=== PATIENT | male | born 1950 | race Caucasian/White ===

== ENCOUNTER → 2017-05-21 11:55 | Outpatient (CLI) | payer MEDICARE, OTHER, SELFPAY ==
[2017-05-21 13:21] LABS: Amphetamine Urine VISTA NEGATIVE (<1000 ng/mL); Barbiturate Urine VISTA NEGATIVE (< 200 ng/mL); Benzodiazepine Urine VISTA NEGATIVE (< 200 ng/mL); Cocaine Urine VISTA NEGATIVE (< 300 ng/mL); Ecstacy Urine VISTA NEGATIVE (< 500 ng/mL); Methadone Urine VISTA NEGATIVE (< 300 ng/mL); PCP Urine VISTA NEGATIVE (< 25 ng/mL); THC Urine VISTA NEGATIVE (< 50 ng/mL); Vista UDS pH Range 5
== END ==
PROVIDERS: Family Provider Family Medicine; PCP Family Medicine; Visit Provider Anesthesiology Pain Medicine
DX: F11.20 Opioid dependence, uncomplicated (principal)
CPT/HCPCS: 80307

== ENCOUNTER → 2017-06-13 06:53 | Outpatient (CLI) | payer MEDICARE, OTHER, SELFPAY ==
--- NOTE | 2017-06-13 11:54 | STRESSREP ---
Stress Test Report Pharmacologic myocardial perfusion stress test. 66-year-old man for preop cardiac evaluation. Medications aspirin prednisone rosuvastatin furosemide. Stress protocol: Resting EKG demonstrates normal sinus rhythm with a rate of 66 bpm normal intervals and noted resting blood pressure is 148/98 mmHg. 0.4 mg regadenoson was infused per usual protocol followed Intravenous saline flush injection. Continuous EKG monitoring was performed. The maximum heart rate attained was 90 bpm which was 58% of the maximum predicted heart rate the maximum workload attained was 1 metabolic equivalent. At rest there were no ST or T-wave changes noted suggest abnormal flow reserve at peak infusion no ST or T-wave changes were noted suggest abnormal flow reserve. The resting blood pressure was 148/98 final blood pressure was 142/84. Myocardial perfusion protocol. 14.1 mCi of technetium 99m sestamibi was injected at rest. 0.4 mg of regadenoson was infused per usual protocol. At peak infusion 44.7 mCi of technetium 99m sestamibi was injected. Stress images were obtained. Stress and rest images were reconstructed and compared in the short axis vertical long horizontal long axis. Gated images were also obtained. Perfusion SPECT analysis: Review of the stress images demonstrated normal cardiac silhouette size. The stress images demonstrate normal uptake of tracer noted in all areas of the myocardium the resting images similarly demonstrate normal uptake of tracer noted in all areas of the myocardium. No areas of reversibility are noted suggest ischemia no previous infarct is noted. Gated SPECT analysis: The gated ejection fraction is noted to be 83%. Conclusion: Normal pharmacologic myocardial perfusion stress test. Preserved ejection fraction.
== END ==
PROVIDERS: Family Provider Family Medicine; PCP Family Medicine; Visit Provider Internal Medicine Cardiovascular Disease
DX: Z01.810 Encounter for preprocedural cardiovascular examination (principal); I25.10 Atherosclerotic heart disease of native coronary artery without angina pectoris; I10 Essential (primary) hypertension
CPT/HCPCS: 78452; 93017; A9500; A4216; J2785

== ENCOUNTER → 2017-07-16 11:56 | Outpatient (CLI) | payer MEDICARE, OTHER, SELFPAY ==
[2017-07-16 12:58] LABS: Amphetamine Urine VISTA NEGATIVE (<1000 ng/mL); Barbiturate Urine VISTA NEGATIVE (< 200 ng/mL); Benzodiazepine Urine VISTA NEGATIVE (< 200 ng/mL); Cocaine Urine VISTA NEGATIVE (< 300 ng/mL); Ecstacy Urine VISTA NEGATIVE (< 500 ng/mL); Methadone Urine VISTA NEGATIVE (< 300 ng/mL); PCP Urine VISTA NEGATIVE (< 25 ng/mL); THC Urine VISTA NEGATIVE (< 50 ng/mL); Vista UDS pH Range 5
== END ==
PROVIDERS: Family Provider Family Medicine; PCP Family Medicine; Visit Provider Anesthesiology Pain Medicine
DX: F11.20 Opioid dependence, uncomplicated (principal)
CPT/HCPCS: 80307

== ENCOUNTER 2017-11-01 07:10 | Day surgery (SDC) | payer MEDICARE, OTHER, SELFPAY ==
[2017-11-01 07:24] VITALS: BP 116/67; PULSE 61; RESP 16; TEMP 36.6; O2SAT 95; BMI 32.1
[2017-11-01] MEDS: Oxymetazoline 0.05% 1 SPRAY SPRAY.BTL 15 SPRAY (09:20)
[2017-11-01] MEDS: Lidocaine 4% 50 ML Bottle (09:20)
--- NOTE | 2017-11-01 09:48 | OP.PCM_ITS ---
Problem List (1) Benign neoplasm of larynx Status: Acute (2) Other voice and resonance disorders Status: Chronic Report of Operation Date of Procedure: 11/01/17 Pre-Operative Diagnosis: Suspicious lesion of right vocal fold, hoarseness Post-Operative Diagnosis: Yeast infection of bilateral vocal fold Surgery/Procedure Performed:: Direct microlaryngoscopy, diagnostic (20050) Description of Surgical Findings:: Gasper is a 66-year-old male presents evaluation of 2 months of persistent hoarseness. Examination showed a white fungating mass arising the right true vocal fold and although yeast infection was considered given his use of inhaled steroids malignancy was also possibility and operative evaluation with possible biopsy was offered for definitive evaluation and he is eager to proceed. The risks, alternatives, potential benefits, and complications were discussed at length and any questions answered to the patient and/or caregiver's satisfaction. Witnessed informed consent was obtained in the office, and the patient and/or caregiver was agreeable to proceed. Procedure went as follows: The patient was identified in the preoperative holding and brought to the operating room he was placed under general anesthesia and it dated. When appropriate anesthesia was obtained, the head of bed was rotated and the patient prepped and draped in usual sterile fashion. A moistened gauze was then placed to protect the upper gums and the Dedo laryngoscope then introduced. Direct laryngoscopy was then carried out. The lateral posterior pharyngeal wall mucosa, tonsillar fossa, vallecula, piriforms , and epiglottis were noted to be normal in appearance. The true and false vocal folds were then brought into view where there is noted to be friable exudate along the bilateral vocal cords. The patient was then placed in suspension and the operative microscope brought into the field. Using a pledgets soaked in a 50-50 mixture of oxymetazoline and 4% topical lidocaine the true vocal folds were then topicalized. The friable areas were easily wiped away revealing a dry but otherwise normal-appearing mucosa underlying the area of suspected lesion. This was most consistent with yeast and given the absence of any soft tissue abnormality no biopsy was performed. The pledgets then removed and the patient taken out of suspension and returned to anesthesia where he was revived and extubated without complication having tolerated the procedure well. Type of Anesthesia:: General Anesthesiologist: Jorden Clarke Special Medications: none Specimen's removed: none Estimated Blood Loss (mL): 0 mL Fluids Replaced: 700 mL - Complications none - Admit VTE Documentation VTE Present on Admission: No VTE Mechan Device Prophylaxis: SCD's VTE Pharm Prophylaxis ordered?: No
--- NOTE | 2017-11-01 09:50 | DCINST_ITS ---
- Discharge Diagnoses Current Active Problems: Current Active and Chronic Problems Benign neoplasm of larynx (Acute) Other voice and resonance disorders (Chronic) You will use the following diet at home:: Regular Discharge Activity: Return to Normal Activity Call your doctor if you observe: Shortness of breath, Uncontrolled pain Allergies/Adverse Reactions: Allergies meropenem Allergy (Verified 10/29/17 14:01) Unknown tramadol Allergy (Verified 10/29/17 14:01) Unknown vancomycin Allergy (Verified 10/29/17 14:01) Unknown hydrocodone bitartrate [From Vicodin] Adverse Reaction (Verified 10/29/17 14:01) nightmares nightmares Medications to take at Discharge RX: predniSONE tablet 10 mg PO DAILY 08/10/16 RX: Metoprolol Tartrate [Lopressor (beta miky)] 12.5 mg PO BID 11/09/16 Budesonide/Formoterol Fumarate [Symbicort 160-4.5 Mcg Inhaler] 2 puff IH BID 07/23 Ferrous Sulfate [Iron] 65 mg PO DAILY 02/09/17 Omeprazole [Prilosec] 20 mg PO DAILY 02/09/17 RX: Leflunomide 20 mg PO DAILY 02/09/17 RX: Rosuvastatin Calcium 20 mg PO DAILY 02/09/17 Tiotropium [place] [Spiriva 18 MCG] 1 puff INHALATION DAILY 02/09/17 RX: Oxycodone HCl/Acetaminophen [Percocet 5-325] 1 tablet PO 4X/DAY 10/29/17 Primary Care Physician: Andres Petty MD [Primary Care Provider] - Test Results: Test results from this visit will be discussed in further detail at your follow- up appointment, if applicable. Please Follow Up With: Soy Jade MD When: 2 weeks
[2017-11-01 10:05] VITALS: BP 116/67; BP 139/71; PULSE 74; RESP 18; TEMP 36.6; O2SAT 98
[2017-11-01 10:15] VITALS: BP 116/67; BP 130/68; PULSE 68; RESP 16; O2SAT 97
[2017-11-01 10:30] VITALS: BP 116/67; BP 124/71; PULSE 66; RESP 16; O2SAT 95
[2017-11-01 10:35] VITALS: BP 116/67; BP 128/71; PULSE 62; RESP 16; TEMP 36.6; O2SAT 93
[2017-11-01 11:01] VITALS: BP 116/67
== END 2017-11-01 11:06 | disposition home or self-care (01) ==
LOC: SDC 07:10 → AC 07:11
PROVIDERS: Family Provider Family Medicine; PCP Family Medicine; Visit Provider Otolaryngology
PROC: 0CJS8ZZ Inspection of Larynx, Via Natural or Artificial Opening Endoscopic (ICD-10-PCS; CPT 31575; principal; 2017-11-01 08:45)
DX: B37.89 Other sites of candidiasis (principal); R49.0 Dysphonia; K21.9 Gastro-esophageal reflux disease without esophagitis; D64.9 Anemia, unspecified; E78.00 Pure hypercholesterolemia, unspecified; M06.9 Rheumatoid arthritis, unspecified; I12.9 Hypertensive chronic kidney disease with stage 1 through stage 4 chronic kidney disease, or unspecified chronic kidney disease; N18.3 Chronic kidney disease, stage 3 (moderate); Z95.5 Presence of coronary angioplasty implant and graft; J44.9 Chronic obstructive pulmonary disease, unspecified; J45.909 Unspecified asthma, uncomplicated; G47.30 Sleep apnea, unspecified; Z86.718 Personal history of other venous thrombosis and embolism; Z79.82 Long term (current) use of aspirin; Z79.899 Other long term (current) drug therapy; Z79.891 Long term (current) use of opiate analgesic; Z79.51 Long term (current) use of inhaled steroids; Z87.891 Personal history of nicotine dependence
CPT/HCPCS: 31526; J7120; J2405

== ENCOUNTER → 2018-02-24 08:16 | Outpatient (CLI) | payer MEDICARE, OTHER, SELFPAY ==
[2018-02-24 10:33] LABS: Absolute Lymphocyte Count 0.61 X10^3/ul (0.83-4.51); Absolute Neutrophil Count 4.1 X10^3/uL (2.0-7.7); Basophil# 0.01 X10^3/uL; Basophil% 0.2 % (0-1); Eosinophil# 0.02 X10^3/uL; Eosinophils% 0.3 % (0-5); Hematocrit 40.1 % (40-54); Hemoglobin 12.8 g/dl (13.0-16.5); Lymphocyte # 0.61 X10^3/ul (4.0); Lymphocyte % 10.6 % (19-41); Mean Corp Hgb Conc 31.9 g/gl (32-36); Mean Corpuscular Hgb 27.5 pg (27.0-32.0); Mean Corpuscular Volume 86.1 fL (80-94); Mean Platelet Vol. 9.5 fl (6.2-12.0); Monocyte# 0.97 X10^3/uL; Monocyte% 16.8 % (0-10); Neutrophil # 4.14 X10^3/uL (2.7-7.7); Neutrophil % 71.8 % (47-70); Platelet Count 261 K/mm3 (150-450); RBC Distribution Width CV 15.4 % (11.6-14.6); RBC Distribution Width SD 48.3 fl (35.1-43.9); Red Blood Count 4.66 M/mm3 (4.6-6.2); White Blood Count 5.8 K/mm3 (4.4-11.0)
[2018-02-24 10:34] LABS: POSITIVE COUNT NO; POSITIVE DIFFERENTIAL NO; POSITIVE MORPHOLOGY NO
[2018-02-24 11:09] LABS: ALB/GLOB Ratio 0.8 RATIO (0.9-2.4); AST(SGOT) 17 U/L (15-37); Alanine Aminotransfer ALT/SGPT 23 U/L (16-61); Albumin, Serum 2.9 g/dL (3.2-5.0); Alkaline Phosphatase 75 U/L (45-117); Anion Gap 11 (5-15); BUN 11 mg/dL (7-18); Calcium,Total 8.4 mg/dL (8.5-10.1); Chloride 107 mmol/L (98-107); Creatinine, Serum 1.37 mg/dL (0.70-1.30); EST Glomerular Filtration Rate 55 mL/min (>60); Est Glom Filt Rate - Afr Amer 67 mL/min (>60); Globulin 3.8 g/dL (2.2-4.2); Glucose 111 mg/dL (74-106); Potassium 3.8 mmol/L (3.5-5.1); Protein, Total 6.7 g/dL (6.4-8.2); Sodium Level 141 mmol/L (136-145)
== END ==
PROVIDERS: Family Provider Family Medicine; PCP Family Medicine; Referring Provider Internal Medicine Rheumatology; Visit Provider Internal Medicine Rheumatology
DX: M06.00 Rheumatoid arthritis without rheumatoid factor, unspecified site (principal); M17.0 Bilateral primary osteoarthritis of knee; J44.9 Chronic obstructive pulmonary disease, unspecified; I25.10 Atherosclerotic heart disease of native coronary artery without angina pectoris; I10 Essential (primary) hypertension; N40.0 Benign prostatic hyperplasia without lower urinary tract symptoms; G47.33 Obstructive sleep apnea (adult) (pediatric); G47.37 Central sleep apnea in conditions classified elsewhere; K57.31 Diverticulosis of large intestine without perforation or abscess with bleeding; E78.5 Hyperlipidemia, unspecified; F32.89 Other specified depressive episodes; Z79.899 Other long term (current) drug therapy
CPT/HCPCS: 36415; 80053; 85025

== ENCOUNTER → 2018-03-03 13:30 | Outpatient (CLI) | payer MEDICARE, OTHER, SELFPAY ==
[2018-03-03 17:09] LABS: Amphetamine Urine VISTA NEGATIVE (<1000 ng/mL); Barbiturate Urine VISTA NEGATIVE (< 200 ng/mL); Benzodiazepine Urine VISTA NEGATIVE (< 200 ng/mL); Cocaine Urine VISTA NEGATIVE (< 300 ng/mL); Ecstacy Urine VISTA NEGATIVE (< 500 ng/mL); Methadone Urine VISTA NEGATIVE (< 300 ng/mL); PCP Urine VISTA NEGATIVE (< 25 ng/mL); THC Urine VISTA NEGATIVE (< 50 ng/mL); Vista UDS pH Range 5
== END ==
PROVIDERS: Family Provider Family Medicine; PCP Family Medicine; Referring Provider Anesthesiology Pain Medicine; Visit Provider Anesthesiology Pain Medicine
DX: F11.20 Opioid dependence, uncomplicated (principal)
CPT/HCPCS: 80307

== ENCOUNTER → 2018-05-26 16:10 | Outpatient (CLI) | payer MEDICARE, OTHER, SELFPAY ==
[2018-05-26 17:47] LABS: Absolute Lymphocyte Count 0.59 X10^3/ul (0.83-4.51); Basophil# 0.01 X10^3/uL; Basophil% 0.2 % (0-1); Differential Indicated SCAN CRITERIA MET; Eosinophil# 0.12 X10^3/uL; Hematocrit 37.9 % (40-54); Hemoglobin 12.2 g/dl (13.0-16.5); Lymphocyte # 0.59 X10^3/ul (4.0); Lymphocyte % 9.6 % (19-41); Mean Corp Hgb Conc 32.2 g/gl (32-36); Mean Corpuscular Hgb 28.6 pg (27.0-32.0); Mean Platelet Vol. 9.3 fl (6.2-12.0); Monocyte# 1.42 X10^3/uL; Monocyte% 23.2 % (0-10); Neutrophil # 3.95 X10^3/uL (2.7-7.7); Neutrophil % 64.5 % (47-70); POSITIVE COUNT NO; POSITIVE DIFFERENTIAL YES; POSITIVE MORPHOLOGY NO; Platelet Count 272 K/mm3 (150-450); RBC Distribution Width CV 14.3 % (11.6-14.6); RBC Distribution Width SD 46.3 fl (35.1-43.9); Red Blood Count 4.26 M/mm3 (4.6-6.2); White Blood Count 6.1 K/mm3 (4.4-11.0)
[2018-05-26 17:52] LABS: ALB/GLOB Ratio 0.9 RATIO (0.9-2.4); AST(SGOT) 15 U/L (15-37); Alanine Aminotransfer ALT/SGPT 21 U/L (16-61); Albumin, Serum 3.1 g/dL (3.2-5.0); Alkaline Phosphatase 70 U/L (45-117); Anion Gap 9 (5-15); BUN 19 mg/dL (7-18); BUN/Creat Ratio 13.8 RATIO (10-20); Calcium,Total 8.8 mg/dL (8.5-10.1); Chloride 107 mmol/L (98-107); Creatinine, Serum 1.38 mg/dL (0.70-1.30); EST Glomerular Filtration Rate 55 mL/min (>60); Est Glom Filt Rate - Afr Amer 66 mL/min (>60); Globulin 3.5 g/dL (2.2-4.2); Glucose 96 mg/dL (74-106); Protein, Total 6.6 g/dL (6.4-8.2); Sodium Level 140 mmol/L (136-145)
== END ==
PROVIDERS: Family Provider Family Medicine; PCP Family Medicine; Referring Provider Internal Medicine Rheumatology; Visit Provider Internal Medicine Rheumatology
DX: M06.00 Rheumatoid arthritis without rheumatoid factor, unspecified site (principal); M17.0 Bilateral primary osteoarthritis of knee; J44.9 Chronic obstructive pulmonary disease, unspecified; I25.10 Atherosclerotic heart disease of native coronary artery without angina pectoris; I10 Essential (primary) hypertension; N40.0 Benign prostatic hyperplasia without lower urinary tract symptoms; G47.33 Obstructive sleep apnea (adult) (pediatric); G47.37 Central sleep apnea in conditions classified elsewhere; K57.31 Diverticulosis of large intestine without perforation or abscess with bleeding; E78.5 Hyperlipidemia, unspecified; F32.89 Other specified depressive episodes; Z79.899 Other long term (current) drug therapy
CPT/HCPCS: 36415; 80053; 85025

== ENCOUNTER 2018-06-14 18:01 | Emergency (ER) | payer MEDICARE, OTHER, SELFPAY ==
[2018-06-14 18:02] VITALS: BP 165/75; PULSE 82; RESP 18; TEMP 36.6; O2SAT 93; BMI 31.9
[2018-06-14 18:12] VITALS: O2SAT 97
[2018-06-14 18:32] VITALS: BP 134/77; PULSE 75; RESP 18; TEMP 36.6; O2SAT 97
--- NOTE | 2018-06-14 18:36 | RAD_ITS ---
STUDY: X-RAY CHEST REASON FOR EXAM: Male, 67 years old. Shortness of breath TECHNIQUE: Frontal and lateral views of the chest COMPARISON: 11/10/2016 FINDINGS: The lungs are hyperinflated, but. There are no pleural effusions. There is no pneumothorax. The heart is normal in size. The visualized osseous structures are within normal limits. RAD/Chest PA and Lateral IMPRESSION: No acute thoracic pathology. Electronically Signed: Kirill Pichardo, at 19:23 EST Tel , Service support ,
--- NOTE | 2018-06-14 18:36 | EKG12_ITS ---
Test Reason : SOB Blood Pressure : / mmHG Vent. Rate : 070 BPM Atrial Rate : 070 BPM P-R Int : 138 ms QRS Dur : 074 ms QT Int : 400 ms P-R-T Axes : 013 032 092 degrees QTc Int : 432 ms Normal sinus rhythm Nonspecific ST and T wave abnormality Abnormal ECG Confirmed by RY SMITH, DAMON ([id number]), assistant editor MARCELLA CABEZAS ([id number]) on 06/17/2018 8:36:58 AM Referred By: KAROLYN Confirmed By:DAMON RAZA MD
--- NOTE | 2018-06-14 18:38 | ED.DCSUM_ITS ---
- ER Visit Summary Date of Service: 06/14/18 Chief Complaint: Dyspnea History of Present Illness: The patient is a 67 M gradual dyspnea for 3 weeks, dry cough. No chest pains. Wears oxygen as needed history of COPD has been warrant more for 2 days. Intermittent wheezing. No leg swelling. History coronary disease, denies heart failure history. No nausea or vomiting. No urinary symptoms. DVT in the past with IVC filter. No recent travel or surgeries or immobilization. Remote tobacco. No history of diabetes. Physical Examination: General: Alert and oriented ?3, no acute distress HEENT: Normocephalic, atraumatic. Moist mucosa membranes Neck: supple, nontender. Cardiovascular: Regular rate and rhythm, no murmurs Respiratory: Normal breath sounds, symmetric, no distress Abdomen: Soft, nontender, nondistended Extremities: Nontender, no edema, pulses intact ?4 Neuro: no focal neurological deficits. Test Results: EKG sinus rate of [address] changes. T wave inversion in aVL and V2, old from November 2016. Chest x-ray negative. White count 7.7 hemoglobin 12.2 creatinine 1.37. Troponin negative. Emergency Department Course and Treatment: Patient continued on his oxygen no respiratory distress. DuoNeb treatment Solu-Medrol given workup was negative. Reevaluation had improved symptoms. Discussed with patient continue his oxygen at this time. He will be continued on steroids for 4 more days, has no sputum production, no indications for antibiotics. 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 Signs and symptoms discussed to return to ED. All questions were answered. Treatment Plan: [] Disposition: Discharge Impression: 1. COPD exacerbation 2. Chronic kidney disease This note was generated with [employer] dictation software. It may contain incorrect words, spelling, and punctuation that were not noted in review of the chart prior to signing ED Disposition - Plan for ED Patient: Disposition: Home or Assisted Living Diagnosis: Chronic renal disease, stage 3, moderately decreased glomerular filtration rate (GFR) between 30-59 mL/min/1.73 square meter, COPD exacerbation Instructions: ED COPD Flare Prescriptions: predniSONE tablet 60 mg PO DAILY #12 tablet Referrals: Andres Petty MD [Primary Care Provider] - 3-5 Days if not improving
[2018-06-14 18:49] LABS: Absolute Lymphocyte Count 0.98 X10^3/ul (0.83-4.51); Absolute Neutrophil Count 5.7 X10^3/uL (2.0-7.7); Basophil# 0.02 X10^3/uL; Basophil% 0.3 % (0-1); Eosinophil# 0.29 X10^3/uL; Eosinophils% 3.8 % (0-5); Hematocrit 39.3 % (40-54); Hemoglobin 12.2 g/dl (13.0-16.5); Lymphocyte # 0.98 X10^3/ul (4.0); Lymphocyte % 12.7 % (19-41); Mean Corpuscular Hgb 28.1 pg (27.0-32.0); Mean Corpuscular Volume 90.6 fL (80-94); Mean Platelet Vol. 9.4 fl (6.2-12.0); Monocyte# 0.68 X10^3/uL; Monocyte% 8.8 % (0-10); Platelet Count 249 K/mm3 (150-450); RBC Distribution Width CV 14.3 % (11.6-14.6); RBC Distribution Width SD 47.5 fl (35.1-43.9); Red Blood Count 4.34 M/mm3 (4.6-6.2); White Blood Count 7.7 K/mm3 (4.4-11.0)
[2018-06-14 18:50] LABS: POSITIVE COUNT NO; POSITIVE DIFFERENTIAL NO; POSITIVE MORPHOLOGY NO
[2018-06-14] MEDS: Ipratropium/Albuterol Sulfate 3 ML AMPUL.NEB INHALATION (19:03)
[2018-06-14 19:04] VITALS: BP 132/75; PULSE 72; RESP 13; RESP 18; TEMP 36.4; O2SAT 96
[2018-06-14 19:06] LABS: Anion Gap 9 (5-15); BUN 13 mg/dL (7-18); BUN/Creat Ratio 9.5 RATIO (10-20); Calcium,Total 8.3 mg/dL (8.5-10.1); Chloride 107 mmol/L (98-107); Creatinine, Serum 1.37 mg/dL (0.70-1.30); EST Glomerular Filtration Rate 55 mL/min (>60); Est Glom Filt Rate - Afr Amer 67 mL/min (>60); Estimated Creatinine Clearance 51.31 ml/min; Glucose 108 mg/dL (74-106); Sodium Level 140 mmol/L (136-145)
[2018-06-14] MEDS: MethylPREDNISolone 125 MG/2 ML Vial 60 MG IV (19:33)
[2018-06-14 20:46] VITALS: BP 140/75; PULSE 64; RESP 18; O2SAT 96
[2018-06-14 21:03] VITALS: BP 133/100; PULSE 71; RESP 19; O2SAT 95
== END 2018-06-14 21:07 | disposition home or self-care (01) ==
PROVIDERS: Emergency Provider Emergency Medicine; Family Provider Family Medicine; PCP Family Medicine
DX: J44.1 Chronic obstructive pulmonary disease with (acute) exacerbation (principal); N18.9 Chronic kidney disease, unspecified; I25.10 Atherosclerotic heart disease of native coronary artery without angina pectoris; K21.9 Gastro-esophageal reflux disease without esophagitis; E78.00 Pure hypercholesterolemia, unspecified; Z86.718 Personal history of other venous thrombosis and embolism; Z87.891 Personal history of nicotine dependence; Z79.82 Long term (current) use of aspirin; Z79.51 Long term (current) use of inhaled steroids; Z79.891 Long term (current) use of opiate analgesic; Z79.899 Other long term (current) drug therapy
CPT/HCPCS: 71046; 80048; 84484; 85025; 93005; 94640; 96374; 99284; A4216

== ENCOUNTER → 2018-08-25 | Outpatient (CLI) | payer MEDICARE, OTHER, SELFPAY ==
[2018-08-25 13:18] LABS: ALB/GLOB Ratio 0.8 RATIO (0.9-2.4); AST(SGOT) 13 U/L (15-37); Alanine Aminotransfer ALT/SGPT 21 U/L (16-61); Albumin, Serum 3.1 g/dL (3.2-5.0); Alkaline Phosphatase 66 U/L (45-117); Anion Gap 9 (5-15); BUN 18 mg/dL (7-18); BUN/Creat Ratio 12.3 RATIO (10-20); Calcium,Total 9.3 mg/dL (8.5-10.1); Chloride 104 mmol/L (98-107); Creatinine, Serum 1.46 mg/dL (0.70-1.30); EST Glomerular Filtration Rate 51 mL/min (>60); Est Glom Filt Rate - Afr Amer 62 mL/min (>60); Globulin 3.8 g/dL (2.2-4.2); Glucose 84 mg/dL (74-106); Potassium 4.7 mmol/L (3.5-5.1); Protein, Total 6.9 g/dL (6.4-8.2); Sodium Level 139 mmol/L (136-145)
[2018-08-25 14:23] LABS: Absolute Lymphocyte Count 0.43 X10^3/ul (0.83-4.51); Absolute Neutrophil Count 6.6 X10^3/uL (2.0-7.7); Basophil# 0.01 X10^3/uL; Basophil% 0.1 % (0-1); Eosinophil# 0.08 X10^3/uL; Hematocrit 42.3 % (40-54); Hemoglobin 13.3 g/dl (13.0-16.5); Lymphocyte # 0.43 X10^3/ul (4.0); Lymphocyte % 5.4 % (19-41); Mean Corp Hgb Conc 31.4 g/gl (32-36); Mean Corpuscular Hgb 27.1 pg (27.0-32.0); Mean Corpuscular Volume 86.2 fL (80-94); Mean Platelet Vol. 9.4 fl (6.2-12.0); Monocyte# 0.63 X10^3/uL; Monocyte% 7.9 % (0-10); Neutrophil # 6.58 X10^3/uL (2.7-7.7); Platelet Count 369 K/mm3 (150-450); RBC Distribution Width CV 15.1 % (11.6-14.6); RBC Distribution Width SD 47.5 fl (35.1-43.9); Red Blood Count 4.91 M/mm3 (4.6-6.2); White Blood Count 7.9 K/mm3 (4.4-11.0)
[2018-08-25 14:29] LABS: Differential Indicated SCAN CRITERIA MET; POSITIVE COUNT YES; POSITIVE DIFFERENTIAL YES; POSITIVE MORPHOLOGY YES
[2018-08-27 10:20] LABS: Pathologist Review Reviewed
== END | disposition home or self-care (01) ==
LOC: MTLAB 10:14
PROVIDERS: Family Provider Family Medicine; PCP Family Medicine; Referring Provider Internal Medicine Rheumatology; Visit Provider Internal Medicine Rheumatology
DX: M06.00 Rheumatoid arthritis without rheumatoid factor, unspecified site (principal); M17.0 Bilateral primary osteoarthritis of knee; M25.432 Effusion, left wrist; J44.9 Chronic obstructive pulmonary disease, unspecified; I25.10 Atherosclerotic heart disease of native coronary artery without angina pectoris; Z79.899 Other long term (current) drug therapy
CPT/HCPCS: 36415; 80053; 85025

== ENCOUNTER → 2018-10-15 | Outpatient (CLI) | payer MEDICARE, OTHER, SELFPAY ==
--- NOTE | 2018-10-15 16:06 | RAD_ITS ---
STUDY: X-RAY - PELVIS AND BILATERAL HIPS REASON FOR EXAM: Male, 67 years old. Hip pain TECHNIQUE: AP view of the pelvis.? 2 views of the right hip, and 2 views of the left hip were obtained. COMPARISON: None. FINDINGS: There is a non-specific bowel gas pattern. Normal visualized soft tissue structures. Normal bilateral iliac wings, sacroiliac joints and visualized sacrum. Normal bilateral superior and inferior pubic rami. Normal pubic symphysis. Normal bilateral ischial tuberosities. Normal visualized right femoral head. Mild acetabular spurring.. Normal right hip joint. Normal visualized left femoral head. Mild acetabular spurring. Normal left hip joint. RAD/Hips B/L min 2 views w/ Pelvis IMPRESSION: Minor degenerative changes of the hips. No evidence for acute fracture or other significant bony pathology Electronically Signed: Cain Sosa MD at 16:45 EDT , Service support ,
== END | disposition home or self-care (01) ==
LOC: RAD 16:04
PROVIDERS: Family Provider Family Medicine; PCP Family Medicine; Referring Provider Anesthesiology Pain Medicine; Visit Provider Anesthesiology Pain Medicine
DX: M25.551 Pain in right hip (principal); M25.552 Pain in left hip
CPT/HCPCS: 73521

== ENCOUNTER → 2018-11-26 | Outpatient (CLI) | payer MEDICARE, OTHER, SELFPAY ==
[2018-11-26 12:41] LABS: Absolute Lymphocyte Count 0.43 X10^3/uL (0.83-4.51); Absolute Neutrophil Count 3.9 X10^3/uL (2.0-7.7); Basophil# 0.03 X10^3/uL; Basophil% 0.6 % (0-1); Eosinophil# 0.07 X10^3/uL; Eosinophils% 1.3 % (0-5); Hematocrit 36.3 % (40-54); Hemoglobin 11.5 g/dL (13.0-16.5); Lymphocyte # 0.43 X10^3/ul (4.0); Lymphocyte % 8.3 % (19-41); Mean Corp Hgb Conc 31.7 g/dL (32-36); Mean Corpuscular Hgb 27.4 pg (27.0-32.0); Mean Corpuscular Volume 86.4 fL (80-94); Mean Platelet Vol. 9.4 fl (6.2-12.0); Monocyte# 0.76 X10^3/uL; Monocyte% 14.6 % (0-10); NRBC Flagged by Analyzer 0 % (0-5); Neutrophil # 3.87 X10^3/uL (2.7-7.7); Neutrophil % 74.6 % (47-70); POSITIVE DIFFERENTIAL YES; Platelet Count 290 K/mm3 (150-450); RBC Distribution Width SD 46.8 fl (35.1-43.9); White Blood Count 5.2 K/mm3 (4.4-11.0)
[2018-11-26 13:02] LABS: ALB/GLOB Ratio 0.9 RATIO (0.9-2.4); AST(SGOT) 16 U/L (15-37); Alanine Aminotransfer ALT/SGPT 15 U/L (16-61); Alkaline Phosphatase 61 U/L (45-117); Anion Gap 6 (5-15); BUN 15 mg/dL (7-18); BUN/Creat Ratio 10.4 RATIO (10-20); Chloride 103 mmol/L (98-107); Creatinine, Serum 1.44 mg/dL (0.70-1.30); EST Glomerular Filtration Rate 52 mL/min (>60); Est Glom Filt Rate - Afr Amer 63 mL/min (>60); Globulin 3.2 g/dL (2.2-4.2); Glucose 138 mg/dL (74-106); Potassium 4.1 mmol/L (3.5-5.1); Protein, Total 6.2 g/dL (6.4-8.2); Sodium Level 135 mmol/L (136-145)
[2018-11-26 13:25] LABS: Differential Indicated SCAN CRITERIA MET
[2018-11-26 13:26] LABS: Platelet Estimate ADEQUATE (ADEQ); Red Cell Morphology NORM C+C NORMAL (NORM C&C)
== END | disposition home or self-care (01) ==
PROVIDERS: Family Provider Family Medicine; PCP Family Medicine; Referring Provider Internal Medicine Rheumatology; Visit Provider Internal Medicine Rheumatology
DX: M06.00 Rheumatoid arthritis without rheumatoid factor, unspecified site (principal); M17.0 Bilateral primary osteoarthritis of knee; M25.432 Effusion, left wrist; J44.9 Chronic obstructive pulmonary disease, unspecified; I25.10 Atherosclerotic heart disease of native coronary artery without angina pectoris; I10 Essential (primary) hypertension; N40.0 Benign prostatic hyperplasia without lower urinary tract symptoms; G47.33 Obstructive sleep apnea (adult) (pediatric); G47.37 Central sleep apnea in conditions classified elsewhere; Z79.899 Other long term (current) drug therapy
CPT/HCPCS: 36415; 80053; 85025

== ENCOUNTER → 2018-12-16 | Outpatient (CLI) | payer MEDICARE, OTHER, SELFPAY ==
[2018-12-16 12:50] LABS: Amphetamine Urine VISTA NEGATIVE (<1000 ng/mL); Barbiturate Urine VISTA NEGATIVE (< 200 ng/mL); Benzodiazepine Urine VISTA NEGATIVE (< 200 ng/mL); Cocaine Urine VISTA NEGATIVE (< 300 ng/mL); Ecstacy Urine VISTA NEGATIVE (< 500 ng/mL); Methadone Urine VISTA NEGATIVE (< 300 ng/mL); PCP Urine VISTA NEGATIVE (< 25 ng/mL); THC Urine VISTA NEGATIVE (< 50 ng/mL); Vista UDS pH Range 6
== END | disposition home or self-care (01) ==
LOC: LAB 10:52
PROVIDERS: Family Provider Family Medicine; PCP Family Medicine; Referring Provider Anesthesiology Pain Medicine; Visit Provider Anesthesiology Pain Medicine
DX: F11.20 Opioid dependence, uncomplicated (principal)
CPT/HCPCS: 80307

== ENCOUNTER 2019-01-29 00:52 | Inpatient (IN) | payer MEDICARE, OTHER, SELFPAY ==
[2019-01-29] VITALS (30 sets, daily range): BP systolic 118–185; BP diastolic 63–103; PULSE 66–89; RESP 12–35; TEMP 36.2–36.7; O2SAT 94–99; BMI 33.0; BMI 31.8
--- NOTE | 2019-01-29 01:08 | EKG12_ITS ---
Test Reason : SOB Blood Pressure : / mmHG Vent. Rate : 082 BPM Atrial Rate : 082 BPM P-R Int : 172 ms QRS Dur : 074 ms QT Int : 338 ms P-R-T Axes : 048 041 094 degrees QTc Int : 394 ms Normal sinus rhythm Nonspecific ST and T wave abnormality Abnormal ECG Confirmed by ANANYA SMITH, MARYLOU ([id number]), telegraph editor MARCELLA CABEZAS ([id number]) on 01/30/2019 1:22:33 PM Referred By: CLIVE Confirmed By:NICOLE HARE MD
--- NOTE | 2019-01-29 01:08 | RAD_ITS ---
STUDY: X-RAY CHEST REASON FOR EXAM: Male, 68 years old. Chronic shortness of breath, history of COPD. TECHNIQUE: Single AP portable view of the chest. COMPARISON: 06/14/2018. FINDINGS: The lungs are slightly underexpanded with mild bilateral atelectasis, left more than right. Remainder of the lung angulo are clear. Possible minimal left-sided pleural effusion versus pleural thickening. Hypodensity involving the mid upper lung angulo which may indicate underlying COPD. Normal size heart. Normal mediastinum and jan. Normal visualized pulmonary arteries. There is atherosclerotic calcification of the aortic arch with tortuosity. There are diffuse degenerative changes of the visualized thoracic spine. There is degenerative osteoarthritis of the bilateral shoulders. There is no demonstrated abnormality of the visualized soft tissue structures of the upper abdomen. RAD/Chest 1 View (Portable) IMPRESSION: Bilateral basilar atelectasis, left more than right with possible mild left-sided pleural effusion versus pleural thickening. Underlying COPD. Electronically Signed: Renée Peguero MD at 1:31 EDT , Service support ,
[2019-01-29] MEDS: Albuterol 2.5 MG/3 ML VIAL.NEB. INHALATION (01:36)
[2019-01-29 01:37] LABS: Absolute Lymphocyte Count 0.23 X10^3/uL (0.83-4.51); Absolute Neutrophil Count 7.8 X10^3/uL (2.0-7.7); Basophil# 0.01 X10^3/uL; Basophil% 0.1 % (0-1); Hematocrit 37.8 % (40-54); Hemoglobin 12.2 g/dL (13.0-16.5); Lymphocyte # 0.23 X10^3/ul (4.0); Lymphocyte % 2.6 % (19-41); Mean Corp Hgb Conc 32.3 g/dL (32-36); Mean Corpuscular Hgb 27.9 pg (27.0-32.0); Mean Corpuscular Volume 86.3 fL (80-94); Mean Platelet Vol. 9.3 fl (6.2-12.0); Monocyte# 0.64 X10^3/uL; Monocyte% 7.3 % (0-10); NRBC Flagged by Analyzer 0 % (0-5); Neutrophil # 7.78 X10^3/uL (2.7-7.7); Neutrophil % 88.9 % (47-70); POSITIVE DIFFERENTIAL YES; Platelet Count 232 K/mm3 (150-450); RBC Distribution Width CV 14.2 % (11.6-14.6); RBC Distribution Width SD 44.9 fl (35.1-43.9); Red Blood Count 4.38 M/mm3 (4.6-6.2); White Blood Count 8.8 K/mm3 (4.4-11.0)
[2019-01-29 01:41] LABS: Prothrombin Time (Protime)PT. 12.8 SECONDS (11.7-14.9)
[2019-01-29 01:42] LABS: Partial Thromboplast Time 27.8 Seconds (24.1-36.2)
[2019-01-29] MEDS: MethylPREDNISolone 125 MG/2 ML Vial IV (01:44)
[2019-01-29 01:49] LABS: D-Dimer Quantitative (DVT/PE) 0.53 FEU/ug/m (0.27-0.49); Differential Indicated SCAN CRITERIA MET
[2019-01-29 01:50] LABS: Anion Gap 11 (5-15); BUN 14 mg/dL (7-18); BUN/Creat Ratio 12.3 RATIO (10-20); Calcium,Total 8.4 mg/dL (8.5-10.1); Chloride 94 mmol/L (98-107); Creatinine, Serum 1.14 mg/dL (0.70-1.30); EST Glomerular Filtration Rate 68 mL/min (>60); Est Glom Filt Rate - Afr Amer 82 mL/min (>60); Estimated Creatinine Clearance 64.92 ml/min; Glucose 113 mg/dL (74-106); Potassium 4.7 mmol/L (3.5-5.1); Sodium Level 124 mmol/L (136-145)
[2019-01-29] MEDS: fentaNYL 100 MCG/2 ML Ampul 50 MCG IV ×2 (01:55→03:25)
--- NOTE | 2019-01-29 01:59 | CT_ITS ---
STUDY: CTA CHEST REASON FOR EXAM: Male, 68 years old. Shortness of breath, elevated d-dimer. RADIATION DOSAGE (If Supplied By Facility): CTDIvol = ( 12.66 ) mGy, DLP = ( 581.01 ) mGycm TECHNIQUE: The examination was performed with the intravenous administration of IV Isovue 370 100ML. Post-processing of the angiographic images was performed, with multiplanar reformation and 3D reconstruction. Individualized dose optimization techniques were used for this CT. COMPARISON: 09/21/2015. FINDINGS: Normal enhancement of the main pulmonary artery and right and left pulmonary arteries. Normal enhancement of the bilateral peripheral pulmonary arteries. There is no demonstrated pulmonary embolism. There is atherosclerotic calcification of the aortic arch with tortuosity. There is no demonstrated aortic dissection. Normal heart and pericardium. Possible coronary artery calcifications seen. Small lymph nodes along the mediastinum, largest in the subcarinal region measuring 1.9 x 0.75 cm. Otherwise unremarkable mediastinum. Normal hilar regions. Normal visualized trachea and bronchi. The lungs are well expanded. There are multiple subtle ground groundglass opacities versus small nodules identified within the bilateral upper lung angulo, specifically axial image 173 and 196 as well as through the mid lower lung angulo, images 108 through 92. Subtle interstitial prominence with reticulonodular pattern seen suggestive of a nonspecific inflammatory process, metastatic nodules not excluded. Normal pleura. Normal chest wall structures. There are degenerative changes of thoracic spine. Upper abdomen reveals postoperative changes with clips and beam hardening artifact near pancreatic head. There is nonspecific bilateral perinephric stranding with only minimal portion of the bilateral upper kidneys in the [id number]. There is a minimal hiatal hernia. CT/CTA Chest W/WO Contrast IMPRESSION: Negative CTA chest examination, without a demonstrated pulmonary embolism or arterial dissection. Multilevel bilateral interstitial pneumonitis with him multilevel metastatic nodules not entirely excluded. Clinical correlation recommended with follow-up CT chest in 3 months documented to evaluate resolution. Electronically Signed: Renée Peguero MD at 3:14 EDT , Service support ,
--- NOTE | 2019-01-29 02:01 | ED.RN ---
Lab called with critical d-dimer of 0.53. Dr. Healy made aware.
--- NOTE | 2019-01-29 03:20 | ED.DCSUM_ITS ---
- ER Visit Summary Date of Service: 01/29/19 Chief Complaint: Shortness of breath History of Present Illness: The patient is a 68 M with shortness of breath since yesterday. It came on gradually. Symptoms were severe. Associated with wheezing. He has a history of COPD, obstructive sleep apnea, DVT, atrial fibrillation, anemia, GI bleed, chronic kidney disease, hypertension, hyperlipidemia, coronary disease. Patient denies fever, cough, sputum. Denies chest pain. Denies unilateral leg swelling. Denies any change in his leg swelling. Denies calf pain. Denies blood thinner use. He does drink regularly. Physical Examination: Blood pressure 185/103. Respiratory rate 35. Otherwise vitals unremarkable. Patient wearing BiPAP. Lungs are diminished in all angulo. Heart regular. Abdomen soft. Extremities show trace symmetric edema, nontender. Skin unremarkable. Test Results: EKG showed sinus rhythm at a rate of [address] and T wave changes. Heme globin 12.2. Sodium 124, chloride 94, CO2 19, glucose 113, coags normal, troponin normal, BNP 181, d-dimer 0.53. CTA showed no evidence of PE or dissection. He has findings consistent with pneumonitis but cannot exclude metastatic disease. Emergency Department Course and Treatment: Patient was continued on BiPAP. Treated with Solu-Medrol and albuterol. He was also treated with fentanyl for his chronic back pain. I suspect that this was a COPD exacerbation, but the patient has a prior history of DVT and also lower extremity edema. I checked the d-dimer and it was slightly elevated. Subsequent CTA showed no evidence of PE or dissection. He has some findings concerning for pneumonitis or metastatic disease. Patient informed me that he had a recent PET scan to evaluate his lungs. He has a family history of lung cancer. He does not have the results yet. Patient has a history of anemia, hemoglobin 12.2. Sodium is 124. He is a regular drinker. BNP was 181. I do not believe this is congestive heart failure. We attempted to take the patient off BiPAP, but he became tachypneic and short of breath. His BiPAP was replaced, and he is currently stable. He will need inpatient care. I contacted the hospitalist. Treatment Plan: As above Disposition: Admission Impression: 1. COPD 2. Acute respiratory failure This note was generated with [employer] software. It may contain incorrect words, spelling, and punctuation that were not noted in review of the chart prior to signing ED Disposition - Plan for ED Patient: Referrals: Andres Petty MD [Primary Care Provider] -
--- NOTE | 2019-01-29 03:31 | PCM.HP.STD ---
Problem List (1) COPD with acute exacerbation Status: Chronic (2) Benign neoplasm of larynx Status: Inactive (3) DVT (deep venous thrombosis) Status: Inactive Qualifiers: DVT location: lower extremity Affected thrombotic vein of extremity: femoral History of Present Illness Date of Admission: 01/29/19 Chief Complaint: shortness of breath The patient is a 68 year old M with a significant history of Obesity; COPD on home oxygen; CAD status post stent; hypertension; obstructive sleep apnea with CPAP and oxygen bleeding; and alcoholism who presented to emergency department with shortness of breath that started gradually on the day of presentation. Associated with his symptoms is wheezing. Patient was placed on CPAP by the paramedics. At the emergency department patient was placed on BiPAP. At the emergency department an attempt was made to take patient off BiPAP but patient became severely short of breath for which reason he was placed back on BiPAP. While at home, reportedly patient was so short of breath that he could not even walk to the bathroom. 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 Prado in the past....he is on inhalers CAD (coronary artery disease) (Chronic) Familial combined hyperlipidemia (Chronic) GERD (gastroesophageal reflux disease) (Chronic) HTN (hypertension) (Chronic) H/O immunosuppressive therapy (Chronic) Arava and prednisone which he states that he takes as needed Obesity (Chronic) Rheumatoid arthritis (Chronic) Sleep apnea (Chronic) does not wear the CPAP....says he does not need it Chronic respiratory failure (Chronic) he has oxygen but he doesn't always use it......says he doen't need it Non-compliance (Chronic) Chronic renal disease, stage 3, moderately decreased glomerular filtration rate (GFR) between 30-59 mL/min/1.73 square meter (Chronic) Peripheral neuropathy (Chronic) Chronic back pain (Chronic) Alcohol abuse (Chronic) 4-6 beers daily Allergies meropenem Allergy (Verified 06/14/18 18:02) Unknown tramadol Allergy (Verified 06/14/18 18:02) Unknown vancomycin Allergy (Verified 06/14/18 18:02) Unknown hydrocodone bitartrate [From Vicodin] Adverse Reaction (Verified 06/14/18 18:02) nightmares nightmares Home Medications: Ambulatory Orders Medication Instructions Recorded predniSONE tablet 5 mg PO DAILY 08/10/16 Metoprolol Tartrate [Lopressor 25 mg PO BID 11/09/16 (beta miky)] Budesonide/Formoterol Fumarate 2 puff IH BID 02/09/17 [Symbicort 160-4.5 Mcg Inhaler] Leflunomide 20 mg PO DAILY 02/09/17 Omeprazole [Prilosec] 20 mg PO DAILY 02/09/17 Rosuvastatin Calcium 20 mg PO DAILY 02/09/17 Tiotropium [place] [Spiriva 18 MCG] 1 puff INHALATION DAILY 02/09/17 Oxycodone HCl/Acetaminophen 1 tablet PO 4X/DAY 10/29/17 [Percocet 5-325] Ipratropium/Albuterol Sulfate 3 ml INHALATION Q4H PRN PRN #60 06/14/18 [Duoneb] ampul.neb Albuterol Sulfate [Albuterol 2 puff PO Q4H PRN PRN 01/29/19 Sulfate Hfa] Aspir 81 81 mg PO DAILY 01/29/19 Cholecalciferol (Vitamin D3) 50,000 units PO QWEEK 01/29/19 [Dialyvite Vitamin D3 Max] Ferrous Sulfate [Iron] 325 mg PO DAILY 01/29/19 Metformin HCl 500 mg PO BID 01/29/19 Nitroglycerin 0.4 mg SL PRN PRN 01/29/19 Surgical History: - - He has had 2 coronary stents in the past. Abdominal surgery for peptic ulcer disease. Psychiatric History: No pertinent psych hx Lives: Spouse/ Significant Other Smoking Status: Former smoker Alcohol: Heavy - *Family History Paternal History Items: Cancer - His brother had prostate cancer that went to his lungs. Also 3 of his auntS had cancer., - - The patient's father at the age of 82 with a history of myocardial infarction. Maternal History Items: - - Patient's mother is living, aged 86, and healthy. Review of Systems Constitutional: Denies: Chills, Fever, Weight Change HEENT: Denies: Head Aches, Sinus Congestion, Sinus Drainage Cardiovascular: Denies: Chest Pain, Palpitations Respiratory: Reports: Shortness of Breath, Wheezing. Denies: Cough, Sputum production Gastrointestinal: Denies: Abdominal Pain, Nausea, Vomiting Genitourinary: Denies: Dysuria Musculoskeletal: Denies: Joint Pain, Joint Tenderness Skin: Denies: Rash, Wounds Neurological: Denies: Numbness, Tingling, Focal weakness Psychiatric: Denies: Anxiety, Depression, Homicidal Ideations, Suicidal Ideations Hematologic/ Lymphatic: Denies: Easy Bruising, Easy Bleeding VTE Information - Inpt Only VTE Present on Admission: No VTE Mechan Device Prophylaxis: None VTE Pharm Prophylaxis ordered?: Yes - Physical Exam Vitals/I&O's: Vital Signs Temp Pulse Resp BP Pulse Ox 98.0 F 32 L 16 153/101 H 99 01/29/19 00:53 01/29/19 02:30 01/29/19 03:02 01/29/19 02:01 01/29/19 02:30 Oxygen Delivery Method Bi-pap Weight: 104.5 kg Body Mass Index (BMI) 33.0 General: Alert, Oriented x3, Cooperative HEENT: Atraumatic, PERRLA, EOMI, Normocephalic Neck: Supple, No JVD, Negative Carotid Bruits Lungs: Rhonchi - Right base, Short of Breath, Tachypneic, Using Accessory Muscles, Wheezes - Right base, - - Patient on BiPAP at the time of examination. Cardiovascular: Regular rate, No murmurs Abdomen: Bowel Sounds Present, Soft, Non Tender Extremities: No edema, Capillary Refill Less than 3 Seconds Skin: No rashes, No breakdown Musculoskeletal: No Tenderness to Palpation of Joints or Extremities Neurological: Cranial nerves II-XII grossly intact Psych/Mental Status: Normal Affect, Appropriate Laboratory Results 01/29/19 01:02: WBC 8.8, RBC 4.38 L, Hgb 12.2 L, Hct 37.8 L, MCV 86.3, MCH 27.9, MCHC 32.3, RDW Std Deviation 44.9 H, RDW Coeff of Nina 14.2, Plt Count 232, MPV 9.3, Immature Gran % (Auto) 1.100 H, Neut % (Auto) 88.9 H, Lymph % (Auto) 2.6 L, [place] % (Auto) 7.3, Eos % (Auto) 0.0, Baso % (Auto) 0.1, Absolute Neuts (auto) 7.8 H, Absolute Lymphs (auto) 0.23 L, Nucleated RBC % 0 01/29/19 01:02: PT 12.8, INR 1.0, APTT 27.8, D-Dimer Quant (PE/DVT) 0.53 H* 01/29/19 01:02: Sodium 124 L, Potassium 4.7, Chloride 94 L, Carbon Dioxide 19.0 L, Anion Gap 11, BUN 14, Creatinine 1.14, Estim Creat Clear Calc 64.92, Est GFR (MDRD) Af Amer 82, Est GFR (MDRD) Non-Af 68, BUN/Creatinine Ratio 12.3, Glucose 113 H, Calcium 8.4 L, Troponin I < 0.015 01/29/19 01:02: B-Natriuretic Peptide 181.0 H Assessment/Plan The patient is a 68 year old M with a significant history of COPD on home oxygen ; CAD status post stent; hypertension; obstructive sleep apnea with CPAP and oxygen bleeding; and alcoholism who presented to emergency department with shortness of breath and wheezing requiring CPAP and later BiPAP consistent with acute exacerbation of COPD. Acute exacerbation of COPD Impression of chest x-ray: Bilateral basilar atelectasis, left more than right with possible mild left-sided pleural effusion versus pleural thickening. Underlying COPD. Chest x-ray was independently reviewed. I agree with radiologist interpretation. D-dimer was elevated; but age-appropriate. CTPA showed multilevel bilateral interstitial pneumonitis. Multilevel metastatic nodules not entirely excluded. Follow-up CT was recommended in 3 months. Patient had an outpatient PET CT outpatient and is waiting for the results. Patient can follow-up outpatient. Scheduled DuoNeb Albuterol as needed Solu-Medrol was given at the Emergency department; continued. Of note patient takes home prednisone PRN for rheumatoid arthritis. He reports that it has been a long time since he took steroids. Patient with bandemia. Azithromycin ordered. Continue patient on BiPAP. Keep n.p.o. except meds. Monitor BMP and CBC Diabetes mellitus On presentation his blood glucose was within goal. Metformin held. Accu-Chek every 6 hours while n.p.o. Correction scale insulin ordered CAD status post stent Metoprolol continued. Of note patient has had extensive surgery following peptic ulcer disease with bleeding. Patient is not on aspirin. Alcoholism Patient drinks 6 packs of beer every other day. Will put on CIWA protocol with thiamine folic acid and PRN Ativan. Patient is adamant that he would not withdrawal. Hyponatremia Left secondary to beer potomania. Counselled Gentle normal saline hydration. Rheumatoid arthritis Leflunomide continued. DVT Prophylaxis Subcutaneous Lovenox. Code Visit Inpatient E&M: 68618 Init Hosp L3
--- NOTE | 2019-01-29 04:25 | CPS ---
Pt transported to [facility] from ER 2 on Bipap / 25%. Pt tolerated well.
[2019-01-29] MEDS: 0.9% Normal Saline 1,000 ML 50 ML IV (05:19)
[2019-01-29] MEDS: 0.9% Saline Lock 10 ML Syringe IV ×3 (05:19→14:29)
[2019-01-29] MEDS: oxyCODONE 5 MG Tablet PO ×5 (05:34→23:14)
[2019-01-29] MEDS: Acetaminophen 325 MG Tablet 650 MG PO ×4 (05:34→23:14)
[2019-01-29 06:56] LABS: Bedside Glucose 99 mg/dL (70-110)
[2019-01-29] MEDS: Ipratropium/Albuterol Sulfate 3 ML AMPUL.NEB INHALATION ×5 (06:58→22:51)
[2019-01-29] MEDS: Folic Acid 1 MG Tablet PO (08:52)
[2019-01-29] MEDS: Multivitamins,Ther W-Minerals Tablet 1 TABLET PO (08:52)
[2019-01-29] MEDS: Thiamine Hydrochloride 100 MG Tablet PO ×2 (08:52→17:06)
[2019-01-29] MEDS: Aspirin 81 MG TAB.CHEW PO (08:53)
[2019-01-29] MEDS: Ferrous Sulfate 325 MG Tablet PO (08:53)
[2019-01-29] MEDS: Enoxaparin 40 MG/0.4 ML Syringe SC (09:11)
[2019-01-29] MEDS: Metoprolol Tartrate 25 MG Tablet PO ×2 (09:11→21:47)
[2019-01-29] MEDS: Pantoprazole Sodium 20 MG Tablet PO (09:12)
--- NOTE | 2019-01-29 11:14 | CASEMGMT ---
RN CM Assessment Presentation: COPD exacerbation; ETOH abuse Intro role of CM and purpose of RN CM assessment to patient and his . Pt is awake, alert and able to participate in assessment. Demographics, PCP and Pharmacy verified. Pt voiced being very concerned re: recent CT scan and possible malignancy. states they did not have results yet but were hoping physicians here could get results for pt. Pt became tearful, states his brother just finished cancer treatment but is doing ok. Pt voiced he has had many health issues over past years and it is has been difficult as he cannot engage in activities he would like. is supportive in conversation and states she tries to help pt as much as possible. RN CM spent time allowing pt and to talk about above. Emotional support given and RN CM encouraged pt/ to discuss medical plans with physician when test results are completed. - Pt states oxygen qualification 3 min walking test performed a few months ago, but pt did not qualify for continuous home O2. Wears 2.5 bleed in to Cpap @ night. -Message left with social science analyst that pt may benefit from visit PCP: Dr. Petty Specialists: Imani Vallejo, pulmonology; Dr. Stanford Preferred Pharmacy: [facility] Insurance: [facility] Prescription Benefit: yes LNOK: Maria Elena Torres Living Arrangements: Lives independently in mobile home, 5 steps into home with hand rails. Pt independent in ADL, however does state he has considerable shortness of breath. Transportation: drives or can drive DME: no ambulatory DME use. Pt has walker, wheelchair if needed. Oxygen: pt has older concentrator which he owns. Cpap was through [place]. No portability and pt is not active with DME company. List of DME discussed and /pt prefer [facility] if home oxygen is needed. Discussed Home oxygen testing prior to dc and qualifications. Social Work: evaluate for Palliative Referral, ETOH use HHC: none Patient DC goals: home on discharge. DC PLAN: Anticipate Home on dc. Pt may need Home oxygen testing prior to dc. Sommer VELASQUEZN RN ACM
[2019-01-29 11:51] LABS: Bedside Glucose 148 mg/dL (70-110)
[2019-01-29] MEDS: Leflunomide 10 MG TABLET 20 MG PO (11:59)
--- NOTE | 2019-01-29 13:35 | PCM.PN.HOSP ---
Subjective: Seen and examined. Patient is short of breath, on BiPAP. Air entry is diminished. Wheezing present. As per the patient and she really got short of breath the day before admission although he has dyspnea on exertion for few days prior to that. Vitals/I&O's: Vital Signs Temp Pulse Resp BP Pulse Ox 97.6 F L 69 20 H 172/89 H 98 01/29/19 09:04 01/29/19 10:47 01/29/19 10:47 01/29/19 09:11 01/29/19 09:04 Oxygen Flow Rate (L/min) 3 Oxygen Delivery Method Nasal Cannula Weight: 243 lb 9.773 oz Body Mass Index (BMI) 31.8 Intake and Output for Last 24 Hours 01/27/19 01/28/19 01/29/19 23:59 23:59 23:59 Intake Total 367.25 / 367.25 Output Total 1800 / 1800 Balance -1432.75 / -1432.75 General: Alert, Oriented x3, Cooperative HEENT: Atraumatic, PERRLA, EOMI, Normocephalic Neck: Supple, No JVD, Negative Carotid Bruits Lungs: Diminished - Air entry severely diminished., Rhonchi, Short of Breath, Tachypneic, Wheezes Cardiovascular: Regular rate, Regular Rhythm, Normal S1, No murmurs Abdomen: Bowel Sounds Present, Soft, Non Tender, Non-Distended Extremities: No edema, Capillary Refill Less than 3 Seconds Skin: No rashes, No breakdown Musculoskeletal: No Tenderness to Palpation of Joints or Extremities, Arthritic Changes Neurological: Cranial nerves II-XII grossly intact Psych/Mental Status: Normal Affect, Appropriate Laboratory Results 01/29/19 01:02: WBC 8.8, RBC 4.38 L, Hgb 12.2 L, Hct 37.8 L, MCV 86.3, MCH 27.9, MCHC 32.3, RDW Std Deviation 44.9 H, RDW Coeff of Nina 14.2, Plt Count 232, MPV 9.3, Immature Gran % (Auto) 1.100 H, Neut % (Auto) 88.9 H, Lymph % (Auto) 2.6 L, [place] % (Auto) 7.3, Eos % (Auto) 0.0, Baso % (Auto) 0.1, Absolute Neuts (auto) 7.8 H, Absolute Lymphs (auto) 0.23 L, Nucleated RBC % 0 01/29/19 01:02: PT 12.8, INR 1.0, APTT 27.8, D-Dimer Quant (PE/DVT) 0.53 H* 01/29/19 01:02: Sodium 124 L, Potassium 4.7, Chloride 94 L, Carbon Dioxide 19.0 L, Anion Gap 11, BUN 14, Creatinine 1.14, Estim Creat Clear Calc 64.92, Est GFR (MDRD) Af Amer 82, Est GFR (MDRD) Non-Af 68, BUN/Creatinine Ratio 12.3, Glucose 113 H, Calcium 8.4 L, Troponin I < 0.015 01/29/19 01:02: B-Natriuretic Peptide 181.0 H 01/29/19 05:26: POC Glucose 99 01/29/19 11:42: POC Glucose 148 H Current Medications Acetaminophen (Tylenol) 650 mg PO Q4H PRN PRN PRN Reason: Pain Score 1-3/Temp > 100.7 F Last Admin: 01/29/19 09:40 Dose: 650 mg Documented by: Albuterol Sulfate (Ventolin Aerosols) 2.5 mg INHALATION Q2H PRN PRN PRN Reason: SOB/Wheezing Albuterol/Ipratropium (Duoneb) 3 ml INHALATION Q4H.RT [facility] Last Admin: 01/29/19 10:47 Dose: 3 ml Documented by: Aspirin (Aspirin, Baby) 81 mg PO DAILY@0800 [facility] Last Admin: 01/29/19 08:53 Dose: 81 mg Documented by: Atorvastatin Calcium (Lipitor) 40 mg PO QHS [facility] Dextrose (D50w Syringe) 0 gm IV X1 PRN; Protocol PRN Reason: Hypoglycemia Enoxaparin Sodium (Lovenox) 40 mg SC DAILY@1000 [facility] Last Admin: 01/29/19 09:11 Dose: 40 mg Documented by: Ferrous Sulfate (Ferrous Sulfate) 325 mg PO DAILYCM [facility] Last Admin: 01/29/19 08:53 Dose: 325 mg Documented by: Folic Acid (Folic Acid) 1 mg PO DAILY@0800 [facility] Stop: 01/31/19 08:01 Last Admin: 01/29/19 08:52 Dose: 1 mg Documented by: Glucagon () 1 mg IM .X1 PRN PRN Reason: Hypoglycemia Sodium Chloride () 1,000 mls @ 50 mls/hr IV .Q20H [facility] Stop: 01/30/19 00:09 Last Admin: 01/29/19 05:19 Dose: 50 mls/hr Documented by: Azithromycin 500 mg/ Dextrose 255 mls @ 250 mls/hr IV Q24 [facility] Stop: 01/31/19 11:02 Last Infusion: 01/29/19 06:21 Dose: Infused Documented by: Sodium Chloride () 250 mls @ 15 mls/hr IV .[id number] PRN PRN Reason: Saline Flush Last Infusion: 01/29/19 07:10 Dose: 0 mls/hr Documented by: Insulin Human Lispro (Humalog Kwikpen (Bkc)) 0 unit SC Q6 [facility]; Protocol Last Admin: 01/29/19 11:43 Dose: Not Given Documented by: Leflunomide (Leflunomide) 20 mg PO DAILY [facility] Last Admin: 01/29/19 11:59 Dose: 20 mg Documented by: Lorazepam (Ativan) 2 mg PO Q2H PRN PRN; Protocol PRN Reason: CIWA score > 8 but <15 Lorazepam (Ativan) 2 mg PO UD PRN; Protocol PRN Reason: CIWA score >/=15. Lorazepam (Ativan) 2 mg IV Q2H PRN PRN; Protocol PRN Reason: CIWA score > 8 but <15 Lorazepam (Ativan) 2 mg IV UD PRN; Protocol PRN Reason: CIWA score >/=15. Methylprednisolone (Solu-Medrol) 40 mg IV Q8 [facility] Last Admin: 01/29/19 09:12 Dose: 40 mg Documented by: Metoprolol Tartrate (Lopressor (Beta Whitney)) 25 mg PO BID [facility] Last Admin: 01/29/19 09:11 Dose: 25 mg Documented by: Multivitamins/Minerals (Multivitamin With Minerals) [facility] Last Admin: 01/29/19 08:52 Dose: 1 tablet Documented by: Ondansetron HCl (Zofran) 4 mg IV Q8H PRN PRN PRN Reason: NAUSEA/VOMITING Oxycodone HCl (Oxyir) 5 mg PO Q4H PRN PRN PRN Reason: moderate to severe pain Last Admin: 01/29/19 09:40 Dose: 5 mg Documented by: Pantoprazole Sodium (Protonix) 20 mg PO DAILY [facility] Last Admin: 01/29/19 09:12 Dose: 20 mg Documented by: Sodium Chloride () 10 - 40 ml IV UD PRN PRN Reason: SALINE FLUSH Last Admin: 01/29/19 09:12 Dose: 10 ml Documented by: Thiamine HCl (Vitamin B1) 100 mg PO BIDCM [facility] Stop: 01/31/19 17:01 Last Admin: 01/29/19 08:52 Dose: 100 mg Documented by: STROKE Vital Signs/Narrative: Vital Signs Pulse Resp 01/29/19 10:47 69 20 H Medical Necessity - Tobacco Use Smoking Status: Former smoker Assessment/Plan The patient is a 68 year old M with a significant history of COPD on home oxygen ; CAD status post stent; hypertension; obstructive sleep apnea with CPAP and oxygen bleeding; and alcoholism who presented to emergency department with shortness of breath and wheezing requiring CPAP and later BiPAP consistent with acute exacerbation of COPD. Acute exacerbation of COPD: Chest x-ray shows bilateral bibasilar atelectasis, left more than right with possible mid left-sided pleural effusion versus pleural thickening. CTPA showed multilevel bilateral interstitial pneumonitis. Multilevel metastatic nodules not entirely excluded. Follow-up CT was recommended in 3 months. Patient had an outpatient PET CT outpatient and is waiting for the results. Hypertension: Blood pressure is elevated 172/89. May be elevated from chronic alcohol use. Patient is just on metoprolol. Started on clonidine 0.2 mg twice daily. Diabetes mellitus On presentation his blood glucose was within goal. Metformin held. Accu-Chek essences and cover with Humalog sliding scale. CAD status post stent Metoprolol continued. Of note patient has had extensive surgery following peptic ulcer disease with bleeding. Patient is not on aspirin. Alcoholism Patient drinks 6 packs of beer every other day. on CIWA protocol with thiamine folic acid and PRN Ativan. Denies any previous history of alcohol withdrawal. Hyponatremia Left secondary to beer potomania. Counselled Gentle normal saline hydration. Rheumatoid arthritis Leflunomide continued. DVT Prophylaxis Subcutaneous Lovenox. Laboratory Results 01/29/19 01:02: WBC 8.8, RBC 4.38 L, Hgb 12.2 L, Hct 37.8 L, MCV 86.3, MCH 27.9, MCHC 32.3, RDW Std Deviation 44.9 H, RDW Coeff of Nina 14.2, Plt Count 232, MPV 9.3, Immature Gran % (Auto) 1.100 H, Neut % (Auto) 88.9 H, Lymph % (Auto) 2.6 L, [place] % (Auto) 7.3, Eos % (Auto) 0.0, Baso % (Auto) 0.1, Absolute Neuts (auto) 7.8 H, Absolute Lymphs (auto) 0.23 L, Nucleated RBC % 0 01/29/19 01:02: PT 12.8, INR 1.0, APTT 27.8, D-Dimer Quant (PE/DVT) 0.53 H* 1 01:02: Sodium 124 L, Potassium 4.7, Chloride 94 L, Carbon Dioxide 19.0 L, Anion Gap 11, BUN 14, Creatinine 1.14, Estim Creat Clear Calc 64.92, Est GFR (MDRD) Af Amer 82, Est GFR (MDRD) Non-Af 68, BUN/Creatinine Ratio 12.3, Glucose 113 H, Calcium 8.4 L, Troponin I < 0.015 01/29/19 01:02: B-Natriuretic Peptide 181.0 H 01/29/19 05:26: POC Glucose 99 01/29/19 11:42: POC Glucose 148 H Active Medications Acetaminophen (Tylenol) 650 mg PO Q4H PRN PRN PRN Reason: Pain Score 1-3/Temp > 100.7 F Last Admin: 01/29/19 09:40 Dose: 650 mg Documented by: Albuterol Sulfate (Ventolin Aerosols) 2.5 mg INHALATION Q2H PRN PRN PRN Reason: SOB/Wheezing Albuterol/Ipratropium (Duoneb) 3 ml INHALATION Q4H.RT [facility] Last Admin: 01/29/19 10:47 Dose: 3 ml Documented by: Aspirin (Aspirin, Baby) 81 mg PO DAILY@0800 [facility] Last Admin: 01/29/19 08:53 Dose: 81 mg Documented by: Atorvastatin Calcium (Lipitor) 40 mg PO QHS [facility] Dextrose (D50w Syringe) 0 gm IV X1 PRN; Protocol PRN Reason: Hypoglycemia Enoxaparin Sodium (Lovenox) 40 mg SC DAILY@1000 [facility] Last Admin: 01/29/19 09:11 Dose: 40 mg Documented by: Ferrous Sulfate (Ferrous Sulfate) 325 mg PO DAILYCM [facility] Last Admin: 01/29/19 08:53 Dose: 325 mg Documented by: Folic Acid (Folic Acid) 1 mg PO DAILY@0800 [facility] Stop: 01/31/19 08:01 Last Admin: 01/29/19 08:52 Dose: 1 mg Documented by: Glucagon () 1 mg IM .X1 PRN PRN Reason: Hypoglycemia Sodium Chloride () 1,000 mls @ 50 mls/hr IV .Q20H [facility] Stop: 01/30/19 00:09 Last Admin: 01/29/19 05:19 Dose: 50 mls/hr Documented by: Azithromycin 500 mg/ Dextrose 255 mls @ 250 mls/hr IV Q24 [facility] Stop: 01/31/19 11:02 Last Infusion: 01/29/19 06:21 Dose: Infused Documented by: Sodium Chloride () 250 mls @ 15 mls/hr IV .[id number] PRN PRN Reason: Saline Flush Last Infusion: 01/29/19 07:10 Dose: 0 mls/hr Documented by: Insulin Human Lispro (Humalog Kwikpen (Bkc)) 0 unit SC Q6 [facility]; Protocol Last Admin: 01/29/19 11:43 Dose: Not Given Documented by: Leflunomide (Leflunomide) 20 mg PO DAILY [facility] Last Admin: 01/29/19 11:59 Dose: 20 mg Documented by: Lorazepam (Ativan) 2 mg PO Q2H PRN PRN; Protocol PRN Reason: CIWA score > 8 but <15 Lorazepam (Ativan) 2 mg PO UD PRN; Protocol PRN Reason: CIWA score >/=15. Lorazepam (Ativan) 2 mg IV Q2H PRN PRN; Protocol PRN Reason: CIWA score > 8 but <15 Lorazepam (Ativan) 2 mg IV UD PRN; Protocol PRN Reason: CIWA score >/=15. Methylprednisolone (Solu-Medrol) 40 mg IV Q8 [facility] Last Admin: 01/29/19 09:12 Dose: 40 mg Documented by: Metoprolol Tartrate (Lopressor (Beta [place])) 25 mg PO BID [facility] Last Admin: 01/29/19 09:11 Dose: 25 mg Documented by: Multivitamins/Minerals (Multivitamin With Minerals) [facility] Last Admin: 01/29/19 08:52 Dose: 1 tablet Documented by: Ondansetron HCl (Zofran) 4 mg IV Q8H PRN PRN PRN Reason: NAUSEA/VOMITING Oxycodone HCl (Oxyir) 5 mg PO Q4H PRN PRN PRN Reason: moderate to severe pain Last Admin: 01/29/19 09:40 Dose: 5 mg Documented by: Pantoprazole Sodium (Protonix) 20 mg PO DAILY [facility] Last Admin: 01/29/19 09:12 Dose: 20 mg Documented by: Sodium Chloride () 10 - 40 ml IV UD PRN PRN Reason: SALINE FLUSH Last Admin: 01/29/19 09:12 Dose: 10 ml Documented by: Thiamine HCl (Vitamin B1) [facility] Stop: 01/31/19 17:01 Last Admin: 01/29/19 08:52 Dose: 100 mg Documented by:
[2019-01-29] MEDS: cloNIDine HCl 0.1 MG Tablet 0.2 MG PO (14:28)
[2019-01-29] MEDS: Losartan Potassium 50 MG Tablet PO (14:29)
[2019-01-29 17:50] LABS: Bedside Glucose 176 mg/dL (70-110)
[2019-01-29] MEDS: Atorvastatin Calcium 40 MG Tablet PO (21:46)
[2019-01-29 23:26] LABS: Bedside Glucose 138 mg/dL (70-110)
[2019-01-30] VITALS (19 sets, daily range): BP systolic 133–179; BP diastolic 83–97; PULSE 66–95; RESP 16–28; TEMP 36.3–36.7; O2SAT 94–97
[2019-01-30] MEDS: oxyCODONE 5 MG Tablet PO ×5 (03:52→21:33)
[2019-01-30] MEDS: Acetaminophen 325 MG Tablet 650 MG PO ×2 (03:53→12:52)
[2019-01-30] MEDS: Ipratropium/Albuterol Sulfate 3 ML AMPUL.NEB INHALATION ×5 (05:22→22:55)
[2019-01-30] MEDS: 0.9% Saline Lock 10 ML Syringe IV ×4 (05:49→21:33)
[2019-01-30] MEDS: LORazepam 1 MG Tablet 2 MG PO (06:08)
[2019-01-30 06:16] LABS: Bedside Glucose 161 mg/dL (70-110)
[2019-01-30 06:31] LABS: Absolute Lymphocyte Count 0.16 X10^3/uL (0.83-4.51); Absolute Neutrophil Count 9.5 X10^3/uL (2.0-7.7); Basophil# 0.01 X10^3/uL; Basophil% 0.1 % (0-1); Hemoglobin 11.7 g/dL (13.0-16.5); Lymphocyte # 0.16 X10^3/ul (4.0); Lymphocyte % 1.5 % (19-41); Mean Corp Hgb Conc 32.5 g/dL (32-36); Mean Corpuscular Hgb 28.3 pg (27.0-32.0); Mean Platelet Vol. 9.7 fl (6.2-12.0); Monocyte# 0.76 X10^3/uL; Monocyte% 7.3 % (0-10); NRBC Flagged by Analyzer 0 % (0-5); Neutrophil # 9.46 X10^3/uL (2.7-7.7); Neutrophil % 90.2 % (47-70); POSITIVE DIFFERENTIAL YES; POSITIVE MORPHOLOGY YES; Platelet Count 216 K/mm3 (150-450); RBC Distribution Width CV 14.9 % (11.6-14.6); RBC Distribution Width SD 47.5 fl (35.1-43.9); Red Blood Count 4.14 M/mm3 (4.6-6.2); White Blood Count 10.5 K/mm3 (4.4-11.0)
[2019-01-30 06:38] LABS: Differential Indicated SCAN CRITERIA MET
[2019-01-30 06:40] LABS: Anion Gap 7 (5-15); BUN 19 mg/dL (7-18); BUN/Creat Ratio 15.7 RATIO (10-20); Calcium,Total 8.4 mg/dL (8.5-10.1); Chloride 103 mmol/L (98-107); Creatinine, Serum 1.21 mg/dL (0.70-1.30); EST Glomerular Filtration Rate 64 mL/min (>60); Est Glom Filt Rate - Afr Amer 77 mL/min (>60); Estimated Creatinine Clearance 61.17 ml/min; Glucose 156 mg/dL (74-106); Potassium 4.4 mmol/L (3.5-5.1); Sodium Level 134 mmol/L (136-145)
[2019-01-30] MEDS: Multivitamins,Ther W-Minerals Tablet 1 TABLET PO (08:45)
[2019-01-30] MEDS: Folic Acid 1 MG Tablet PO (08:45)
[2019-01-30] MEDS: Ferrous Sulfate 325 MG Tablet PO (08:45)
[2019-01-30] MEDS: Thiamine Hydrochloride 100 MG Tablet PO ×2 (08:46→16:18)
[2019-01-30] MEDS: Pantoprazole Sodium 20 MG Tablet PO (08:46)
[2019-01-30] MEDS: Aspirin 81 MG TAB.CHEW PO (08:50)
[2019-01-30] MEDS: Losartan Potassium 50 MG Tablet PO ×2 (10:19→12:47)
[2019-01-30] MEDS: Metoprolol Tartrate 25 MG Tablet PO ×2 (10:20→21:33)
[2019-01-30] MEDS: Leflunomide 10 MG TABLET 20 MG PO (10:20)
[2019-01-30] MEDS: cloNIDine HCl 0.1 MG Tablet 0.2 MG PO ×2 (10:20→21:33)
[2019-01-30] MEDS: Enoxaparin 40 MG/0.4 ML Syringe SC (10:21)
--- NOTE | 2019-01-30 11:38 | CASEMGMT ---
SW met w/pt in room in regard to potential cancer diagnosis, alcohol use, and palliative care. present as well. SW spoke w/pt initially about what is going on medically. Pt and express that they are just waiting for answers. They explain it's difficult to wait, states they are getting used to this however. Support offered. SW spoke w/pt about palliative care. SW explained the program to pt and , gave brochure. Pt feels like he has too much going on right now to take this on, but took the information and will call if he would like additional information. SW also asked pt about alcohol use. Pt does not identify his alcohol consumption as an issue, nor does his . states that he has in the past and can stop drinking for weeks at a time. She states he has been drinking more due to the stress. SW asked about counseling, pt is not interested in any referrals at this time, for counseling or alcohol use. No further needs at this time. SW available should any further needs arise. LISETTE Cerrato
[2019-01-30 11:45] LABS: Bedside Glucose 206 mg/dL (70-110)
[2019-01-30] MEDS: Insulin Lispro 100 UNIT/ML INSULN.PEN SC ×2 (11:47→17:05)
--- NOTE | 2019-01-30 12:02 | PN_ITS ---
Subjective: Patient is off BiPAP. Still short of breath. Sitting on the chair. Blood pressure is elevated, systolic in 170s Vitals/I&O's: Vital Signs Temp Pulse Resp BP Pulse Ox 97.3 F L 84 18 174/97 H 97 01/30/19 10:17 01/30/19 10:40 01/30/19 10:40 01/30/19 10:20 01/30/19 10:17 Oxygen Flow Rate (L/min) 2.5 Oxygen Delivery Method Room Air Weight: 243 lb 9.773 oz Body Mass Index (BMI) 31.8 Intake and Output for Last 24 Hours 01/28/19 01/29/19 01/30/19 23:59 23:59 23:59 Intake Total 867.25 / 867.25 1050 / 1050 Output Total 2675 / 2675 500 / 500 Balance -1807.75 / -1807.75 550 / 550 General: Alert, Oriented x3, Cooperative HEENT: Atraumatic, PERRLA, EOMI, Normocephalic Neck: Supple, No JVD, Negative Carotid Bruits Lungs: Diminished - Air entry is diminished in all lung angulo but has improved, Rhonchi - Expiratory rhonchi present, Short of Breath Cardiovascular: Regular rate, Regular Rhythm, Normal S1, Normal S2, No murmurs Abdomen: Bowel Sounds Present, Soft, Non Tender, Non-Distended Extremities: No edema, Capillary Refill Less than 3 Seconds Skin: No rashes, No breakdown Musculoskeletal: No Tenderness to Palpation of Joints or Extremities, Arthritic Changes Neurological: Cranial nerves II-XII grossly intact, Deep Tendon Reflexes 2+/4 and Symmetrical, Neuro grossly intact, Motor Exam 5/5 strength throughout Psych/Mental Status: Normal Affect, Appropriate Laboratory Results 01/29/19 17:04: POC Glucose 176 H 01/29/19 23:18: POC Glucose 138 H 01/30/19 05:46: POC Glucose 161 H 01/30/19 05:55: WBC 10.5, RBC 4.14 L, Hgb 11.7 L, Hct 36.0 L, MCV 87.0, MCH 28.3, MCHC 32.5, RDW Std Deviation 47.5 H, RDW Coeff of Nina 14.9 H, Plt Count 216, MPV 9.7, Immature Gran % (Auto) 0.900, Neut % (Auto) 90.2 H, Lymph % (Auto) 1.5 L, [place] % (Auto) 7.3, Eos % (Auto) 0.0, Baso % (Auto) 0.1, Absolute Neuts (auto) 9.5 H, Absolute Lymphs (auto) 0.16 L, Nucleated RBC % 0 01/30/19 05:55: Sodium 134 L, Potassium 4.4, Chloride 103, Carbon Dioxide 24.0, Anion Gap 7, BUN 19 H, Creatinine 1.21, Estim Creat Clear Calc 61.17, Est GFR (MDRD) Af Amer 77, Est GFR (MDRD) Non-Af 64, BUN/Creatinine Ratio 15.7, Glucose 156 H, Calcium 8.4 L 01/30/19 11:40: POC Glucose 206 H Current Medications Acetaminophen (Tylenol) 650 mg PO Q4H PRN PRN PRN Reason: Pain Score 1-3/Temp > 100.7 F Last Admin: 01/30/19 03:53 Dose: 650 mg Documented by: Albuterol Sulfate (Ventolin Aerosols) 2.5 mg INHALATION Q2H PRN PRN PRN Reason: SOB/Wheezing Albuterol/Ipratropium (Duoneb) 3 ml INHALATION Q4H.RT [facility] Last Admin: 01/30/19 10:40 Dose: 3 ml Documented by: Aspirin (Aspirin, Baby) 81 mg PO DAILY@0800 [facility] Last Admin: 01/30/19 08:50 Dose: 81 mg Documented by: Atorvastatin Calcium (Lipitor) 40 mg PO QHS [facility] Last Admin: 01/29/19 21:46 Dose: 40 mg Documented by: Clonidine (Catapres) 0.2 mg PO BID [facility] Last Admin: 01/30/19 10:20 Dose: 0.2 mg Documented by: Dextrose (D50w Syringe) 0 gm IV X1 PRN; Protocol PRN Reason: Hypoglycemia Enoxaparin Sodium (Lovenox) 40 mg SC DAILY@1000 [facility] Last Admin: 01/30/19 10:21 Dose: 40 mg Documented by: Ferrous Sulfate (Ferrous Sulfate) 325 mg PO DAILYCM [facility] Last Admin: 01/30/19 08:45 Dose: 325 mg Documented by: Folic Acid (Folic Acid) 1 mg PO DAILY@0800 [facility] Stop: 01/31/19 08:01 Last Admin: 01/30/19 08:45 Dose: 1 mg Documented by: Glucagon () 1 mg IM .X1 PRN PRN Reason: Hypoglycemia Azithromycin 500 mg/ Dextrose 255 mls @ 250 mls/hr IV Q24 [facility] Stop: 01/31/19 11:02 Last Admin: 01/30/19 10:20 Dose: 250 mls/hr Documented by: Sodium Chloride () 250 mls @ 15 mls/hr IV .[id number] PRN PRN Reason: Saline Flush Last Infusion: 01/29/19 07:10 Dose: 0 mls/hr Documented by: Insulin Human Lispro (Humalog Kwikpen (Bkc)) 0 unit SC Q6 [facility]; Protocol Last Admin: 01/30/19 11:47 Dose: 1 u Documented by: Leflunomide (Leflunomide) 20 mg PO DAILY [facility] Last Admin: 01/30/19 10:20 Dose: 20 mg Documented by: Lorazepam (Ativan) 2 mg PO Q2H PRN PRN; Protocol PRN Reason: CIWA score > 8 but <15 Last Admin: 01/30/19 06:08 Dose: 2 mg Documented by: Lorazepam (Ativan) 2 mg PO UD PRN; Protocol PRN Reason: CIWA score >/=15. Lorazepam (Ativan) 2 mg IV Q2H PRN PRN; Protocol PRN Reason: CIWA score > 8 but <15 Lorazepam (Ativan) 2 mg IV UD PRN; Protocol PRN Reason: CIWA score >/=15. Losartan Potassium (Cozaar) 50 mg PO DAILY [facility] Last Admin: 01/30/19 10:19 Dose: 50 mg Documented by: Methylprednisolone (Solu-Medrol) 40 mg IV Q8 [facility] Last Admin: 01/30/19 05:48 Dose: 40 mg Documented by: Metoprolol Tartrate (Lopressor (Beta Whitney)) 25 mg PO BID [facility] Last Admin: 01/30/19 10:20 Dose: 25 mg Documented by: Multivitamins/Minerals (Multivitamin With Minerals) 1 tablet PO DAILYCM [facility] Last Admin: 01/30/19 08:45 Dose: 1 tablet Documented by: Ondansetron HCl (Zofran) 4 mg IV Q8H PRN PRN PRN Reason: NAUSEA/VOMITING Oxycodone HCl (Oxyir) 5 mg PO Q4H PRN PRN PRN Reason: moderate to severe pain Last Admin: 01/30/19 08:49 Dose: 5 mg Documented by: Pantoprazole Sodium (Protonix) 20 mg PO DAILY [facility] Last Admin: 01/30/19 08:46 Dose: 20 mg Documented by: Sodium Chloride () 10 - 40 ml IV UD PRN PRN Reason: SALINE FLUSH Last Admin: 01/30/19 05:49 Dose: 10 ml Documented by: Thiamine [facility] ([facility]itamin B[facility]) [facility] Stop: 01/31/19 17:01 Last Admin: 01/30/19 08:46 Dose: 100 mg Documented by: STROKE Vital Signs/Narrative: Vital Signs Temp Pulse Resp BP Pulse Ox 01/30/19 10:40 84 18 01/30/19 10:20 95 174/97 H 01/30/19 10:17 97.3 F L 95 20 H 174/97 H 97 01/30/19 09:30 20 H 97 Medical Necessity - Tobacco Use Smoking Status: Former smoker Assessment/Plan The patient is a 68 year old M with a significant history of COPD on home oxygen ; CAD status post stent; hypertension; obstructive sleep apnea with CPAP and oxygen bleeding; and alcoholism who presented to emergency department with shortness of breath and wheezing requiring CPAP and later BiPAP consistent with acute exacerbation of COPD. Acute exacerbation of COPD: Chest x-ray shows bilateral bibasilar atelectasis, left more than right with possible mid left-sided pleural effusion versus pleural thickening. Continue bronchodilator, IV Solu-Medrol, incentive spirometry and chest physiotherapy. On Zithromax. Lung nodules: CTPA showed multilevel bilateral interstitial pneumonitis. Multilevel metastatic nodules not entirely excluded. Follow-up CT was recommended in 3 months. Patient had an outpatient PET CT outpatient and is waiting for the results. Discussed with CHERRIE Diallo of Dr Moreno, [facility] product management manager. Patient had CT chest on 01/26/2019 as positive of right lower lobe nodule 13 mm nodule. He had CTPA chest was done to rule out PE therefore not optimal technique for lung nodule. Patient is scheduled for PET scan in [facility] and follow-up with product management manager. Hypertension: Blood pressure is elevated 172/89. Patient was started on losartan 50 mg daily yesterday which is increased 200 mg daily today. Hydralazine 10 mg IV every 6 hourly as needed for systolic blood pressure more than 180. May be elevated from chronic alcohol use. Patient is just on metoprolol. Started on clonidine 0.2 mg twice daily. Diabetes mellitus On presentation his blood glucose was within goal. Metformin held. Accu-Chek essences and cover with Humalog sliding scale. CAD status post stent Metoprolol continued. Of note patient has had extensive surgery following peptic ulcer disease with bleeding. Patient is not on aspirin. Alcoholism Patient drinks 6 packs of beer every other day. on CIWA protocol with thiamine folic acid and PRN Ativan. Denies any previous history of alcohol withdrawal. Hyponatremia Left secondary to beer potomania. Counselled Gentle normal saline hydration. Rheumatoid arthritis Leflunomide continued. DVT Prophylaxis Subcutaneous Lovenox. Overall patient respiratory status is improved. Patient can be discharged on tapering dose of prednisone and inhaler tomorrow Laboratory Results 01/29/19 17:04: POC Glucose 176 H 01/29/19 23:18: POC Glucose 138 H 01/30/19 05:46: POC Glucose 161 H 01/30/19 05:55: WBC 10.5, RBC 4.14 L, Hgb 11.7 L, Hct 36.0 L, MCV 87.0, MCH 28.3, MCHC 32.5, RDW Std Deviation 47.5 H, RDW Coeff of Nina 14.9 H, Plt Count 216, MPV 9.7, Immature Gran % (Auto) 0.900, Neut % (Auto) 90.2 H, Lymph % (Auto) 1.5 L, [place] % (Auto) 7.3, Eos % (Auto) 0.0, Baso % (Auto) 0.1, Absolute Neuts (auto) 9.5 H, Absolute Lymphs (auto) 0.16 L, Nucleated RBC % 0 01/30/19 05:55: Sodium 134 L, Potassium 4.4, Chloride 103, Carbon Dioxide 24.0, Anion Gap 7, BUN 19 H, Creatinine 1.21, Estim Creat Clear Calc 61.17, Est GFR (MDRD) Af Amer 77, Est GFR (MDRD) Non-Af 64, BUN/Creatinine Ratio 15.7, Glucose 156 H, Calcium 8.4 L 01/30/19 11:40: POC Glucose 206 H Code Visit Inpatient E&M: 35432 Subs Hosp L2
[2019-01-30 18:11] LABS: Bedside Glucose 164 mg/dL (70-110)
[2019-01-30] MEDS: Atorvastatin Calcium 40 MG Tablet PO (21:33)
[2019-01-30 21:50] LABS: Bedside Glucose 142 mg/dL (70-110)
[2019-01-31] VITALS (10 sets, daily range): BP systolic 146–177; BP diastolic 85–92; PULSE 66–94; RESP 14–18; TEMP 36.4–37.4; O2SAT 93–96
[2019-01-31] MEDS: oxyCODONE 5 MG Tablet PO ×3 (01:38→10:40)
[2019-01-31] MEDS: Acetaminophen 325 MG Tablet 650 MG PO ×3 (01:38→10:40)
[2019-01-31] MEDS: Ipratropium/Albuterol Sulfate 3 ML AMPUL.NEB INHALATION ×2 (05:39→10:48)
--- NOTE | 2019-01-31 05:41 | CPS ---
pt declined use of bipap/cpap last night.
[2019-01-31] MEDS: 0.9% Saline Lock 10 ML Syringe IV ×2 (06:40→09:43)
[2019-01-31 06:51] LABS: Bedside Glucose 145 mg/dL (70-110)
[2019-01-31] MEDS: Aspirin 81 MG TAB.CHEW PO (08:13)
[2019-01-31] MEDS: Ferrous Sulfate 325 MG Tablet PO (08:13)
[2019-01-31] MEDS: Multivitamins,Ther W-Minerals Tablet 1 TABLET PO (08:14)
[2019-01-31] MEDS: Thiamine Hydrochloride 100 MG Tablet PO (08:14)
[2019-01-31] MEDS: Folic Acid 1 MG Tablet PO (08:14)
[2019-01-31] MEDS: cloNIDine HCl 0.1 MG Tablet 0.2 MG PO (08:14)
[2019-01-31] MEDS: Losartan Potassium 100 MG Tablet PO (08:15)
[2019-01-31] MEDS: Pantoprazole Sodium 20 MG Tablet PO (08:16)
[2019-01-31] MEDS: Metoprolol Tartrate 25 MG Tablet PO (08:16)
[2019-01-31] MEDS: Leflunomide 10 MG TABLET 20 MG PO (08:17)
[2019-01-31] MEDS: Enoxaparin 40 MG/0.4 ML Syringe SC (08:17)
[2019-01-31] MEDS: Fluticasone 0.05% 1 SPRAY NASAL.SRY 2 SPRAY NASAL (09:43)
[2019-01-31] MEDS: Insulin Lispro 100 UNIT/ML INSULN.PEN SC (10:39)
[2019-01-31 10:46] LABS: Bedside Glucose 241 mg/dL (70-110)
--- NOTE | 2019-01-31 12:15 | PCM.DC ---
- Discharge Diagnoses Current Active Problems: Current Active and Chronic Problems COPD with acute exacerbation (Chronic) You will use the following diet at home:: Calorie/Carbohydrate Controlled (specify 1200, 1400, etc) - no added sugar Your food should be the consistency of: Regular Your liquids should be the consistency of: Regular/Thin Discharge Activity: Return to Normal Activity Allergies/Adverse Reactions: Allergies meropenem Allergy (Verified 06/14/18 18:02) Unknown tramadol Allergy (Verified 06/14/18 18:02) Unknown vancomycin Allergy (Verified 06/14/18 18:02) Unknown hydrocodone bitartrate [From Vicodin] Adverse Reaction (Verified 06/14/18 18:02) nightmares nightmares Medications to take at Discharge predniSONE tablet 7.5 mg PO BID 08/10/16 Metoprolol Tartrate [Lopressor (beta miky)] 12.5 mg PO BID 11/09/16 Leflunomide 20 mg PO DAILY 02/09/17 Omeprazole [Prilosec] 20 mg PO DAILY 02/09/17 Rosuvastatin Calcium 20 mg PO QHS 02/09/17 Oxycodone HCl/Acetaminophen [Percocet 5-325] 1 tablet PO 4X/DAY 10/29/17 Ipratropium/Albuterol Sulfate [Duoneb] 3 ml INHALATION Q4H PRN PRN #60 ampul.neb 06/14/18 Albuterol Sulfate [Albuterol Sulfate Hfa] 2 puff PO Q4H PRN PRN 01/29/19 Aspir 81 81 mg PO DAILY 01/29/19 Ferrous Sulfate [Iron] 325 mg PO DAILY 01/29/19 Metformin HCl 500 mg PO BID 01/29/19 Nitroglycerin 0.4 mg SL PRN PRN 01/29/19 Clonidine HCl [Catapres] 0.1 mg PO BID #60 tab 01/31/19 Fluticasone 0.05% [Flonase Nasal [place]] 2 spray NASAL DAILY nasal.sry 01/31/19 Hydrochlorothiazide 12.5 mg PO DAILY #30 tab 01/31/19 Losartan Potassium [Cozaar] 100 mg PO DAILY #30 tab 01/31/19 Prednisone 10 mg PO UD #30 tab 01/31/19 The following prescriptions were given: Clonidine HCl [Catapres] 0.1 mg PO BID #60 tab Transmission Status: Pending to [facility] Losartan Potassium [Cozaar] 100 mg PO DAILY #30 tab Transmission Status: Pending to [facility] Hydrochlorothiazide 12.5 mg PO DAILY #30 tab Transmission Status: Pending to [facility] Prednisone 10 mg PO UD #30 tab Prescription Printed Primary Care Physician: Andres Petty MD [Primary Care Provider] - Please follow up with your Primary Care Physician in: within two weeks Test Results: Test results from this visit will be discussed in further detail at your follow-up appointment, if applicable.
--- NOTE | 2019-01-31 16:01 | DS.PCM_ITS ---
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 Prado in the past....he is on inhalers CAD (coronary artery disease) (Chronic) Familial combined hyperlipidemia (Chronic) GERD (gastroesophageal reflux disease) (Chronic) HTN (hypertension) (Chronic) H/O immunosuppressive therapy (Chronic) Arava and prednisone which he states that he takes as needed Obesity (Chronic) Rheumatoid arthritis (Chronic) Sleep apnea (Chronic) does not wear the CPAP....says he does not need it Chronic respiratory failure (Chronic) he has oxygen but he doesn't always use it......says he doen't need it Non-compliance (Chronic) Chronic renal disease, stage 3, moderately decreased glomerular filtration rate (GFR) between 30-59 mL/min/1.73 square meter (Chronic) Peripheral neuropathy (Chronic) Chronic back pain (Chronic) Alcohol abuse (Chronic) 4-6 beers daily Hospital Course and Treatment Operations: None Procedures: None Summary of Care Provided: The patient is a 68 year old M was seen in the emergency room at [facility] with chief complaint of shortness of breath. Work-up in the emergency room revealed the patient to have elevated blood pressure, labs obtained showed a sodium of 124, beta natruretic peptide was 181, white blood cell count was unremarkable and hemoglobin was 12.2. CTA of the chest showed no evidence of PE or dissection. Multiple groundglass opacities versus small nodules were noted within the bilateral upper lung angulo. Patient was given IV Solu-Medrol and aerosol treatments, patient initially was on BiPAP in the emergency room but this was weaned off and it was felt the patient would benefit from inpatient care for exacerbation of COPD. Patient was admitted to PCU, IV Solu-Medrol was continued, blood pressure medication was adjusted due to his hypertension. Patient was weaned off oxygen. On 01/31/2019, patient was seen and examined: On examination he appeared in good health and spirits. Vital signs as documented. Skin warm and dry and without overt rashes. Neck without JVD. Lungs breath sounds were distant bilaterally, scattered expiratory wheezes were noted bilaterally.. Heart exam notable for regular rhythm, normal sounds and absence of murmurs, rubs or gallops. Abdomen unremarkable and without evidence of organomegaly, masses, or abdominal aortic enlargement. Extremities nonedematous. Neuro: Cranial nerves II through XII are grossly intact, no focal motor deficits were noted, sensation to light touch and pinprick intact. Psych: Patient is alert and oriented x3, he does not appear anxious or depressed On 01/31/2019, patient was seen and examined felt to be in stable condition for discharge home. - Physical Exam Vitals/I&O's: Vital Signs Temp Pulse Resp BP Pulse Ox 97.5 F L 66 16 146/87 H 94 01/31/19 11:18 01/31/19 11:18 01/31/19 11:18 01/31/19 11:18 01/31/19 11:18 Oxygen Flow Rate (L/min) 3 Oxygen Delivery Method Room Air Weight: 110.5 kg Body Mass Index (BMI) 31.8 Intake and Output for Last 24 Hours 01/29/19 01/30/19 01/31/19 23:59 23:59 23:59 Intake Total 867.25 / 867.25 2145 / 2145 1299.17 / 1299.17 Output Total 2675 / 2675 700 / 700 400 / 400 Balance -1807.75 / -1807.75 1445 / 1445 899.17 / 899.17 Microbiology Past 72 Hours 01/30/19 13:24 Mucosa - Nasopharyngeal Respiratory Panel (PCR) - Final Laboratory Results 01/30/19 17:03: POC Glucose 164 H 01/30/19 21:42: POC Glucose 142 H 01/31/19 06:37: POC Glucose 145 H 01/31/19 10:38: POC Glucose 241 H Discharge Activity: Return to Normal Activity Home Medications: Medications to take at Discharge predniSONE tablet 7.5 mg PO BID 08/10/16 Metoprolol Tartrate [Lopressor (beta miky)] 12.5 mg PO BID 11/09/16 Leflunomide 20 mg PO DAILY 02/09/17 Omeprazole [Prilosec] 20 mg PO DAILY 02/09/17 Rosuvastatin Calcium 20 mg PO QHS 02/09/17 Oxycodone HCl/Acetaminophen [Percocet 5-325] 1 tablet PO 4X/DAY 10/29/17 Ipratropium/Albuterol Sulfate [Duoneb] 3 ml INHALATION Q4H PRN PRN #60 ampul.neb 06/14/18 Albuterol Sulfate [Albuterol Sulfate Hfa] 2 puff PO Q4H PRN PRN 01/29/19 Aspir 81 81 mg PO DAILY 01/29/19 Ferrous Sulfate [Iron] 325 mg PO DAILY 01/29/19 Metformin HCl 500 mg PO BID 01/29/19 Nitroglycerin 0.4 mg SL PRN PRN 01/29/19 Clonidine HCl [Catapres] 0.1 mg PO BID #60 tab 01/31/19 Fluticasone 0.05% [Flonase Nasal [place]] 2 spray NASAL DAILY nasal.sry 01/31/19 Hydrochlorothiazide 12.5 mg PO DAILY #30 tab 01/31/19 Losartan Potassium [Cozaar] 100 mg PO DAILY #30 tab 01/31/19 Prednisone 10 mg PO UD #30 tab 01/31/19 Following Prescrptions Were Given to Patient: Clonidine HCl [Catapres] 0.1 mg PO BID #60 tab Transmission Status: Received by [facility] Losartan Potassium [Cozaar] 100 mg PO DAILY #30 tab Transmission Status: Received by [facility] Hydrochlorothiazide 12.5 mg PO DAILY #30 tab Transmission Status: Received by [facility] Prednisone 10 mg PO UD #30 tab Prescription Printed Primary Care Physician: Andres Petty MD [Primary Care Provider] - Please follow up with your Primary Care Physician in: within two weeks Please Follow Up With: Andres Petty MD Disposition: Home Minutes spent on discharge:: 32 Patient Condition:: Stable Medical Necessity - Tobacco Use Smoking Status: Former smoker Meaningful Use Info Meaningful Use Diagnoses (Choose all that apply): None applicable Code Visit Inpatient E&M: 18457 Disch Hosp
--- NOTE | 2019-02-02 14:21 | CASEMGMT ---
Case Management DC F/u Call: DC Date: 01/31/19 DC Diagnosis: DC Disposition: Lace/Strata: 01/08 Called patient cell phone listed on demographics, answered, introduced self and role. Patient states that he is doing better. Confirmed picked up his medication and states that one of his medications was increased and will give him the shakes and states that he feels like he is taking too many medications and does not want to take this many medications- this telegraphic typewriter operator inquired about f/u with his PCP and patient states that his PCP does walk in and he plans to go within a week. CM encouraged patient to f/u as soon as possible to discuss his medications and a plan. Denies any issues/concerns or questions with [facility], f/u or any further regarding medications. Does not have any suggestions for improving care at [facility] and states that care at [facility] was good. This telegraphic typewriter operator thanked patient for choosing his care here at [facility] and ended phone conversation. James Workman RNCM
== END 2019-01-31 12:46 | disposition home or self-care (01) | DRG 190 ==
LOC: ED 02:27 → PCU 03:51
PROVIDERS: Internal Medicine; Admitting Provider Hospitalist; Emergency Provider Emergency Medicine; Family Provider Family Medicine; PCP Family Medicine; Visit Provider Internal Medicine
DX: J44.1 Chronic obstructive pulmonary disease with (acute) exacerbation (principal); J96.01 Acute respiratory failure with hypoxia; J96.21 Acute and chronic respiratory failure with hypoxia; E87.1 Hypo-osmolality and hyponatremia; I25.10 Atherosclerotic heart disease of native coronary artery without angina pectoris; Z99.81 Dependence on supplemental oxygen; M06.9 Rheumatoid arthritis, unspecified; G89.29 Other chronic pain; M54.5 Low back pain; K21.9 Gastro-esophageal reflux disease without esophagitis; E66.9 Obesity, unspecified; I10 Essential (primary) hypertension; E11.9 Type 2 diabetes mellitus without complications; F10.10 Alcohol abuse, uncomplicated; G62.9 Polyneuropathy, unspecified; E78.49 Other hyperlipidemia; Z68.31 Body mass index [BMI] 31.0-31.9, adult; Z87.891 Personal history of nicotine dependence; Z79.899 Other long term (current) drug therapy; Z95.5 Presence of coronary angioplasty implant and graft; Z79.84 Long term (current) use of oral hypoglycemic drugs
CPT/HCPCS: 36415; 71045; 71275; 80048; 82962; 83880; 84484; 85025; 85379; 85610; 85730; 87633; 93005; 94002; 94640; 94660; 97162; 99285; J7030; J7050; Q9967; A4216

== ENCOUNTER → 2019-02-13 | Outpatient (CLI) | payer MEDICARE, OTHER, SELFPAY ==
[2019-01-29 04:30] VITALS: BMI 31.8
--- NOTE | 2019-02-13 15:11 | VDLE_ITS ---
Reason For Study: Edema RIGHT LEFT GSV is normal. GSV is normal. CFV is compressible, spontaneous, phasic, CFV is compressible, spontaneous, phasic, competent and demonstrates normal competent, and demonstrates normal augmentation. augmentation. Rt SFJ is partially compressible with bright FV is compressible, spontaneous, phasic, hyperechoic echoes consistemnt with chronic competent and demonstrates normal DVT. augmentation. FV is compressible, spontaneous, phasic, POP V is compressible, spontaneous, phasic, competent and demonstrates normal competent and demonstrates normal augmentation. augmentation. POP V is compressible, spontaneous, phasic, T/P Trunk is compressible. competent and demonstrates normal PTV is compressible. augmentation. LT PerV is compressible. T/P Trunk is compressible. PTV is compressible. RT PerV is compressible. Procedure Exam performed in department. A preliminary report was called and/or faxed to [facility]. Interpretation Summary There is no evidence of left lower extremity deep vein thrombosis. Chronic deep venous thrombosis right saphenofemoral junction Bilateral great saphenous veins are patent and compressible Findings are generally improved from a remote examination of November 09, 2016 Ordering Physician: Andres Petty Referring Physician: Andres Petty Performed By: Lacey Rodriges RVT
== END | disposition home or self-care (01) ==
PROVIDERS: Family Provider Family Medicine; PCP Family Medicine; Referring Provider Family Medicine; Visit Provider Family Medicine
DX: R60.0 Localized edema (principal)
CPT/HCPCS: 93970

== ENCOUNTER → 2019-02-18 | Outpatient (CLI) | payer MEDICARE, OTHER, SELFPAY ==
[2019-01-29 04:30] VITALS: BMI 31.8
[2019-02-18 10:32] LABS: Amphetamine Urine VISTA NEGATIVE (<1000 ng/mL); Barbiturate Urine VISTA NEGATIVE (< 200 ng/mL); Benzodiazepine Urine VISTA NEGATIVE (< 200 ng/mL); Cocaine Urine VISTA NEGATIVE (< 300 ng/mL); Ecstacy Urine VISTA NEGATIVE (< 500 ng/mL); Methadone Urine VISTA NEGATIVE (< 300 ng/mL); PCP Urine VISTA NEGATIVE (< 25 ng/mL); THC Urine VISTA NEGATIVE (< 50 ng/mL); Vista UDS pH Range 5
== END | disposition home or self-care (01) ==
LOC: LAB 10:06
PROVIDERS: Family Provider Family Medicine; PCP Family Medicine; Referring Provider Anesthesiology Pain Medicine; Visit Provider Anesthesiology Pain Medicine
DX: F11.20 Opioid dependence, uncomplicated (principal)
CPT/HCPCS: 80307

== ENCOUNTER 2019-03-11 06:48 | Day surgery (SDC) | payer MEDICARE, OTHER, SELFPAY ==
[2019-02-19 14:39] VITALS: BMI 31.8
--- NOTE | 2019-02-21 11:14 | HP_ITS ---
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: No Allergies meropenem Allergy (Verified 02/19/19 14:29) Unknown tramadol Allergy (Verified 02/19/19 14:29) Unknown vancomycin Allergy (Verified 02/19/19 14:29) Unknown hydrocodone bitartrate [From Vicodin] Adverse Reaction (Verified 02/19/19 14:29) nightmares Medications Omeprazole [Prilosec] 20 mg PO DAILY 02/09/17 [History Confirmed 02/19/19] Rosuvastatin Calcium 20 mg PO QHS 02/09/17 [History Confirmed 02/19/19] Oxycodone HCl/Acetaminophen [Percocet 5-325] 1 tab PO 4X/DAY 10/29/17 [History Confirmed 02/19/19] Albuterol Sulfate [Albuterol Sulfate Hfa] 2 puff PO Q4H PRN PRN 01/29/19 [History Confirmed 02/19/19] Aspir 81 81 mg PO DAILY 01/29/19 [History Confirmed 02/19/19] Ferrous Sulfate [Iron] 325 mg PO DAILY 01/29/19 [History Confirmed 02/19/19] Metformin HCl 500 mg PO BID 01/29/19 [History Confirmed 02/19/19] Nitroglycerin 0.4 mg SL PRN PRN 01/29/19 [History Confirmed 02/19/19] Fluticasone 0.05% [Flonase Nasal [place]] 2 spray NASAL DAILY nasal.sry 01/31/19 [Rx Confirmed 02/19/19] budesonide 0.5 mg/2 mL suspension for nebulization 2 ml INHALATION Q12H 02/19/19 [History Confirmed 02/19/19] cholecalciferol (vitamin D3) 50,000 unit capsule 50,000 unit PO QWEEK 02/19/19 [History Confirmed 02/19/19] ipratropium-albuterol 0.5 mg-3 mg(2.5 mg base)/3 mL nebulization soln 3 ml INHALATION Q8H 02/19/19 [History Confirmed 02/19/19] leflunomide 20 mg tablet 20 mg PO DAILY 02/19/19 [History Confirmed 02/19/19] metoprolol tartrate 50 mg tablet 25 mg PO DAILY tab 02/19/19 [History Confirmed 02/19/19] potassium chloride ER 10 mEq tablet,extended release 10 meq PO DAILY 02/19/19 [History Confirmed 02/19/19] prednisone 10 mg tablet 7.5 mg PO BID PRN 02/19/19 [History Confirmed 02/19/19] PFS Medical History 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) COPD with acute exacerbation (Chronic) GI bleed (Chronic) DVT (deep venous thrombosis) (Inactive) 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) Atrial fibrillation (Chronic) Blood loss anemia (Chronic) Physical deconditioning (Chronic) Low back pain (Chronic) Hyperlipidemia (Chronic) COLD (chronic obstructive lung disease) (Chronic) CAD (coronary artery disease) (Chronic) Familial combined hyperlipidemia (Chronic) GERD (gastroesophageal reflux disease) (Chronic) HTN (hypertension) (Chronic) H/O immunosuppressive therapy (Chronic) Obesity (Chronic) Rheumatoid arthritis (Chronic) Sleep apnea (Chronic) Chronic respiratory failure (Chronic) Non-compliance (Chronic) Chronic renal disease, stage 3, moderately decreased glomerular filtration rate (GFR) between 30-59 mL/min/1.73 square meter (Chronic) Peripheral neuropathy (Chronic) Chronic back pain (Chronic) Alcohol abuse (Chronic) Abnormal positron emission tomography (PET) scan (Acute) Surgical History History of colonoscopy (Acute ~08/08/16) History of coronary artery stent placement (Acute) History of esophagogastroduodenoscopy (EGD) (Acute ~08/08/16) History of heart surgery (Acute) History of incisional hernia repair (Acute) History of left heart catheterization (Acute) history IVC filter insertion (Acute) Family History Father Heart disease Brother Heart disease Cancer prostate Social History (Updated 02/21/19 @ 11:14 by Manjit Caro MD) Smoking Status: Former smoker HPI HPI HPI: JB MCPHERSON, is a 68 M who presents to the office today for HPI HPI Surgical H&P: Yes HPI: JB MCPHERSON, is a 68 M who presents to the office today for Upper endoscopy. Patient has a rather long and complicated past medical history most rate less than only he has had a positive PET scan and is in need for a EGD to make sure that his esophagus does not show any signs of malignancy. The CAT scan lit up in his chest. He has a history of COPD hypoxia with respiratory failure uncontrolled hypertension diabetes He has had an EGD in the past which showed a history of ulcers. ROS General General: No weight change, appetite, fatigue, colon cancer, breast cancer or weakness HEENT HEENT: Yes eye surgery; no difficulty swallowing, eye injury, swollen glands or hoarseness Endo Endocrine: Yes diabetes mellitus; no thyroid disease, thyroid cancer, Hair loss, heat intolerance or cold intolerance Skin Skin: No rash or changing moles Breast Breast: No left breast lump, right breast lump, nipple discharge, breast pain, abnormal mammogram, abnormal US or breast enlargement Musc Musculoskeletal: Yes back problems, arthritis and rheumatoid arthritis; no gout or joint pain Cardio Cardiovascular: Yes high blood pressure and heart stent; no murmur, pacemaker, heart disease, atrial fibrillation, heart attack, palpitations, shortness of breat with exertion or chest pain Psych Psychiatric: No depression, anxiety or hearing voices Resp Respiratory: Yes shortness of breath, Yes sleep apnea, No cough, Yes COPD, No asthma, No emphysema, No wheezing Gastro Gastrointestinal: No abdominal pain, No nausea or vomiting, No diarrhea, No constipation, No blood in stool, Yes acid reflux, No hemorrhoids, No ulcers, No gallbladder problem, No black,tarry stools Tejinder Hematologic: No blood thinners, No blood disorders, No bleeding, Yes anemia, No blood clots Neuro Neurologic: No system reviewed and no additional complaints, except as docu, No as per HPI, No abnormal walking, No abnormal hearing, No abnormal movements, No abnormal speech, No behavioral changes, No burning sensations, No confusion, No seizure-like activity, No unsteadiness, No dizziness, No localized weakness, No frequent falls, No headache(s), No lack of coordination, No loss of vision, No memory loss, Yes numbness, No other visual disturbances, No radiating pain, No restless legs, No sensory deficit, No fainting, Yes tingling, No tremor(s), No weakness, No other Exam Const General: no acute distress, well developed, well hydrated Orientation: oriented to person, oriented to place, oriented to time [facility] Head: normocephalic, atraumatic Ears: external ears normal Mouth: moist mucous membranes Eyes Sclera: sclerae normal Pupils: normal by confrontation Neck Neck: no lymphadenopathy noted Neck mass: No Thyroid: thyroid normal, symmetrical Chest Chest palpation & inspection: normal inspection of the chest Breast Palpation: No nipple discharge Resp Effort & Inspection: normal respiratory effort Auscultation: clear to auscultation bilaterally Percussion: percussion normal Cardio Rate: regular rate Rhythm: regular rhythm Heart Sounds: no murmurs GI Inspection: obesity Palpation: soft, no hepatosplenomegaly, no masses, nontender Rectal Exam: other Other: Rectal exam deferred. Extrem General: normal to inspection, no clubbing, cyanosis or edema Assessment & Plan Problems 1. Abnormal PET scan, mediastinum R94.8 Plan I have discussed the above with the patient. I have offered the patient esophagogastroduodenoscopy for evaluation. I have explained the risks/benefits of the procedure and described the procedure. I have discussed the risks with the patient, including but not limited to: infection, bleeding, perforation of the GI tract requiring emergency surgery, inability to complete the procedure, injury to any internal organs, complications of anesthesia, etc. - the patient understands and agrees to proceed. I have answered all the patient's questions to the patient's satisfaction and the patient has no further questions. The patient has been given instructions for the colon cleansing preparation. Orders Orders: EGD 02/19/19 R93.5 Coding Level of Care Code Off vis,new,level 3 Diagnoses Abnormal PET scan, mediastinum R94.8 02/21/19 1114 <Electronically signed by Manjit Peabod y MD> Date _ Manjit Caro MD I have re-examined the patient. There are no clinical changes since date of exam.
[2019-03-11] VITALS (7 sets, daily range): BP systolic 118–150; BP diastolic 72–109; PULSE 68–78; RESP 16–18; TEMP 36.6–36.8; O2SAT 92–99; BMI 32.5
[2019-03-11] MEDS: Lactated Ringers 1,000 ML 100 ML IV (07:34)
[2019-03-11 07:41] LABS: Bedside Glucose 79 mg/dL (70-110)
--- NOTE | 2019-03-11 08:00 | EGD_PTH ---
PATIENT: JB MCPHERSON LOC: EN U#:[id number] AGE/SX: 68/M ROOM: RE03/11/[address]: Dr. Manjit Caro MD : 1950 BED: DIS: 03/11/2019 SPEC #: [id number] RECD: 03/11/19 11:37 STATUS: JUAN MIGUEL GERTRUDIS #: [id number] JUANY: 03/11/19 08:[address]: Manjit Caro DEPT: SURGICAL PATHOLOGY RECD BY: Hasmukh Zaidi ENTERED: 03/11/19 13:36 SP TYPE: EGD BIOPSY OTHR DR: Dr. Andres Petty MD Tissues: A - Duodenum, NOS B - Gastric mucous membrane C - Esophageal mucous membrane Procedures: Special Stain Group II Surgery Specimen Level IV Alcian Blue/PAS (control) HEADER OPERATION: EGD ([facility] [place]) PRE-OP DIAGNOSIS: Abnormal PET scan mediastinum TISSUE SUBMITTED: A - Duodenum biopsy, B - Antral biopsy for histo and H. pylori, C - Esophageal biopsy MICROSCOPIC DIAGNOSIS A. Duodenum, biopsy: Fragments of gastric mucosa with mild chronic inflammation. 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 See comment. B. Gastric antrum, biopsy: Minimal chronic inflammation. See comment. C. Esophagus, biopsy: Fragments of benign squamous mucosa. Detached fragments of superficial gastric epithelium with intestinal metaplasia and associated mild cytologic atypia. See comment. AM:isabella 03/12/19 COMMENT A. Gastric metaplasia cannot be excluded. Clinical correlation is suggested. B. The results of immunohistochemistry for Helicobacter pylori will be reported separately ([id number]). C. Alcian blue/PAS stain with matched control supports the above diagnosis and confirms Golden's mucosa with mild cytologic atypia in the detached mucosal fragments. Immunohistochemistry ([id number]) supports the above diagnosis. Clinical correlation is suggested. Case has been reviewed in consultation with Dr. Agarwal who concurs with the above diagnosis. IDC:FRANCINE MICROSCOPIC DESCRIPTION Slides are reviewed. GROSS DESCRIPTION A - Received in fixative is one container labeled with the patient's name and designated duodenum biopsy. The specimen consists of two irregular fragments of light rizzo soft tissue that in aggregate measure 1 x 0.3 x 0.1 cm. The specimen is totally submitted in one cassette. B - Received in fixative is one container labeled with the patient's name and designated antrum biopsy. The specimen consists of one irregular fragment of light rizzo soft tissue that measures 0.7 x 0.3 x 0.1 cm. The specimen is totally submitted in one cassette. C - Received in fixative is one container labeled with the patient's name and designated esophageal biopsy. The specimen consists of multiple irregular fragments of light rizzo soft tissue that in aggregate measure 1 x 0.3 x 0.1 cm. The specimen is totally submitted in one cassette. / SJ:isabella 03/11/19 TC:? CPT: 80625 x3, 40569
--- NOTE | 2019-03-11 08:00 | IMM_PTH ---
PATIENT: JB MCPHERSON LOC: EN U#:[id number] AGE/SX: 68/M ROOM: RE03/11/[address]: Dr. Manjit Caro MD : 1950 BED: DIS: 03/11/2019 SPEC #: [id number] RECD: 03/11/19 15:27 STATUS: JUAN MIGUEL REBob #: [id number] JUANY: 03/11/19 08:[address]: Manjit Caro DEPT: IMMUNOHISTOCHEMISTRY RECD BY: Porsha Mireles ENTERED: 03/11/19 15:27 SP TYPE: IMMUNO OTHR DR: Dr. Andres Petty MD Tissues: B - Stomach, NOS Procedures: H Pylori (initial) P53 (add) KI-67 (initial) PHYSICIAN & INSTITUTION [place] [address] SPECIMEN INFORMATION: Tissue Source: B - Antral biopsy, C - Esophageal biopsy Clinical Info: Abnormal PET scan mediastinum Specimen Number: [id number] B & C CPT code: 90954 x2, 92554 METHODOLOGY: Deparaffinized sections of prefer/formalin-fixed tissue or PAP/DQ stained slides are incubated with monoclonal/polyclonal antibodies/oligonucleotide probes. Localization is made via biotin free immunoperoxidase method. Appropriate controls are performed and reacted as expected. Results on target cell population are indicated in the following table: RESULTS: ANTIBODY / CLONE RESULT Block B H Pylori (polyclonal) negative Block C P53 (DO-7) positive, focal Ki-67 (30-9) positive, 80% These tests were developed and their performance characteristics determined by [facility]. They may not have been cleared or approved by the U.S. Food and Drug Administration. The FDA has determined that such clearance or approval is not necessary. INTERPRETATION: B. Antral biopsy: Negative for Helicobacter pylori organisms. C. Esophageal biopsy: Focal atypical glandular epithelium. AM:isabella 03/12/19 Case has been reviewed in consultation with Dr. Agarwal who concurs with the above diagnosis. IDC:FRANCINE
--- NOTE | 2019-03-11 09:03 | OP.EGD_ITS ---
Patient Name: Kirill Torres Procedure Date: 03/11/2019 7:55 AM Date of : 1950 Age: 68 Procedure: Upper GI endoscopy Indications: Abnormal PET scan of the GI tract Providers: Manjit Caro MD Referring MD: Andres Petty Medicines: See the Anesthesia note for documentation of the administered medications Patient Profile: This is a 68 year old male. Refer to note in patient chart for documentation of history and physical. Complications: No immediate complications. Procedure: Pre-Anesthesia Assessment: - Prior to the procedure, a History and Physical was performed, and patient medications and allergies were reviewed. The patient's tolerance of previous anesthesia was also reviewed. The risks and benefits of the procedure and the sedation options and risks were discussed with the patient. All questions were answered, and informed consent was obtained. Prior Anticoagulants: The patient has taken aspirin, last dose was 7 days prior to procedure. ASA Grade Assessment: III - A patient with severe systemic disease. After reviewing the risks and benefits, the patient was deemed in satisfactory condition to undergo the procedure. After obtaining informed consent, the endoscope was passed under direct vision. Throughout the procedure, the patient's blood pressure, pulse, and oxygen saturations were monitored continuously. The gastroscope was introduced through the mouth, and advanced to the second part of duodenum. The upper GI endoscopy was accomplished without difficulty. The patient tolerated the procedure well. Scope In: 8:08:57 AM Scope Out: 8:16:55 AM Total Procedure Duration Time 0 hours 7 minutes 58 seconds Findings: Mildly severe esophagitis with no bleeding was found 28 cm from the incisors. Biopsies were taken with a cold forceps for histology. This area of esophagitis goes all the way from about 28 cm down to 40 cm at the GE junction. The mucosa significantly absent with erythema throughout. There are no ulcerations there is no narrowing of the esophagus but it is pretty clear it looks abnormal. This was similar to what was seen in August 2016. He had biopsies taken at that time as well. The entire examined stomach was normal. Biopsies were taken with a cold forceps for Helicobacter pylori testing. A mild extrinsic deformity was found in the duodenal bulb. Biopsies were taken with a cold forceps for histology. There appeared to be what looked like a stitch inside the lumen of the duodenal bulb. This mass is difficult to ascertain whether it is extrinsic pushing in or if this is something originating from the duodenal bulb. The scope easily traverses around it. In August 2016 he had multiple duodenal ulcers and prepyloric ulcers. Given the history of a previous perforated duodenal ulcer all of these findings are probably within normal limits. Impression: - Mildly severe chronic esophagitis. Rule out Golden's esophagus. Biopsied. - Normal stomach. Biopsied. - Duodenal deformity. Biopsied. Recommendation: - Await pathology results. - Repeat upper endoscopy at appointment to be scheduled for surveillance. - Return to my office in 1 week. - Continue present medications. Procedure Code(s): --- Professional --- 45524, Esophagogastroduodenoscopy, flexible, transoral; with biopsy, single or multiple Diagnosis Code(s): --- Professional --- K20.9, Esophagitis, unspecified K31.89, Other diseases of stomach and duodenum R93.3, Abnormal findings on diagnostic imaging of other parts of digestive tract CPT copyright 2017 [employer]. All rights reserved. The codes documented in this report are preliminary and upon turf keeper review may be revised to meet current compliance requirements. MD Manjit Franco MD 03/11/2019 9:02:16 AM This report has been signed electronically. Number of Addenda: 0 Note Initiated On: 03/11/2019 7:55 AM
== END 2019-03-11 09:10 | disposition home or self-care (01) ==
LOC: EN 06:48 → AC 06:49
PROVIDERS: Family Provider Family Medicine; PCP Family Medicine; Referring Provider Family Medicine; Visit Provider Surgery
PROC: 0DJ08ZZ Inspection of Upper Intestinal Tract, Via Natural or Artificial Opening Endoscopic (ICD-10-PCS; CPT 43235; principal; 2019-03-11 07:55)
DX: K22.70 Barrett's esophagus without dysplasia (principal); K29.50 Unspecified chronic gastritis without bleeding; K29.80 Duodenitis without bleeding; K21.0 Gastro-esophageal reflux disease with esophagitis; J44.9 Chronic obstructive pulmonary disease, unspecified; I48.91 Unspecified atrial fibrillation; D50.0 Iron deficiency anemia secondary to blood loss (chronic); E78.5 Hyperlipidemia, unspecified; I25.10 Atherosclerotic heart disease of native coronary artery without angina pectoris; E66.9 Obesity, unspecified; M06.9 Rheumatoid arthritis, unspecified; G47.30 Sleep apnea, unspecified; I12.9 Hypertensive chronic kidney disease with stage 1 through stage 4 chronic kidney disease, or unspecified chronic kidney disease; N18.3 Chronic kidney disease, stage 3 (moderate); Z86.718 Personal history of other venous thrombosis and embolism; J96.11 Chronic respiratory failure with hypoxia; E11.42 Type 2 diabetes mellitus with diabetic polyneuropathy; Z87.891 Personal history of nicotine dependence; Z95.5 Presence of coronary angioplasty implant and graft; Z79.82 Long term (current) use of aspirin; Z79.51 Long term (current) use of inhaled steroids; Z79.4 Long term (current) use of insulin; Z79.899 Other long term (current) drug therapy
CPT/HCPCS: 43239; 82962; 88305; 88313; 88341; 88342; J7120; J2405

== ENCOUNTER → 2019-03-16 13:11 | Outpatient (CLI) | payer MEDICARE, OTHER, SELFPAY ==
[2019-03-16 08:46] VITALS: BMI 32.5
--- NOTE | 2019-03-16 13:12 | RAD_ITS ---
STUDY: X-RAY - LEFT KNEE REASON FOR EXAM: Male, 68 years old. Chronic pain. TECHNIQUE: view(s) of the knee. COMPARISON: None. FINDINGS: Normal visualized distal femur. Normal visualized proximal tibia and fibula. Normal proximal tibiofibular articulation. There is no acute fracture, dislocation or destructive osseous pathology. There is very mild degenerative arthrosis of the medial femorotibial compartment. Normal lateral femorotibial compartment. There is mild degenerative arthrosis of the patellofemoral articulation. There is no demonstrated joint effusion. The soft tissue structures are unremarkable. RAD/Knee 4 or More Views IMPRESSION: Degenerative arthrosis. Electronically Signed: Harpal Vega DO at 19:16 EST Tel [phone], Service support ,
--- NOTE | 2019-03-16 13:12 | RAD_ITS ---
STUDY: X-RAY - PELVIS AND LEFT HIP REASON FOR EXAM: Male, 68 years old. Chronic pain. TECHNIQUE: 3 views of the pelvis and hip. COMPARISON: None. FINDINGS: There is a non-specific bowel gas pattern. Normal visualized soft tissue structures. There is evidence of previous anterior abdominal hernia repair. There is narrowing with cortical sclerosis and osteophyte formation of the sacroiliac joint consistent with degenerative osteoarthritic changes. Normal bilateral superior and inferior pubic rami. There are degenerative changes of the pubic symphysis with articular narrowing and sclerosis. Normal bilateral ischial tuberosities. Normal visualized femoral head. Normal acetabulum. There is mild articular joint space narrowing of the hip. Vascular calcifications consistent with peripheral arterial disease. RAD/HIP, UNI W/ Pelvis 2-3 Views IMPRESSION: Mild degenerative disease as described above. No acute fracture or subluxation seen. Electronically Signed: Renée Peguero MD at 21:10 EST , Service support ,
== END ==
PROVIDERS: Family Provider Family Medicine; PCP Family Medicine; Referring Provider Orthopaedic Surgery; Visit Provider Orthopaedic Surgery
DX: M25.552 Pain in left hip (principal); M25.562 Pain in left knee
CPT/HCPCS: 73502; 73564

== ENCOUNTER 2019-03-20 10:50 | Outpatient (RCR) | payer MEDICARE, OTHER, SELFPAY ==
[2019-03-16 08:46] VITALS: BMI 32.5
--- NOTE | 2019-03-20 11:43 | HP.PTEVAL_ITS ---
Patient's Visit Information JB MCPHERSON is a 68 year old M referred to Physical Therapy by Gilles Ward DO with a diagnosis of Lumbar DDD and L greater troch bursitis. Date of Evaluation: 03/20/19 Physical Therapist: NANCY Augustine - Visit Plan Frequency: 2x /Week Duration: 4-6 Weeks Plan: 2X/ week for 4-6 weeks for L hip strengthening, core stability, PIRIFORMIS streches and US to the same to decrease pain and inflammation with HEP - Subjective Findings: Pain management sent him to Dr Kumar. He said that his L knee and hip hurt really bad for the last 3 months and have not slept. said that he has bursitis and wants him to do PT and then go see a branch operations specialist because his back is really bad. He has had 4 shots in his hip and the more that he works. First shot in his hip helped for about a month and the last 3 shots have not helped. If he walks on his hip it gets a lot worse. He has done pool therapy in the past and really does not want to do that again and he has some scars that he does not want to do. When he walks or lays down his hip really bothers him. He could not sleep last night at all. He has N&T to the bottom of his knee. - Pain L hip pain Pain Intensity (Out of 10): 5 - Objective Gait: walks with a straight cane or walker most of the time. When he walked to day without an AD he walked with decrease stance time on the L LE with ER of the R LE and increased wobble gait with decrease step length. LE MMT: R hip flex 4/5 and L hip flex 4-/5, B knee ext 4/5, B knee flex 4-/5, L hip abd 3+/5 and R hip abd 4-/5. Pt is able to do 1/2 normal ROM bridge. He is not able to completely heel and toe raise. Tender along the L piriformis muscle belly and along the IT BAND and lateral knee. Tight L piriformis at extreme end range, tight HS - Goals Goal 1:: I HEP Goal Time Frame: 4-6 Weeks Goal 2:: Increase L hip strength by 1/2 muscle grade ( at time of eval: LE MMT: R hip flex 4/5 and L hip flex 4-/5, B knee ext 4/5, B knee flex 4-/5, L hip abd 3+/5 and R hip abd 4-/5. Pt is able to do 1/2 normal ROM bridge. He is not able to completely heel and toe raise). Goal Time Frame: 4-6 Weeks Goal 3:: Decrease L hip pain by 50% ( at time of eval L hip pain was 5/10) Goal Time Frame: 4-6 Weeks Goal 4:: Be able to sleep through the night and not wake up with hip pain and be able to lay on the L side Goal Time Frame: 4-6 Weeks - Rehabilitation Potential Rehabilitation Potential: Good - Anticipated Interventions Patient/Client Instruction: Educate patient on: Condition, Plan of Care For the Purpose of:: To decrease pain, To decrease swelling/inflammation, To in crease ROM, To improve nutrient delivery to tissue, To improve muscle performance and motor function, To improve ability to perform ADL's, To increase tolerance to activity/condition/position, To improve performance and independence with ADL's, To decrease level of supervision to perform tasks, To improve ability of physical actions for home/community/work/leisure, To improve gait and locomotor functions, To improve health of tissue, To decrease soft tissue restriction, To increase flexibility/ROM Therapeutic Exercise to Include: Strength training, Postural training, F lexibilty training, Gait and locomotor training, Passive ROM, Active ROM For the Purpose of:: To decrease pain, To decrease swelling/inflammation, To increase ROM, To improve nutrient delivery to tissue, To improve muscle performance and motor function, To improve ability to perform ADL's, To increase tolerance to activity/condition/position, To improve performance and ind ependence with ADL's, To decrease level of supervision to perform tasks, To improve ability of physical actions for home/community/work/leisure, To improve health of tissue, To decrease soft tissue restriction, To increase flexibility/ROM Ultrasound (thermal/non thermal): Yes For the Purpose of:: To decrease pain, To decrease swelling/inflammation, To increase ROM, To improve nutrient delivery to tissue Thank you for the opportunity to evaluate your patient. For Medicare and Medicare HMO plans, please review the plan of care and approve it. It will need to be FAXED BACK to us at [phone] for Medicare purposes. For Medicare only, by signing this I certify the plan of care. Please let me know if there are questions or concerns regarding this plan of care. Physician Signature: Date:
--- NOTE | 2019-06-29 15:51 | HP.PTDCNRP_ITS ---
JB MCPHERSON was seen in my office for initial evaluation on 03/20/19. The following Plan of Care was established for this patient: Initial Frequency: 2x /Week Initial Duration: 4-6 Weeks Patient/Client Instruction: Educate patient on: Condition, Plan of Care For the Purpose of:: To decrease pain, To decrease swelling/inflammation, To increase ROM, To improve nutrient delivery to tissue, To improve muscle performance and motor function, To improve ability to perform ADL's, To increase tolerance to activity/condition/position, To improve performance and independence with ADL's, To decrease level of supervision to perform tasks, To improve ability of physical actions for home/community/work/leisure, To improve gait and locomotor functions, To improve health of tissue, To decrease soft tissue restriction, To increase flexibility/ROM Therapeutic Exercise to Include: Strength training, Postural training, Flexibilty training, Gait and locomotor training, Passive ROM, Active ROM For the Purpose of:: To decrease pain, To decrease swelling/inflammation, To increase ROM, To improve nutrient delivery to tissue, To improve muscle performance and motor function, To improve ability to perform ADL's, To increase tolerance to activity/condition/position, To improve performance and independence with ADL's, To decrease level of supervision to perform tasks, To improve ability of physical actions for home/community/work/leisure, To improve health of tissue, To decrease soft tissue restriction, To increase flexibility/ROM Ultrasound (thermal/non thermal): Yes For the Purpose of:: To decrease pain, To decrease swelling/inflammation, To increase ROM, To improve nutrient delivery to tissue This patient was last seen in our office 03/20/19. Pertinent comments regarding their Physical therapy will appear below: Pt did not come to PT after his initial eval. DC PT At this point I will be discontinuing this patient from physical therapy. I wo uld be happy to see this patient again in the future if found appropriate by the physician. Thank you! Chetna Lane, MPT
== END 2019-03-20 19:00 | disposition home or self-care (01) ==
LOC: PT 10:50
PROVIDERS: Family Provider Family Medicine; PCP Family Medicine; Referring Provider Orthopaedic Surgery; Visit Provider Orthopaedic Surgery
DX: M51.36 Other intervertebral disc degeneration, lumbar region (principal); M70.62 Trochanteric bursitis, left hip
CPT/HCPCS: 97162

== ENCOUNTER 2019-04-02 10:55 | Emergency (ER) | payer MEDICARE, OTHER, SELFPAY ==
[2019-03-16 08:46] VITALS: BMI 32.5
[2019-04-02 10:58] VITALS: BP 161/94; PULSE 73; RESP 20; TEMP 36.7; O2SAT 96; BMI 30.4
--- NOTE | 2019-04-02 11:16 | CT_ITS ---
STUDY: CT BRAIN WITHOUT CONTRAST REASON FOR EXAM: Male, 68 years old. ACUTE HEADACHE, PARESTHESIA, DIZZINESS. Hx of COPD, COLD, CAD, HTN and RA RADIATION DOSAGE (If Supplied By Facility): CTDIvol = ( 44.99 ) mGy, DLP = ( 796.11 ) mGycm TECHNIQUE: Transaxial CT imaging of the brain was performed without administration of intravenous contrast material. Individualized dose optimization techniques were used for this CT. COMPARISON: No relevant priors. FINDINGS: Normal soft tissue structures. Normal calvarium. Normal size ventricles and extra-axial spaces for the patient''s age. There are areas of decreased attenuation within the white matter tracts of the supratentorial brain, consistent with microvascular disease changes. Normal basal ganglia and thalami. Normal brainstem. Normal cerebellum. There is no intracranial hemorrhage. There are no findings of an acute ischemic infarction. Normal visualized paranasal sinuses. CT/Brain/Head without Contrast IMPRESSION: Chronic involutional changes of the brain. Electronically Signed: Rosalva Larose, at 12:20 EST Tel , Service support ,
--- NOTE | 2019-04-02 11:17 | EKG12_ITS ---
Test Reason : HEADACHE Blood Pressure : / mmHG Vent. Rate : 075 BPM Atrial Rate : 075 BPM P-R Int : 136 ms QRS Dur : 076 ms QT Int : 392 ms P-R-T Axes : -27 021 107 degrees QTc Int : 437 ms Sinus rhythm with Premature atrial complexes ST & T wave abnormality, consider lateral ischemia Abnormal ECG Confirmed by ANANYA SMITH, MARYLOU ([id number]), food expeditor MARCELLA CABEZAS ([id number]) on 04/03/2019 10:17:08 AM Referred By: SHELBY Confirmed By:NICOLE HARE MD
[2019-04-02 11:20] VITALS: BP 161/94; PULSE 73; RESP 20; TEMP 36.7; O2SAT 96
--- NOTE | 2019-04-02 11:33 | ED.VIS.GEN ---
History of Present Illness Chief Complaint: Headache Detail of Chief Complaint: Bilateral headache, dizziness, tingling lower lip Onset: Days Context: Sudden Onset Timing: Intermittent Quality: Headache started 1 to 2 hours prior to arrival. Please read HPI Location: Bilateral Current Severity: Severe Maximum Severity: Severe Worsened by: Light sensitivity Relieved by: Nothing Associated Symptoms: No fever or chills. No neck pain or neck stiffness. Narrative: Patient is an elderly male with history of diabetes, hypertension and neuropathy who presents with several symptoms. He states his blood pressure was 175 systolic and diastolic was 108. He complains of acute by lateral headache. He did report some change in vision but no double vision or loss of vision. He denies ringing in his ears or decreased hearing. He denies trouble with speech or swallowing. He states his lip was numb. He pointed to his lower lip. He is uncertain whether the numbness was bilateral or unilateral. Triage nurse documents tingling/numbness in his fingers. He states this is a chronic issue and is actually spasms . He denies difficulty using his arms or legs. He did report problems with balance. He denies history of prior stroke. He denies vomiting or diarrhea. He denies black or maroon stool. He denies urologic symptoms. Prior similar symptoms: No Recent Illness/Hospitalization: No - Past Medical History (1) Alcohol abuse Status: Chronic Comment: 4-6 beers daily (2) Atrial fibrillation Status: Chronic (3) Golden's esophagus Status: Chronic (4) COLD (chronic obstructive lung disease) Status: Chronic Comment: he denies this and does not remember seeing Dr. Prado in the past....he is on inhalers (5) Chronic back pain Status: Chronic (6) GERD (gastroesophageal reflux disease) Status: Chronic (7) Hyperlipidemia Status: Chronic (8) Rheumatoid arthritis Status: Chronic (9) Sleep apnea Status: Chronic Comment: does not wear the CPAP....says he does not need it (10) DVT (deep venous thrombosis) Status: Inactive Past Medical History - Allergies and Home Meds Allergies/Adverse Reactions: Allergies meropenem Allergy (Verified 04/02/19 11:00) Unknown tramadol Allergy (Verified 04/02/19 11:00) Unknown vancomycin Allergy (Verified 04/02/19 11:00) Unknown hydrocodone bitartrate [From Vicodin] Adverse Reaction (Verified 04/02/19 11:00) nightmares nightmares Primary Care Physician: Andres Petty MD [Primary Care Provider] - Prior records reviewed: Yes Surgical History: - - He has had 2 coronary stents in the past. Abdominal surgery for peptic ulcer disease. Lives: Spouse/ Significant Other Smoking Status: Former smoker Drugs: None - Family History Paternal Family History: Family History (Last Reviewed 02/21/19 @ 11:13 by Manjit Caro MD) Father Heart disease Brother Heart disease Cancer Family History: Reports: Cancer - His brother had prostate cancer that went to his lungs. Also 3 of his auntS had cancer., - - The patient's father at the age of 82 with a history of myocardial infarction. Maternal Family History: Family History (Last Reviewed 02/21/19 @ 11:13 by Manjit Caro MD) Father Heart disease Brother Heart disease Cancer Family History: Reports: - - Patient's mother is living, aged 86, and healthy. Review of Systems General: Denies: Chills, Fever, Malaise, Subjective Eyes: Denies: Blurred Vision - bilaterally, Diplopia ENT: Denies: Bilateral ear pain, Rhinorrhea, Sore throat Cardiovascular: Denies: Chest pain, Palpitations Respiratory: Denies: Dyspnea, Cough, Dyspnea on exertion Gastrointestinal: Denies: Abdominal pain, Nausea, Vomiting, Diarrhea, Melena, Hematochezia Genitourinary: Denies: Dysuria, Hematuria, Frequency Musculoskeletal: Denies: Myalgias, Arthralgias, Neck pain, Back pain, Swelling, Extremity Pain, -, - Skin: Denies: Rash, Wounds Neurological: Reports: Headache, Parasthesia. Denies: Weakness, Numbness Endocrine: Denies: Polyuria, Polydipsia Hematologic: Denies: Easy bruising, Easy bleeding Allergy: Denies: Uticaria, Swelling of the mouth, Swelling of the tongue Physical Exam Vital Signs/Narrative: Vital Signs Temp Pulse Resp BP Pulse Ox 04/02/19 11:20 98.0 F 73 20 H 161/94 H 96 04/02/19 10:58 98.0 F 73 20 H 161/94 H 96 Inital Vital Signs reviewed: Yes General: Well nourished, Well developed, No Acute Distress Head: Normocephalic, Atraumatic, - - Reports tenderness over the right and left nondenominational region. Eyes: Perrl, EOMI. Negative for: Pale conjunctiva, Scleral icterus ENT: Moist mucous membranes, No rhinorrhea, TM's clear Neck: Supple, Nontender, No lymphadenopathy, No JVD, - - Negative for carotid bruits Cardiovascular: Regular rate, Regular rhythm, No murmurs, Normal S1, Normal S2 Respiratory: No distress, CTA bilaterally, Chest nontender Abdomen: Soft, Nontender, Nondistended, Normal bowel sounds Back: Nontender, Normal Inspection Extremities: Nontender, No edema Skin: Normal color, No rash. Negative for: Cyanosis, Diaphoresis, Jaundice Neurological: Alert, Oriented x3, Cranial nerves II-XII grossly intact, Normal Strength, Normal Sensation, Normal DTR - There is no clonus or Babinski sign noted., Normal Gait, - - There is no nystagmus change in position. The eye askew test and the hint test were both negative. Cerebellar testing with finger-nose to finger was normal. Gait was not ataxic. Psychological: Normal affect, Normal Mood Diagnostic/Tx/Re-eval Impressions Brain CT 04/02/19 11:16 IMPRESSION: Chronic involutional changes of the brain. Electronically Signed: Rosalva Larose, at 12:20 EST Tel , Service support , 04/02/19 11:16 Brain/Head without Contrast [CT] Stat Laboratory Results 04/02/19 04/02/19 04/02/19 11:32 11:32 11:32 WBC 9.8 RBC 4.32 L Hgb 12.4 L Hct 38.7 L MCV 89.6 MCH 28.7 MCHC 32.0 RDW Std Deviation 48.0 H RDW Coeff of Nina 15.0 H Plt Count 295 MPV 9.6 Immature Gran % (Auto) 1.900 H Neut % (Auto) 74.9 H Lymph % (Auto) 7.0 L Mcmullen % (Auto) 14.0 H Eos % (Auto) 1.8 Baso % (Auto) 0.4 Absolute Neuts (auto) 7.3 Absolute Lymphs (auto) 0.69 L Nucleated RBC % 0 ESR 45 H PT 12.8 INR 1.0 APTT 29.8 Sodium 136 Potassium 4.6 Chloride 107 Carbon Dioxide 22.0 Anion Gap 7 BUN 21 H Creatinine 1.51 H Estim Creat Clear Calc 45.93 Est GFR (MDRD) Af Amer 60 Est GFR (MDRD) Non-Af 49 L BUN/Creatinine Ratio 13.9 Glucose [address] of the head was obtained within 6 hours onset of pain. There is no evidence of subarachnoid hemorrhage. ESR is elevated 45. When corrected for age it is not elevated. CBC and differential normal. Creatinine is elevated 1.51. Coags are normal. I was informed that 1340 patient still complaining of headache and would like good stuff . - Medical Decision Making With abrupt onset of headache need to rule out subarachnoid hemorrhage. Because he reports pain right and left nondenominational area ESR was obtained. CBC was obtained to assess for white count. Basic metabolic panel was obtained to assess renal function. CT was negative. ESR was unremarkable once corrected for age. Patient was treated with IV metoprolol for his elevated blood pressure. Most recent blood pressure is 145/95. Patient states he feels better. Plan is to discharge to home and follow-up with his primary care physician. ED Disposition - Plan for ED Patient: Disposition: Home or Assisted Living Diagnosis: Accelerated hypertension, Cephalgia, Dizziness, Paresthesia of lower lip Instructions: HEADACHE, Unspecified, DIZZINESS, Unk Cause, HYPERTENSION, Established, Out of Control Referrals: Andres Petty MD [Primary Care Provider] - 3-5 Days
[2019-04-02 11:52] LABS: Erythrocyte Sedimentation Rate 45 mm/hr (0-20)
[2019-04-02 11:53] LABS: Absolute Lymphocyte Count 0.69 X10^3/uL (0.83-4.51); Absolute Neutrophil Count 7.3 X10^3/uL (2.0-7.7); Basophil# 0.04 X10^3/uL; Basophil% 0.4 % (0-1); Eosinophil# 0.18 X10^3/uL; Eosinophils% 1.8 % (0-5); Hematocrit 38.7 % (40-54); Hemoglobin 12.4 g/dL (13.0-16.5); Lymphocyte # 0.69 X10^3/ul (4.0); Mean Corpuscular Hgb 28.7 pg (27.0-32.0); Mean Corpuscular Volume 89.6 fL (80-94); Mean Platelet Vol. 9.6 fl (6.2-12.0); Monocyte# 1.37 X10^3/uL; NRBC Flagged by Analyzer 0 % (0-5); Neutrophil # 7.33 X10^3/uL (2.7-7.7); Neutrophil % 74.9 % (47-70); Platelet Count 295 K/mm3 (150-450); Red Blood Count 4.32 M/mm3 (4.6-6.2); White Blood Count 9.8 K/mm3 (4.4-11.0)
[2019-04-02 12:11] LABS: Prothrombin Time (Protime)PT. 12.8 SECONDS (11.7-14.9)
[2019-04-02 12:12] LABS: Partial Thromboplast Time 29.8 Seconds (24.1-36.2)
[2019-04-02 12:36] LABS: Anion Gap 7 (5-15); BUN 21 mg/dL (7-18); BUN/Creat Ratio 13.9 RATIO (10-20); Chloride 107 mmol/L (98-107); Creatinine, Serum 1.51 mg/dL (0.70-1.30); EST Glomerular Filtration Rate 49 mL/min (>60); Est Glom Filt Rate - Afr Amer 60 mL/min (>60); Estimated Creatinine Clearance 45.93 ml/min; Glucose 90 mg/dL (74-106); Potassium 4.6 mmol/L (3.5-5.1); Sodium Level 136 mmol/L (136-145)
[2019-04-02 12:43] VITALS: BP 175/108; PULSE 81; RESP 14; TEMP 36.6; O2SAT 94
[2019-04-02] MEDS: Morphine 4 MG/ML Syringe IV ×2 (12:46→14:35)
[2019-04-02 13:35] VITALS: BP 169/95; PULSE 80; RESP 20; TEMP 36.7; O2SAT 95
[2019-04-02] MEDS: Metoprolol Tartrate 5 MG/5 ML Vial IV (15:47)
[2019-04-02 15:52] VITALS: BP 145/95; PULSE 77; RESP 14; O2SAT 96
[2019-04-02 16:07] VITALS: BP 157/99; PULSE 76; RESP 22; O2SAT 95
== END 2019-04-02 16:07 | disposition home or self-care (01) ==
PROVIDERS: Emergency Provider Emergency Medicine; Family Provider Family Medicine; PCP Family Medicine
DX: I10 Essential (primary) hypertension (principal); R51 Headache; R42 Dizziness and giddiness; R20.2 Paresthesia of skin; I48.91 Unspecified atrial fibrillation; K21.9 Gastro-esophageal reflux disease without esophagitis; E78.5 Hyperlipidemia, unspecified; M06.9 Rheumatoid arthritis, unspecified; G47.30 Sleep apnea, unspecified; E11.40 Type 2 diabetes mellitus with diabetic neuropathy, unspecified; J44.9 Chronic obstructive pulmonary disease, unspecified; Z86.718 Personal history of other venous thrombosis and embolism; Z87.19 Personal history of other diseases of the digestive system; Z95.5 Presence of coronary angioplasty implant and graft; Z79.82 Long term (current) use of aspirin; Z79.84 Long term (current) use of oral hypoglycemic drugs; Z79.899 Other long term (current) drug therapy; F10.99 Alcohol use, unspecified with unspecified alcohol-induced disorder; Z87.891 Personal history of nicotine dependence
CPT/HCPCS: 70450; 80048; 85025; 85610; 85652; 85730; 93005; 96374; 96375; 96376; 99284

== ENCOUNTER 2019-04-19 19:45 | Emergency (ER) | payer MEDICARE, OTHER, SELFPAY ==
[2019-04-19 19:47] VITALS: BP 192/102; PULSE 85; RESP 19; TEMP 36.8; O2SAT 97; BMI 29.8
--- NOTE | 2019-04-19 20:04 | ED.VIS.GEN ---
History of Present Illness Chief Complaint: Lower Extremity Injury Informant: Patient Onset: Month(s) - 6 Narrative: Presents for evaluation continued left hip pain. States that symptoms for 6 months. He is followed by orthopedics Dr. Quintanilla, reports was told he had bursitis, he is given bursa injections the last time was last month. Also followed by pain management Dr. Hancock for chronic back pain. He is given prescription of Percocet monthly. He states he stopped taking it 2 days ago due to it not helping his pain. He ambulates with a cane, he drove himself here. He states he gets back injections which do help his back but not his hip. He states initial bursa injections did help. He has had x-rays of the hip and knee recently by orthopedics last month. There is been no injuries. No falls. States he wants something so that he can sleep tonight. Prior similar symptoms: Yes Past Medical History - Allergies and Home Meds Allergies/Adverse Reactions: Allergies meropenem Allergy (Verified 04/19/19 19:51) Unknown tramadol Allergy (Verified 04/19/19 19:51) Unknown vancomycin Allergy (Verified 04/19/19 19:51) Unknown hydrocodone bitartrate [From Vicodin] Adverse Reaction (Verified 04/19/19 19:51) nightmares nightmares Primary Care Physician: Andres Petty MD [Primary Care Provider] - Surgical History: - - He has had 2 coronary stents in the past. Abdominal surgery for peptic ulcer disease. Smoking Status: Current every day smoker - Family History Paternal Family History: Family History (Last Reviewed 02/21/19 @ 11:13 by Manjit Caro MD) Father Heart disease Brother Heart disease Cancer Family History: Reports: Cancer - His brother had prostate cancer that went to his lungs. Also 3 of his auntS had cancer., - - The patient's father at the age of 82 with a history of myocardial infarction. Maternal Family History: Family History (Last Reviewed 02/21/19 @ 11:13 by Manjit Caro MD) Father Heart disease Brother Heart disease Cancer Family History: Reports: - - Patient's mother is living, aged 86, and healthy. Review of Systems General: Denies: Chills, Fever, Sweats Eyes: Denies: Visual changes - bilaterally, Diplopia ENT: Denies: Rhinorrhea, Sore throat Cardiovascular: Denies: Chest pain, Palpitations Respiratory: Denies: Dyspnea, Cough, Dyspnea on exertion Gastrointestinal: Denies: Abdominal pain, Nausea, Vomiting, Diarrhea, Melena, Hematochezia Genitourinary: Denies: Dysuria, Hematuria, Frequency Musculoskeletal: Reports: Arthralgias. Denies: Back pain, Extremity Pain Skin: Denies: Rash, Wounds Neurological: Denies: Headache, Weakness, Numbness Physical Exam Vital Signs/Narrative: Vital Signs Temp Pulse Resp BP Pulse Ox 04/19/19 19:47 98.3 F 85 19 H 192/102 H 97 Inital Vital Signs reviewed: Yes General: Well nourished, Well developed, No Acute Distress Head: Normocephalic, Atraumatic Eyes: Perrl, EOMI ENT: Moist mucous membranes, No rhinorrhea Neck: Supple, Nontender Cardiovascular: Regular rate, Regular rhythm, No murmurs Respiratory: No distress, CTA bilaterally, Chest nontender Abdomen: Soft, Nontender, Nondistended, Normal bowel sounds Back: Nontender, Normal Inspection Extremities: No edema, - - Tender palpation left greater trochanteric region. Negative logroll. Patient able stand and bear weight. Neurovascular intact distally. Skin: Normal color, No rash Neurological: Alert, Oriented x3, Cranial nerves II-XII grossly intact, Normal Strength, Normal Sensation Psychological: Normal affect, Normal Mood Diagnostic/Tx/Re-eval - Medical Decision Making Patient nontoxic, is able to bear weight. Patient understands he sees pain management. From discussion he reports he was restarted on meloxicam last month, discussed with patient evaluation of his history of Golden's esophagus and GI bleeds, he needs to discussed with the specialists as this is the best option for him. He states he is looking possibly to have another bursa injection for which she has had 5 of him, discussed talking to his orthopedist. Reports if he needs additional pain control or adjustments need to call his pain management physician. Patient ordered for 1 dose morphine subcu of 8 mg and he will call for a ride home. All questions were answered. ED Disposition - Plan for ED Patient: Disposition: Home or Assisted Living Diagnosis: Chronic left hip pain Referrals: Enrique Hancock MD [STAFF PHYSICIAN] - 3-5 Days Gilles Ward DO [STAFF PHYSICIAN] - 1 Day Additional Instructions: Adjustments in pain medications needs to be discussed with your pain management physician. Discussed with your orthopedist if you are due for your next injection.
[2019-04-19] MEDS: morphine 8 MG/ML Syringe SC (20:28)
== END 2019-04-19 20:50 | disposition home or self-care (01) ==
LOC: ED 20:15
PROVIDERS: Emergency Provider Emergency Medicine; Family Provider Family Medicine; PCP Family Medicine
DX: M25.552 Pain in left hip (principal); G89.29 Other chronic pain; M54.9 Dorsalgia, unspecified; F17.200 Nicotine dependence, unspecified, uncomplicated; Z79.891 Long term (current) use of opiate analgesic
CPT/HCPCS: 96372; 99282

== ENCOUNTER → 2019-04-28 09:31 | Outpatient (CLI) | payer MEDICARE, OTHER, SELFPAY ==
[2019-04-19 19:47] VITALS: BMI 29.8
[2019-04-28 12:38] LABS: Absolute Lymphocyte Count 0.68 X10^3/uL (0.83-4.51); Absolute Neutrophil Count 15.2 X10^3/uL (2.0-7.7); Basophil# 0.04 X10^3/uL; Basophil% 0.2 % (0-1); Eosinophil# 0.08 X10^3/uL; Eosinophils% 0.4 % (0-5); Hematocrit 40.6 % (40-54); Hemoglobin 13.1 g/dL (13.0-16.5); Lymphocyte # 0.68 X10^3/ul (4.0); Lymphocyte % 3.7 % (19-41); Mean Corp Hgb Conc 32.3 g/dL (32-36); Mean Corpuscular Hgb 27.3 pg (27.0-32.0); Mean Corpuscular Volume 84.8 fL (80-94); Mean Platelet Vol. 10.6 fl (6.2-12.0); Monocyte# 1.91 X10^3/uL; Monocyte% 10.4 % (0-10); NRBC Flagged by Analyzer 0 % (0-5); Neutrophil # 15.16 X10^3/uL (2.7-7.7); Neutrophil % 82.9 % (47-70); POSITIVE DIFFERENTIAL YES; Platelet Count 381 K/mm3 (150-450); RBC Distribution Width CV 14.3 % (11.6-14.6); RBC Distribution Width SD 43.8 fl (35.1-43.9); Red Blood Count 4.79 M/mm3 (4.6-6.2); White Blood Count 18.3 K/mm3 (4.4-11.0)
[2019-04-28 12:39] LABS: Differential Indicated SCAN CRITERIA MET
[2019-04-28 12:47] LABS: ALB/GLOB Ratio 0.7 RATIO (0.9-2.4); AST(SGOT) 24 U/L (15-37); Alanine Aminotransfer ALT/SGPT 29 U/L (16-61); Albumin, Serum 2.9 g/dL (3.2-5.0); Alkaline Phosphatase 62 U/L (45-117); Anion Gap 10 (5-15); BUN 23 mg/dL (7-18); BUN/Creat Ratio 15.1 RATIO (10-20); Calcium,Total 9.2 mg/dL (8.5-10.1); Chloride 100 mmol/L (98-107); Creatinine, Serum 1.52 mg/dL (0.70-1.30); EST Glomerular Filtration Rate 49 mL/min (>60); Est Glom Filt Rate - Afr Amer 59 mL/min (>60); Globulin 4.1 g/dL (2.2-4.2); Glucose 70 mg/dL (74-106); Potassium 4.9 mmol/L (3.5-5.1); Sodium Level 131 mmol/L (136-145)
[2019-04-28 12:54] LABS: Anisocytosis RARE; Platelet Estimate ADEQUATE (ADEQ)
[2019-04-30 09:00] LABS: Pathologist Review Reviewed
== END ==
PROVIDERS: PCP Family Medicine; Referring Provider Internal Medicine Rheumatology; Visit Provider Internal Medicine Rheumatology
DX: M06.00 Rheumatoid arthritis without rheumatoid factor, unspecified site (principal); M17.0 Bilateral primary osteoarthritis of knee; M25.432 Effusion, left wrist; J44.9 Chronic obstructive pulmonary disease, unspecified; I25.10 Atherosclerotic heart disease of native coronary artery without angina pectoris; Z79.899 Other long term (current) drug therapy
CPT/HCPCS: 36415; 80053; 85025

== ENCOUNTER → 2019-06-17 | Outpatient (CLI) | payer MEDICARE, OTHER, SELFPAY ==
[2019-05-20 10:12] VITALS: BMI 30.5
--- NOTE | 2019-06-17 06:31 | ECHOCS_ITS ---
Reason For Study: CAD/ASHD Procedure This was a 2D Doppler, Color Flow transthoracic echocardiogram. Contrast injection was performed. Exam performed in department. Left Ventricle Normal LV size. Left ventricular systolic function is normal. The estimated ejection fraction is 65 %. Stage 1 diastolic dysfunction. No regional wall motion abnormalities noted. Right Ventricle Normal RV size. Normal systolic function. Atria Normal left atrium. Mitral Valve Normal mitral valve. Tricuspid Valve The tricuspid valve is not well visualized. Aortic Valve Normal aortic valve. Trisinus/trileaflet aortic valve. Pulmonic Valve Normal pulmonic valve. Great Vessels Normal aortic root. The pulmonary artery is normal size. Normal inferior vena cava. Pericardium/Pleural No pericardial effusion. Medication Diluted definity 2ml given slow IV push to enhance endocardial definition. MMode/2D Measurements & Calculations LVIDd: 5.2 cm IVSd: 1.1 cm Ao root diam: 3.1 cm LVIDs: 2.4 cm LVPWd: 1.2 cm RVDd: 3.0 cm FS: 53.6 % LAV(MOD-bp): 46.7 ml LA A4 area: 18.3 cm2 LA dimension(2D): 4.2 cm LAV(MOD-bp) Indexed: 22.8 ml/m2 LAV(MOD-sp2): 39.8 ml LAV(MOD-sp4): 44.1 ml RA A4 area: 12.7 cm2 Doppler Measurements & Calculations MV E max harry: 57.4 cm/sec Lat Peak E' Harry: 6.5 cm/sec Med Peak E' Harry: 4.3 cm/sec MV A max harry: 81.5 cm/sec E/E' lat: 8.8 E/E' med: 13.3 MV E/A: 0.70 Ao V2 max: 131.4 cm/sec LV V1 max: 119.3 cm/sec PA V2 max: 97.4 cm/sec Ao max P.9 mmHg LV V1 max P.7 mmHg Ao V2 mean: 89.7 cm/sec Ao mean P.5 mmHg Ao V2 VTI: 23.0 cm Interpretation Summary Normal LV size. Left ventricular systolic function is normal. The estimated ejection fraction is 65 %. Stage 1 diastolic dysfunction. Contrast injection was performed. Ordering Physician: Simon Yeung Referring Physician: Andres Petty Performed By: Kendy Loja, JESSA, RVT
--- NOTE | 2019-06-17 16:54 | STRESSREP_ITS ---
Stress Test Report Pharmacologic myocardial perfusion stress test. 68-year-old man with a history of hypertension, hyperlipidemia, paroxysmal atrial fibrillation. Stress protocol: Resting EKG demonstrates normal sinus rhythm with a rate of 71 bpm normal intervals are noted resting blood pressures 140/88 mmHg. 0.4 mg of regadenoson was infused per usual protocol followed by rapid venous saline flush injection continuous EKG monitoring was performed. The maximum heart rate attained was 96 bpm which was 62% of maximum predicted heart rate the maximum workload was 1 metabolic equivalent. At rest there were no ST or T wave changes noted suggest abnormal flow reserve at peak infusion nonspecific ST-T wave changes were noted with no meet the criteria for ischemia. The resting blood pressure was 140/88 with a final blood pressure 140/80 mmHg. Myocardial perfusion protocol. 11.0 mCi of technetium 99m sestamibi was injected at rest. 0.4 mg of rega denoson was infused per usual protocol. At peak infusion 33.0 mCi of technetium 99m sestamibi was injected stress images were obtained stress and rest images were reconstructed and compared in the short axis vertical long horizontal long axis. Gated images were also obtained per Perfusion SPECT analysis: Review of the stress images demonstrate normal uptake of tracer noted in all areas of the myocardium the resting images similar demonstrate normal uptake of tracer noted in all areas of the myocardium. No areas of reversibility are noted suggest ischemia no previous infarct is noted. Gated SPECT analysis: The gated ejection fraction is noted to be 84%. Conclusion: Normal pharmacologic myocardial perfusion stress test. Preserved ejection fraction.
== END | disposition home or self-care (01) ==
LOC: CVS 06:31
PROVIDERS: PCP Family Medicine; Referring Provider Internal Medicine Cardiovascular Disease; Visit Provider Internal Medicine Cardiovascular Disease
DX: I25.10 Atherosclerotic heart disease of native coronary artery without angina pectoris (principal); R06.00 Dyspnea, unspecified; Z95.5 Presence of coronary angioplasty implant and graft
CPT/HCPCS: 78452; 93017; 93306; A9500; Q9957; A4216; C8929; J2785

== ENCOUNTER → 2019-11-12 11:32 | Outpatient (CLI) | payer MEDICARE, OTHER, SELFPAY ==
[2019-05-20 10:12] VITALS: BMI 30.5
[2019-11-12 12:26] LABS: Amphetamine Urine VISTA NEGATIVE (<1000 ng/mL); Barbiturate Urine VISTA NEGATIVE (< 200 ng/mL); Benzodiazepine Urine VISTA NEGATIVE (< 200 ng/mL); Cocaine Urine VISTA NEGATIVE (< 300 ng/mL); Ecstacy Urine VISTA NEGATIVE (< 500 ng/mL); Methadone Urine VISTA NEGATIVE (< 300 ng/mL); PCP Urine VISTA NEGATIVE (< 25 ng/mL); THC Urine VISTA NEGATIVE (< 50 ng/mL); Vista UDS pH Range 6
== END ==
PROVIDERS: PCP Family Medicine; Referring Provider Anesthesiology Pain Medicine; Visit Provider Anesthesiology Pain Medicine
DX: F11.20 Opioid dependence, uncomplicated (principal)
CPT/HCPCS: 80307

== ENCOUNTER 2019-12-30 10:22 | Emergency (ER) | payer MEDICARE, OTHER, SELFPAY ==
[2019-11-16 10:15] VITALS: BMI 32.3
[2019-12-30 10:23] VITALS: BP 169/96; PULSE 69; RESP 18; TEMP 36.4; O2SAT 98; BMI 31.9
[2019-12-30] MEDS: morphine 8 MG/ML Syringe 10 MG IM (11:16)
[2019-12-30] MEDS: Ondansetron 4 MG/2 ML Vial IM (11:16)
--- NOTE | 2019-12-30 11:24 | ED.DCSUM_ITS ---
- ER Visit Summary Date of Service: 12/30/19 Chief Complaint: Back pain History of Present Illness: The patient is a 69 M presenting with back pain. Patient states this started a few weeks ago. He has a history of chronic back pain and is in pain management. He states he fell 2 weeks ago and believes this flared up his chronic back pain. He did not hit his head or lose consciousness. He is not on anticoagulants. He has an appointment upcoming with his pain management physician next week. He takes Percocet daily at home. Denies bowel or bladder incontinence. Denies numbness or weakness. Denies fever. Physical Examination: Vitals are stable. Patient is afebrile. Alert no acute distress. HEENT exam is unremarkable. Neck is supple. Lungs are clear and equal bilaterally. Heart is regular rate and rhythm. Abdomen is soft nontender nondistended. Back: Mild diffuse lumbar tenderness with no step-off Extremities are unremarkable. Skin is warm and dry. No focal neurologic deficit. Normal strength and sensation Remainder of exam is unremarkable. Emergency Department Course and Treatment: Patient was given morphine, Zofran IM. Due to the recent fall, lumbar x-ray was obtained and shows degenerative changes of the spine, patient is advised to follow-up with his pain management physician and orthopedics as needed. Advised to return to the ED for worsening complaints. Disposition: Discharge home Impression: Acute on chronic back pain This note was generated with [employer] dictation software. It may contain incorrect words, spelling, and punctuation that were not noted in review of the chart prior to signing ED Disposition - Plan for ED Patient: Instructions: ED Back Pain Acute or Chronic Referrals: Enrique Hancock MD [STAFF PHYSICIAN] - Edmundo Duff DO [STAFF PHYSICIAN] -
--- NOTE | 2019-12-30 11:30 | RAD_ITS ---
STUDY: X-RAY - LUMBAR SPINE REASON FOR EXAM: Male, 69 years old. Fall 2 weeks ago, low back pain that runs down both legs TECHNIQUE: 3 view(s) of the lumbar spine were obtained. COMPARISON: Comparison is made with prior study dated 11/20/2012. FINDINGS: There is straightening of the normal lumbar lordosis. There is a dextroscoliosis of the lumbar spine. There is a normal alignment of the vertebrae. There is multilevel endplate spondylosis of the lumbar vertebrae. There is multi-level degenerative disc disease with multi-level disc space narrowing. There is atherosclerotic calcification of the abdominal aorta without a demonstrated aneurysm. There is evidence of a ventral hernia repair. RAD/Lumbar Spine 2 or 3 Views IMPRESSION: Degenerative changes of the spine, as detailed above. Electronically Signed: Rashid Jeffers, at 11:55 EDT , Service support ,
--- NOTE | 2019-12-30 12:18 | ED.DEP ---
ED Disposition - Plan for ED Patient: Instructions: ED Back Pain Acute or Chronic Referrals: Edmundo Duff DO [STAFF PHYSICIAN] - Enrique Hancock MD [STAFF PHYSICIAN] -
[2019-12-30 12:41] VITALS: BP 160/72; PULSE 80; RESP 18; O2SAT 97
== END 2019-12-30 12:42 | disposition home or self-care (01) ==
LOC: ED 10:49
PROVIDERS: Emergency Provider Emergency Medicine; PCP Family Medicine
DX: M54.5 Low back pain (principal); G89.29 Other chronic pain
CPT/HCPCS: 72100; 96372; 99282; J2405

== ENCOUNTER → 2020-01-11 | Outpatient (CLI) | payer MEDICARE, OTHER, SELFPAY ==
[2020-01-04 10:20] VITALS: BMI 31.9
--- NOTE | 2020-01-11 11:16 | MRI_ITS ---
STUDY: MRI LUMBAR SPINE WITHOUT CONTRAST REASON FOR EXAM: Male, 69 years old. low back pain, s/p fall 5 wks ago, bilat leg pain TECHNIQUE: Standardized fat and water weighted pulse sequences were obtained in the sagittal and axial planes. COMPARISON: MRI from 03/19/2013 and x-ray from 12/30/2019 FINDINGS: T12-L1: Normal endplates. Normal disc height, hydration and morphology. Normal bilateral facet joints. Normal central canal and bilateral lateral recesses. Normal bilateral intervertebral neural foramina. Normal lumbar lordosis. There is no substantial scoliosis. Normal conus medullaris that terminates at the L1-2: Normal endplates. Normal disc height, hydration and morphology. Normal bilateral facet joints. Normal central canal and bilateral lateral recesses. Normal bilateral intervertebral neural foramina. L2-3: Normal endplates. Normal disc height, hydration and morphology. Normal bilateral facet joints. Normal central canal and bilateral lateral recesses. Normal bilateral intervertebral neural foramina. L3-4: Endplate spondylosis. There is a large probably extruded left para midline disc herniation migrating upward 17 mm impinging on the left L3 and L4 nerve roots. Degenerative changes of the bilateral facet joints. Severe narrowing of the central canal and left neural foramen. L4-5: Endplate spondylosis. There is a large probably extruded right para midline disc herniation migrating downward 25 mm impinging on the right L5 nerve root . Degenerative changes of the bilateral facet joints. Severe narrowing of the central canal. Moderate narrowing of bilateral intervertebral neural foramina. L5-S1: Endplate spondylosis. 7 mm spondylolisthesis due to degenerative changes of the facet joints. Decreased disc height and moderate circumferential disc bulge. Mild narrowing of the central canal and moderate to severe narrowing of the bilateral intervertebral neural foramina. Normal visualized sacral ala. Normal visualized paraspinous soft tissue structures. MRI/Spine Lumbar (Routine) IMPRESSION: Multilevel degenerative changes with large disc herniations at L3-4 and L4-5 as described above. Electronically Signed: Rosalva Larose, at 12:30 EDT Tel , Service support ,
== END | disposition home or self-care (01) ==
LOC: MRI 11:16
PROVIDERS: PCP Family Medicine; Referring Provider Orthopaedic Surgery; Visit Provider Orthopaedic Surgery
DX: M54.5 Low back pain (principal)
CPT/HCPCS: 72148

== ENCOUNTER 2020-02-04 12:19 | Inpatient (IN) | payer MEDICARE, OTHER, SELFPAY ==
[2020-01-13 11:23] VITALS: BMI 31.9
--- NOTE | 2020-01-28 09:28 | EKG12_ITS ---
Test Reason : PRE OP Blood Pressure : / mmHG Vent. Rate : 069 BPM Atrial Rate : 069 BPM P-R Int : 144 ms QRS Dur : 082 ms QT Int : 374 ms P-R-T Axes : 043 017 081 degrees QTc Int : 400 ms Normal sinus rhythm Normal ECG Confirmed by BELKIS SMITH, PATRICA ([id number]), film editor SERGEI RAYGOZA ([id number]) on 02/01/2020 1:01:59 PM Referred By: Edmundo Duff Confirmed By:PATRICA TAMAYO MD
--- NOTE | 2020-01-28 10:15 | RAD_ITS ---
HISTORY: Hx of COPD, no current chest complaints, pre op for laminectomy next week ADDITIONAL HISTORY: None provided. COMPARISON: 01/29/2019 EXAMINATION/TECHNIQUE: XR Chest 2 Views Number of images including paperwork: 2 FINDINGS: LUNGS AND PLEURA: No consolidation, mass or pleural effusion. Hyperinflation. Mild fibrotic changes at the bases. CARDIAC SILHOUETTE: Unremarkable. MEDIASTINUM AND KATHRIN: Unremarkable. UPPER ABDOMEN: Unremarkable. SKELETON AND SOFT TISSUES: No acute findings. OTHER DEVICES AND HARDWARE: None. RAD/Chest PA and Lateral IMPRESSION: No acute cardiopulmonary abnormality. Hyperinflation suggesting COPD. at 0802 Reported and signed by: Jenifer Johnson MD Electronically Signed: Jenifer Johnson MD at 8:02 EDT Tel , Service support ,
[2020-01-28 10:25] LABS: Absolute Lymphocyte Count 0.99 X10^3/uL (0.83-4.51); Absolute Neutrophil Count 7.9 X10^3/uL (2.0-7.7); Basophil# 0.03 X10^3/uL; Basophil% 0.3 % (0-1); Eosinophil# 0.11 X10^3/uL; Eosinophils% 1.1 % (0-5); Hematocrit 39.4 % (40-54); Hemoglobin 12.2 g/dL (13.0-16.5); Lymphocyte # 0.99 X10^3/ul (4.0); Lymphocyte % 9.6 % (19-41); Mean Corpuscular Hgb 28.2 pg (27.0-32.0); Mean Corpuscular Volume 91.2 fL (80-94); Mean Platelet Vol. 9.5 fl (6.2-12.0); Monocyte% 11.6 % (0-10); NRBC Flagged by Analyzer 0 % (0-5); Neutrophil # 7.91 X10^3/uL (2.7-7.7); Neutrophil % 76.6 % (47-70); Platelet Count 342 K/mm3 (150-450); RBC Distribution Width CV 14.2 % (11.6-14.6); Red Blood Count 4.32 M/mm3 (4.6-6.2); White Blood Count 10.3 K/mm3 (4.4-11.0)
[2020-01-28 10:46] LABS: Magnesium 1.6 mg/dL (1.6-2.6)
[2020-01-28 10:48] LABS: Anion Gap 5 (5-15); BUN 20 mg/dL (7-18); BUN/Creat Ratio 14.2 RATIO (10-20); Chloride 106 mmol/L (98-107); Creatinine, Serum 1.41 mg/dL (0.70-1.30); EST Glomerular Filtration Rate 53 mL/min (>60); Est Glom Filt Rate - Afr Amer 64 mL/min (>60); Glucose 76 mg/dL (74-106); Potassium 3.9 mmol/L (3.5-5.1); Sodium Level 140 mmol/L (136-145)
[2020-01-28 10:50] LABS: Hemoglobin A1c 5.6 % (3.8-5.6)
[2020-01-28 11:11] LABS: HIV - WCH Non-Reactive (Nonreactive)
[2020-01-29 04:07] LABS: HEPATITIS B SURFACE AG Negative (Negative); Hepatitis A AB, Total Negative (Negative); Hepatitis A IgM Antibody Negative (Negative); Hepatitis B Core AB IgM Negative (Negative); Hepatitis B Core Ab Total Negative (Negative); Hepatitis C Ab <0.1 s/co ratio (0.0-0.9)
[2020-01-29 09:50] LABS: Hep B Surface Antibodies Non Reactive (.)
[2020-02-04] VITALS (20 sets, daily range): BP systolic 126–152; BP diastolic 54–96; PULSE 58–80; RESP 16–18; TEMP 35.8–37.5; O2SAT 94–100; BMI 32.8; BMI 34.8; BMI 34.7
--- NOTE | 2020-02-04 06:00 | HP_ITS ---
Intake Intake Visit Reasons: back pain Accompanied by: Spouse Is patient in pain?: Yes Pain scale (1-10): 9 Allergies meropenem Allergy (Verified 01/27/20 10:08) Unknown tramadol Allergy (Verified 01/27/20 10:08) Unknown vancomycin Allergy (Verified 01/27/20 10:08) Unknown hydrocodone bitartrate [From Vicodin] Adverse Reaction (Verified 01/27/20 10:08) nightmares Medications Omeprazole [Prilosec] 20 mg PO BID 02/09/17 [History Confirmed 01/27/20] Oxycodone HCl/Acetaminophen [Percocet 5-325] 1 tab PO 4X/DAY 10/29/17 [History Confirmed 01/27/20] Albuterol Sulfate [Albuterol Sulfate Hfa] 2 puff PO Q4H PRN PRN 01/29/19 [History Confirmed 01/27/20] Metformin HCl 500 mg PO BID 01/29/19 [History Confirmed 01/27/20] Nitroglycerin 0.4 mg SL PRN PRN 01/29/19 [History Confirmed 01/27/20] budesonide 0.5 mg/2 mL suspension for nebulization 2 ml INHALATION Q12H PRN 02/19/19 [History Confirmed 01/27/20] prednisone 10 mg tablet 10 mg PO BID PRN 02/19/19 [History Confirmed 01/27/20] aspirin 81 mg tablet,delayed release 81 mg PO DAILY 05/18/19 [History Confirmed 01/27/20] budesonide-formoterol HFA 160 mcg-4.5 mcg/actuation aerosol inhaler 2 puff INHALATION BID g 05/18/19 [History Confirmed 01/27/20] metoprolol tartrate 50 mg tablet 25 mg PO BID tab 05/18/19 [History Confirmed 01/27/20] rosuvastatin 20 mg tablet 20 mg PO QHS #90 tab 05/20/19 [Rx Confirmed 01/27/20] Cyanocobalamin [Vitamin B12] 1,000 mcg PO DAILY@0800 01/20/20 [History Confirmed 01/27/20] Ipratropium/Albuterol Respimat [Combivent Respimat Inhal [place]] 1 puff INHALATION 4X/DAY 01/20/20 [History Confirmed 01/27/20] Pregabalin [Lyrica] 25 mg PO DAILY 01/20/20 [History Confirmed 01/27/20] hydrocodone 10 mg-acetaminophen 325 mg tablet 1 tab PO Q6H PRN #40 tab 01/27/20 [Rx Confirmed 01/27/20] PFSH Medical History (Reviewed 11/16/19 @ 11:23 by Carloz Loja VENEER [employer] JOINTER FEEDBACK, VENEER [employer] JOINTER FEEDBACK-C) Atherosclerosis of coronary artery of [place] heart without angina pectoris (Chronic) Chronic diastolic (congestive) heart failure (Chronic) Paroxysmal atrial fibrillation (Chronic) Essential (primary) hypertension (Chronic) Hyperlipidemia (Chronic) Lung nodules (Chronic) Alcohol abuse (Chronic) Golden's esophagus (Chronic) COLD (chronic obstructive lung disease) (Chronic) COPD with acute exacerbation (Chronic) Chronic back pain (Chronic) Chronic renal disease, stage 3, moderately decreased glomerular filtration rate (GFR) between 30-59 mL/min/1.73 square meter (Chronic) Chronic respiratory failure (Chronic) Familial combined hyperlipidemia (Chronic) GERD (gastroesophageal reflux disease) (Chronic) GI bleed (Chronic) H/O immunosuppressive therapy (Chronic) Low back pain (Chronic) Non-compliance (Chronic) Obesity (Chronic) Other voice and resonance disorders (Chronic) Peripheral neuropathy (Chronic) Physical deconditioning (Chronic) Rheumatoid arthritis (Chronic) Sleep apnea (Chronic) Steroid long-term use (Chronic) 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) VIET (acute kidney injury) (Resolved) Anemia (Resolved) B12 deficiency (Resolved) Benign neoplasm of colon (Resolved) Blood loss anemia (Resolved) Diverticulosis of colon (without mention of hemorrhage) (Resolved) Internal hemorrhoids without mention of complication (Resolved) Abnormal EKG (Inactive) Abnormal positron emission tomography (PET) scan (Inactive) Benign neoplasm of larynx (Inactive) DVT (deep venous thrombosis) (Inactive) Surgical History (Reviewed 11/16/19 @ 11:23 by Carloz Loja [employer]INTER FEEDBACK, VENE[employer]INTER FEEDBACK-C) History of coronary artery stent placement (Resolved 08/29/10) History of colonoscopy (Acute 08/08/16) history IVC filter insertion (Chronic) History of esophagogastroduodenoscopy (EGD) (Resolved 08/08/16) History of esophagogastroduodenoscopy (EGD) (Resolved 03/2019) History of incisional hernia repair (Resolved) History of left heart catheterization (Resolved) Family History (Reviewed 11/16/19 @ 11:23 by Carloz Loja [employer] JOINTER FEEDBACK, VENEER [employer] JOINTER FEEDBACK-C) Father Heart disease Brother Heart disease Cancer prostate Social History (Updated 01/27/20 @ 11:[address] Edmundo Duff DO) Smoking Status: Former smoker Tobacco: How many years used: 40 substance use type: does not use HPI back pain: Details: Parts of this documentation were recorded by a scribe, this documentation accurately reflects the service provided and the decisions made by me, Dr. Edmundo Duff DO 01/27/20 1008. JB MCPHERSON is a 69 year old M here today for his pre-op appointment. Surgery is scheduled for 02/04/2020. Patient will be getting his COVID test and EKG done tomorrow at [facility]. Gasper is here for his preop evaluation. He comes in in the company of his . I discussed the surgery how it would be done what to expect how long to stay in the hospital etc. I explained that the surgery would take about 3 hours. He would probably go home the Saturday after the of the surgery. We spoke of possible risks and complications associated with surgery including possibility of , paralysis infection meningitis failed to relieve his symptoms dural leak blood clot in the legs blood clot in the lungs myocardial infarction stroke recurrent disc herniation among others. He understood the possible risks and complications I answered all his questions. He signed all the necessary paperwork permits etc. ROS [facility] [place] reviewed and no additional complaints, except as docu, Reports abnormal walking, Reports joint pain, Reports joint swelling, Denies numbness, Denies stiffness, Reports tingling Skin/Breast Reports system reviewed and no additional complaints, except as docu, Denies dry skin, Denies redness, Denies lesions, Denies new lesions, Denies non-healing lesions, Denies itching, Denies rash, Denies skin ulcer, Denies sores, Denies unusual bruising, Denies wounds Neuro Yes system reviewed and no additional complaints, except as docu, Yes abnormal walking, No numbness, Yes tingling Assessment & Plan Medications New: hydrocodone-acetaminophen 10-325 mg ([place]) 1 tab PO Q6H PRN 40 tabs 0RF pain Coding Level of Care Code Off vis,new,level 2 Time Spent (min) 20
[2020-02-04] MEDS: Acetaminophen 500 MG Tablet 1000 MG PO (06:01)
[2020-02-04] MEDS: Lactated Ringers 1,000 ML 100 ML IV ×3 (06:15→15:46)
[2020-02-04 07:15] LABS: Bedside Glucose 96 mg/dL (70-110)
--- NOTE | 2020-02-04 09:02 | RAD_ITS ---
HISTORY: Laminectomy L3-L4 on the left L4-L5 right in the OR. Exam is a single crosstable lateral x-ray of the lumbar spine. In addition to the MRI of the lumbar spine from January 11, 2020, a CT scan of the abdomen and pelvis is available from February 09, 2017. That study confirms 5 non-rib bearing lumbar vertebral body. Findings: A metallic marker is present at the level of the posterior elements between the L4-L5 level. Some wire is present. Some vacuum disc phenomenon is present at the L3-L4, L4-L5, and L5-S1 levels. Although vertebral body height is fairly well-preserved there is loss of disc height with endplate sclerosis especially at the L3-L4, and L5-S1 levels. Facet arthropathy is present. Atherosclerosis within the abdominal aorta persists. RAD/Spine 1 View Any Level IMPRESSION: Localization of the L4-L5 interspace. at 0529 Reported and signed by: Bereket Zhao MD Electronically Signed: Bereket Zhao MD at 5:28 EDT Tel , Service support ,
[2020-02-04] MEDS: THROMBIN (RECOMBINANT) 20,000 UNIT VIAL 20000 UNIT TOPICAL (09:40)
[2020-02-04] MEDS: Thrombin 5,000 IU Kit (PSA) 5,000 IU Vial 5000 IU (11:03)
--- NOTE | 2020-02-04 12:02 | PCM.OPRPT ---
Report of Operation Date of Procedure: 02/04/20 Description of Surgical Findings:: Preop diagnosis is herniated disc L4-5 on the right and L3-4 on the left The operative diagnosis is the same Procedure: Lumbar laminectomy L4-5 on the right and lumbar laminectomy discectomy L 3 4 on the left Surgeon: Dr. Duff urgent care physician assistant Uday QUEVEDO Anesthesia was in the form of general endotracheal anesthesia administered by [facility] EBL: 100 cc Drains: Medium Hemovac Complications: None The patient was taken to the OR where he was placed under general endotracheal anesthesia he was then placed in the prone position on the Ken frame after appropriate positioning with care to protect the bony prominences, his ulnar nerves, his genitalia, his facial features. The back was then prepped and draped in standard fashion. A longitudinal incision centered over L4 5 subcutaneous tissues were incised the length of the skin incision I open the lumbar fascia to the right of the spinous processes elevated the paravertebral muscles off the lamina of L4 and the lamina of L5. The operative x-ray was taken with a marker in place to ensure that we were indeed at the L4-5 level. Then put a Madeline retractor in place lateral to the facet joint at L4-5 on the right. I then removed the remaining soft tissues off of the ligamentum flavum in between the lamina with [place] rongeurs. I then released the ligamentum flavum off the underside of the lamina of L4 with sharp small curettes. The laminectomy was then carried out with 45 degree [place] rongeurs both 3 mm and 4 mm. It at times had to thin down the lamina with double-action rongeurs. Then remove the ligamentum flavum in retrograde fashion with the 45 degree Kerr[place] rongeurs all the way up to the lateral gutters. I identified the L5 nerve root on the right side and moved moved it and its dura medialward exposing the herniated disc. Noted bleeders were controlled with bipolar cautery and thrombin-soaked Gelfoam throughout the case. In addition we thoroughly irrigated every 10 to 15 minutes in the course of the case with copious amounts of sterile saline to prevent infection. The nerve and dura were retracted I then cut a hole in the bulging annulus with a 15 blade I then removed this and removed more disc from then the disc space. We used both up-biting and straight pituitary rongeurs for that purpose. Along with the opening of the lateral recess and removal of all the ligamentum flavum L5 nerve was completely decompressed we checked it in the foramina also with hockey-stick it was loose throughout with no more pressure on this nerve. Thoroughly irrigated yet again and impacted with thrombin soaked Gelfoam and cottonoids to control any further bleeding. I then moved to the left side of the patient extended the incision northward and split the skin and subcutaneous tissues down to the lumbar fascia of an open the lumbar fascia this time to the left of the spinous processes over the L3-4 level. Then elevated the paravertebral muscles off the lamina of both L3 and the lamina of L4 and put a Madeline retractor in place thorough irrigation was carried out repeatedly. Then thinned down the thick L3 lamina on the left with double-action rongeurs I then released the ligamentum flavum off the underside of the lamina of L3 with sharp curettes the laminectomy was then carried out with 45 degree [place] rongeurs. Then I used a both of 3 mm and 4 mm rongeurs. The laminectomy was completed I remove the ligamentum flavum with a 45 degree [place] rongeurs. The patient had a very large herniation that went into the L3 vertebral body on this left side. Acquired complete completing the laminectomy completely on this left side all the way to the ligamentum flavum above and I in fact had to remove some of the ligamentum flavum between L2 and L3. Fashion I was able to retract the dura medialward and finally expose the large extruded fragment. Once exposed I was able to release it from the surrounding tissues note that it was quite adhered and had obviously been there for a very long time. I was finally able to get it out mostly one large piece. In addition I did move down a little to cut a hole and the protruded disc below where the piece came out removed more disc from within the disc space. Completely decompressed the L3 nerve and the L4 nerve on the left side. Thorough irrigation was carried out. Note that we had some fairly brisk epidural bleeding we simply packed it repeatedly with thrombin-soaked Gelfoam and gel and cottonoids until it was under very good control. We then also irrigated the opposite side where we had done the first laminectomy. Then put our amnionic graft at both laminectomy sites but directly over the dura and nerve root to prevent adhesions to the structures we then placed Gelfoam over both laminectomy sites. BDM Hemovac drain was inserted and closure was begun. Closed the lumbar fascia using [id number] suture with #1 Vicryl. This was followed by the subcutaneous tissues closed in an interrupted fashion with 3-0 and 2-0 Vicryl. Skin clips were then applied to the skin and sterile dressings on top of that. The patient was then recovered in the OR and taken to recovery in satisfactory condition.
[2020-02-04] MEDS: Morphine 2 MG/ML Syringe IV ×2 (15:26→19:38)
[2020-02-04 16:06] LABS: Bedside Glucose 108 mg/dL (70-110)
[2020-02-04] MEDS: oxyCODONE 5 MG Tablet 10 MG PO (17:24)
--- NOTE | 2020-02-04 17:30 | CON.PCM_ITS ---
Problem List (1) Obstructive sleep apnea Status: Chronic (2) COPD (chronic obstructive pulmonary disease) Status: Chronic (3) Atherosclerosis of coronary artery of [place] heart without angina pectoris Status: Chronic Qualifiers: Coronary Disease-Associated Artery/Lesion type: [place] artery Qualified Code(s): I25.10 - Atherosclerotic heart disease of [place] coronary artery without angina pectoris (4) History of coronary artery stent placement Status: Chronic Comment: [id number]-UIR-VPC-Distal Lad w/ 3.0 x 28 mm and 2.5 x 16 mm ION Stent 08/29/2010 (5) Paroxysmal atrial fibrillation Status: Chronic (6) Essential (primary) hypertension Status: Chronic (7) Hyperlipidemia Status: Chronic Qualifiers: Hyperlipidemia type: unspecified Qualified Code(s): E78.5 - Hyperlipidemia, unspecified Reason for Consult Date of Consultation: 02/04/20 Reason for Consultation: Postoperative medical management. History of Present Illness: The patient is a 69 year old M with multiple medical comorbidities as mentioned above underwent elective lumbar laminectomy L4-L5 on the right side and lumbar laminectomy/discectomy on L3-L4 on the left side for herniated L4-L5 and L3-L4 discs and I am seeing this patient in consultation for postoperative medical management. At this time, patient complained of back pain, constant pain at the site of the surgery, 10 out of 10 in severity, not relieved with IV morphine, aggravated by activity. He had a history of CAD status post stents and he has been on aspirin, metoprolol and statins. He has history of COPD and he has been on bronchodilators as well as oxygen mainly at night. He has history of obst ructive sleep apnea and he has been on CPAP at night with supplemental oxygen. He has history of type 2 diabetes mellitus, has been on Metformin and his hemoglobin A1c was 5.6% on January,. At this time, his vital signs are stable, afebrile, on room air. His preoperative routine blood work that was done on January 28, 2020 was remarkable for hemoglobin of 12.2, BUN of 20 and creatinine of 1.41. Preoperative chest x-ray showed no acute findings, showed hyperinflation consistent with COPD. He is on IV clindamycin, IV morphine as needed as well as IV fluids. Past Medical History Past Medical History (Chronic Problems): Chronic Problems (Last Updated 02/04/20 @ 16:[address] Warren López MD) Obstructive sleep apnea (Chronic) COPD (chronic obstructive pulmonary disease) (Chronic) Atherosclerosis of coronary artery of [place] heart without angina pectoris (Chronic) History of coronary artery stent placement (Chronic 08/29/10) [id number]-Distal Lad w/ 3.0 x 28 mm and 2.5 x 16 mm ION Stent 08/29/2010 Chronic diastolic (congestive) heart failure (Chronic) Paroxysmal atrial fibrillation (Chronic) Essential (primary) hypertension (Chronic) Hyperlipidemia (Chronic) Lung nodules (Chronic) Medical History: Medical History (Last Updated 02/04/20 @ 16:[address] Warren López MD) Atherosclerosis of coronary artery of [place] heart without angina pectoris (Chronic) I25.10 Chronic diastolic (congestive) heart failure (Chronic) I50.32 Paroxysmal atrial fibrillation (Chronic) I48.0 Essential (primary) hypertension (Chronic) I10 Hyperlipidemia (Chronic) E78.5 Lung nodules (Chronic) R91.8 Alcohol abuse F10.10 4-6 beers daily Golden's esophagus K22.70 COLD (chronic obstructive lung disease) J44.9 he denies this and does not remember seeing Dr. 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 GERD (gastroesophageal reflux disease) K21.9 GI bleed K92.2 H/O immunosuppressive therapy Z92.25 Arava and prednisone which he states that he takes as needed Non-compliance Z91.19 Obesity E66.9 Other voice and resonance disorders R49.8 Peripheral neuropathy G62.9 Rheumatoid arthritis M06.9 Sleep apnea G47.30 does not wear the CPAP....says he does not need it Steroid long-term use Tracheostomy in place Z93.0 VIET (acute kidney injury) N17.9 Anemia D64.9 B12 deficiency E53.8 Benign neoplasm of colon D12.6 Blood loss anemia D50.0 Diverticulosis of colon (without mention of hemorrhage) K57.30 Internal hemorrhoids without mention of complication K64.8 Abnormal EKG (Inactive) R94.31 04/02/19 Abnormal positron emission tomography (PET) scan R94.8 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 DVT (deep venous thrombosis) I82.409 Allergies meropenem Allergy (Verified 02/04/20 05:36) Unknown tramadol Allergy (Verified 02/04/20 05:36) Unknown vancomycin Allergy (Verified 02/04/20 05:36) Unknown hydrocodone bitartrate [From Vicodin] Adverse Reaction (Verified 02/04/20 05:36) nightmares nightmares Home Medications: Ambulatory Orders Medication Instructions Recorded Omeprazole [Prilosec] 20 mg PO BID 02/09/17 Oxycodone HCl/Acetaminophen 1 tab PO 4X/DAY 10/29/17 [Percocet 5-325] Albuterol Sulfate [Albuterol 2 puff PO Q4H PRN PRN 01/29/19 Sulfate Hfa] Metformin HCl 500 mg PO BID 01/29/19 Nitroglycerin 0.4 mg SL PRN PRN 01/29/19 budesonide 0.5 mg/2 mL suspension 2 ml INHALATION Q12H PRN 02/19/19 for nebulization prednisone 10 mg tablet 10 mg PO BID PRN 02/19/19 aspirin 81 mg tablet,delayed 81 mg PO DAILY 05/18/19 release budesonide-formoterol HFA 160 2 puff INHALATION BID g 05/18/19 mcg-4.5 mcg/actuation aerosol inhaler metoprolol tartrate 50 mg tablet 25 mg PO BID tab 05/18/19 rosuvastatin 20 mg tablet 20 mg PO QHS #90 tab 05/20/19 Cyanocobalamin [Vitamin B12] 1,000 mcg PO DAILY@0800 01/20/20 Ipratropium/Albuterol Respimat 1 puff INHALATION 4X/DAY 01/20/20 [Combivent Respimat Inhal [place]] Pregabalin [Lyrica] 25 mg PO DAILY 01/20/20 hydrocodone 10 mg-acetaminophen 1 tab PO Q6H PRN #40 tab 01/27/20 325 mg tablet Surgical History: Surgical History (Last Updated 02/04/20 @ 16:[address] Warren López MD) History of coronary artery stent placement (Chronic) Onset Date: 08/29/10 Z95.5 [id number]-LHZ-Distal Lad w/ 3.0 x 28 mm and 2.5 x 16 mm ION Stent 08/29/2010 History of colonoscopy Onset Date: 08/08/16 Z98.890 history IVC filter insertion History of esophagogastroduodenoscopy (EGD) Onset Date: 08/08/16 Z98.890 History of esophagogastroduodenoscopy (EGD) Onset Date: 03/2019 Z98.890 History of incisional hernia repair Z98.890, Z87.19 History of left heart catheterization Z98.890 Surgical History: - - He has had 2 coronary stents in the past. Abdominal surgery for peptic ulcer disease. Psychiatric History: No pertinent psych hx Lives: Spouse/ Significant Other Smoking Status: Former smoker Tobacco Use: Non-smoker Alcohol: None Drugs: None - *Family History Paternal Family History: Family History (Last Reviewed 11/16/19 @ 11:23 by Carloz Loja NP, [employer]) Father Heart disease Brother Heart disease Cancer History Items: Cancer - His brother had prostate cancer that went to his lungs. Also 3 of his auntS had cancer. Maternal Family History: Family History (Last Reviewed 11/16/19 @ 11:23 by Carloz Loja NP, [employer]) Father Heart disease Brother Heart disease Cancer History Items: - Review of Systems Constitutional: Denies: Anorexia, Chills, Fever, Weakness Eyes: Denies: Blurred vision, Double vision, Drainage, Redness HEENT: Denies: Difficulty Hearing, Ear Pain, Eye Pain, Nasal Congestion, Sore Th roat Cardiovascular: Denies: Chest Pain, Chest Pressure, Edema, Heaviness, Palpitations, Syncope Respiratory: Denies: Cough, Pleuritic Pain, Shortness of Breath, Sputum production, Wheezing Gastrointestinal: Denies: Abdominal Pain, Constipation, Diarrhea, Nausea, Vomiting Genitourinary: Denies: Dysuria, Frequency, Hematuria Musculoskeletal: Reports: Back Pain. Denies: Arm Pain, Foot Pain Skin: Denies: Dryness, Rash Neurological: Denies: Balance problems, Blurred vision, Double vision, Change in Speech, Slurred speech, Confusion, Headaches, Incoordination Psychiatric: Denies: Anxiety, Depression Endocrine: Denies: Change in Body Habitus, Polydipsia, Polyuria - Physical Exam Vitals/I&O's: Vital Signs Temp Pulse Resp BP Pulse Ox 97.9 F 67 18 149/86 H 95 02/04/20 17:00 02/04/20 17:00 02/04/20 17:00 02/04/20 17:00 02/04/20 17:00 Oxygen Flow Rate (L/min) 6 Oxygen Delivery Method Room Air Weight: 228 lb 9.91 oz Body Mass Index (BMI) 34.7 Finger Stick Blood Glucose 108 Intake and Output for Last 24 Hours 02/02/20 02/03/20 02/04/20 23:59 23:59 23:59 Intake Total 1967 / 1967 Output Total 435 / 435 Balance 1533 / 1533 General: Alert, Oriented x3, Cooperative, - - He is in moderate pain. HEENT: Atraumatic, PERRLA, EOMI, Normocephalic Oral: Moist Mucosa, No Gingival or Mucosal Lesions/ Ulcerations Neck: Supple, No JVD, Negative Carotid Bruits, Trachea Midline, Thyroid Normal Size and Texture Lungs: Clear to auscultation, Normal air movement, No wheeze, No rales, Diminished, Rhonchi Cardiovascular: Regular rate, Regular Rhythm, Normal S1, Normal S2, PMI Normal Abdomen: Bowel Sounds Present, Soft, Non Tender, Non-Distended, No Hepato-splenomegaly, Obese Extremities: No clubbing, No cyanosis, Edema Skin: No rashes, No breakdown Lymphatic: No Cervical, Supraclavicular, or Inguinal Adenopathy Neurological: Cranial nerves II-XII grossly intact, Motor Exam 5/5 strength throughout Psych/Mental Status: Normal Affect, Appropriate, Alert and oriented to time, place, person, mood and affect Laboratory Results 02/04/20 05:51: POC Glucose 96 02/04/20 12:50: POC Glucose 108 Clinical Impression(s) from Imaging Studies Chest X-Ray 01/28/20 10:15 IMPRESSION: No acute cardiopulmonary abnormality. Hyperinflation suggesting COPD. at 0802 Reported and signed by: Jenifer Johnson MD Electronically Signed: Jenifer Johnson MD at 8:02 EDT Tel , Service support , Current Medications Acetaminophen (Acetaminophen 500 Mg Tablet) 500 mg PO Q4H PRN PRN PRN Reason: Pain Score 1-10 Diazepam (Diazepam 5 Mg Tablet) 5 mg PO Q6H PRN PRN PRN Reason: Muscle Spasms Enteral Nutritional Formula (Ensure Surgery 237 Ml Liquid) 237 ml PO TIDCM [facility] Last Admin: 02/04/20 15:39 Dose: Not Given Documented by: Famotidine (Famotidine 20 Mg Tablet) 20 mg PO BID [facility] Lactated Ringer's () 1,000 mls @ 100 mls/hr IV .Q10H [facility] Last Admin: 02/04/20 15:46 Dose: 100 mls/hr Documented by: Clindamycin Phosphate 900 mg/ (Dextrose) 106 mls @ 150 mls/hr IV Q8H [facility] Stop: 02/05/20 00:43 Last Infusion: 02/04/20 16:29 Dose: Infused Documented by: Insulin Human Lispro (Insulin Lispro 100 Unit/Ml Insuln.Pen) 1 - 6 unit SC Q4H PRN PRN; Protocol PRN Reason: BG>/= 180, SEE PROTOCOL Stop: 02/04/20 18:00 Morphine Sulfate (Morphine 4 Mg/Ml Syringe) 2 - 4 mg IV Q2H PRN PRN PRN Reason: Pain Score 6-10 Morphine Sulfate (Morphine 2 Mg/Ml Syringe) 2 - 4 mg IV Q2H PRN PRN PRN Reason: Pain Score 6-10 Last Admin: 02/04/20 15:26 Dose: 2 mg Documented by: Ondansetron HCl (Ondansetron 4 Mg/2 Ml Vial) 4 mg IV Q8H PRN PRN PRN Reason: NAUSEA Oxycodone HCl (Oxycodone 5 Mg Tablet) 10 mg PO Q4H PRN PRN PRN Reason: Pain Score 6-10 Senna/Docusate Sodium (Senna/Docusate Sodium 1 Tablet) 2 tablet PO BID [facility] Sodium Chloride (0.9% Nacl Peripheral Flush Adult/Peds) 5 - 15 ml IV UD PRN PRN Reason: SALINE FLUSH Sodium Chloride (0.9% Saline Lock 10 Ml Syringe) 10 - 40 ml IV UD PRN PRN Reason: SALINE FLUSH Assessment/Plan This is a 69 years old male patient underwent elective L4-L5 right laminectomy and L3-L4 left laminectomy and I was asked to see this patient in consultation for postoperative medical management. #1 status post lumbar right L4-L5/lumbar left L3-4 laminectomy: Postoperative day 0, this was done for herniated disc of right L4-L5 and left L3-L4. Currently, patient is having back pain, received IV morphine but not effective. Vital signs are stable. Preoperative routine blood work reviewed as above. He is on IV clindamycin for perioperative prophylaxis. He is on IV morphine and OxyIR as needed for pain. Neurosurgery on the case. Plan: Limit IV fluids to 75 cc/h for 1 L, CBC and BMP tomorrow morning. #2 CAD status post stents: No complaints, no chest pain. Continue aspirin, statins and metoprolol. #3 COPD: Currently, patient is on room air. Chest is clear to auscultation. Plan for albuterol inhaler as needed, Combivent 4 times a day, Symbicort twice daily, oxygen by nasal cannula if needed. #4 paroxysmal atrial fibrillation: Rate is controlled, continue metoprolol for rate control, patient is not on anticoagulation. #5 stage III chronic kidney disease: Baseline creatinine has been around 1.2 to 1.5 mg/dL. Preoperative creatinine was 1.41, stable at baseline, plan to repeat BMP tomorrow morning. #6 type 2 diabetes mellitus: Blood sugar has been stable, hemoglobin A1c was 5.6% 3 days ago. Plan to continue metformin, Accu-Cheks, insulin sliding scale. #7 obstructive sleep apnea: Continue CPAP with same home settings. #8 chronic pain syndrome: Continue Percocet as needed which is a home medicine. #9 hyperlipidemia: Continue statins. #10 alcohol abuse: Thiamine, folic acid, CIWA. #11 DVT prophylaxis: SCDs. This note was generated with [employer] software. It may contain incorrect words, spelling, and punctuation that were not noted in checking the note before signing. Inpatient E&M: 40018 Init Hosp L2
--- NOTE | 2020-02-04 20:47 | CPS ---
Patient did not want to start treatment until am. Patient was informed if he needed a treatment to contact LEVELING MACHINE OPERATOR. Patient agreed with assessment.
[2020-02-04] MEDS: Acetaminophen 500 MG Tablet PO (21:02)
[2020-02-04] MEDS: Famotidine 20 MG Tablet PO (21:02)
[2020-02-04] MEDS: Senna/Docusate Sodium 1 Tablet 2 TABLET PO (21:02)
[2020-02-04] MEDS: oxyCODONE 5 MG Tablet PO (21:02)
[2020-02-04] MEDS: Pantoprazole Sodium 20 MG Tablet PO (21:09)
[2020-02-04] MEDS: Metoprolol Tartrate 25 MG Tablet PO (21:09)
[2020-02-04] MEDS: Atorvastatin Calcium 40 MG Tablet PO (21:09)
[2020-02-04 21:10] LABS: Bedside Glucose 133 mg/dL (70-110)
[2020-02-04] MEDS: Morphine 4 MG/ML Syringe IV (23:34)
[2020-02-05] VITALS (17 sets, daily range): BP systolic 130–161; BP diastolic 79–94; PULSE 73–90; RESP 18; TEMP 36.2–37.5; O2SAT 93–100; BMI 34.8
[2020-02-05] MEDS: Morphine 4 MG/ML Syringe IV (03:30)
[2020-02-05] MEDS: 0.9% NaCl Peripheral Flush Adult/Peds IV (03:33)
[2020-02-05 06:25] LABS: Absolute Lymphocyte Count 0.29 X10^3/uL (0.83-4.51); Absolute Neutrophil Count 9.2 X10^3/uL (2.0-7.7); Basophil# 0.02 X10^3/uL; Basophil% 0.2 % (0-1); Eosinophil# 0.15 X10^3/uL; Eosinophils% 1.3 % (0-5); Hematocrit 34.8 % (40-54); Hemoglobin 10.8 g/dL (13.0-16.5); Lymphocyte # 0.29 X10^3/ul (4.0); Lymphocyte % 2.6 % (19-41); Mean Corpuscular Hgb 27.9 pg (27.0-32.0); Mean Corpuscular Volume 89.9 fL (80-94); Mean Platelet Vol. 9.5 fl (6.2-12.0); Monocyte% 12.6 % (0-10); NRBC Flagged by Analyzer 0 % (0-5); Neutrophil % 82.7 % (47-70); POSITIVE DIFFERENTIAL YES; Platelet Count 272 K/mm3 (150-450); RBC Distribution Width CV 14.5 % (11.6-14.6); RBC Distribution Width SD 47.3 fl (35.1-43.9); Red Blood Count 3.87 M/mm3 (4.6-6.2); White Blood Count 11.1 K/mm3 (4.4-11.0)
[2020-02-05 06:40] LABS: Bedside Glucose 98 mg/dL (70-110)
[2020-02-05 06:54] LABS: Anion Gap 7 (5-15); BUN 10 mg/dL (7-18); BUN/Creat Ratio 8.6 RATIO (10-20); Calcium,Total 8.4 mg/dL (8.5-10.1); Chloride 100 mmol/L (98-107); Creatinine, Serum 1.16 mg/dL (0.70-1.30); EST Glomerular Filtration Rate 67 mL/min (>60); Est Glom Filt Rate - Afr Amer 81 mL/min (>60); Estimated Creatinine Clearance 58.97 ml/min; Glucose 98 mg/dL (74-106); Potassium 4.5 mmol/L (3.5-5.1); Sodium Level 132 mmol/L (136-145)
[2020-02-05 06:56] LABS: Differential Indicated SCAN CRITERIA MET
[2020-02-05] MEDS: Ipratropium/Albuterol Sulfate 3 ML AMPUL.NEB INHALATION ×2 (06:56→20:35)
[2020-02-05 06:58] LABS: Differential Comment SCANNED
--- NOTE | 2020-02-05 07:38 | PCM.PN.HOSP ---
Reason for Visit: Follow-up on postop medical management Subjective: Patient was seen and examined. He complains of severe pain. Generally feels weak. Denies any fever or chills. Objective: Physical exam: General: Alert, Oriented x3, Cooperative, - - He is in moderate pain. HEENT: Atraumatic, PERRLA, EOMI, Normocephalic Oral: Moist Mucosa, No Gingival or Mucosal Lesions/ Ulcerations Neck: Supple, No JVD, Negative Carotid Bruits, Trachea Midline, Thyroid Normal Size and Texture Lungs: Clear to auscultation, Normal air movement, No wheeze, No rales, Diminished, Rhonchi Cardiovascular: Regular rate, Regular Rhythm, Normal S1, Normal S2, PMI Normal Abdomen: Bowel Sounds Present, Soft, Non Tender, Non-Distended, No Hepato-splenomegaly, Obese Extremities: No clubbing, No cyanosis, Edema Skin: No rashes, No breakdown Lymphatic: No Cervical, Supraclavicular, or Inguinal Adenopathy Neurological: Cranial nerves II-XII grossly intact, Motor Exam 5/5 strength throughout Psych/Mental Status: Normal Affect, Appropriate, Alert and oriented to time, place, person, mood and affect Vitals/I&O's: Vital Signs Temp Pulse Resp BP Pulse Ox 99.5 F H 83 18 130/79 H 93 02/05/20 03:38 02/05/20 06:57 02/05/20 06:57 02/05/20 03:38 02/05/20 06:57 Oxygen Flow Rate (L/min) 2.5 Oxygen Delivery Method Room Air Weight: 103.7 kg Body Mass Index (BMI) 34.7 Finger Stick Blood Glucose 108 Intake and Output for Last 24 Hours 02/03/20 02/04/20 02/05/20 23:59 23:59 23:59 Intake Total 2846.33 / 2846.33 327.67 / 327.67 Output Total 1315 / 1315 310 / 310 Balance 1531.33 / 1531.33 17.67 / 17.67 Laboratory Results 02/04/20 12:50: POC Glucose 108 02/04/20 21:04: POC Glucose 133 H 02/05/20 06:05: WBC 11.1 H, RBC 3.87 L, Hgb 10.8 L, Hct 34.8 L, MCV 89.9, MCH 27.9, MCHC 31.0 L, RDW Std Deviation 47.3 H, RDW Coeff of Nina 14.5, Plt Count 272, MPV 9.5, Immature Gran % (Auto) 0.600, Neut % (Auto) 82.7 H, Lymph % (Auto) 2.6 L, Mcclain % (Auto) 12.6 H, Eos % (Auto) 1.3, Baso % (Auto) 0.2, Absolute Neuts (auto) 9.2 H, Absolute Lymphs (auto) 0.29 L, Nucleated RBC % 0, Differential Comment SCANNED 02/05/20 06:05: Sodium 132 L, Potassium 4.5, Chloride 100, Carbon Dioxide 25.0, Anion Gap 7, BUN 10, Creatinine 1.16, Estim Creat Clear Calc 58.97, Est GFR (MDRD) Af Amer 81, Est GFR (MDRD) Non-Af 67, BUN/Creatinine Ratio 8.6 L, Glucose 98, Calcium 8.4 L 02/05/20 06:32: POC Glucose 98 Current Medications Acetaminophen (Acetaminophen 500 Mg Tablet) 500 mg PO Q4H PRN PRN PRN Reason: Pain Score 1-10 Last Admin: 02/04/20 21:02 Dose: 500 mg Documented by: Albuterol/Ipratropium (Ipratropium/Albuterol Sulfate 3 Ml Ampul.Neb) 3 ml INHALATION Q6HWA.RT [facility] Last Admin: 02/05/20 06:56 Dose: 3 ml Documented by: Aspirin (Aspirin E.C. 81 Mg Tablet) [facility] Atorvastatin Calcium (Atorvastatin Calcium 40 Mg Tablet) 40 mg PO QHS [facility] Last Admin: 02/04/20 21:09 Dose: 40 mg Documented by: Budesonide (Budesonide Respules 0.5 Mg/2 Ml Ampul.Neb.) 0.5 mg INHALATION Q12H.RT [facility] Diazepam (Diazepam 5 Mg Tablet) 5 mg PO Q6H PRN PRN PRN Reason: Muscle Spasms Enteral Nutritional Formula (Ensure Surgery 237 Ml Liquid) 237 ml PO TIDCM [facility] Last Admin: 02/04/20 15:39 Dose: Not Given Documented by: Famotidine (Famotidine 20 Mg Tablet) 20 mg PO BID [facility] Last Admin: 02/04/20 21:02 Dose: 20 mg Documented by: Folic Acid (Folic Acid 1 Mg Tablet) 1 mg PO DAILY@0800 [facility] Insulin Human Lispro (Insulin Lispro 100 Unit/Ml Insuln.Pen) 0 unit SC [facility]; Protocol Last Admin: 02/05/20 06:37 Dose: Not Given Documented by: Metformin HCl (Metformin Hcl 500 Mg Tablet) [facility] Metoprolol Tartrate (Metoprolol Tartrate 25 Mg Tablet) 25 mg PO BID [facility] Last Admin: 02/04/20 21:09 Dose: 25 mg Documented by: Morphine Sulfate (Morphine 4 Mg/Ml Syringe) 2 - 4 mg IV Q2H PRN PRN PRN Reason: Pain Score 6-10 Last Admin: 02/05/20 03:30 Dose: 4 mg Documented by: Morphine Sulfate (Morphine 2 Mg/Ml Syringe) 2 - 4 mg IV Q2H PRN PRN PRN Reason: Pain Score 6-10 Last Admin: 02/04/20 19:38 Dose: 2 mg Documented by: Ondansetron HCl (Ondansetron 4 Mg/2 Ml Vial) 4 mg IV Q8H PRN PRN PRN Reason: NAUSEA Oxycodone HCl (Oxycodone 5 Mg Tablet) 10 mg PO Q4H PRN PRN PRN Reason: Pain Score 6-10 Oxycodone HCl (Oxycodone 5 Mg Tablet) 5 mg PO 4X/DAY [facility] Last Admin: 02/04/20 21:02 Dose: 5 mg Documented by: Pantoprazole Sodium (Pantoprazole Sodium 20 Mg Tablet) 20 mg PO BID [facility] Last Admin: 02/04/20 21:09 Dose: 20 mg Documented by: Pregabalin (Pregabalin 25 Mg Capsule) 25 mg PO DAILY [facility] Senna/Docusate Sodium (Senna/Docusate Sodium 1 Tablet) 2 tablet PO BID [facility] Last Admin: 02/04/20 21:02 Dose: 2 tablet Documented by: Sodium Chloride (0.9% Nacl Peripheral Flush Adult/Peds) 5 - 15 ml IV UD PRN PRN Reason: SALINE FLUSH Last Admin: 02/05/20 03:33 Dose: 10 ml Documented by: Sodium Chloride (0.9% Saline Lock 10 Ml Syringe) 10 - 40 ml IV UD PRN PRN Reason: SALINE FLUSH Thiamine HCl (Thiamine Hydrochloride 100 Mg Tablet) 100 mg PO DAILY [facility] STROKE Vital Signs/Narrative: Vital Signs Pulse Resp Pulse Ox 02/05/20 06:57 83 18 93 02/05/20 04:00 88 Medical Necessity - Tobacco Use Smoking Status: Former smoker Tobacco Use: Non-smoker Assessment/Plan 1. POD #1 status post right lumbar L4-L5/left L3-L4 laminectomy Pain is fairly controlled, continue scheduled Tylenol, oxycodone, morphine as needed PT/OT consulted 2. CAD status post stent, stable, continue on aspirin, statin, metoprolol 3. COPD, currently not in acute fibrillation, continue on home regimen 4. Paroxysmal atrial fibrillation, rate controlled, continue on metoprolol 5. CKD stage III, 18 appears improved today, at baseline Cr today is 1.16 down from 1.41 Repeat BMP in a.m. 6. Type II DM, sugars are controlled Will continue with blood glucose checkswith insulin sliding scale 7. NICKOLAS on CPAP 8. Hyperlipidemia, continue home statin regimen 9. Alcohol use disorder, continue on folic acid, thiamine 10. DVT prophylaxis with SCDs Inpatient E&M: 32927 Subs Hosp L2
[2020-02-05] MEDS: Metoprolol Tartrate 25 MG Tablet PO ×2 (08:13→23:27)
[2020-02-05] MEDS: oxyCODONE 5 MG Tablet PO ×2 (08:13→11:20)
[2020-02-05] MEDS: Famotidine 20 MG Tablet PO ×2 (08:13→23:27)
[2020-02-05] MEDS: Thiamine Hydrochloride 100 MG Tablet PO (08:14)
[2020-02-05] MEDS: Senna/Docusate Sodium 1 Tablet 2 TABLET PO ×2 (08:14→23:27)
[2020-02-05] MEDS: Aspirin E.C. 81 MG Tablet PO (08:14)
[2020-02-05] MEDS: Pantoprazole Sodium 20 MG Tablet PO ×2 (08:14→23:27)
[2020-02-05] MEDS: Folic Acid 1 MG Tablet PO (08:14)
[2020-02-05] MEDS: metFORMIN HCl 500 MG Tablet PO ×2 (08:15→17:02)
--- NOTE | 2020-02-05 08:51 | PCM.PN.BLA ---
Progress Note Postop day #1: Patient states that the leg pain particularly on the left is just about gone now compared to how he was prior to surgery. Back is sore as expected but the dressing is clean and dry. Neurologically he is intact. He will start ambulation with physical therapy today. I anticipate that he will be here 2 more days. STROKE Vital Signs/Narrative: Vital Signs Temp Pulse Resp BP Pulse Ox 02/05/20 08:13 80 02/05/20 07:40 98.1 F 87 18 136/82 H 96 02/05/20 06:57 83 18 93
[2020-02-05] MEDS: Budesonide Respules 0.5 MG/2 ML AMPUL.NEB. INHALATION (09:31)
[2020-02-05] MEDS: Pregabalin 25 MG Capsule PO (09:58)
--- NOTE | 2020-02-05 10:00 | CASEMGMT ---
RN KENNY Face to Face with patient for initial transition planning/care coordination assessment. RN CM introduced self and role at [facility]. Patient lying in bed, alert and oriented. Patient willing to participate in assessment and is able to answer all questions appropriately. Care providers, pharmacy, and demographics verified. Patient wishes to discharge home, denies need for home health at this time. Patient states he has no further needs or concerns at this time. CM to follow for discharge planning needs that may arise. PCP: Jovanny Specialists: Omega, spine surgeon, Santi, pain; Cj, rheumatology; Josh pulmonology Preferred Pharmacy: [facility] [employer] Prescription Benefit: yes Living Will/HPOA: none LNOK: Living Arrangements: Patient lives with in a mobile home with 3 steps and railing to enter. Patient states he is independent at home for care. Transportation: self/ DME/HHC: Patient states he has shower chair, cane, rollator, wheelchair, grab bars, and cpap at home. Patient denies previous HHC and states he does not want HHC at discharge. Disposition Plan: Patient to discharge home with family support and follow-up plans in place. Lacey EPPERSON, RN, CM
[2020-02-05 11:26] LABS: Bedside Glucose 96 mg/dL (70-110)
[2020-02-05] MEDS: Acetaminophen 500 MG Tablet 1000 MG PO ×2 (11:31→23:28)
--- NOTE | 2020-02-05 14:38 | CASEMGMT ---
Addendum entered by Lacey Funez 02/05/20 14:42: Pt denied any Mental Health HX or Substance abuse HX. Original Note: Social Work Note SW updated by RN that pt would benefit from TCU at discharge. SW placed a call to [facility] in TCU, TCU will have a bed available for pt on Saturday. Pt will need new COVID test as pt went home from pt's last COVID test. SW updated charge nurse. SW in to speak with pt. SW introduced self and role at [facility]. Pt is alert and orientated. SW informed pt that it took 2-3 people to get pt up with PT/OT, pt agreeable to placement at [facility]. SW provided pt with list of SNF that accept pt's insurances. Pt agreeable to [facility]. KATHYA explained that plan is for pt to admit to [facility] Saturday. Pt states understanding, agreeable to plan. Green sheet on chart. Plan: TCU Saturday Lacey Funez SERGEANT OF OFFICERS, STORAGE SPECIALIST
[2020-02-05 16:20] LABS: Bedside Glucose 94 mg/dL (70-110)
[2020-02-05] MEDS: oxyCODONE 5 MG Tablet 10 MG PO ×2 (17:03→23:35)
[2020-02-05] MEDS: diazePAM 5 MG Tablet PO (20:04)
[2020-02-05] MEDS: Morphine 2 MG/ML Syringe IV (20:07)
[2020-02-05] MEDS: Atorvastatin Calcium 40 MG Tablet PO (23:27)
[2020-02-06] VITALS (10 sets, daily range): BP systolic 150–165; BP diastolic 61–96; PULSE 71–90; RESP 18–24; TEMP 36.9–37.6; O2SAT 93–98
[2020-02-06 03:21] LABS: Bedside Glucose 87 mg/dL (70-110)
[2020-02-06] MEDS: oxyCODONE 5 MG Tablet PO ×4 (05:37→23:40)
[2020-02-06] MEDS: Acetaminophen 500 MG Tablet 1000 MG PO ×3 (05:37→21:43)
[2020-02-06 07:01] LABS: Bedside Glucose 87 mg/dL (70-110)
[2020-02-06] MEDS: Budesonide Respules 0.5 MG/2 ML AMPUL.NEB. INHALATION (07:03)
[2020-02-06] MEDS: Ipratropium/Albuterol Sulfate 3 ML AMPUL.NEB INHALATION (07:03)
[2020-02-06] MEDS: metFORMIN HCl 500 MG Tablet PO ×2 (07:50→17:19)
[2020-02-06] MEDS: Folic Acid 1 MG Tablet PO (07:50)
[2020-02-06] MEDS: Aspirin E.C. 81 MG Tablet PO (07:51)
[2020-02-06] MEDS: Thiamine Hydrochloride 100 MG Tablet PO (07:51)
[2020-02-06] MEDS: Famotidine 20 MG Tablet PO ×2 (09:59→21:42)
[2020-02-06] MEDS: Metoprolol Tartrate 25 MG Tablet PO ×2 (09:59→21:42)
[2020-02-06] MEDS: Pantoprazole Sodium 20 MG Tablet PO ×2 (09:59→21:42)
[2020-02-06] MEDS: Senna/Docusate Sodium 1 Tablet 2 TABLET PO ×2 (10:00→21:43)
[2020-02-06] MEDS: diazePAM 5 MG Tablet PO (10:04)
[2020-02-06] MEDS: Pregabalin 25 MG Capsule PO (12:16)
[2020-02-06 12:25] LABS: Bedside Glucose 99 mg/dL (70-110)
--- NOTE | 2020-02-06 14:48 | PCM.PN.HOSP ---
Reason for Visit: Follow-up on postop medical management Subjective: Patient was seen and examined. His pain is fairly controlled. Complains of severe weakness and inability to walk far. Awaiting discharge to assisted facility. Objective: Physical exam: General: Alert, Oriented x3, Cooperative, appears comfortable today HEENT: Atraumatic, PERRLA, EOMI, Normocephalic Oral: Moist Mucosa, No Gingival or Mucosal Lesions/ Ulcerations Neck: Supple, No JVD, Negative Carotid Bruits, Trachea Midline, Thyroid Normal Size and Texture Lungs: Clear to auscultation, Normal air movement, No wheeze, No rales, Diminished, Rhonchi Cardiovascular: Regular rate, Regular Rhythm, Normal S1, Normal S2, PMI Normal Abdomen: Bowel Sounds Present, Soft, Non Tender, Non-Distended, No Hepato-splenomegaly, Obese Extremities: No clubbing, No cyanosis, Edema Skin: No rashes, No breakdown Lymphatic: No Cervical, Supraclavicular, or Inguinal Adenopathy Neurological: Cranial nerves II-XII grossly intact, Motor Exam 5/5 strength throughout Psych/Mental Status: Normal Affect, Appropriate, Alert and oriented to time, place, person, mood and affect Vitals/I&O's: Vital Signs Temp Pulse Resp BP Pulse Ox 98.4 F 84 18 151/96 H 95 02/06/20 08:45 02/06/20 09:59 02/06/20 08:45 02/06/20 08:45 02/06/20 08:45 Oxygen Flow Rate (L/min) 2 Oxygen Delivery Method Room Air Weight: 103.7 kg Body Mass Index (BMI) 34.7 Finger Stick Blood Glucose 108 Intake and Output for Last 24 Hours 02/04/20 02/05/20 02/06/20 23:59 23:59 23:59 Intake Total 2846.33 / 2846.33 1727.67 / 1727.67 950 / 950 Output Total 1315 / 1315 2060 / 2060 760 / 760 Balance 1531.33 / 1531.33 -332.33 / -332.33 190 / 190 Laboratory Results 02/05/20 14:50: COVID-19 (JAIDEN) Not Detected 02/05/20 16:04: POC Glucose 94 02/05/20 23:17: POC Glucose 87 02/06/20 06:52: POC Glucose 87 02/06/20 12:22: POC Glucose 99 Current Medications Acetaminophen (Acetaminophen 500 Mg Tablet) 1,000 mg PO Q8 [facility] Last Admin: 02/06/20 05:37 Dose: 1,000 mg Documented by: Albuterol/Ipratropium (Ipratropium/Albuterol Sulfate 3 Ml Ampul.Neb) 3 ml INHALATION Q6HWA.RT [facility] Last Admin: 02/06/20 07:03 Dose: 3 ml Documented by: Aspirin (Aspirin E.C. 81 Mg Tablet) 81 mg PO DAILYCM [facility] Last Admin: 02/06/20 07:51 Dose: 81 mg Documented by: Atorvastatin Calcium (Atorvastatin Calcium 40 Mg Tablet) 40 mg PO QHS [facility] Last Admin: 02/05/20 23:27 Dose: 40 mg Documented by: Budesonide (Budesonide Respules 0.5 Mg/2 Ml Ampul.Neb.) 0.5 mg INHALATION Q12H.RT [facility] Last Admin: 02/06/20 07:03 Dose: 0.5 mg Documented by: Diazepam (Diazepam 5 Mg Tablet) 5 mg PO Q6H PRN PRN PRN Reason: Muscle Spasms Last Admin: 02/06/20 10:04 Dose: 5 mg Documented by: Enteral Nutritional Formula (Ensure Surgery 237 Ml Liquid) 237 ml PO TIDCM [facility] Last Admin: 02/06/20 12:16 Dose: Not Given Documented by: Famotidine (Famotidine 20 Mg Tablet) 20 mg PO BID [facility] Last Admin: 02/06/20 09:59 Dose: 20 mg Documented by: Folic Acid (Folic Acid 1 Mg Tablet) 1 mg PO DAILY@0800 [facility] Last Admin: 02/06/20 07:50 Dose: 1 mg Documented by: Insulin Human Lispro (Insulin Lispro 100 Unit/Ml Insuln.Pen) 0 unit SC [facility]; Protocol Last Admin: 02/06/20 13:01 Dose: Not Given Documented by: Metformin [facility] ([facility] Mg [facility]) [facility] Admin: 02/06/20 07:50 Dose: 500 mg Documented by: Metoprolol Tartrate (Metoprolol Tartrate 25 Mg Tablet) 25 mg PO BID [facility] Last Admin: 02/06/20 09:59 Dose: 25 mg Documented by: Morphine Sulfate (Morphine 4 Mg/Ml Syringe) 2 - 4 mg IV Q2H PRN PRN PRN Reason: Pain Score 6-10 Last Admin: 02/05/20 03:30 Dose: 4 mg Documented by: Morphine Sulfate (Morphine 2 Mg/Ml Syringe) 2 - 4 mg IV Q2H PRN PRN PRN Reason: Pain Score 6-10 Last Admin: 02/05/20 20:07 Dose: 2 mg Documented by: Ondansetron HCl (Ondansetron 4 Mg/2 Ml Vial) 4 mg IV Q8H PRN PRN PRN Reason: NAUSEA Oxycodone HCl (Oxycodone 5 Mg Tablet) 10 mg PO Q4H PRN PRN PRN Reason: Pain Score 6-10 Last Admin: 02/05/20 23:35 Dose: 10 mg Documented by: Oxycodone HCl (Oxycodone 5 Mg Tablet) 5 mg PO Q6 [facility] Last Admin: 02/06/20 12:15 Dose: 5 mg Documented by: Pantoprazole Sodium (Pantoprazole Sodium 20 Mg Tablet) 20 mg PO BID [facility] Last Admin: 02/06/20 09:59 Dose: 20 mg Documented by: Pregabalin (Pregabalin 25 Mg Capsule) 25 mg PO DAILY [facility] Last Admin: 02/06/20 12:16 Dose: 25 mg Documented by: Senna/Docusate Sodium (Senna/Docusate Sodium 1 Tablet) 2 tablet PO BID [facility] Last Admin: 02/06/20 10:00 Dose: 2 tablet Documented by: Sodium Chloride (0.9% Nacl Peripheral Flush Adult/Peds) 5 - 15 ml IV UD PRN PRN Reason: SALINE FLUSH Last Admin: 02/05/20 03:33 Dose: 10 ml Documented by: Sodium Chloride (0.9% Saline Lock 10 Ml Syringe) 10 - 40 ml IV UD PRN PRN Reason: SALINE FLUSH Thiamine HCl (Thiamine Hydrochloride 100 Mg Tablet) [facility] Last Admin: 02/06/20 07:51 Dose: 100 mg Documented by: Medical Necessity - Tobacco Use Smoking Status: Former smoker Tobacco Use: Non-smoker Assessment/Plan 1. POD #2, status post right lumbar L4-L5/left L3-L4 laminectomy Pain is fairly controlled, continue scheduled Tylenol, oxycodone, morphine as needed PT/OT consulted 2. CAD status post stent, stable, continue on aspirin, statin, metoprolol 3. COPD, currently not in acute fibrillation, continue on home regimen 4. Paroxysmal atrial fibrillation, rate controlled, continue on metoprolol 5. CKD stage III, 18 appears improved today, at baseline Cr today is 1.16 down from 1.41 Repeat BMP in a.m. 6. Type II DM, sugars are controlled Will continue with blood glucose checks with insulin sliding scale 7. NICKOLAS on CPAP 8. Hyperlipidemia, continue home statin regimen 9. Alcohol use disorder, continue on folic acid, thiamine 10. DVT prophylaxis with SCDs Inpatient E&M: 48681 Subs Hosp L2
--- NOTE | 2020-02-06 15:32 | PCM.PN.BLA ---
Progress Note Mr. Torres is seen on rounds. He states that his leg pain is much better than it was prior to surgery. Neurologically he is intact. His dressing and dry and healing well. (Nurse change the dressing and removed his drain per my order ) we discussed transfer to the transitional care unit possibly as early as tomorrow. He is in such a deconditioned shape from his months of dealing with pain but he will need rehab undoubtedly. STROKE Vital Signs/Narrative: Vital Signs Temp Pulse Resp BP Pulse Ox 02/06/20 15:08 98.9 F 84 18 150/86 H 98
[2020-02-06 16:35] LABS: Bedside Glucose 114 mg/dL (70-110)
[2020-02-06] MEDS: Atorvastatin Calcium 40 MG Tablet PO (21:41)
[2020-02-06 21:55] LABS: Bedside Glucose 105 mg/dL (70-110)
[2020-02-07 02:22] VITALS: BP 167/84; PULSE 74; RESP 16; TEMP 37.1; O2SAT 96
[2020-02-07] MEDS: diazePAM 5 MG Tablet PO (02:32)
[2020-02-07] MEDS: Morphine 4 MG/ML Syringe IV (04:11)
[2020-02-07] MEDS: 0.9% NaCl Peripheral Flush Adult/Peds IV (04:11)
[2020-02-07 06:07] LABS: Absolute Lymphocyte Count 0.47 X10^3/uL (0.83-4.51); Absolute Neutrophil Count 8.5 X10^3/uL (2.0-7.7); Basophil# 0.02 X10^3/uL; Basophil% 0.2 % (0-1); Eosinophil# 0.26 X10^3/uL; Eosinophils% 2.4 % (0-5); Hematocrit 32.2 % (40-54); Lymphocyte # 0.47 X10^3/ul (4.0); Lymphocyte % 4.3 % (19-41); Mean Corp Hgb Conc 31.1 g/dL (32-36); Mean Corpuscular Hgb 27.6 pg (27.0-32.0); Mean Platelet Vol. 9.5 fl (6.2-12.0); Monocyte# 1.48 X10^3/uL; Monocyte% 13.7 % (0-10); NRBC Flagged by Analyzer 0 % (0-5); Neutrophil % 78.6 % (47-70); POSITIVE DIFFERENTIAL YES; Platelet Count 266 K/mm3 (150-450); RBC Distribution Width CV 14.2 % (11.6-14.6); RBC Distribution Width SD 46.2 fl (35.1-43.9); Red Blood Count 3.62 M/mm3 (4.6-6.2); White Blood Count 10.8 K/mm3 (4.4-11.0)
[2020-02-07] MEDS: Acetaminophen 500 MG Tablet 1000 MG PO ×2 (06:11→14:22)
[2020-02-07] MEDS: oxyCODONE 5 MG Tablet PO ×2 (06:11→11:43)
[2020-02-07 06:13] LABS: Differential Indicated SCAN CRITERIA MET
[2020-02-07 06:31] LABS: ALB/GLOB Ratio 0.7 RATIO (0.9-2.4); AST(SGOT) 16 U/L (15-37); Alanine Aminotransfer ALT/SGPT 14 U/L (16-61); Albumin, Serum 2.3 g/dL (3.2-5.0); Alkaline Phosphatase 63 U/L (45-117); Anion Gap 8 (5-15); BUN 11 mg/dL (7-18); BUN/Creat Ratio 9.6 RATIO (10-20); Calcium,Total 8.9 mg/dL (8.5-10.1); Chloride 101 mmol/L (98-107); Creatinine, Serum 1.15 mg/dL (0.70-1.30); EST Glomerular Filtration Rate 67 mL/min (>60); Est Glom Filt Rate - Afr Amer 81 mL/min (>60); Estimated Creatinine Clearance 59.48 ml/min; Globulin 3.5 g/dL (2.2-4.2); Glucose 86 mg/dL (74-106); Protein, Total 5.8 g/dL (6.4-8.2); Sodium Level 135 mmol/L (136-145)
[2020-02-07 06:49] VITALS: PULSE 80; RESP 20; O2SAT 95
[2020-02-07] MEDS: Ipratropium/Albuterol Sulfate 3 ML AMPUL.NEB INHALATION ×2 (06:49→13:11)
[2020-02-07] MEDS: Budesonide Respules 0.5 MG/2 ML AMPUL.NEB. INHALATION (06:49)
[2020-02-07 07:51] LABS: Bedside Glucose 90 mg/dL (70-110)
--- NOTE | 2020-02-07 07:56 | PCM.PN.HOSP ---
Reason for Visit: Follow-up on postop medical management Subjective: Patient was seen and examined. No acute events overnight. Pain is fairly controlled. Objective: Physical exam: General: Alert, Oriented x3, Cooperative, appears comfortable today HEENT: Atraumatic, PERRLA, EOMI, Normocephalic Oral: Moist Mucosa, No Gingival or Mucosal Lesions/ Ulcerations Neck: Supple, No JVD, Negative Carotid Bruits, Trachea Midline, Thyroid Normal Size and Texture Lungs: Clear to auscultation, Normal air movement, No wheeze, No rales, Diminished, Rhonchi Cardiovascular: Regular rate, Regular Rhythm, Normal S1, Normal S2, PMI Normal Abdomen: Bowel Sounds Present, Soft, Non Tender, Non-Distended, No Hepato-splenomegaly, Obese Extremities: No clubbing, No cyanosis, Edema Skin: No rashes, No breakdown Lymphatic: No Cervical, Supraclavicular, or Inguinal Adenopathy Neurological: Cranial nerves II-XII grossly intact, Motor Exam 5/5 strength throughout Psych/Mental Status: Normal Affect, Appropriate, Alert and oriented to time, place, person, mood and affect Vitals/I&O's: Vital Signs Temp Pulse Resp BP Pulse Ox 98.8 F 80 20 H 167/84 H 95 02/07/20 02:22 02/07/20 06:49 02/07/20 06:49 02/07/20 02:22 02/07/20 06:49 Oxygen Flow Rate (L/min) 2.5 Oxygen Delivery Method Nasal Cannula Weight: 103.7 kg Body Mass Index (BMI) 34.7 Finger Stick Blood Glucose 108 Intake and Output for Last 24 Hours 02/05/20 02/06/20 02/07/20 23:59 23:59 22:59 Intake Total 1727.67 / 1727.67 1900 / 1900 Output Total 2059 / 2059 1435 / 1435 400 / 400 Balance -332.33 / -332.33 465 / 465 -400 / -400 Laboratory Results 02/06/20 12:22: POC Glucose 99 02/06/20 16:27: POC Glucose 114 H 02/06/20 21:48: POC Glucose 105 02/07/20 05:10: WBC 10.8, RBC 3.62 L, Hgb 10.0 L, Hct 32.2 L, MCV 89.0, MCH 27.6, MCHC 31.1 L, RDW Std Deviation 46.2 H, RDW Coeff of Nina 14.2, Plt Count 266, MPV 9.5, Immature Gran % (Auto) 0.800, Neut % (Auto) 78.6 H, Lymph % (Auto) 4.3 L, [place] % (Auto) 13.7 H, Eos % (Auto) 2.4, Baso % (Auto) 0.2, Absolute Neuts (auto) 8.5 H, Absolute Lymphs (auto) 0.47 L, Nucleated RBC % 0, Differential Comment COMMENT 02/07/20 05:10: Sodium 135 L, Potassium 4.0, Chloride 101, Carbon Dioxide 26.0, Anion Gap 8, BUN 11, Creatinine 1.15, Estim Creat Clear Calc 59.48, Est GFR (MDRD) Af Amer 81, Est GFR (MDRD) Non-Af 67, BUN/Creatinine Ratio 9.6 L, Glucose 86, Calcium 8.9, Total Bilirubin 1.10 H, AST 16, ALT 14 L, Alkaline Phosphatase 63, Total Protein 5.8 L, Albumin 2.3 L, Globulin 3.5, Albumin/Globulin Ratio 0.7 L 02/07/20 07:26: POC Glucose 90 Current Medications Acetaminophen (Acetaminophen 500 Mg Tablet) 1,000 mg PO Q8 [facility] Last Admin: 02/07/20 06:11 Dose: 1,000 mg Documented by: Albuterol/Ipratropium (Ipratropium/Albuterol Sulfate 3 Ml Ampul.Neb) 3 ml INHALATION Q6HWA.RT [facility] Last Admin: 02/07/20 06:49 Dose: 3 ml Documented by: Aspirin (Aspirin E.C. 81 Mg Tablet) 81 mg PO DAILYCM [facility] Last Admin: 02/06/20 07:51 Dose: 81 mg Documented by: Atorvastatin Calcium (Atorvastatin Calcium 40 Mg Tablet) 40 mg PO QHS [facility] Last Admin: 02/06/20 21:41 Dose: 40 mg Documented by: Budesonide (Budesonide Respules 0.5 Mg/2 Ml Ampul.Neb.) 0.5 mg INHALATION Q12H.RT [facility] Last Admin: 02/07/20 06:49 Dose: 0.5 mg Documented by: Diazepam (Diazepam 5 Mg Tablet) 5 mg PO Q6H PRN PRN PRN Reason: Muscle Spasms Last Admin: 02/07/20 02:32 Dose: 5 mg Documented by: Enteral Nutritional Formula (Ensure Surgery 237 Ml Liquid) 237 ml PO TIDCM [facility] Last Admin: 02/06/20 17:08 Dose: Not Given Documented by: Famotidine (Famotidine 20 Mg Tablet) 20 mg PO BID [facility] Last Admin: 02/06/20 21:42 Dose: 20 mg Documented by: Folic Acid (Folic Acid 1 Mg Tablet) 1 mg PO DAILY@0800 [facility] Last Admin: 02/06/20 07:50 Dose: 1 mg Documented by: Insulin Human Lispro (Insulin Lispro 100 Unit/Ml Insuln.Pen) 0 unit SC [facility]; Protocol Last Admin: 02/06/20 21:49 Dose: Not Given Documented by: Metformin HCl (Metformin Hcl 500 Mg Tablet) [facility] Last Admin: 02/06/20 17:19 Dose: 500 mg Documented by: Metoprolol Tartrate (Metoprolol Tartrate 25 Mg Tablet) 25 mg PO BID [facility] Last Admin: 02/06/20 21:42 Dose: 25 mg Documented by: Morphine Sulfate (Morphine 4 Mg/Ml Syringe) 2 - 4 mg IV Q2H PRN PRN PRN Reason: Pain Score 6-10 Last Admin: 02/07/20 04:11 Dose: 4 mg Documented by: Morphine Sulfate (Morphine 2 Mg/Ml Syringe) 2 - 4 mg IV Q2H PRN PRN PRN Reason: Pain Score 6-10 Last Admin: 02/05/20 20:07 Dose: 2 mg Documented by: Ondansetron HCl (Ondansetron 4 Mg/2 Ml Vial) 4 mg IV Q8H PRN PRN PRN Reason: NAUSEA Oxycodone HCl (Oxycodone 5 Mg Tablet) 10 mg PO Q4H PRN PRN PRN Reason: Pain Score 6-10 Last Admin: 02/05/20 23:35 Dose: 10 mg Documented by: Oxycodone HCl (Oxycodone 5 Mg Tablet) 5 mg PO Q6 [facility] Last Admin: 02/07/20 06:11 Dose: 5 mg Documented by: Pantoprazole Sodium (Pantoprazole Sodium 20 Mg Tablet) 20 mg PO BID [facility] Last Admin: 02/06/20 21:42 Dose: 20 mg Documented by: Pregabalin (Pregabalin 25 Mg Capsule) 25 mg PO DAILY [facility] Last Admin: 02/06/20 12:16 Dose: 25 mg Documented by: Senna/Docusate Sodium (Senna/Docusate Sodium 1 Tablet) 2 tablet PO BID [facility] Last Admin: 02/06/20 21:43 Dose: 2 tablet Documented by: Sodium Chloride (0.9% Nacl Peripheral Flush Adult/Peds) 5 - 15 ml IV UD PRN PRN Reason: SALINE FLUSH Last Admin: 02/07/20 04:11 Dose: 10 ml Documented by: Sodium Chloride (0.9% Saline Lock 10 Ml Syringe) 10 - 40 ml IV UD PRN PRN Reason: SALINE FLUSH Thiamine HCl (Thiamine Hydrochloride 100 Mg Tablet) 100 mg PO DAILYCM [facility] Last Admin: 02/06/20 07:51 Dose: 100 mg Documented by: STROKE Vital Signs/Narrative: Vital Signs Pulse Resp Pulse Ox 02/07/20 06:49 80 20 H 95 Medical Necessity - Tobacco Use Smoking Status: Former smoker Tobacco Use: Non-smoker Assessment/Plan 1. POD #3, status post right lumbar L4-L5/left L3-L4 laminectomy Pain is fairly controlled, continue scheduled Tylenol, oxycodone, morphine as needed PT/OT consulted 2. CAD status post stent, stable, continue on aspirin, statin, metoprolol 3. COPD, currently not in acute fibrillation, continue on home regimen 4. Paroxysmal atrial fibrillation, rate controlled, continue on metoprolol 5. CKD stage III, 18 appears improved today, at baseline Cr today is 1.15 down from 1.41 6. Type II DM, sugars are controlled Will continue with blood glucose checks with insulin sliding scale 7. NICKOLAS on CPAP 8. Hyperlipidemia, continue home statin regimen 9. Alcohol use disorder, continue on folic acid, thiamine 10. DVT prophylaxis with SCDs Inpatient E&M: 99721 Subs Hosp L2
[2020-02-07 08:25] VITALS: BP 137/79; PULSE 86; RESP 18; TEMP 36.9; O2SAT 98
[2020-02-07] MEDS: metFORMIN HCl 500 MG Tablet PO (08:58)
[2020-02-07] MEDS: Folic Acid 1 MG Tablet PO (08:58)
[2020-02-07] MEDS: Senna/Docusate Sodium 1 Tablet 2 TABLET PO (08:58)
[2020-02-07] MEDS: Aspirin E.C. 81 MG Tablet PO (08:59)
[2020-02-07] MEDS: Thiamine Hydrochloride 100 MG Tablet PO (08:59)
[2020-02-07 09:00] VITALS: PULSE 80
[2020-02-07] MEDS: Famotidine 20 MG Tablet PO (09:00)
[2020-02-07] MEDS: Pantoprazole Sodium 20 MG Tablet PO (09:00)
[2020-02-07] MEDS: Pregabalin 25 MG Capsule PO (09:00)
[2020-02-07] MEDS: Metoprolol Tartrate 25 MG Tablet PO (09:00)
--- NOTE | 2020-02-07 11:19 | PCM.TXEXTCAR ---
- Diet 02/04/20 17:26 Diet: Regular - General - Wound(s) BACK Wound Type: Surgical Incision Dressing Change: leave in place for 5 dasys then remove - Therapies Weight Bearing: Full weight bearing Physical Therapy: Eval and Treat Occupational Therapy: Eval and Treat - Allergies/Procedures Done in Hospital Allergies/Adverse Reactions: Allergies meropenem Allergy (Verified 02/04/20 05:36) Unknown tramadol Allergy (Verified 02/04/20 05:36) Unknown vancomycin Allergy (Verified 02/04/20 05:36) Unknown hydrocodone bitartrate [From Vicodin] Adverse Reaction (Verified 02/04/20 05:36) nightmares nightmares - Type of Care/Length of Stay Estimated LOS: Convalescent Care Less Than 30 days Type of Care Needed: Skilled Rehab Potential: Fair Prognosis: Fair - Additional Orders/Day of Discharge Day of Discharge: 02/07/20 - Follow Up Care Primary Care Physician: Andres Petty MD [Primary Care Provider] -
[2020-02-07 11:55] LABS: Bedside Glucose 107 mg/dL (70-110)
[2020-02-07 14:03] VITALS: PULSE 82; RESP 18
[2020-02-07 14:20] VITALS: BP 141/77; PULSE 74; RESP 16; TEMP 37.2; O2SAT 97
== END 2020-02-07 14:47 | disposition skilled nursing facility (03) | DRG 519 ==
LOC: SDC 13:22 → MS3 13:22
PROVIDERS: Anesthesiology; Hospitalist; Admitting Provider Orthopaedic Surgery; PCP Family Medicine; Referring Provider Orthopaedic Surgery; Visit Provider Internal Medicine
PROC: 0SB20ZZ Excision of Lumbar Vertebral Disc, Open Approach (ICD-10-PCS; CPT 63030; principal; 2020-02-04 07:00)
DX: M51.26 Other intervertebral disc displacement, lumbar region (principal); I13.0 Hypertensive heart and chronic kidney disease with heart failure and stage 1 through stage 4 chronic kidney disease, or unspecified chronic kidney disease; I50.32 Chronic diastolic (congestive) heart failure; I25.10 Atherosclerotic heart disease of native coronary artery without angina pectoris; I48.0 Paroxysmal atrial fibrillation; E78.5 Hyperlipidemia, unspecified; J44.9 Chronic obstructive pulmonary disease, unspecified; K21.9 Gastro-esophageal reflux disease without esophagitis; E66.9 Obesity, unspecified; M06.9 Rheumatoid arthritis, unspecified; N18.30 Chronic kidney disease, stage 3 unspecified; Z87.891 Personal history of nicotine dependence; Z86.718 Personal history of other venous thrombosis and embolism; E11.22 Type 2 diabetes mellitus with diabetic chronic kidney disease; E11.42 Type 2 diabetes mellitus with diabetic polyneuropathy; G47.33 Obstructive sleep apnea (adult) (pediatric); Z79.51 Long term (current) use of inhaled steroids; Z79.84 Long term (current) use of oral hypoglycemic drugs; Z79.899 Other long term (current) drug therapy; Z95.5 Presence of coronary angioplasty implant and graft; Z68.34 Body mass index [BMI] 34.0-34.9, adult; G89.4 Chronic pain syndrome; F10.10 Alcohol abuse, uncomplicated
CPT/HCPCS: 36415; 71046; 72020; 80048; 80053; 82962; 83036; 83735; 85025; 86703; 86704; 86705; 86706; 86708; 86709; 86803; 87081; 87340; 87635; 93005; 94640; 94762; 97110; 97162; 97530; 99251; C9803; J7120; A4216; G0463; U0002; U0003

== ENCOUNTER 2020-02-07 14:55 | Inpatient (IN) | payer MEDICARE, OTHER, SELFPAY ==
[2020-02-04 15:06] VITALS: BMI 34.7
[2020-02-07 15:02] VITALS: BP 159/86; PULSE 72; RESP 18; TEMP 36.9; O2SAT 93; BMI 32.3
[2020-02-07 16:34] VITALS: BP 159/86; PULSE 72
[2020-02-07] MEDS: Metoprolol Tartrate 25 MG Tablet PO (16:34)
[2020-02-07] MEDS: oxyCODONE 5 MG Tablet PO ×2 (16:35→20:27)
[2020-02-07] MEDS: Pantoprazole Sodium 20 MG Tablet PO (16:35)
[2020-02-07] MEDS: metFORMIN HCl 500 MG Tablet PO (16:55)
--- NOTE | 2020-02-07 17:15 | HP.PCM_ITS ---
Problem List (1) Debility Status: Acute (2) Lumbar spinal stenosis Status: Acute (3) Atrial fibrillation Status: Chronic (4) GERD (gastroesophageal reflux disease) Status: Chronic (5) Diabetes mellitus Status: Chronic (6) Coronary artery disease Status: Chronic (7) Neuropathic pain Status: Chronic (8) COPD (chronic obstructive pulmonary disease) Status: Chronic History of Present Illness Date of Admission: 02/07/20 Chief Complaint: Here for rehabilitation, strengthening, prior to discharge home with . The patient is a 69 year old Male with below past medical history with followin01/28/20 EKG normal sinus rhythm, normal EKG. 01/28/20 Chest X-ray negative, but hyperinflation suggesting COPD. 02/04/20 Ortho spine performed lumbar laminectomy L4-5 on right, lumbar laminectomy discectomy L3, 4 on left. 02/04/20 Clindamycin IV perioperative prophylaxis. Morphine IV, Oxycodone for pain control. 02/05/20 Left leg pain resolved. Ambulated with PT. 02/06/20 Acute Kidney Injury improved. Recommend TCU for short term rehabilitation, 02/07/20 Admit to TCU with debility, here for rehabilitation,strengthening, prior to discharge home with . Past Medical History Past Medical History (Chronic Problems): Chronic Problems (Last Updated 02/04/20 @ 16:[address] Warren López MD) Atrial fibrillation (Chronic) GERD (gastroesophageal reflux disease) (Chronic) Diabetes mellitus (Chronic) Coronary artery disease (Chronic) Neuropathic pain (Chronic) Obstructive sleep apnea (Chronic) COPD (chronic obstructive pulmonary disease) (Chronic) Atherosclerosis of coronary artery of [place] heart without angina pectoris (Chronic) History of coronary artery stent placement (Chronic 08/29/10) DAT-CMR-QBP-Distal Lad w/ 3.0 x 28 mm and 2.5 x 16 mm ION Stent 08/29/2010 Chronic diastolic (congestive) heart failure (Chronic) Paroxysmal atrial fibrillation (Chronic) Essential (primary) hypertension (Chronic) Hyperlipidemia (Chronic) Lung nodules (Chronic) Medical History: Medical History (Last Updated 02/04/20 @ 16:[address] Warren López MD) Atherosclerosis of coronary artery of [place] heart without angina pectoris (Chronic) I25.10 Chronic diastolic (congestive) heart failure (Chronic) I50.32 Paroxysmal atrial fibrillation (Chronic) I48.0 Essential (primary) hypertension (Chronic) I10 Hyperlipidemia (Chronic) E78.5 Lung nodules (Chronic) R91.8 Alcohol abuse F10.10 4-6 beers daily Golden's esophagus K22.70 COLD (chronic obstructive lung disease) J44.9 he denies this and does not remember seeing Dr. 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 GERD (gastroesophageal reflux disease) K21.9 GI bleed K92.2 H/O immunosuppressive therapy Z92.25 Arava and prednisone which he states that he takes as needed Non-compliance Z91.19 Obesity E66.9 Other voice and resonance disorders R49.8 Peripheral neuropathy G62.9 Rheumatoid arthritis M06.9 Sleep apnea G47.30 does not wear the CPAP....says he does not need it Steroid long-term use Tracheostomy in place Z93.0 VIET (acute kidney injury) N17.9 Anemia D64.9 B12 deficiency E53.8 Benign neoplasm of colon D12.6 Blood loss anemia D50.0 Diverticulosis of colon (without mention of hemorrhage) K57.30 Internal hemorrhoids without mention of complication K64.8 Abnormal EKG (Inactive) R94.31 04/02/19 Abnormal positron emission tomography (PET) scan R94.8 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 DVT (deep venous thrombosis) I82.409 Allergies meropenem Allergy (Verified 02/04/20 05:36) Unknown tramadol Allergy (Verified 02/04/20 05:36) Unknown vancomycin Allergy (Verified 02/04/20 05:36) Unknown hydrocodone bitartrate [From Vicodin] Adverse Reaction (Verified 02/04/20 05:36) nightmares nightmares Home Medications: Ambulatory Orders Medication Instructions Recorded Omeprazole [Prilosec] 20 mg PO BID 02/09/17 Oxycodone HCl/Acetaminophen 1 tab PO 4X/DAY 10/29/17 [Percocet 5-325] Albuterol Sulfate [Albuterol 2 puff PO Q4H PRN PRN 01/29/19 Sulfate Hfa] Metformin HCl 500 mg PO BID 01/29/19 Nitroglycerin 0.4 mg SL PRN PRN 01/29/19 budesonide 0.5 mg/2 mL suspension 2 ml INHALATION Q12H PRN 02/19/19 for nebulization prednisone 10 mg tablet 10 mg PO BID PRN 02/19/19 aspirin 81 mg tablet,delayed 81 mg PO DAILY 05/18/19 release budesonide-formoterol HFA 160 2 puff INHALATION BID g 05/18/19 mcg-4.5 mcg/actuation aerosol inhaler metoprolol tartrate 50 mg tablet 25 mg PO BID tab 05/18/19 rosuvastatin 20 mg tablet 20 mg PO QHS #90 tab 05/20/19 Cyanocobalamin [Vitamin B12] 1,000 mcg PO DAILY@0800 01/20/20 Ipratropium/Albuterol Respimat 1 puff INHALATION 4X/DAY 01/20/20 [Combivent Respimat Inhal Blossom] Pregabalin [Lyrica] 25 mg PO DAILY 01/20/20 hydrocodone 10 mg-acetaminophen 1 tab PO Q6H PRN #40 tab 01/27/20 325 mg tablet Oxycodone [Oxyir] 10 mg PO Q4H PRN PRN 7 Days #14 tab 02/07/20 Surgical History: Surgical History (Last Updated 02/04/20 @ 16:[address] Warren López MD) History of coronary artery stent placement (Chronic) Onset Date: 08/29/10 Z95.5 REE-FLY-MOD-Distal Lad w/ 3.0 x 28 mm and 2.5 x 16 mm ION Stent 08/29/2010 History of colonoscopy Onset Date: 08/08/16 Z98.890 history IVC filter insertion History of esophagogastroduodenoscopy (EGD) Onset Date: 08/08/16 Z98.890 History of esophagogastroduodenoscopy (EGD) Onset Date: 03/2019 Z98.890 History of incisional hernia repair Z98.890, Z87.19 History of left heart catheterization Z98.890 Surgical History: angioplasty - Cardiac stent x 2., herniorrhaphy - Incisional., - - IVC filter, Abdominal surgery for peptic ulcer disease, Lumbar spine surgery. Psychiatric History: No pertinent psych hx Lives: Spouse/ Significant Other Smoking Status: Former smoker Tobacco Use: Non-smoker Alcohol: None Drugs: None - *Family History Paternal Family History: Family History (Last Reviewed 11/16/19 @ 11:23 by Carloz Loja DIRECTOR TRANSPORTATION, DIRECTOR TRANSPORTATION-C) Father Heart disease Brother Heart disease Cancer History Items: Cancer - His brother had prostate cancer that went to his lungs. Also 3 of his auntS had cancer. Maternal Family History: Family History (Last Reviewed 11/16/19 @ 11:23 by Carloz Loja NP, DIRECTOR TRANSPORTATION-C) Father Heart disease Brother Heart disease Cancer History Items: - Review of Systems Constitutional: Denies: Chills, Fever, Weight Change HEENT: Denies: Head Aches, Sinus Congestion, Sinus Drainage Cardiovascular: Denies: Chest Pain, Palpitations Respiratory: Denies: Cough, Shortness of breath at rest, Sputum production Gastrointestinal: Denies: Abdominal Pain, Nausea, Vomiting Genitourinary: Denies: Dysuria Musculoskeletal: Denies: Joint Pain, Joint Tenderness Skin: Denies: Rash, Wounds Neurological: Denies: Numbness, Tingling, Focal weakness Psychiatric: Denies: Anxiety, Depression, Homicidal Ideations, Suicidal Ideations Hematologic/ Lymphatic: Denies: Easy Bruising, Easy Bleeding VTE Information - Inpt Only VTE Present on Admission: No VTE Mechan Device Prophylaxis: Knee High RON Hose VTE Pharm Prophylaxis ordered?: Yes Patient Problems: Active and Suspected Problems (Last Updated 02/04/20 @ 16:[address] Warren López MD) Debility (Acute) Lumbar spinal stenosis (Acute) - Physical Exam Vitals/I&O's: Vital Signs Temp Pulse Resp BP Pulse Ox 98.4 F 72 18 159/86 H 93 02/07/20 15:02 02/07/20 16:34 02/07/20 15:02 02/07/20 16:34 02/07/20 15:02 Oxygen Delivery Method Room Air Weight: 96.672 kg Body Mass Index (BMI) 32.3 Finger Stick Blood Glucose 108 General: Alert, Oriented x3, Cooperative HEENT: Atraumatic, PERRLA, EOMI, Normocephalic Neck: Supple, No JVD, Negative Carotid Bruits Lungs: Clear to auscultation, Normal air movement Cardiovascular: Regular rate, No murmurs Abdomen: Bowel Sounds Present, Soft, Non Tender Extremities: No edema, Capillary Refill Less than 3 Seconds Skin: No rashes, No breakdown Musculoskeletal: No Tenderness to Palpation of Joints or Extremities Neurological: Cranial nerves II-XII grossly intact Psych/Mental Status: Normal Affect, Appropriate Laboratory Results 02/07/20 16:00: COVID-19 (JAIDEN) Pending Current Medications Hydrocodone Bitart/Acetaminophen (Hydrocodone Bitartrate/Apap 5/325 Tablet) 1 tablet PO Q6H PRN PRN Reason: Pain Score 1-10 Albuterol Sulfate (Albuterol Sulfate Hfa 6.7 Gm Inhaler (200 Puffs)) 2 puff IH Q4H PRN PRN PRN Reason: wheezing/sob Albuterol/Ipratropium (Ipratropium/Albuterol Sulfate 3 Ml Ampul.Neb) 2.5 ml INHALATION Q6HWA.RT ABEBA Aspirin (Aspirin E.C. 81 Mg Tablet) 81 mg PO DAILY ABEBA Atorvastatin Calcium (Atorvastatin Calcium 40 Mg Tablet) 40 mg PO QHS ABEBA Budesonide (Budesonide Respules 0.5 Mg/2 Ml Ampul.Neb.) 0.5 mg INHALATION Q12H PRN PRN Reason: SOB &/OR WHEEZING Cyanocobalamin (Cyanocobalamin 500 Mcg Tablet) 1,000 mcg PO DAILY@0800 [facility] Metformin [facility] ([facility] Hcl 500 Mg Tablet) [facility] Last Admin: 02/07/20 16:55 Dose: 500 mg Documented by: Metoprolol Tartrate (Metoprolol Tartrate 25 Mg Tablet) 25 mg PO BID [facility] Last Admin: 02/07/20 16:34 Dose: 25 mg Documented by: Nitroglycerin (Nitroglycerin Sl (Ed/Img/Cath) 0.4 Mg Tablet) 0.4 mg SUBLINGUAL PRN PRN PRN Reason: chest pain Oxycodone HCl (Oxycodone 5 Mg Tablet) 10 mg PO Q4H PRN PRN PRN Reason: Pain Score 6-10 Oxycodone HCl (Oxycodone 5 Mg Tablet) 5 mg PO 4X/DAY [facility] Last Admin: 02/07/20 16:35 Dose: 5 mg Documented by: Pantoprazole Sodium (Pantoprazole Sodium 20 Mg Tablet) 20 mg PO BID [facility] Last Admin: 02/07/20 16:35 Dose: 20 mg Documented by: Prednisone (Prednisone 10 Mg Tablet) 10 mg PO BID PRN PRN PRN Reason: RA flare Pregabalin (Pregabalin 25 Mg Capsule) 25 mg PO DAILY [facility] Tuberculin PPD (Tuberculin,Purif.Prot.Deriv. 50 Tu/Ml Vial) 5 tu ID [id number] ONE Stop: 02/08/20 10:01 Tuberculin PPD (Tuberculin,Purif.Prot.Deriv. 50 Tu/Ml Vial) 5 tu ID X1 ONE Stop: 02/15/20 10:01 Assessment/Plan All Active Problems (Last Updated 02/04/20 @ 16:[address] Warren López MD) Debility (Acute) Lumbar spinal stenosis (Acute) 69 year old male with below past medical history hospitalized for lumbar spine surgery 02/04/20, complicated by acute kidney injury, resolved, admitted to TCU with debility, here for rehabilitation, strengthening, prior to discharge home with . * Debility - PT/OT. * Pain - Oxycodone 5MG 4x/day, Oxycodone 10MG Q4H PRN pain (6-10), [place] 5/325MG Q6H PRN pain (1-5). * Bowel - Miralax 17GM daily, Senna/colace 2 tablets BID, MOM 30ML daily PRN, Dulcolax 10MG OK daily PRN. * Adult immunization - Administer Prevnar 13, Pneumovax 23, Fluzone as appropriate. * DVT prophylaxis - Lovenox 40MG SC daily. * COPD - Duoneb 2.5MG [id number], Pulmicort 0.5MG Q12H PRN, Albuterol 2 puffs Q4H PRN. * Coronary Artery disease - Metoprolol 25MG BID, Aspirin 81MG daily, NTG 0.4MG SL PRN. * Hyperlipidemia - Atorvastatin 40MG QHS. * Vitamin B12 deficiency - B12 1000MCG daily. * Diabetes Mellitus II - Metformin 500MG BID. * GERD - Pantoprazole 20MG BID. * Rheumatoid Arthritis - Prednisone 10MG BID PRN. * Neuropathic pain - Lyrica 25MG daily. * Rhinitis - Afrin at bedtime.
[2020-02-07] MEDS: Senna/Docusate Sodium 1 Tablet 2 TABLET PO (17:52)
[2020-02-07 19:15] VITALS: PULSE 72; RESP 18; O2SAT 91
[2020-02-07] MEDS: Ipratropium/Albuterol Sulfate 3 ML AMPUL.NEB 2.5 ML INHALATION (19:15)
[2020-02-07] MEDS: Atorvastatin Calcium 40 MG Tablet PO (20:27)
[2020-02-07] MEDS: oxyCODONE 5 MG Tablet 10 MG PO (23:41)
--- NOTE | 2020-02-07 23:41 | CPS ---
pt has own bipap/cpap with 1.5L o2 bled in. It is set up and ready to use with distilled water as well.
[2020-02-08] VITALS (7 sets, daily range): BP systolic 125–133; BP diastolic 66–70; PULSE 70–87; RESP 16–20; TEMP 36.9–37; O2SAT 90–98
[2020-02-08] MEDS: Pregabalin 25 MG Capsule PO (05:23)
[2020-02-08] MEDS: oxyCODONE 5 MG Tablet PO ×4 (05:23→20:07)
[2020-02-08] MEDS: Senna/Docusate Sodium 1 Tablet 2 TABLET PO ×2 (05:24→05:26)
[2020-02-08] MEDS: Pantoprazole Sodium 20 MG Tablet PO ×2 (05:26→17:39)
[2020-02-08] MEDS: Polyethylene Glycol 3350 17 GM PACKET PO (05:26)
[2020-02-08] MEDS: Enoxaparin 40 MG/0.4 ML Syringe SC (05:26)
[2020-02-08] MEDS: HYDROcodone Bitartrate/Apap 5/325 Tablet PO (05:29)
[2020-02-08] MEDS: Metoprolol Tartrate 25 MG Tablet PO ×2 (05:30→17:40)
[2020-02-08] MEDS: Aspirin E.C. 81 MG Tablet PO (05:32)
[2020-02-08 06:35] LABS: Bedside Glucose 97 mg/dL (70-110)
[2020-02-08] MEDS: oxyCODONE 5 MG Tablet 10 MG PO ×2 (06:45→13:59)
[2020-02-08] MEDS: Ipratropium/Albuterol Sulfate 3 ML AMPUL.NEB 2.5 ML INHALATION ×2 (07:08→19:35)
--- NOTE | 2020-02-08 07:10 | CPS ---
O2 used in CPAP ayt night
[2020-02-08] MEDS: metFORMIN HCl 500 MG Tablet PO ×2 (08:03→17:38)
[2020-02-08] MEDS: Cyanocobalamin 500 MCG Tablet 1000 MCG PO (08:03)
[2020-02-08] MEDS: Tuberculin,Purif.prot.deriv. 50 TU/ML Vial 5 ML ID (09:45)
--- NOTE | 2020-02-08 13:10 | CASEMGMT ---
Social Work Discussed code status with pt. Pt confirmed full code. MOLST form reviewed with pt and communication to Dr. Peck in chart. Sarah Adame, GARMENT INSPECTOR DRUM OPERATOR
[2020-02-08] MEDS: Atorvastatin Calcium 40 MG Tablet PO (20:08)
[2020-02-09] VITALS (7 sets, daily range): BP systolic 131–166; BP diastolic 73–82; PULSE 84–93; RESP 16–20; TEMP 37.1; O2SAT 92–94
[2020-02-09] MEDS: oxyCODONE 5 MG Tablet 10 MG PO ×3 (00:43→15:37)
[2020-02-09] MEDS: Pantoprazole Sodium 20 MG Tablet PO ×2 (05:37→17:39)
[2020-02-09] MEDS: Enoxaparin 40 MG/0.4 ML Syringe SC (05:37)
[2020-02-09] MEDS: oxyCODONE 5 MG Tablet PO ×4 (05:37→21:23)
[2020-02-09] MEDS: Senna/Docusate Sodium 1 Tablet 2 TABLET PO ×2 (05:37→17:42)
[2020-02-09] MEDS: Oxymetazoline 0.05% 1 SPRAY SPRAY.BTL 2 SPRAY NASAL (05:38)
[2020-02-09] MEDS: Polyethylene Glycol 3350 17 GM PACKET PO (05:38)
[2020-02-09] MEDS: Pregabalin 25 MG Capsule PO (05:38)
[2020-02-09] MEDS: Aspirin E.C. 81 MG Tablet PO (05:38)
[2020-02-09] MEDS: Metoprolol Tartrate 25 MG Tablet PO ×2 (05:41→17:39)
[2020-02-09 05:47] LABS: Absolute Lymphocyte Count 0.51 X10^3/uL (0.83-4.51); Absolute Neutrophil Count 4.6 X10^3/uL (2.0-7.7); Basophil# 0.03 X10^3/uL; Basophil% 0.4 % (0-1); Eosinophils% 4.3 % (0-5); Hematocrit 30.9 % (40-54); Hemoglobin 9.8 g/dL (13.0-16.5); Lymphocyte # 0.51 X10^3/ul (4.0); Lymphocyte % 7.3 % (19-41); Mean Corp Hgb Conc 31.7 g/dL (32-36); Mean Corpuscular Hgb 27.8 pg (27.0-32.0); Mean Corpuscular Volume 87.8 fL (80-94); Mean Platelet Vol. 9.2 fl (6.2-12.0); Monocyte# 1.39 X10^3/uL; Monocyte% 19.9 % (0-10); NRBC Flagged by Analyzer 0 % (0-5); Neutrophil # 4.63 X10^3/uL (2.7-7.7); Neutrophil % 66.2 % (47-70); POSITIVE DIFFERENTIAL YES; Platelet Count 303 K/mm3 (150-450); RBC Distribution Width CV 14.4 % (11.6-14.6); Red Blood Count 3.52 M/mm3 (4.6-6.2)
[2020-02-09 05:56] LABS: Differential Indicated SCAN CRITERIA MET
[2020-02-09 06:08] LABS: Anion Gap 9 (5-15); BUN 14 mg/dL (7-18); BUN/Creat Ratio 10.5 RATIO (10-20); Calcium,Total 8.2 mg/dL (8.5-10.1); Chloride 100 mmol/L (98-107); Creatinine, Serum 1.33 mg/dL (0.70-1.30); EST Glomerular Filtration Rate 57 mL/min (>60); Est Glom Filt Rate - Afr Amer 69 mL/min (>60); Estimated Creatinine Clearance 51.43 ml/min; Glucose 85 mg/dL (74-106); Potassium 3.8 mmol/L (3.5-5.1); Sodium Level 133 mmol/L (136-145)
[2020-02-09 06:10] LABS: Differential Comment SCANNED
[2020-02-09] MEDS: Ipratropium/Albuterol Sulfate 3 ML AMPUL.NEB 2.5 ML INHALATION ×3 (06:39→18:25)
--- NOTE | 2020-02-09 06:42 | CPS ---
O2 at night with CPAP
[2020-02-09 06:46] LABS: Bedside Glucose 100 mg/dL (70-110)
[2020-02-09] MEDS: metFORMIN HCl 500 MG Tablet PO ×2 (08:38→17:39)
[2020-02-09] MEDS: Cyanocobalamin 500 MCG Tablet 1000 MCG PO (08:38)
[2020-02-09] MEDS: Atorvastatin Calcium 40 MG Tablet PO (21:23)
[2020-02-09] MEDS: Magnesium Hydroxide 30 ML UDC PO (21:23)
[2020-02-10] VITALS (8 sets, daily range): BP systolic 144–146; BP diastolic 76–79; PULSE 74–94; RESP 16–20; TEMP 37; O2SAT 90–94
[2020-02-10] MEDS: oxyCODONE 5 MG Tablet 10 MG PO ×3 (00:25→09:27)
[2020-02-10] MEDS: Pregabalin 25 MG Capsule PO (04:40)
[2020-02-10] MEDS: Pantoprazole Sodium 20 MG Tablet PO ×2 (04:40→17:25)
[2020-02-10] MEDS: Metoprolol Tartrate 25 MG Tablet PO ×2 (04:40→17:27)
[2020-02-10] MEDS: Enoxaparin 40 MG/0.4 ML Syringe SC (04:40)
[2020-02-10] MEDS: Aspirin E.C. 81 MG Tablet PO (04:40)
[2020-02-10] MEDS: oxyCODONE 5 MG Tablet PO ×4 (05:58→21:00)
[2020-02-10 06:41] LABS: Bedside Glucose 106 mg/dL (70-110)
[2020-02-10] MEDS: Ipratropium/Albuterol Sulfate 3 ML AMPUL.NEB 2.5 ML INHALATION ×3 (06:50→18:34)
[2020-02-10] MEDS: Cyanocobalamin 500 MCG Tablet 1000 MCG PO (08:17)
[2020-02-10] MEDS: metFORMIN HCl 500 MG Tablet PO ×2 (08:17→17:25)
[2020-02-10] MEDS: Oxymetazoline 0.05% 1 SPRAY SPRAY.BTL 2 SPRAY NASAL (08:18)
--- NOTE | 2020-02-10 10:25 | CASEMGMT ---
Social Work IDT met with patient and via conference call for care plan meeting. Discussed patient's progress in therapy. Pt is modA for bed mobility, tx and CGA for ambulating 20ft with FWW. Left leg gives out when walking at times. Pt is supervised for grooming and UE dressing, max for bathing, LE dressing, toileting and tasks. Pt is on a regular diet, intake variable. Pt is out of isolation 02/19, remains in bipap and O2 at night per home regimen. Explained Medicare benefit. The goal is for pt to get stronger and to be able to complete the 4 steps to get into home. Pt lives at home with and used no device prior. Will continue to follow. PERLA CollinsW
--- NOTE | 2020-02-10 13:46 | NURSING ---
Pt notified of 2 COVID-19 positive staff members. Explained to Pt that all staff will be retested tomorrow 02/11/20. Pt to be tested 02/15/20.
--- NOTE | 2020-02-10 15:06 | PCM.PN.RX ---
<SoteloAlena - Last Filed: 02/10/20 15:06> Progress Note - Pharmacy Subjective: TCU Admission Objective: Allergies meropenem Allergy (Verified 02/04/20 05:36) Unknown tramadol Allergy (Verified 02/04/20 05:36) Unknown vancomycin Allergy (Verified 02/04/20 05:36) Unknown hydrocodone bitartrate [From Vicodin] Adverse Reaction (Verified 02/04/20 05:36) nightmares nightmares Current Medications Generic Name Dose Route Start Last Admin Trade Name Freq PRN Reason Stop Dose Admin Hydrocodone Bitart/Acetaminophen 1 tablet 02/07/20 17:35 02/08/20 05:29 Hydrocodone Bitartrate/Apap 5/325 Tablet PO 1 tablet Q6H PRN PRN Administration Pain Score 1-5 Albuterol Sulfate 2 puff 02/07/20 15:14 Albuterol Sulfate Hfa 6.7 Gm Inhaler (200 Puffs) IH Q4H PRN PRN wheezing/sob Albuterol/Ipratropium 2.5 ml 02/07/20 18:00 02/10/20 06:50 Ipratropium/Albuterol Sulfate 3 Ml Ampul.Neb INHALATION 2.5 ml Q6HWA.RT ABEBA Administration Aspirin 81 mg 02/08/20 06:00 02/10/20 04:40 Aspirin E.C. 81 Mg Tablet PO 81 mg DAILY ABEBA Administration Atorvastatin Calcium 40 mg 02/07/20 22:00 02/09/20 21:23 Atorvastatin Calcium 40 Mg Tablet PO 40 mg QHS ABEBA Administration Bisacodyl 10 mg 02/07/20 17:30 Bisacodyl 10 Mg Suppository RECTAL DAILY PRN PRN Constipation Budesonide 0.5 mg 02/07/20 18:00 Budesonide Respules 0.5 Mg/2 Ml Ampul.Neb. INHALATION Q12H PRN SOB &/OR WHEEZING Cyanocobalamin 1,000 mcg 02/08/20 08:00 02/10/20 08:17 Cyanocobalamin 500 Mcg Tablet PO 1,000 mcg DAILY@0800 ABEBA Administration Enoxaparin Sodium 40 mg 02/08/20 06:00 02/10/20 04:40 Enoxaparin 40 Mg/0.4 Ml Syringe SC 40 mg DAILY@0600 ABEBA Administration Magnesium Hydroxide 30 ml 02/07/20 17:30 02/09/20 21:23 Magnesium Hydroxide 30 Ml Udc PO 30 ml DAILY PRN PRN Administration Constipation Metformin HCl 500 mg 02/07/20 17:00 02/10/20 08:17 Metformin Hcl 500 Mg Tablet PO 500 mg BIDCM ABEBA Administration Metoprolol Tartrate 25 mg 02/07/20 18:00 02/10/20 04:40 Metoprolol Tartrate 25 Mg Tablet PO 25 mg BID ABEBA Administration Nitroglycerin 0.4 mg 02/07/20 15:14 Nitroglycerin Sl (Ed/Img/Cath) 0.4 Mg Tablet SUBLINGUAL PRN PRN chest pain Oxycodone HCl 10 mg 02/07/20 15:14 02/10/20 09:27 Oxycodone 5 Mg Tablet PO 10 mg Q4H PRN PRN Administration Pain Score 6-10 Oxycodone HCl 5 mg 02/07/20 17:00 02/10/20 11:53 Oxycodone 5 Mg Tablet PO 5 mg 4X/DAY [facility] Administration Oxymetazoline HCl 2 spray 02/08/20 08:07 02/10/20 08:18 Oxymetazoline 0.05% 1 [place].Btl NASAL 2 spray QHS PRN Administration CONGESTION Pantoprazole Sodium 20 mg 02/07/20 18:00 02/10/20 04:40 Pantoprazole Sodium 20 Mg Tablet PO 20 mg BID ABEBA Administration Polyethylene Glycol 17 gm 02/08/20 06:00 02/10/20 04:39 Polyethylene Glycol 3350 17 Gm Packet PO Not Given DAILY ABEBA Prednisone 10 mg 02/07/20 15:14 Prednisone 10 Mg Tablet PO BID PRN PRN RA flare Pregabalin 25 mg 02/08/20 06:00 02/10/20 04:40 Pregabalin 25 Mg Capsule PO 25 mg DAILY ABEBA Administration Senna/Docusate Sodium 2 tablet 02/07/20 18:00 02/10/20 04:40 Senna/Docusate Sodium 1 Tablet PO Not Given BID ABEBA Sodium Chloride 2 spray 02/08/20 17:30 Sodium Chloride 0.65% 1 [place].Btl NASAL TID PRN PRN NASAL DRYNESS Tuberculin PPD 5 tu 02/15/20 10:00 Tuberculin,Purif.Prot.Deriv. 50 Tu/Ml Vial ID 02/15/20 10:01 X1 ONE Problem List (Last Updated 02/04/20 @ 16:[address] Warren López MD) Debility (Acute) Lumbar spinal stenosis (Acute) Atrial fibrillation (Chronic) GERD (gastroesophageal reflux disease) (Chronic) Diabetes mellitus (Chronic) Coronary artery disease (Chronic) Neuropathic pain (Chronic) COPD (chronic obstructive pulmonary disease) (Chronic) Vital Signs Temp Pulse Resp BP Pulse Ox 98.6 F 88 17 146/76 H 90 02/10/20 14:09 02/10/20 14:09 02/10/20 14:09 02/10/20 14:09 02/10/20 14:09 Oxygen Flow Rate (L/min) 2 Oxygen Delivery Method Room Air Weight: 96.706 kg Body Mass Index (BMI) 32.3 Finger Stick Blood Glucose 108 Sodium 133 mmol/L (136-145) L 02/09/20 05:10 Potassium 3.8 mmol/L (3.5-5.1) 02/09/20 05:10 Chloride 100 mmol/L (98-107) 02/09/20 05:10 Carbon Dioxide 24.0 mmol/L (21.0-32.0) 02/09/20 05:10 Anion Gap 9 (5-15) 02/09/20 05:10 BUN 14 mg/dL (7-18) 02/09/20 05:10 Creatinine 1.33 mg/dL (0.70-1.30) H 02/09/20 05:10 Est GFR (MDRD) Af Amer 69 mL/min (>60) 02/09/20 05:10 Est GFR (MDRD) Non-Af 57 mL/min (>60) L 02/09/20 05:10 BUN/Creatinine Ratio 10.5 RATIO (10-20) 02/09/20 05:10 Glucose 85 mg/dL (74-106) 02/09/20 05:10 Assessment/Plan: 1. Pain: oxycodone 5MG 4x/day, Oxycodone 10MG Q4H PO PRN pain (6-10) and [place] 5/325MG Q6H PO PRN pain (1-5). Please continue to monitor for increased pain, PRN usage, constipation, and respiratory depressions. 2. DVT prophylaxis: enoxaparin 40mg SC daily. Please continue to monitor for S/S of bleeding/DVT, platelets (last 303,000) and hemoglobin (last 9.8g/dL). *3. COPD: Duoneb 2.5MG Q6HWA.RT, budesonide 0.5MG Q12H PRN SOB/wheezing, albuterol 2 puffs Q4H PRN SOB/wheezing. Please clarify which agent (albuterol vs budesonide) should be given 1st line for SOB/wheezing. Thanks. Please continue to monitor for SOB, wheezing, and increased HR. 4. Coronary Artery disease: metoprolol tartrate 25mg PO BID, aspirin 81mg PO daily, and NTG 0.4mg SL PRN chest pain. Please continue to monitor for S/S of bleeding, HR (last 88) and BP (last 147/76). *5. Hyperlipidemia: atorvastatin 40mg PO QHS. Please consider ordering a lipid panel now and then annually as clinically appropriate. Last panel from 2014. Thanks. Please continue to monitor fo r muscle pain. 6. Diabetes Mellitus II: metformin 500mg PO BIDCM. Please continue to monitor renal function, for S/S of hypoglycemia, POC glucose (last 106) and hemoglobin A1c (last 5.6%). 7. GERD: pantoprazole 20mg PO BID. Please continue to monitor for S/S of GERD. 8. Rheumatoid Arthritis: prednisone 10mg PO BID PRN RA flares. Please continue to monitor for S/S of RA flares and PRN usage. 9. Neuropathic pain: pregabalin 25mg PO daily. Please continue to monitor renal function and for increased pain. *10. Vitamin B12 deficiency: cyanocobalamin 1000mcg PO daily. Please consider ordering a Vitamin B12 level now and then annually as clinically appropriate. Thanks. 11. Rhinitis: Oxymetazoline nasal spray 2 sprays nasally QHS PRN congestion. Please continue to monitor for congestion. 12. Nasal dryness: [place] nasal spray 2 sprays nasally TID PRN nasal dryness. Please continue to monitor for nasal dryness. Psychotropic Medications: None Unnecessary Medications: None Bowel Regimen: Miralax 17gm PO daily, senna/docusate 2T PO BID, MOM 30ML daily PRN constipation and bisacodyl 10MG [place] daily PRN constipation. Please continue to monitor for constipation and PRN usage. Date of Note:: 02/10/20 - Provider Comments Provider responsibility: Provider responsible to enter orders to implement recommendations <Sathish [facility] - Last Filed: 02/10/20 17:20> Progress Note - Pharmacy Subjective: [] Objective: Allergies meropenem Allergy (Verified 02/04/20 05:36) Unknown tramadol Allergy (Verified 02/04/20 05:36) Unknown vancomycin Allergy (Verified 02/04/20 05:36) Unknown hydrocodone bitartrate [From Vicodin] Adverse Reaction (Verified 02/04/20 05:36) nightmares nightmares Current Medications Generic Name Dose Route Start Last Admin Trade Name Freq PRN Reason Stop Dose Admin Hydrocodone Bitart/Acetaminophen 1 tablet 02/07/20 17:35 02/08/20 05:29 Hydrocodone Bitartrate/Apap 5/325 Tablet PO 1 tablet Q6H PRN PRN Administration Pain Score 1-5 Albuterol Sulfate 2 puff 02/07/20 15:14 Albuterol Sulfate Hfa 6.7 Gm Inhaler (200 Puffs) IH Q4H PRN PRN wheezing/sob Albuterol/Ipratropium 2.5 ml 02/07/20 18:00 02/10/20 13:02 Ipratropium/Albuterol Sulfate 3 Ml Ampul.Neb INHALATION 2.5 ml Q6HWA.RT ABEBA Administration Aspirin 81 mg 02/08/20 06:00 02/10/20 04:40 Aspirin E.C. 81 Mg Tablet PO 81 mg DAILY ABEBA Administration Atorvastatin Calcium 40 mg 02/07/20 22:00 02/09/20 21:23 Atorvastatin Calcium 40 Mg Tablet PO 40 mg QHS ABEBA Administration Bisacodyl 10 mg 02/07/20 17:30 Bisacodyl 10 Mg Suppository RECTAL DAILY PRN PRN Constipation Budesonide 0.5 mg 02/07/20 18:00 Budesonide Respules 0.5 Mg/2 Ml Ampul.Neb. INHALATION Q12H PRN SOB &/OR WHEEZING Cyanocobalamin 1,000 mcg 02/08/20 08:00 02/10/20 08:17 Cyanocobalamin 500 Mcg Tablet PO 1,000 mcg DAILY@0800 ABEBA Administration Enoxaparin Sodium 40 mg 02/08/20 06:00 02/10/20 04:40 Enoxaparin 40 Mg/0.4 Ml Syringe SC 40 mg DAILY@0600 ABEBA Administration Magnesium Hydroxide 30 ml 02/07/20 17:30 02/09/20 21:23 Magnesium Hydroxide 30 Ml Udc PO 30 ml DAILY PRN PRN Administration Constipation Metformin HCl 500 mg 02/07/20 17:00 02/10/20 08:17 Metformin Hcl 500 Mg Tablet PO 500 mg BIDCM ABEBA Administration Metoprolol Tartrate 25 mg 02/07/20 18:00 02/10/20 04:40 Metoprolol Tartrate 25 Mg Tablet PO 25 mg BID [facility] Administration Nitroglycerin 0.4 mg 02/07/20 15:14 Nitroglycerin Sl (Ed/Img/Cath) 0.4 Mg Tablet SUBLINGUAL PRN PRN chest pain Oxycodone HCl 10 mg 02/07/20 15:14 02/10/20 09:27 Oxycodone 5 Mg Tablet PO 10 mg Q4H PRN PRN Administration Pain Score 6-10 Oxycodone HCl 5 mg 02/07/20 17:00 02/10/20 11:53 Oxycodone 5 Mg Tablet PO 5 mg 4X/DAY [facility] Administration Oxymetazoline HCl 2 spray 02/08/20 08:07 02/10/20 08:18 Oxymetazoline 0.05% 1 [place].Btl NASAL 2 spray QHS PRN Administration CONGESTION Pantoprazole Sodium 20 mg 02/07/20 18:00 02/10/20 04:40 Pantoprazole Sodium 20 Mg Tablet PO 20 mg BID [facility] Administration Polyethylene Glycol 17 gm 02/08/20 06:00 02/10/20 04:39 Polyethylene Glycol 3350 17 Gm Packet PO Not Given DAILY [facility] Prednisone 10 mg 02/07/20 15:14 Prednisone 10 Mg Tablet PO BID PRN PRN RA flare Pregabalin 25 mg 02/08/20 06:00 02/10/20 04:40 Pregabalin 25 Mg Capsule PO 25 mg DAILY [facility] Administration Senna/Docusate Sodium 2 tablet 02/07/20 18:00 02/10/20 04:40 Senna/Docusate Sodium 1 Tablet PO Not Given BID [facility] Sodium Chloride 2 spray 02/08/20 17:30 Sodium Chloride 0.65% 1 [place].Btl NASAL TID PRN PRN NASAL DRYNESS Tuberculin PPD 5 tu 02/15/20 10:00 Tuberculin,Purif.Prot.Deriv. 50 Tu/Ml Vial ID 02/15/20 10:01 X1 ONE Problem List (Last Updated 02/04/20 @ 16:[address] Warren López MD) Debility (Acute) Lumbar spinal stenosis (Acute) Atrial fibrillation (Chronic) GERD (gastroesophageal reflux disease) (Chronic) Diabetes mellitus (Chronic) Coronary artery disease (Chronic) Neuropathic pain (Chronic) COPD (chronic obstructive pulmonary disease) (Chronic) Vital Signs Temp Pulse Resp BP Pulse Ox 98.6 F 88 17 146/76 H 90 02/10/20 14:09 02/10/20 14:09 02/10/20 14:09 02/10/20 14:09 02/10/20 14:09 Oxygen Flow Rate (L/min) 2 Oxygen Delivery Method Room Air Weight: 96.706 kg Body Mass Index (BMI) 32.3 Finger Stick Blood Glucose 108 Sodium 133 mmol/L (136-145) L 02/09/20 05:10 Potassium 3.8 mmol/L (3.5-5.1) 02/09/20 05:10 Chloride 100 mmol/L (98-107) 02/09/20 05:10 Carbon Dioxide 24.0 mmol/L (21.0-32.0) 02/09/20 05:10 Anion Gap 9 (5-15) 02/09/20 05:10 BUN 14 mg/dL (7-18) 02/09/20 05:10 Creatinine 1.33 mg/dL (0.70-1.30) H 02/09/20 05:10 Est GFR (MDRD) Af Amer 69 mL/min (>60) 02/09/20 05:10 Est GFR (MDRD) Non-Af 57 mL/min (>60) L 02/09/20 05:10 BUN/Creatinine Ratio 10.5 RATIO (10-20) 02/09/20 05:10 Glucose 85 mg/dL (74-106) 02/09/20 05:10 Assessment/Plan: Psychotropic Medications: Unnecessary Medications: Bowel Regimen: - Provider Comments Provider responsibility: Provider responsible to enter orders to implement recommendations Provider Comments to Recommendations by Pharmacy: Agree
--- NOTE | 2020-02-10 16:14 | NURSING ---
Resident and spouse, Francia, notified of staff member testing positive for COVID 19.
[2020-02-10] MEDS: Senna/Docusate Sodium 1 Tablet 2 TABLET PO (17:26)
--- NOTE | 2020-02-10 17:56 | NURSING ---
Pt sleeping when this nurse entered his room. Upon pt waking up, he thought it was the next morning. When correcting him to the right time, he stated You better start behaving or I will have to bend you over my knee and spank you. Oh, wait you would probably like that. This nurse informed him that was inappropriate and he needed to stop making those comments.
[2020-02-10] MEDS: Atorvastatin Calcium 40 MG Tablet PO (21:00)
[2020-02-11] VITALS (7 sets, daily range): BP systolic 117–153; BP diastolic 64–80; PULSE 69–90; RESP 16–20; TEMP 36.8–37.1; O2SAT 91–96
[2020-02-11] MEDS: oxyCODONE 5 MG Tablet 10 MG PO ×2 (02:57→19:46)
[2020-02-11] MEDS: Sodium Chloride 0.65% 1 SPRAY SPRAY.BTL 2 SPRAY NASAL (04:27)
[2020-02-11] MEDS: Senna/Docusate Sodium 1 Tablet 2 TABLET PO ×2 (04:28→17:06)
[2020-02-11] MEDS: Pregabalin 25 MG Capsule PO (04:28)
[2020-02-11] MEDS: Aspirin E.C. 81 MG Tablet PO (04:29)
[2020-02-11] MEDS: Enoxaparin 40 MG/0.4 ML Syringe SC (04:29)
[2020-02-11] MEDS: Pantoprazole Sodium 20 MG Tablet PO ×2 (04:29→17:07)
[2020-02-11] MEDS: Metoprolol Tartrate 25 MG Tablet PO ×2 (04:29→17:07)
[2020-02-11] MEDS: oxyCODONE 5 MG Tablet PO ×4 (06:12→21:33)
--- NOTE | 2020-02-11 06:15 | NURSING ---
Pt c/o hands being swollen and hurting d/t his rheumatoid arthritis, states he was taken off his RA med because of covid. States that he had been taking prednisone 10mg x3 days when he had flare ups at home. Note left for Dr. Mcleod to address.
[2020-02-11 06:26] LABS: Bedside Glucose 110 mg/dL (70-110)
[2020-02-11] MEDS: Ipratropium/Albuterol Sulfate 3 ML AMPUL.NEB 2.5 ML INHALATION ×2 (06:50→18:35)
[2020-02-11] MEDS: metFORMIN HCl 500 MG Tablet PO ×2 (08:50→17:07)
[2020-02-11] MEDS: Cyanocobalamin 500 MCG Tablet 1000 MCG PO (08:50)
[2020-02-11] MEDS: predniSONE 10 MG Tablet PO (09:11)
--- NOTE | 2020-02-11 18:43 | NURSING ---
TANYA anna reported that pt emotional, tearful. states he let family down, feels bad about self. dr herrera spoke with pt and new order for celexa.
[2020-02-11] MEDS: Citalopram 10 MG Tablet PO (19:36)
[2020-02-11] MEDS: Atorvastatin Calcium 40 MG Tablet PO (21:33)
[2020-02-12 05:00] VITALS: BP 156/80; PULSE 78; RESP 18; TEMP 36.5; O2SAT 95
[2020-02-12] MEDS: oxyCODONE 5 MG Tablet PO ×4 (05:39→21:17)
[2020-02-12] MEDS: Pantoprazole Sodium 20 MG Tablet PO ×2 (05:39→17:30)
[2020-02-12] MEDS: Citalopram 10 MG Tablet PO (05:40)
[2020-02-12] MEDS: Senna/Docusate Sodium 1 Tablet 2 TABLET PO ×2 (05:40→17:31)
[2020-02-12] MEDS: Aspirin E.C. 81 MG Tablet PO (05:40)
[2020-02-12] MEDS: Enoxaparin 40 MG/0.4 ML Syringe SC (05:41)
[2020-02-12] MEDS: Pregabalin 25 MG Capsule PO (05:45)
[2020-02-12 06:26] LABS: Bedside Glucose 107 mg/dL (70-110)
[2020-02-12 07:18] VITALS: BP 156/60; PULSE 78
[2020-02-12] MEDS: Metoprolol Tartrate 25 MG Tablet PO ×2 (07:18→17:29)
--- NOTE | 2020-02-12 08:47 | CASEMGMT ---
Social Work BIMS and PHQ-9 were completed for MDS assessment. Sarah Adame, EXTERMINATION SUPERVISOR MUTUAL FUND ACCOUNTANT
[2020-02-12] MEDS: oxyCODONE 5 MG Tablet 10 MG PO (08:54)
[2020-02-12] MEDS: Cyanocobalamin 500 MCG Tablet 1000 MCG PO (08:55)
[2020-02-12] MEDS: predniSONE 10 MG Tablet PO (08:56)
[2020-02-12] MEDS: metFORMIN HCl 500 MG Tablet PO ×2 (08:56→17:30)
[2020-02-12] MEDS: Oxymetazoline 0.05% 1 SPRAY SPRAY.BTL 2 SPRAY NASAL (09:50)
[2020-02-12 10:00] VITALS: PULSE 74; RESP 18; O2SAT 92
[2020-02-12] MEDS: Ipratropium/Albuterol Sulfate 3 ML AMPUL.NEB 2.5 ML INHALATION (10:57)
[2020-02-12 10:58] VITALS: PULSE 71; RESP 12; O2SAT 95
--- NOTE | 2020-02-12 13:16 | NURSING ---
pt stated he up dates every day.
[2020-02-12 15:31] VITALS: BP 152/84; PULSE 69; RESP 16; TEMP 36.4; O2SAT 95
[2020-02-12 17:29] VITALS: BP 152/84; PULSE 69
[2020-02-12] MEDS: Atorvastatin Calcium 40 MG Tablet PO (21:17)
[2020-02-13] MEDS: HYDROcodone Bitartrate/Apap 5/325 Tablet PO (00:04)
[2020-02-13 04:15] VITALS: PULSE 71; RESP 20; O2SAT 96
[2020-02-13] MEDS: Ipratropium/Albuterol Sulfate 3 ML AMPUL.NEB 2.5 ML INHALATION ×3 (04:15→19:30)
[2020-02-13] MEDS: Enoxaparin 40 MG/0.4 ML Syringe SC (04:47)
[2020-02-13] MEDS: oxyCODONE 5 MG Tablet PO ×4 (04:48→21:04)
[2020-02-13] MEDS: Senna/Docusate Sodium 1 Tablet 2 TABLET PO (04:48)
[2020-02-13] MEDS: Pantoprazole Sodium 20 MG Tablet PO ×2 (04:48→17:19)
[2020-02-13] MEDS: Citalopram 10 MG Tablet PO (04:49)
[2020-02-13] MEDS: Pregabalin 25 MG Capsule PO (04:57)
[2020-02-13] MEDS: Aspirin E.C. 81 MG Tablet PO (04:57)
[2020-02-13 05:00] VITALS: BP 158/89; PULSE 74; RESP 16; TEMP 36.6; O2SAT 93
[2020-02-13] MEDS: Metoprolol Tartrate 25 MG Tablet PO ×2 (05:00→17:19)
[2020-02-13 06:36] LABS: Bedside Glucose 92 mg/dL (70-110)
[2020-02-13] MEDS: oxyCODONE 5 MG Tablet 10 MG PO ×4 (08:25→23:55)
[2020-02-13] MEDS: predniSONE 10 MG Tablet PO (08:27)
[2020-02-13] MEDS: metFORMIN HCl 500 MG Tablet PO ×2 (08:27→17:19)
[2020-02-13] MEDS: Cyanocobalamin 500 MCG Tablet 1000 MCG PO (08:27)
[2020-02-13] MEDS: Oxymetazoline 0.05% 1 SPRAY SPRAY.BTL 2 SPRAY NASAL (11:05)
[2020-02-13 12:45] VITALS: PULSE 78; RESP 16
[2020-02-13 14:04] VITALS: BP 148/80; PULSE 77; RESP 14; TEMP 37; O2SAT 92
[2020-02-13 17:19] VITALS: PULSE 77
[2020-02-13 19:30] VITALS: PULSE 75; RESP 16
[2020-02-13] MEDS: Atorvastatin Calcium 40 MG Tablet PO (21:04)
[2020-02-14] VITALS (8 sets, daily range): BP systolic 105–148; BP diastolic 46–82; PULSE 67–76; RESP 14–19; TEMP 36.7–36.8; O2SAT 92–95
[2020-02-14] MEDS: Pantoprazole Sodium 20 MG Tablet PO ×2 (04:30→17:20)
[2020-02-14] MEDS: oxyCODONE 5 MG Tablet PO ×4 (04:30→21:00)
[2020-02-14] MEDS: Aspirin E.C. 81 MG Tablet PO (04:31)
[2020-02-14] MEDS: Enoxaparin 40 MG/0.4 ML Syringe SC (04:31)
[2020-02-14] MEDS: Citalopram 10 MG Tablet PO (04:31)
[2020-02-14] MEDS: Metoprolol Tartrate 25 MG Tablet PO ×2 (04:32→17:20)
[2020-02-14] MEDS: Pregabalin 25 MG Capsule PO (04:49)
[2020-02-14 06:16] LABS: Bedside Glucose 92 mg/dL (70-110)
[2020-02-14] MEDS: Ipratropium/Albuterol Sulfate 3 ML AMPUL.NEB 2.5 ML INHALATION ×2 (07:18→19:05)
[2020-02-14] MEDS: oxyCODONE 5 MG Tablet 10 MG PO ×3 (07:51→18:58)
[2020-02-14] MEDS: metFORMIN HCl 500 MG Tablet PO ×2 (07:52→16:08)
[2020-02-14] MEDS: Cyanocobalamin 500 MCG Tablet 1000 MCG PO (07:52)
[2020-02-14] MEDS: Oxymetazoline 0.05% 1 SPRAY SPRAY.BTL 2 SPRAY NASAL (10:56)
[2020-02-14] MEDS: Atorvastatin Calcium 40 MG Tablet PO (21:01)
[2020-02-14] MEDS: HYDROcodone Bitartrate/Apap 5/325 Tablet PO (23:21)
[2020-02-15] VITALS (8 sets, daily range): BP systolic 148–165; BP diastolic 67–90; PULSE 64–81; RESP 12–18; TEMP 36.4–36.8; O2SAT 93–94
[2020-02-15] MEDS: oxyCODONE 5 MG Tablet 10 MG PO ×3 (02:02→20:35)
[2020-02-15] MEDS: Enoxaparin 40 MG/0.4 ML Syringe SC (05:38)
[2020-02-15] MEDS: Pantoprazole Sodium 20 MG Tablet PO ×2 (05:39→17:12)
[2020-02-15] MEDS: oxyCODONE 5 MG Tablet PO ×4 (05:39→22:06)
[2020-02-15] MEDS: Metoprolol Tartrate 25 MG Tablet PO ×2 (05:40→17:12)
[2020-02-15] MEDS: Citalopram 10 MG Tablet PO (05:40)
[2020-02-15] MEDS: Aspirin E.C. 81 MG Tablet PO (05:40)
[2020-02-15] MEDS: Ipratropium/Albuterol Sulfate 3 ML AMPUL.NEB 2.5 ML INHALATION ×3 (05:46→20:50)
[2020-02-15] MEDS: Pregabalin 25 MG Capsule PO (05:47)
[2020-02-15 06:21] LABS: Bedside Glucose 104 mg/dL (70-110)
[2020-02-15] MEDS: Cyanocobalamin 500 MCG Tablet 1000 MCG PO (08:02)
[2020-02-15] MEDS: metFORMIN HCl 500 MG Tablet PO ×2 (09:27→17:12)
[2020-02-15] MEDS: Oxymetazoline 0.05% 1 SPRAY SPRAY.BTL 2 SPRAY NASAL (09:28)
[2020-02-15] MEDS: Tuberculin,Purif.prot.deriv. 50 TU/ML Vial 5 ML ID (10:20)
--- NOTE | 2020-02-15 12:46 | NURSING ---
Addendum entered by Jared Cerrato 02/16/20 06:32: pt stated he updates at this time. last note wrong pt. Original Note: pt does not want anyone but him to call
[2020-02-15] MEDS: Atorvastatin Calcium 40 MG Tablet PO (20:36)
[2020-02-16] VITALS (7 sets, daily range): BP systolic 104–141; BP diastolic 55–74; PULSE 71–82; RESP 16–18; TEMP 37.1; O2SAT 93–94
[2020-02-16] MEDS: oxyCODONE 5 MG Tablet 10 MG PO ×3 (00:57→13:31)
[2020-02-16] MEDS: Senna/Docusate Sodium 1 Tablet 2 TABLET PO (05:25)
[2020-02-16] MEDS: Aspirin E.C. 81 MG Tablet PO (05:25)
[2020-02-16] MEDS: Pantoprazole Sodium 20 MG Tablet PO ×2 (05:25→17:33)
[2020-02-16] MEDS: Pregabalin 25 MG Capsule PO (05:25)
[2020-02-16] MEDS: Metoprolol Tartrate 25 MG Tablet PO ×2 (05:25→17:33)
[2020-02-16] MEDS: Ipratropium/Albuterol Sulfate 3 ML AMPUL.NEB 2.5 ML INHALATION ×2 (05:25→18:25)
[2020-02-16] MEDS: oxyCODONE 5 MG Tablet PO ×4 (05:25→20:59)
[2020-02-16] MEDS: Citalopram 10 MG Tablet PO (05:25)
[2020-02-16] MEDS: Enoxaparin 40 MG/0.4 ML Syringe SC (05:27)
[2020-02-16 06:05] LABS: Absolute Lymphocyte Count 0.64 X10^3/uL (0.83-4.51); Basophil# 0.03 X10^3/uL; Basophil% 0.3 % (0-1); Eosinophil# 0.37 X10^3/uL; Eosinophils% 3.3 % (0-5); Hematocrit 31.2 % (40-54); Hemoglobin 9.7 g/dL (13.0-16.5); Lymphocyte # 0.64 X10^3/ul (4.0); Lymphocyte % 5.7 % (19-41); Mean Corp Hgb Conc 31.1 g/dL (32-36); Mean Corpuscular Hgb 27.7 pg (27.0-32.0); Mean Corpuscular Volume 89.1 fL (80-94); Mean Platelet Vol. 9.1 fl (6.2-12.0); Monocyte# 1.05 X10^3/uL; Monocyte% 9.4 % (0-10); NRBC Flagged by Analyzer 0 % (0-5); Neutrophil # 8.98 X10^3/uL (2.7-7.7); Neutrophil % 80.5 % (47-70); Platelet Count 561 K/mm3 (150-450); RBC Distribution Width CV 14.5 % (11.6-14.6); RBC Distribution Width SD 47.2 fl (35.1-43.9); White Blood Count 11.2 K/mm3 (4.4-11.0)
[2020-02-16 06:10] LABS: Bedside Glucose 105 mg/dL (70-110)
[2020-02-16 06:33] LABS: Anion Gap 6 (5-15); BUN 13 mg/dL (7-18); BUN/Creat Ratio 10.2 RATIO (10-20); Calcium,Total 8.4 mg/dL (8.5-10.1); Chloride 104 mmol/L (98-107); Creatinine, Serum 1.27 mg/dL (0.70-1.30); EST Glomerular Filtration Rate 60 mL/min (>60); Est Glom Filt Rate - Afr Amer 73 mL/min (>60); Estimated Creatinine Clearance 53.86 ml/min; Glucose 98 mg/dL (74-106); Potassium 3.5 mmol/L (3.5-5.1); Sodium Level 138 mmol/L (136-145)
[2020-02-16] MEDS: metFORMIN HCl 500 MG Tablet PO ×2 (08:00→17:33)
[2020-02-16] MEDS: Cyanocobalamin 500 MCG Tablet 1000 MCG PO (08:01)
[2020-02-16] MEDS: Oxymetazoline 0.05% 1 SPRAY SPRAY.BTL 2 SPRAY NASAL (10:20)
--- NOTE | 2020-02-16 13:19 | MDS.RN ---
Information for the mds was obtained from review of the clinical record, interview of resident, interview of resident, staff, and direct observation of resident's care.
--- NOTE | 2020-02-16 13:38 | NURSING ---
PT STATED HE TALKED TO TODAY,NO NEED TO CALL HER FOR UPDATES.
[2020-02-16] MEDS: Atorvastatin Calcium 40 MG Tablet PO (21:00)
[2020-02-17] MEDS: oxyCODONE 5 MG Tablet 10 MG PO ×2 (00:27→08:09)
[2020-02-17 04:18] VITALS: BP 126/79; PULSE 75; RESP 18; TEMP 36.6; O2SAT 91
[2020-02-17] MEDS: Pregabalin 25 MG Capsule PO (04:20)
[2020-02-17] MEDS: oxyCODONE 5 MG Tablet PO ×4 (04:20→20:42)
[2020-02-17] MEDS: Citalopram 10 MG Tablet PO (04:20)
[2020-02-17] MEDS: Aspirin E.C. 81 MG Tablet PO (04:21)
[2020-02-17] MEDS: Pantoprazole Sodium 20 MG Tablet PO ×2 (04:21→17:21)
[2020-02-17] MEDS: Enoxaparin 40 MG/0.4 ML Syringe SC (04:21)
[2020-02-17 04:22] VITALS: BP 125/79; PULSE 75
[2020-02-17] MEDS: Metoprolol Tartrate 25 MG Tablet PO ×2 (04:22→17:20)
[2020-02-17 06:36] LABS: Bedside Glucose 94 mg/dL (70-110)
[2020-02-17] MEDS: predniSONE 10 MG Tablet PO (07:08)
[2020-02-17] MEDS: metFORMIN HCl 500 MG Tablet PO ×2 (08:07→16:17)
[2020-02-17] MEDS: Cyanocobalamin 500 MCG Tablet 1000 MCG PO (08:07)
--- NOTE | 2020-02-17 08:54 | PCA ---
Addendum entered by Leeanna Ferrer 02/17/20 09:07: ENERGY CONSERVATION SPECIALIST called this nurse to pt's room stating pt had a skin tear. This nurse immediately assessed pt and noted a skin tear to right anterior forearm approx 2.5-3cm long. Pt stated he went to sit down on the toilet and his left knee felt like it was going to buckle and he caught his arm on the side of the toilet. This nurse cleansed skin tear with NSS and applied adaptic, 4x4 and kerlix and secured with paper tape, pt denies pain at this time, tolerated dressing application well. Néstor wrap applied to left knee to help stabilize. RN updated. Original Note: Walking pt to the restroom as we entered the restroom an he was in the process of turning to the toilet pt's left knee gave out pt was able to sit himself quickly down on the toilet, pt discovered he had a skin tear to his right forearm Nurse Leeanna notified.
[2020-02-17] MEDS: Oxymetazoline 0.05% 1 SPRAY SPRAY.BTL 2 SPRAY NASAL (09:37)
--- NOTE | 2020-02-17 09:37 | NURSING ---
Addendum entered by Leeanna Ferrer 02/17/20 14:58: Pt returned from appointment at approx 11:30. Pt did not have any paperwork stating they did not give him any, they just removed his judy and wants to see him back in a few weeks. Dr. Duff's office was called and f/u scheduled in four weeks. No other new orders. Original Note: pt left with family for appointment with Dr. Duff
--- NOTE | 2020-02-17 11:46 | NURSING ---
System alerted this nurse stated pt has allergy to hydrocodone bitartrate when oxycodone was scanned to be administered. Pt stated he has no idea why that is a listed allergy that he has no reaction to these medications and have been on them for years. Pt has taken these medications previously. RN updated and this nurse was directed to administered scheduled oxycodone
[2020-02-17 12:01] VITALS: BP 131/68; PULSE 91; RESP 17; TEMP 36.7; O2SAT 94
[2020-02-17 13:40] VITALS: PULSE 85; RESP 16
[2020-02-17] MEDS: Ipratropium/Albuterol Sulfate 3 ML AMPUL.NEB 2.5 ML INHALATION ×2 (13:40→19:25)
[2020-02-17 17:20] VITALS: PULSE 85
[2020-02-17 19:25] VITALS: PULSE 72; RESP 16; O2SAT 91
[2020-02-17] MEDS: Atorvastatin Calcium 40 MG Tablet PO (20:43)
[2020-02-18] VITALS (7 sets, daily range): BP systolic 128–163; BP diastolic 75–89; PULSE 65–77; RESP 16–18; TEMP 36.5–36.8; O2SAT 93–95
[2020-02-18] MEDS: oxyCODONE 5 MG Tablet 10 MG PO ×3 (00:41→19:30)
[2020-02-18] MEDS: Citalopram 10 MG Tablet PO (04:42)
[2020-02-18] MEDS: oxyCODONE 5 MG Tablet PO ×4 (04:42→21:58)
[2020-02-18] MEDS: Enoxaparin 40 MG/0.4 ML Syringe SC (04:42)
[2020-02-18] MEDS: Pantoprazole Sodium 20 MG Tablet PO ×2 (04:43→17:04)
[2020-02-18] MEDS: Metoprolol Tartrate 25 MG Tablet PO ×2 (04:43→17:03)
[2020-02-18] MEDS: Aspirin E.C. 81 MG Tablet PO (04:43)
[2020-02-18] MEDS: Pregabalin 25 MG Capsule PO (05:06)
[2020-02-18 06:50] LABS: Bedside Glucose 93 mg/dL (70-110)
[2020-02-18] MEDS: Ipratropium/Albuterol Sulfate 3 ML AMPUL.NEB 2.5 ML INHALATION ×3 (06:50→18:54)
[2020-02-18] MEDS: Budesonide Respules 0.5 MG/2 ML AMPUL.NEB. INHALATION (06:50)
[2020-02-18] MEDS: Cyanocobalamin 500 MCG Tablet 1000 MCG PO (07:53)
[2020-02-18] MEDS: metFORMIN HCl 500 MG Tablet PO ×2 (07:53→16:33)
[2020-02-18] MEDS: Oxymetazoline 0.05% 1 SPRAY SPRAY.BTL 2 SPRAY NASAL (09:31)
[2020-02-18] MEDS: Senna/Docusate Sodium 1 Tablet 2 TABLET PO (17:03)
--- NOTE | 2020-02-18 19:22 | PCA ---
Patient would rather get washed up in the morning. stating they are in too much pain to do anything right now.
[2020-02-18] MEDS: Atorvastatin Calcium 40 MG Tablet PO (21:58)
[2020-02-19] MEDS: oxyCODONE 5 MG Tablet 10 MG PO ×3 (02:34→15:18)
[2020-02-19 02:37] VITALS: BP 149/75; PULSE 59; RESP 16; TEMP 36.8; O2SAT 97
[2020-02-19] MEDS: Pregabalin 25 MG Capsule PO (04:50)
[2020-02-19] MEDS: Senna/Docusate Sodium 1 Tablet 2 TABLET PO ×2 (04:50→17:26)
[2020-02-19] MEDS: oxyCODONE 5 MG Tablet PO ×4 (04:50→21:25)
[2020-02-19 04:51] VITALS: BP 149/75; PULSE 59
[2020-02-19] MEDS: Citalopram 10 MG Tablet PO (04:51)
[2020-02-19] MEDS: Metoprolol Tartrate 25 MG Tablet PO ×2 (04:51→17:26)
[2020-02-19] MEDS: Aspirin E.C. 81 MG Tablet PO (04:51)
[2020-02-19] MEDS: Enoxaparin 40 MG/0.4 ML Syringe SC (04:51)
[2020-02-19] MEDS: Pantoprazole Sodium 20 MG Tablet PO ×2 (04:51→17:26)
[2020-02-19 06:26] LABS: Bedside Glucose 92 mg/dL (70-110)
[2020-02-19] MEDS: Cyanocobalamin 500 MCG Tablet 1000 MCG PO (07:59)
[2020-02-19] MEDS: metFORMIN HCl 500 MG Tablet PO ×2 (07:59→17:26)
[2020-02-19] MEDS: Oxymetazoline 0.05% 1 SPRAY SPRAY.BTL 2 SPRAY NASAL (09:37)
[2020-02-19 13:04] VITALS: PULSE 65; RESP 18
[2020-02-19] MEDS: Ipratropium/Albuterol Sulfate 3 ML AMPUL.NEB 2.5 ML INHALATION (13:04)
[2020-02-19 13:48] VITALS: BP 124/65; PULSE 67; RESP 18; TEMP 36.4; O2SAT 92
--- NOTE | 2020-02-19 15:38 | NURSING ---
Resident and spouse, Francia, notified of staff testing positive for COVID.
[2020-02-19] MEDS: HYDROcodone Bitartrate/Apap 5/325 Tablet PO ×2 (17:22→22:58)
[2020-02-19 17:26] VITALS: PULSE 67
[2020-02-19] MEDS: Atorvastatin Calcium 40 MG Tablet PO (21:26)
[2020-02-20] VITALS (8 sets, daily range): BP systolic 117–135; BP diastolic 72–76; PULSE 58–77; RESP 16–18; TEMP 36.5–36.6; O2SAT 94–98
[2020-02-20] MEDS: oxyCODONE 5 MG Tablet 10 MG PO ×3 (01:11→16:13)
[2020-02-20] MEDS: Enoxaparin 40 MG/0.4 ML Syringe SC (05:19)
[2020-02-20] MEDS: Senna/Docusate Sodium 1 Tablet 2 TABLET PO ×2 (05:19→17:51)
[2020-02-20] MEDS: Citalopram 10 MG Tablet PO (05:20)
[2020-02-20] MEDS: Pantoprazole Sodium 20 MG Tablet PO ×2 (05:20→17:50)
[2020-02-20] MEDS: Aspirin E.C. 81 MG Tablet PO (05:20)
[2020-02-20] MEDS: Pregabalin 25 MG Capsule PO (05:20)
[2020-02-20] MEDS: Metoprolol Tartrate 25 MG Tablet PO ×2 (05:20→17:51)
[2020-02-20] MEDS: oxyCODONE 5 MG Tablet PO ×4 (05:20→21:31)
[2020-02-20 06:46] LABS: Bedside Glucose 99 mg/dL (70-110)
[2020-02-20] MEDS: Ipratropium/Albuterol Sulfate 3 ML AMPUL.NEB 2.5 ML INHALATION ×3 (07:05→19:00)
[2020-02-20] MEDS: Oxymetazoline 0.05% 1 SPRAY SPRAY.BTL 2 SPRAY NASAL (08:32)
[2020-02-20] MEDS: Cyanocobalamin 500 MCG Tablet 1000 MCG PO (08:35)
[2020-02-20] MEDS: metFORMIN HCl 500 MG Tablet PO ×2 (08:36→17:50)
[2020-02-20] MEDS: Atorvastatin Calcium 40 MG Tablet PO (21:31)
[2020-02-21] VITALS (8 sets, daily range): BP systolic 110–140; BP diastolic 63–75; PULSE 67–77; RESP 14–18; TEMP 36.3–36.6; O2SAT 92–95
[2020-02-21] MEDS: oxyCODONE 5 MG Tablet 10 MG PO ×4 (00:19→16:02)
[2020-02-21] MEDS: Enoxaparin 40 MG/0.4 ML Syringe SC (04:27)
[2020-02-21] MEDS: Aspirin E.C. 81 MG Tablet PO (04:28)
[2020-02-21] MEDS: Pantoprazole Sodium 20 MG Tablet PO ×2 (04:28→16:04)
[2020-02-21] MEDS: Citalopram 10 MG Tablet PO (04:28)
[2020-02-21] MEDS: Senna/Docusate Sodium 1 Tablet 2 TABLET PO ×2 (04:28→16:04)
[2020-02-21] MEDS: Metoprolol Tartrate 25 MG Tablet PO ×2 (04:29→16:04)
[2020-02-21 06:26] LABS: Bedside Glucose 96 mg/dL (70-110)
[2020-02-21] MEDS: Ipratropium/Albuterol Sulfate 3 ML AMPUL.NEB 2.5 ML INHALATION ×3 (06:45→19:10)
[2020-02-21] MEDS: Pregabalin 25 MG Capsule PO (06:49)
[2020-02-21] MEDS: oxyCODONE 5 MG Tablet PO ×4 (06:51→21:39)
[2020-02-21] MEDS: Oxymetazoline 0.05% 1 SPRAY SPRAY.BTL 2 SPRAY NASAL (08:26)
[2020-02-21] MEDS: metFORMIN HCl 500 MG Tablet PO ×2 (08:27→16:02)
[2020-02-21] MEDS: Cyanocobalamin 500 MCG Tablet 1000 MCG PO (08:27)
[2020-02-21] MEDS: Atorvastatin Calcium 40 MG Tablet PO (21:39)
[2020-02-22] VITALS (7 sets, daily range): BP systolic 104; BP diastolic 62; PULSE 70–80; RESP 16–18; TEMP 36.6–36.9; O2SAT 92–96
[2020-02-22] MEDS: oxyCODONE 5 MG Tablet 10 MG PO ×3 (02:34→14:14)
[2020-02-22] MEDS: Metoprolol Tartrate 25 MG Tablet PO ×2 (05:36→17:04)
[2020-02-22] MEDS: Pantoprazole Sodium 20 MG Tablet PO ×2 (05:36→17:04)
[2020-02-22] MEDS: Citalopram 10 MG Tablet PO (05:36)
[2020-02-22] MEDS: Aspirin E.C. 81 MG Tablet PO (05:36)
[2020-02-22] MEDS: Senna/Docusate Sodium 1 Tablet 2 TABLET PO (05:36)
[2020-02-22] MEDS: Enoxaparin 40 MG/0.4 ML Syringe SC (05:37)
[2020-02-22] MEDS: oxyCODONE 5 MG Tablet PO ×4 (05:40→21:52)
[2020-02-22 06:16] LABS: Bedside Glucose 86 mg/dL (70-110)
[2020-02-22] MEDS: Ipratropium/Albuterol Sulfate 3 ML AMPUL.NEB 2.5 ML INHALATION ×2 (06:36→13:05)
[2020-02-22] MEDS: Cyanocobalamin 500 MCG Tablet 1000 MCG PO (07:59)
[2020-02-22] MEDS: metFORMIN HCl 500 MG Tablet PO ×2 (08:33→16:23)
[2020-02-22] MEDS: Oxymetazoline 0.05% 1 SPRAY SPRAY.BTL 2 SPRAY NASAL (10:55)
--- NOTE | 2020-02-22 14:39 | CASEMGMT ---
Social Work Spoke with pt and about request to DC home. IDT agreeable to DC 02/24. Pt and agreeable. can assist pt at home. Pt agreed to [facility] PT/OT. No DME needs. to transport. Plan: DC home with 02/24 with [facility] PT/[facility]. Sarah Adame, SPANISH LANGUAGE LECTURER FOUNDATION DIGGER
--- NOTE | 2020-02-22 19:43 | DCINST_ITS ---
- Discharge Diagnoses Current Active Problems: Current Active and Chronic Problems (Last Updated 02/04/20 @ 16:[address] Warren López MD) Debility (Acute) Lumbar spinal stenosis (Acute) Atrial fibrillation (Chronic) GERD (gastroesophageal reflux disease) (Chronic) Diabetes mellitus (Chronic) Coronary artery disease (Chronic) Neuropathic pain (Chronic) COPD (chronic obstructive pulmonary disease) (Chronic) You will use the following diet at home:: No restrictions, Regular Your food should be the consistency of: Regular Your liquids should be the consistency of: Regular/Thin Discharge Activity: Return to Normal Activity, May Shower, Use Walker Weight Bearing Status: Weight bearing as tolerated Call your doctor if you observe: Fever of 101 or Higher, Inability to urinate, Inability to have a bowel movement, Shortness of breath, Chest pain, Uncontrolled pain Allergies/Adverse Reactions: Allergies meropenem Allergy (Verified 02/17/20 10:11) Unknown tramadol Allergy (Verified 02/17/20 10:11) Unknown vancomycin Allergy (Verified 02/17/20 10:11) Unknown hydrocodone bitartrate [From Vicodin] Adverse Reaction (Verified 02/17/20 10:11) nightmares nightmares Medications to take at Discharge Omeprazole [Prilosec] 20 mg PO BID 02/09/17 Albuterol Sulfate [Albuterol Sulfate Hfa] 2 puff PO Q4H PRN PRN 01/29/19 Metformin HCl 500 mg PO BID 01/29/19 Nitroglycerin 0.4 mg SL PRN PRN 01/29/19 budesonide 0.5 mg/2 mL suspension for nebulization 2 ml INHALATION Q12H PRN 02/19/19 prednisone 10 mg tablet 10 mg PO BID PRN 02/19/19 aspirin 81 mg tablet,delayed release 81 mg PO DAILY 05/18/19 budesonide-formoterol HFA 160 mcg-4.5 mcg/actuation aerosol inhaler 2 puff INHALATION BID g 05/18/19 metoprolol tartrate 50 mg tablet 25 mg PO BID tab 05/18/19 rosuvastatin 20 mg tablet 20 mg PO QHS #90 tab 05/20/19 Cyanocobalamin [Vitamin B12] 1,000 mcg PO DAILY@0800 01/20/20 Ipratropium/Albuterol Respimat [Combivent Respimat Inhal [place]] 1 puff INHALATION 4X/DAY 01/20/20 Pregabalin [Lyrica] 25 mg PO DAILY 01/20/20 Oxycodone [Oxyir] 10 mg PO Q4H PRN PRN 7 Days #14 tab 02/07/20 Citalopram [Celexa] 10 mg PO DAILY #30 tab 02/22/20 Oxycodone [Oxyir] 5 mg PO 4X/DAY 7 Days #28 tab 02/22/20 Polyethylene Glycol 3350 [Miralax] 17 gm PO DAILY #30 packet 02/22/20 The following prescriptions were given: Citalopram [Celexa] 10 mg PO DAILY #30 tab Transmission Status: Received by [id number] Polyethylene Glycol 3350 [Miralax] 17 gm PO DAILY #30 packet Transmission Status: Received by [id number] Oxycodone [Oxyir] 5 mg PO 4X/DAY 7 Days #28 tab Transmission Status: Pending to [id number] Primary Care Physician: Andres Petty MD [Primary Care Provider] - Please follow up with your Primary Care Physician in: 1 week. Test Results: Test results from this visit will be discussed in further detail at your follow- up appointment, if applicable. Please Follow Up With: Andres Petty MD When: when d/c from TCU Please Follow Up With: Edmundo Duff DO When: [phone] Proposed Discharge Date: 02/25/20
--- NOTE | 2020-02-22 19:44 | DS.PCM_ITS ---
Discharge Date and Diagnosis - Problem List Patient Problems: Active and Suspected Problems (Last Updated 02/04/20 @ 16:[address] Warren López MD) Debility (Acute) Lumbar spinal stenosis (Acute) Date of Admission: 02/07/20 Date of Discharge: 02/25/20 - Primary Discharge Diagnosis Acute Problems: Active Problems (Last Updated 02/04/20 @ 16:[address] Warren López MD) Debility (Acute) Lumbar spinal stenosis (Acute) - Secondary Discharge Diagnosis Chronic Problems: Chronic Problems (Last Updated 02/04/20 @ 16:[address] Warren López MD) Atrial fibrillation (Chronic) GERD (gastroesophageal reflux disease) (Chronic) Diabetes mellitus (Chronic) Coronary artery disease (Chronic) Neuropathic pain (Chronic) Obstructive sleep apnea (Chronic) COPD (chronic obstructive pulmonary disease) (Chronic) Atherosclerosis of coronary artery of [place] heart without angina pectoris (Chronic) History of coronary artery stent placement (Chronic 08/29/10) [id number]-Distal Lad w/ 3.0 x 28 mm and 2.5 x 16 mm ION Stent 08/29/2010 Chronic diastolic (congestive) heart failure (Chronic) Paroxysmal atrial fibrillation (Chronic) Essential (primary) hypertension (Chronic) Hyperlipidemia (Chronic) Lung nodules (Chronic) Hospital Course and Treatment Imaging Results: 02/07/20 15:21 Diet: Regular - General Food consistency:: Regular Liquid Consistency:: Regular/Thin Is pt able to select menu?: Yes Labs (Last 48 Hours) 02/21/20 02/22/20 06:21 05:48 POC Glucose 96 86 Operations: None Procedures: None Summary of Care Provided: The patient is a 69 year old Male with below past medical history hospitalized for lumbar spine surgery 02/04/20, complicated by acute kidney injury, resolved, admitted to TCU with debility, here for rehabilitation, strengthening, prior to discharge home with . Citalopram 10MG daily added for depression per resident request. Discharge home with , [facility] PT/OT. Patient Problems: Active and Suspected Problems (Last Updated 02/04/20 @ 16:[address] Warren López MD) Debility (Acute) Lumbar spinal stenosis (Acute) - Physical Exam Vitals/I&O's: Vital Signs Temp Pulse Resp BP Pulse Ox 97.9 F 70 16 104/62 96 02/22/20 12:58 02/22/20 17:04 02/22/20 13:05 02/22/20 12:58 02/22/20 12:58 Oxygen Flow Rate (L/min) 2 Oxygen Delivery Method Room Air Weight: 91.682 kg Body Mass Index (BMI) 32.3 Finger Stick Blood Glucose 108 Intake and Output for Last 24 Hours 02/20/20 02/21/20 02/22/20 23:59 23:59 23:59 Intake Total 920 / 920 790 / 790 720 / 720 Balance 920 / 920 790 / 790 720 / 720 Laboratory Results 02/22/20 05:48: POC Glucose 86 Current Medications Hydrocodone Bitart/Acetaminophen (Hydrocodone Bitartrate/Apap 5/325 Tablet) 1 tablet PO Q6H PRN PRN PRN Reason: Pain Score 1-5 Last Admin: 02/19/20 22:58 Dose: 1 tablet Documented by: Albuterol Sulfate (Albuterol Sulfate Hfa 6.7 Gm Inhaler (200 Puffs)) 2 puff IH Q4H PRN PRN PRN Reason: wheezing/sob Albuterol/Ipratropium (Ipratropium/Albuterol Sulfate 3 Ml Ampul.Neb) 2.5 ml INHALATION Q6HWA.[facility] Last Admin: 02/22/20 13:05 Dose: 2.5 ml Documented by: Aspirin (Aspirin E.C. 81 Mg Tablet) 81 mg PO DAILY [facility] Last Admin: 02/22/20 05:36 Dose: 81 mg Documented by: Atorvastatin Calcium (Atorvastatin Calcium 40 Mg Tablet) 40 mg PO QHS [facility] Last Admin: 02/21/20 21:39 Dose: 40 mg Documented by: Bisacodyl (Bisacodyl 10 Mg Suppository) 10 mg RECTAL DAILY PRN PRN PRN Reason: Constipation Budesonide (Budesonide Respules 0.5 Mg/2 Ml Ampul.Neb.) 0.5 mg INHALATION Q12H PRN PRN Reason: SOB &/OR WHEEZING Last Admin: 02/18/20 06:50 Dose: 0.5 mg Documented by: Citalopram Hydrobromide (Citalopram 10 Mg Tablet) 10 mg PO DAILY [facility] Last Admin: 02/22/20 05:36 Dose: 10 mg Documented by: Cyanocobalamin (Cyanocobalamin 500 Mcg Tablet) 1,000 mcg PO DAILY@0800 [facility] Last Admin: 02/22/20 07:59 Dose: 1,000 mcg Documented by: Enoxaparin Sodium (Enoxaparin 40 Mg/0.4 Ml Syringe) 40 mg SC DAILY@0600 [facility] Last Admin: 02/22/20 05:37 Dose: 40 mg Documented by: Magnesium Hydroxide (Magnesium Hydroxide 30 Ml Udc) 30 ml PO DAILY PRN PRN PRN Reason: Constipation Last Admin: 02/09/20 21:23 Dose: 30 ml Documented by: Metformin HCl (Met[facility] Hcl 500 Mg Tablet) [facility] Admin: 02/22/20 16:23 Dose: 500 mg Documented by: Metoprolol Tartrate (Metoprolol Tartrate 25 Mg Tablet) 25 mg PO BID [facility] Last Admin: 02/22/20 17:04 Dose: 25 mg Documented by: Nitroglycerin (Nitroglycerin Sl (Ed/Img/Cath) 0.4 Mg Tablet) 0.4 mg SUBLINGUAL PRN PRN PRN Reason: chest pain Oxycodone HCl (Oxycodone 5 Mg Tablet) 10 mg PO Q4H PRN PRN PRN Reason: Pain Score 6-10 Last Admin: 02/22/20 14:14 Dose: 10 mg Documented by: Oxycodone HCl (Oxycodone 5 Mg Tablet) 5 mg PO 4X/DAY [facility] Last Admin: 02/22/20 16:23 Dose: 5 mg Documented by: Oxymetazoline HCl (Oxymetazoline 0.05% 1 [place] Britton.Btl) 2 spray NASAL QAM [facility] Last Admin: 02/22/20 10:55 Dose: 2 sprays Documented by: Pantoprazole Sodium (Pantoprazole Sodium 20 Mg Tablet) 20 mg PO BID [facility] Last Admin: 02/22/20 17:04 Dose: 20 mg Documented by: Polyethylene Glycol (Polyethylene Glycol 3350 17 Gm Packet) 17 gm PO DAILY [facility] Last Admin: 02/22/20 05:37 Dose: Not Given Documented by: Prednisone (Prednisone 10 Mg Tablet) 10 mg PO BID PRN PRN PRN Reason: RA flare Last Admin: 02/17/20 07:08 Dose: 10 mg Documented by: Pregabalin (Pregabalin 25 Mg Capsule) 25 mg PO DAILY [facility] Last Admin: 02/22/20 05:40 Dose: Not Given Documented by: Senna/Docusate Sodium (Senna/Docusate Sodium 1 Tablet) 2 tablet PO BID [facility] Last Admin: 02/22/20 17:04 Dose: Not Given Documented by: Sodium Chloride (Sodium Chloride 0.65% 1 Britt[place] Britton.Btl) 2 spray NASAL TID PRN PRN PRN Reason: NASAL DRYNESS Last Admin: 02/11/20 04:27 Dose: 2 spray Documented by: Discharge Diet: No Restrictions Discharge Activity: Return to Normal Activity, May Shower, Use Walker Weight Bearing Status: Weight bearing as tolerated Call your doctor if you observe: Fever of 101 or Higher, Inability to urinate, Inability to have a bowel movement, Shortness of breath, Chest pain, Uncontrolled pain Home Medications: Medications to take at Discharge Omeprazole [Prilosec] 20 mg PO BID 02/09/17 Albuterol Sulfate [Albuterol Sulfate Hfa] 2 puff PO Q4H PRN PRN 01/29/19 Metformin HCl 500 mg PO BID 01/29/19 Nitroglycerin 0.4 mg SL PRN PRN 01/29/19 budesonide 0.5 mg/2 mL suspension for nebulization 2 ml INHALATION Q12H PRN 02/19/19 prednisone 10 mg tablet 10 mg PO BID PRN 02/19/19 aspirin 81 mg tablet,delayed release 81 mg PO DAILY 05/18/19 budesonide-formoterol HFA 160 mcg-4.5 mcg/actuation aerosol inhaler 2 puff INHALATION BID g 05/18/19 metoprolol tartrate 50 mg tablet 25 mg PO BID tab 05/18/19 rosuvastatin 20 mg tablet 20 mg PO QHS #90 tab 05/20/19 Cyanocobalamin [Vitamin B12] 1,000 mcg PO DAILY@0800 01/20/20 Ipratropium/Albuterol Respimat [Combivent Respimat Inhal [place]] 1 puff INHALATION 4X/DAY 01/20/20 Pregabalin [Lyrica] 25 mg PO DAILY 01/20/20 Oxycodone [Oxyir] 10 mg PO Q4H PRN PRN 7 Days #14 tab 02/07/20 Citalopram [Celexa] 10 mg PO DAILY #30 tab 02/22/20 Oxycodone [Oxyir] 5 mg PO 4X/DAY 7 Days #28 tab 02/22/20 Polyethylene Glycol 3350 [Miralax] 17 gm PO DAILY #30 packet 02/22/20 Following Prescriptions Were Given to Patient: Citalopram [Celexa] 10 mg PO DAILY #30 tab Transmission Status: Received by [id number] Polyethylene Glycol 3350 [Miralax] 17 gm PO DAILY #30 packet Transmission Status: Received by [id number] Oxycodone [Oxyir] 5 mg PO 4X/DAY 7 Days #28 tab Transmission Status: Pending to [id number] Primary Care Physician: Andres Petty MD [Primary Care Provider] - Please follow up with your Primary Care Physician in: 1 week. Please Follow Up With: Andres Petty MD When: when d/c from TCU Please Follow Up With: Edmundo Duff DO When: [phone] Disposition: Home with Home Health Minutes spent on discharge:: 35 Patient Condition:: Stable Medical Necessity - Tobacco Use Smoking Status: Former smoker Tobacco Use: Non-smoker Meaningful Use Info Meaningful Use Diagnoses (Choose all that apply): None applicable
[2020-02-22] MEDS: Atorvastatin Calcium 40 MG Tablet PO (21:52)
[2020-02-23] VITALS (7 sets, daily range): BP systolic 131–143; BP diastolic 74–77; PULSE 69–76; RESP 16–20; TEMP 36.4–36.8; O2SAT 92–93
[2020-02-23] MEDS: oxyCODONE 5 MG Tablet 10 MG PO ×4 (00:13→23:20)
[2020-02-23] MEDS: Enoxaparin 40 MG/0.4 ML Syringe SC (04:18)
[2020-02-23] MEDS: Senna/Docusate Sodium 1 Tablet 2 TABLET PO ×2 (04:19→17:06)
[2020-02-23] MEDS: Aspirin E.C. 81 MG Tablet PO (04:20)
[2020-02-23] MEDS: Citalopram 10 MG Tablet PO (04:20)
[2020-02-23] MEDS: Pantoprazole Sodium 20 MG Tablet PO ×2 (04:20→17:06)
[2020-02-23] MEDS: Pregabalin 25 MG Capsule PO (04:21)
[2020-02-23] MEDS: Metoprolol Tartrate 25 MG Tablet PO ×2 (04:21→17:05)
[2020-02-23 05:45] LABS: Absolute Neutrophil Count 3.1 X10^3/uL (2.0-7.7); Basophil# 0.04 X10^3/uL; Basophil% 0.8 % (0-1); Eosinophil# 0.22 X10^3/uL; Eosinophils% 4.2 % (0-5); Hematocrit 32.1 % (40-54); Hemoglobin 9.8 g/dL (13.0-16.5); Lymphocyte % 13.3 % (19-41); Mean Corp Hgb Conc 30.5 g/dL (32-36); Mean Corpuscular Hgb 27.3 pg (27.0-32.0); Mean Corpuscular Volume 89.4 fL (80-94); Mean Platelet Vol. 9.4 fl (6.2-12.0); Monocyte# 1.12 X10^3/uL; Monocyte% 21.3 % (0-10); NRBC Flagged by Analyzer 0 % (0-5); Neutrophil # 3.13 X10^3/uL (2.7-7.7); Neutrophil % 59.3 % (47-70); Platelet Count 542 K/mm3 (150-450); RBC Distribution Width CV 14.4 % (11.6-14.6); RBC Distribution Width SD 46.4 fl (35.1-43.9); Red Blood Count 3.59 M/mm3 (4.6-6.2); White Blood Count 5.3 K/mm3 (4.4-11.0)
[2020-02-23] MEDS: Ipratropium/Albuterol Sulfate 3 ML AMPUL.NEB 2.5 ML INHALATION ×3 (06:20→18:54)
[2020-02-23 06:33] LABS: Anion Gap 6 (5-15); BUN 16 mg/dL (7-18); BUN/Creat Ratio 11.9 RATIO (10-20); Calcium,Total 8.1 mg/dL (8.5-10.1); Chloride 103 mmol/L (98-107); Creatinine, Serum 1.35 mg/dL (0.70-1.30); EST Glomerular Filtration Rate 56 mL/min (>60); Est Glom Filt Rate - Afr Amer 68 mL/min (>60); Estimated Creatinine Clearance 50.67 ml/min; Glucose 86 mg/dL (74-106); Potassium 3.9 mmol/L (3.5-5.1); Sodium Level 134 mmol/L (136-145)
[2020-02-23] MEDS: oxyCODONE 5 MG Tablet PO ×4 (06:33→19:21)
[2020-02-23 06:36] LABS: Bedside Glucose 90 mg/dL (70-110)
[2020-02-23] MEDS: metFORMIN HCl 500 MG Tablet PO ×2 (08:01→17:05)
[2020-02-23] MEDS: Cyanocobalamin 500 MCG Tablet 1000 MCG PO (08:01)
[2020-02-23] MEDS: Oxymetazoline 0.05% 1 SPRAY SPRAY.BTL 2 SPRAY NASAL (09:51)
[2020-02-23] MEDS: Atorvastatin Calcium 40 MG Tablet PO (19:25)
[2020-02-24 04:51] VITALS: BP 118/71; PULSE 72; RESP 18; TEMP 36.6; O2SAT 94
[2020-02-24 04:53] VITALS: BP 118/71; PULSE 72
[2020-02-24] MEDS: Metoprolol Tartrate 25 MG Tablet PO ×2 (04:53→18:11)
[2020-02-24] MEDS: Enoxaparin 40 MG/0.4 ML Syringe SC (04:53)
[2020-02-24] MEDS: oxyCODONE 5 MG Tablet PO ×4 (04:53→22:11)
[2020-02-24] MEDS: Pregabalin 25 MG Capsule PO (04:53)
[2020-02-24] MEDS: Citalopram 10 MG Tablet PO (04:54)
[2020-02-24] MEDS: Pantoprazole Sodium 20 MG Tablet PO ×2 (04:54→18:11)
[2020-02-24] MEDS: Senna/Docusate Sodium 1 Tablet 2 TABLET PO (04:54)
[2020-02-24] MEDS: Aspirin E.C. 81 MG Tablet PO (04:55)
[2020-02-24 06:40] LABS: Bedside Glucose 82 mg/dL (70-110)
[2020-02-24 07:25] VITALS: PULSE 76; RESP 18; O2SAT 94
[2020-02-24] MEDS: Ipratropium/Albuterol Sulfate 3 ML AMPUL.NEB 2.5 ML INHALATION (07:25)
[2020-02-24] MEDS: Cyanocobalamin 500 MCG Tablet 1000 MCG PO (07:50)
[2020-02-24] MEDS: metFORMIN HCl 500 MG Tablet PO ×2 (07:50→18:10)
[2020-02-24] MEDS: oxyCODONE 5 MG Tablet 10 MG PO ×2 (07:51→15:05)
[2020-02-24] MEDS: Oxymetazoline 0.05% 1 SPRAY SPRAY.BTL 2 SPRAY NASAL (10:17)
[2020-02-24 10:20] VITALS: PULSE 67; RESP 18; O2SAT 92
[2020-02-24 13:50] VITALS: BP 109/65; PULSE 70; RESP 16; TEMP 36.7; O2SAT 94
--- NOTE | 2020-02-24 14:48 | PHA.DC.MR ---
Pharmacy Service has performed discharge medication reconciliation for this patient. The patient's discharge medication list was reviewed for discrepancies and discrepancies were resolved. Home Medications Omeprazole [Prilosec] 20 mg PO BID 02/09/17 Albuterol Sulfate [Albuterol Sulfate Hfa] 2 puff PO Q4H PRN PRN 01/29/19 Metformin HCl 500 mg PO BID 01/29/19 Nitroglycerin 0.4 mg SL PRN PRN 01/29/19 budesonide 0.5 mg/2 mL suspension for nebulization 2 ml INHALATION Q12H PRN 02/19/19 prednisone 10 mg tablet 10 mg PO BID PRN 02/19/19 aspirin 81 mg tablet,delayed release 81 mg PO DAILY 05/18/19 budesonide-formoterol HFA 160 mcg-4.5 mcg/actuation aerosol inhaler 2 puff INHALATION BID g 05/18/19 metoprolol tartrate 50 mg tablet 25 mg PO BID tab 05/18/19 rosuvastatin 20 mg tablet 20 mg PO QHS #90 tab 05/20/19 Cyanocobalamin [Vitamin B12] 1,000 mcg PO DAILY@0800 01/20/20 Ipratropium/Albuterol Respimat [Combivent Respimat Inhal [place]] 1 puff INHALATION 4X/DAY 01/20/20 Pregabalin [Lyrica] 25 mg PO DAILY 01/20/20 Citalopram [Celexa] 10 mg PO DAILY #30 tab 02/22/20 Oxycodone [Oxyir] 5 mg PO 4X/DAY 7 Days #28 tab 02/22/20 Polyethylene Glycol 3350 [Miralax] 17 gm PO DAILY #30 packet 02/22/20 Oxycodone [Oxyir] 10 mg PO Q4H PRN PRN 7 Days #30 tab 02/24/20
[2020-02-24 18:11] VITALS: BP 109/65; PULSE 70
[2020-02-24] MEDS: Atorvastatin Calcium 40 MG Tablet PO (22:11)
[2020-02-25] MEDS: oxyCODONE 5 MG Tablet 10 MG PO ×2 (01:50→09:21)
[2020-02-25 05:00] VITALS: BP 140/80; PULSE 68; RESP 16; TEMP 37.1; O2SAT 94
[2020-02-25 05:18] VITALS: BP 140/80; PULSE 68
[2020-02-25] MEDS: Metoprolol Tartrate 25 MG Tablet PO (05:18)
[2020-02-25] MEDS: oxyCODONE 5 MG Tablet PO (05:18)
[2020-02-25] MEDS: Enoxaparin 40 MG/0.4 ML Syringe SC (05:18)
[2020-02-25] MEDS: Pantoprazole Sodium 20 MG Tablet PO (05:19)
[2020-02-25] MEDS: Aspirin E.C. 81 MG Tablet PO (05:19)
[2020-02-25] MEDS: Citalopram 10 MG Tablet PO (05:19)
[2020-02-25 06:26] LABS: Bedside Glucose 94 mg/dL (70-110)
[2020-02-25 07:19] VITALS: PULSE 69; RESP 18
[2020-02-25] MEDS: Ipratropium/Albuterol Sulfate 3 ML AMPUL.NEB 2.5 ML INHALATION (07:19)
[2020-02-25] MEDS: Cyanocobalamin 500 MCG Tablet 1000 MCG PO (09:16)
[2020-02-25] MEDS: metFORMIN HCl 500 MG Tablet PO (09:16)
[2020-02-25] MEDS: Oxymetazoline 0.05% 1 SPRAY SPRAY.BTL 2 SPRAY NASAL (09:17)
[2020-02-25 09:25] VITALS: PULSE 68; RESP 18; O2SAT 93
[2020-02-25 09:37] VITALS: BP 140/74; PULSE 68; RESP 18; TEMP 36.6; O2SAT 93
[2020-02-25] MEDS: predniSONE 10 MG Tablet PO (10:17)
[2020-02-25 10:45] VITALS: BP 140/74; PULSE 68; RESP 18; TEMP 36.6; O2SAT 93
== END 2020-02-25 10:30 | disposition home health service (06) | DRG 560 ==
PROVIDERS: Admitting Provider Family Medicine Geriatric Medicine; PCP Family Medicine; Visit Provider Family Medicine Geriatric Medicine
DX: Z47.89 Encounter for other orthopedic aftercare (principal); I50.32 Chronic diastolic (congestive) heart failure; I13.0 Hypertensive heart and chronic kidney disease with heart failure and stage 1 through stage 4 chronic kidney disease, or unspecified chronic kidney disease; J96.10 Chronic respiratory failure, unspecified whether with hypoxia or hypercapnia; M48.061 Spinal stenosis, lumbar region without neurogenic claudication; K21.9 Gastro-esophageal reflux disease without esophagitis; M06.9 Rheumatoid arthritis, unspecified; I25.10 Atherosclerotic heart disease of native coronary artery without angina pectoris; J44.9 Chronic obstructive pulmonary disease, unspecified; N18.30 Chronic kidney disease, stage 3 unspecified; E11.22 Type 2 diabetes mellitus with diabetic chronic kidney disease; G47.33 Obstructive sleep apnea (adult) (pediatric); I48.0 Paroxysmal atrial fibrillation; G89.29 Other chronic pain; E11.42 Type 2 diabetes mellitus with diabetic polyneuropathy; E78.49 Other hyperlipidemia; Z87.891 Personal history of nicotine dependence; F32.9 Major depressive disorder, single episode, unspecified
CPT/HCPCS: 80048; 82962; 85025; 87426; 87635; 94640; 97032; 97110; 97116; 97162; 97166; 97530; 97535; 97802; U0003

== ENCOUNTER 2020-06-09 22:20 | Outpatient (RCR) | payer MEDICARE, OTHER, SELFPAY ==
[2020-02-17 14:35] VITALS: BMI 31.9
[2020-06-09] MEDS: COVID-19 VACC, MRNA(PFIZER)/PF 30 MCG/0.3 ML SYRINGE IM (11:55)
[2020-06-30] MEDS: COVID-19 VACC, MRNA(PFIZER)/PF 30 MCG/0.3 ML SYRINGE IM (11:14)
== END 2020-06-09 23:59 ==
LOC: IMMUN 22:20
PROVIDERS: PCP Family Medicine; Visit Provider Family Medicine
DX: Z23 Encounter for immunization (principal)
CPT/HCPCS: 0001A; 0002A

== ENCOUNTER → 2020-06-22 10:45 | Outpatient (CLI) | payer MEDICARE, OTHER, SELFPAY ==
[2020-06-10 07:59] VITALS: BMI 36.1
--- NOTE | 2020-06-22 10:48 | ECHOCS_ITS ---
Reason For Study: CAD/ASHD Procedure This was a 2D Doppler, Color Flow transthoracic echocardiogram. The study was technically difficult. Due to COPD and body habitus. Limited views were obtained. Exam performed in department. Left Ventricle Normal LV size. Left ventricular systolic function is normal. The estimated ejection fraction is 60 %. Stage 2 diastolic dysfunction. No regional wall motion abnormalities noted. Right Ventricle Normal RV size. Normal systolic function. Atria The left atrium is mildly enlarged. Normal right atrium. Mitral Valve Normal mitral valve. Tricuspid Valve Normal tricuspid valve. Mild tricuspid valve insufficiency. Aortic Valve Trisinus/trileaflet aortic valve. Pulmonic Valve The pulmonic valve is not well visualized. Great Vessels Normal aortic root. The pulmonary artery is normal size. Pericardium/Pleural No pericardial effusion. Medication 22 gauge I.V. with prn adaptor inserted into right arm. Diluted definity 2.5ml given slow IV push to enhance endocardial definition. MMode/2D Measurements & Calculations LVIDd: 4.7 cm IVSd: 1.1 cm Ao root diam: 3.4 cm LVIDs: 3.0 cm LVPWd: 1.2 cm RVDd: 3.2 cm FS: 37.3 % LAV(MOD-bp): 76.6 ml LVAd ap4: 32.6 cm2 SV(MOD-sp4): 68.5 ml LAV(MOD-bp) Indexed: 34.8 ml/m2 EDV(MOD-sp4): 108.3 ml LAV(MOD-sp2): 75.5 ml EDV(sp4-el): 113.1 ml LAV(MOD-sp4): 75.5 ml LVAs ap4: 18.1 cm2 ESV(MOD-sp4): 39.8 ml ESV(sp4-el): 41.0 ml EF(MOD-sp4): 63.2 % EF(sp4-el): 63.7 % SV(sp4-el): 72.0 ml LA A4 area: 23.9 cm2 LA dimension(2D): 4.2 cm RA A4 area: 19.2 cm2 Time Measurements MV dec time: 0.21 sec Doppler Measurements & Calculations MV E max harry: 103.6 cm/sec Lat Peak E' Harry: 11.6 cm/sec Med Peak E' Harry: 9.9 cm/sec MV A max harry: 54.0 cm/sec E/E' lat: 9.0 E/E' med: 10.5 MV E/A: 1.9 Ao V2 max: 112.6 cm/sec LV V1 max: 100.7 cm/sec PA V2 max: 79.7 cm/sec Ao max P.1 mmHg LV V1 max P.1 mmHg TR max harry: 222.7 cm/sec TR max P.8 mmHg Interpretation Summary Normal LV size. Left ventricular systolic function is normal. The estimated ejection fraction is 60 %. Stage 2 diastolic dysfunction. Contrast injection was performed. Ordering Physician: Simon Yeung Referring Physician: Andres Petty Performed By: Enriqueta Hernadez, JESSA, RVT
== END ==
PROVIDERS: PCP Family Medicine; Referring Provider Internal Medicine Cardiovascular Disease; Visit Provider Internal Medicine Cardiovascular Disease
DX: I25.10 Atherosclerotic heart disease of native coronary artery without angina pectoris (principal)
CPT/HCPCS: 93306; Q9957; A4216; C8929

== ENCOUNTER → 2020-07-04 10:22 | Outpatient (CLI) | payer MEDICARE, OTHER, SELFPAY ==
[2020-06-10 07:59] VITALS: BMI 36.1
[2020-07-04 11:16] LABS: Absolute Lymphocyte Count 0.95 X10^3/uL (0.83-4.51); Absolute Neutrophil Count 7.7 X10^3/uL (2.0-7.7); Basophil# 0.01 X10^3/uL; Basophil% 0.1 % (0-1); Eosinophil# 0.14 X10^3/uL; Eosinophils% 1.3 % (0-5); Hematocrit 33.6 % (40-54); Hemoglobin 10.7 g/dL (13.0-16.5); Lymphocyte # 0.95 X10^3/ul (4.0); Mean Corp Hgb Conc 31.8 g/dL (32-36); Mean Corpuscular Hgb 25.9 pg (27.0-32.0); Mean Corpuscular Volume 81.4 fL (80-94); Mean Platelet Vol. 9.1 fl (6.2-12.0); Monocyte# 1.41 X10^3/uL; Monocyte% 13.3 % (0-10); NRBC Flagged by Analyzer 0 % (0-5); Neutrophil % 72.8 % (47-70); Platelet Count 382 K/mm3 (150-450); RBC Distribution Width CV 15.7 % (11.6-14.6); RBC Distribution Width SD 46.2 fl (35.1-43.9); Red Blood Count 4.13 M/mm3 (4.6-6.2); White Blood Count 10.6 K/mm3 (4.4-11.0)
[2020-07-04 11:38] LABS: Anion Gap 10 (5-15); BUN 27 mg/dL (7-18); BUN/Creat Ratio 19.3 RATIO (10-20); Calcium,Total 8.7 mg/dL (8.5-10.1); Chloride 93 mmol/L (98-107); EST Glomerular Filtration Rate 54 mL/min (>60); Est Glom Filt Rate - Afr Amer 65 mL/min (>60); Glucose 77 mg/dL (74-106); Sodium Level 128 mmol/L (136-145)
== END ==
PROVIDERS: PCP Family Medicine; Referring Provider Internal Medicine Cardiovascular Disease; Visit Provider Internal Medicine Cardiovascular Disease
DX: E78.5 Hyperlipidemia, unspecified (principal); I50.32 Chronic diastolic (congestive) heart failure
CPT/HCPCS: 36415; 80048; 85025

== ENCOUNTER 2021-06-15 11:27 | Outpatient (CLI) | payer MEDICARE, OTHER, SELFPAY ==
[2021-06-15 15:17] LABS: Absolute Lymphocyte Count 0.64 X10^3/uL (0.83-4.51); Basophil# 0.02 X10^3/uL; Basophil% 0.2 % (0-1); Eosinophil# 0.02 X10^3/uL; Eosinophils% 0.2 % (0-5); Hematocrit 34.1 % (40-54); Hemoglobin 10.9 g/dL (13.0-16.5); Lymphocyte # 0.64 X10^3/ul (0.83-4.51); Lymphocyte % 6.9 % (19-41); Mean Corpuscular Hgb 26.3 pg (27.0-32.0); Mean Corpuscular Volume 82.2 fL (80-94); Mean Platelet Vol. 9.8 fl (6.2-12.0); Monocyte# 1.56 X10^3/uL; Monocyte% 16.9 % (0-10); NRBC Flagged by Analyzer 0 % (0-5); Neutrophil # 6.97 X10^3/uL (2.7-7.7); Neutrophil % 75.5 % (47-70); POSITIVE DIFFERENTIAL YES; Platelet Count 328 K/mm3 (150-450); RBC Distribution Width CV 15.2 % (11.6-14.6); RBC Distribution Width SD 46.1 fl (35.1-43.9); Red Blood Count 4.15 M/mm3 (4.6-6.2); White Blood Count 9.2 K/mm3 (4.4-11.0)
[2021-06-15 15:19] LABS: Differential Indicated SCAN CRITERIA MET
[2021-06-15 15:32] LABS: ALB/GLOB Ratio 0.8 RATIO (0.9-2.4); AST(SGOT) 14 U/L (15-37); Alanine Aminotransfer ALT/SGPT 12 U/L (16-61); Albumin, Serum 2.7 g/dL (3.2-5.0); Alkaline Phosphatase 52 U/L (45-117); Anion Gap 8 (5-15); BUN 11 mg/dL (7-18); BUN/Creat Ratio 8.4 RATIO (10-20); Calcium,Total 8.8 mg/dL (8.5-10.1); Chloride 105 mmol/L (98-107); Creatinine, Serum 1.31 mg/dL (0.70-1.30); EST Glomerular Filtration Rate 58 mL/min (>60); Est Glom Filt Rate - Afr Amer 70 mL/min (>60); Globulin 3.4 g/dL (2.2-4.2); Glucose 75 mg/dL (74-106); Protein, Total 6.1 g/dL (6.4-8.2); Sodium Level 136 mmol/L (136-145)
[2021-06-15 16:08] LABS: Differential Comment SCANNED
[2021-06-16 13:28] LABS: Pathologist Review Reviewed
== END 2021-06-15 23:59 | disposition home or self-care (01) ==
LOC: MTLAB 11:28
PROVIDERS: PCP Family Medicine; Referring Provider Internal Medicine Rheumatology; Visit Provider Internal Medicine Rheumatology
DX: M06.09 Rheumatoid arthritis without rheumatoid factor, multiple sites (principal); J44.9 Chronic obstructive pulmonary disease, unspecified; M17.0 Bilateral primary osteoarthritis of knee; I25.10 Atherosclerotic heart disease of native coronary artery without angina pectoris; I10 Essential (primary) hypertension; N40.0 Benign prostatic hyperplasia without lower urinary tract symptoms; Z79.899 Other long term (current) drug therapy
CPT/HCPCS: 36415; 80053; 85025

== ENCOUNTER → 2021-08-01 | Outpatient (CLI) | payer MEDICARE, OTHER, SELFPAY ==
[2021-08-01 11:58] LABS: Amphetamine Urine VISTA NEGATIVE (<1000 ng/mL); Barbiturate Urine VISTA NEGATIVE (< 200 ng/mL); Benzodiazepine Urine VISTA NEGATIVE (< 200 ng/mL); Cocaine Urine VISTA NEGATIVE (< 300 ng/mL); Ecstacy Urine VISTA NEGATIVE (< 500 ng/mL); Methadone Urine VISTA NEGATIVE (< 300 ng/mL); PCP Urine VISTA NEGATIVE (< 25 ng/mL); THC Urine VISTA NEGATIVE (< 50 ng/mL); Vista UDS pH Range 5
== END | disposition home or self-care (01) ==
LOC: LAB 11:04
PROVIDERS: PCP Family Medicine; Referring Provider Anesthesiology Pain Medicine; Visit Provider Anesthesiology Pain Medicine
DX: F11.20 Opioid dependence, uncomplicated (principal)
CPT/HCPCS: 80307

== ENCOUNTER 2021-11-02 11:05 | Inpatient (IN) | payer MEDICARE, OTHER, SELFPAY ==
[2021-11-02] VITALS (11 sets, daily range): BP systolic 104–125; BP diastolic 71–80; PULSE 72–120; RESP 12–34; TEMP 36.2–37; O2SAT 97–100; BMI 34.4; BMI 33.5
--- NOTE | 2021-11-02 11:16 | EKG12_ITS ---
Test Reason : sob Blood Pressure : / mmHG Vent. Rate : 113 BPM Atrial Rate : 113 BPM P-R Int : 134 ms QRS Dur : 078 ms QT Int : 294 ms P-R-T Axes : 011 -04 100 degrees QTc Int : 403 ms Sinus tachycardia with Premature atrial complexes Nonspecific ST and T wave abnormality Abnormal ECG Confirmed by ANANYA SMITH, MARYLOU ([id number]), medical editor SERGEI RAYGOZA ([id number]) on 11/06/2021 11:24:15 AM Referred By: Dov Confirmed By:NICOLE HARE MD
--- NOTE | 2021-11-02 11:38 | CPS ---
Critical blood gas results given to Dr. Monae. made aware results were likely venous and not arterial.
[2021-11-02] MEDS: Albuterol 2.5 MG/3 ML VIAL.NEB. INHALATION ×3 (11:46)
[2021-11-02] MEDS: Ipratropium/Albuterol Sulfate 3 ML AMPUL.NEB INHALATION (11:46)
--- NOTE | 2021-11-02 11:54 | EDS_ITS ---
HPI History of Present Illness Chief Complaint: Shortness of Breath Detail of Chief Complaint: Past 24 hours increase shortness of breath Informant: patient and spouse/S.O. Onset/Context/Timing Onset: Yesterday Context: gradual Timing: Continuous Quality: Positive for Dyspnea on exertion and Wheezing; Negative for Orthopnea Current Severity: Mild Maximum Severity: Severe Worsened by: Coughing Relieved by: - (Improved after patient was placed on BiPAP) Associated Symptoms cough and sore throat; Negative for rhinorrhea, post nasal drip, ear pain, fever, subjective, chills, sweats, clear sputum, white sputum, yellow sputum or green sputum Chest Pain: Positive for None Narrative Narrative: Patient is a 70-year-old male with chronic respiratory failure due to COPD. He requires 24-hour noninvasive ventilation. He does endorse cough. Cough is nonproductive. He does endorse mild sore throat. He denies headache, visual, ocular auditory symptoms. He denies rhinorrhea, congestion postnasal drainage. He denies ill contacts. He denies chest discomfort. He endorses remote history of DVT 15 to 20 years ago. He is presently on no anticoagulant. He does have swelling of both legs and complained of sudden onset of right foot pain. He is concerned he may have fractured his foot. He states he has prediabetes. He also has history of paroxysmal atrial fibrillation, chronic diastolic congestive heart failure, coronary disease with placement of stents, neuropathic pain and disability due to his chronic lung disease. PE Risk Factors: Positive for Prior DVT or PE and Recent immobilization; Negative for Cancer, OCP + Smoking + > 35, Recent surgery or Recent travel Prior similar symptoms: Yes (COPD) Recent Illness/Hospitalization: No [facility] Medical History (Updated 11/02/21 @ 14:[address] Santiago Monae MD) Abnormal EKG Abnormal positron emission tomography (PET) scan VIET (acute kidney injury) Alcohol abuse Anemia Atherosclerosis of coronary artery of [place] heart without angina pectoris B12 deficiency Golden's esophagus Benign neoplasm of colon Benign neoplasm of larynx Blood loss anemia Chronic back pain Chronic diastolic (congestive) heart failure Chronic renal disease, stage 3, moderately decreased glomerular filtration rate (GFR) between 30-59 mL/min/1.73 square meter Chronic respiratory failure COLD (chronic obstructive lung disease) COPD (chronic obstructive pulmonary disease) Debility Diverticulosis of colon (without mention of hemorrhage) DVT (deep venous thrombosis) (11/09/16) Essential (primary) hypertension Familial combined hyperlipidemia GERD (gastroesophageal reflux disease) GI bleed H/O immunosuppressive therapy Hyperlipidemia Internal hemorrhoids without mention of complication Lumbar spinal stenosis Lung nodules Neuropathic pain Non-compliance Obesity Obstructive sleep apnea Other voice and resonance disorders Paroxysmal atrial fibrillation Peripheral neuropathy Rheumatoid arthritis Steroid long-term use Tracheostomy in place Type 2 diabetes mellitus Home Medications omeprazole 20 mg capsule,delayed release 20 mg PO BID GERD 02/09/17 [History Last Taken 01/28/19] albuterol sulfate 90 mcg/actuation aerosol inhaler 2 puff PO Q4H PRN PRN wheezing/sob 01/29/19 [History Last Taken 01/28/19] metformin 500 mg tablet 500 mg PO BID BS 01/29/19 [History Last Taken 01/28/19] nitroglycerin 0.4 mg sublingual tablet 0.4 mg sublingual PRN PRN chest pain 01/29/19 [History Last Taken Unknown] budesonide 0.5 mg/2 mL suspension for nebulization (Pulmicort) 2 ml inhalation Q12H PRN Sob &/Or Wheezing 02/19/19 [History Last Taken 03/11/19 06:00] budesonide-formoterol HFA 160 mcg-4.5 mcg/actuation aerosol inhaler 2 puff inhalation BID Lungs 05/18/19 [History Last Taken Unknown] cyanocobalamin (vitamin B-12) 500 mcg tablet 1,000 mcg PO DAILY@0800 Supplement 01/20/20 [History Last Taken Unknown] ipratropium 20 mcg-albuterol 100 mcg/actuation mist for inhalation 1 puff inhalation 4X/DAY Lungs 01/20/20 [History Last Taken Unknown] citalopram 10 mg tablet 10 mg PO DAILY #30 tabs 02/22/20 [Rx Last Taken Unknown] furosemide 40 mg tablet 40 mg PO BID #180 tabs 01/30/21 [Rx Last Taken Unknown] rosuvastatin 20 mg tablet See Rx Instructions .Route .COMPLEX #90 tabs 05/31/21 [Rx Last Taken Unknown] oxycodone-acetaminophen 5 mg-325 mg tablet 1 tab PO Q6H PRN Pain 06/19/21 [History Last Taken Unknown] pregabalin 25 mg capsule 25 mg PO BID neuropathy 06/19/21 [History Last Taken Unknown] metoprolol tartrate 25 mg tablet 25 mg PO BID BP #180 tabs 07/26/21 [Rx Last Taken Unknown] aspirin 81 mg tablet,delayed release (Enteric Coated Aspirin) 81 mg PO Q OTHER DAY Heart 09/18/21 [History Last Taken Unknown] leflunomide 10 mg tablet 10 mg PO DAILY 09/18/21 [History Last Taken Unknown] prednisone 10 mg tablet 10 mg PO DAILY PRN RA flare 09/18/21 [History Last Taken Unknown] ergocalciferol (vitamin D2) 1,250 mcg (50,000 unit) capsule 1,250 mcg PO QWEEK 11/02/21 [History Last Taken Unknown] Allergy/AdvReac Type Severity Reaction Status Date / Time meropenem Allergy Unknown Verified 11/02/21 11:12 tramadol Allergy Unknown Verified 11/02/21 11:12 vancomycin Allergy Unknown Verified 11/02/21 11:12 hydrocodone bitartrate AdvReac nightmares Verified 11/02/21 11:12 [From Vicodin] Family History Father Heart disease Brother Heart disease Cancer prostate Surgical History history IVC filter insertion (2016) History of colonoscopy (08/08/16) History of coronary artery stent placement (08/29/10) History of esophagogastroduodenoscopy (EGD) (08/08/16) History of esophagogastroduodenoscopy (EGD) (03/2019) History of incisional hernia repair History of left heart catheterization History of lumbar laminectomy (01/2020) Social History (Updated 11/02/21 @ 11:[address] Santiago Monae MD) household members: significant other Smoking Status: Former smoker Tobacco: How many years used: 40 how long ago did patient quit smokin + years ago alcohol intake: never substance use type: does not use caffeine: Yes Type: coffee Number of servings: 8 ROS ROS ED Review of Systems ROS Unobtainable: other Details: Respiratory distress on BiPAP Constitutional Constitutional ED: Denies chills, fever(s), sweats or weight loss Eyes Eyes: Denies blurry vision, change in vision or diplopia ENT ENT ED: Reports sore throat; Denies ear pain or rhinorrhea Cardiovascular Cardiovascular: Denies chest pain, palpitations, paroxysmal nocturnal dyspnea or racing heartbeat Respiratory/Chest Respiratory/Chest: Reports cough, dyspnea and dyspnea on exertion; Denies paroxysmal nocturnal dyspnea or sputum Gastrointestinal Gastrointestinal: Denies abdominal pain, diarrhea, melena, nausea or vomiting Genitourinary Genitourinary ED: Denies dysuria, hematuria or urinary frequency Musculoskeletal Musculoskeletal: Denies arthralgias, back pain, myalgias or neck pain Integumentary Denies abscess or rash Neurologic Neurologic: Reports weakness; Denies headache(s) or paresthesias Psychiatric Psychiatric: Reports anxiety Endocrine Endocrinology: Denies cold intolerance or heat intolerance Hematologic/Lymphatic Hematologic/Lymphatic: Denies easy bleeding or easy bruising EXAM Physical Exam Const Vital Signs: 11/02/21 11:07 11/02/21 11:49 11/02/21 11:11 Temperature 98.6 F Temperature Source Temporal Pulse Rate 116 H 112 H 120 H Respiratory Rate 22 H 32 H 34 H Respiratory Pattern Tachypnea Blood Pressure 119/72 Blood Pressure Mean 87 Pulse Ox 100 100 Oxygen Delivery Method Bi-pap Fraction of Inspired Oxygen (FIO2) 50 50 11/02/21 13:15 11/02/21 13:43 11/02/21 15:09 Temperature Temperature Source Pulse Rate 104 H 101 H 89 Respiratory Rate 25 H 22 H 18 Respiratory Pattern Blood Pressure 125/76 H 113/74 Blood Pressure Mean 92 87 Pulse Ox 100 98 99 Oxygen Delivery Method Bi-pap Bi-pap Fraction of Inspired Oxygen (FIO2) 40 Positive well nourished, well developed, obese and unkempt General Appearance ED: unkempt, well developed and pallor; Negative for NAD Nutritional Appearance: obese HEENT Reports dry mucous membranes HEENT Narrative: Ears normal. TMs normal. Unable to assess nares because patient is presently on BiPAP. What is visualized is normal. atraumatic and trauma Mouth ED: Yes dry mucous membranes Mouth: dry mucous membranes Eyes PERRL and EOMs intact bilaterally General Eye ED: Negative for pale conjunctiva or scleral icterus Neck no lymphadenopathy, supple and no meningeal signs Neck Narrative: Trachea is midline. There is no inspiratory expiratory stridor. Resp No normal respiratory effort and No clear to auscultation bilaterally Resp Narrative: Diminished breath sounds bilaterally. End inspiratory rales bilaterally. Slight wheeze noted with forced expiration. Cardio regular rhythm, S1 normal heart sound, S2 normal heart sound and no murmurs Rate: tachycardic GI non-tender and no masses; Negative for non-distended GI Narrative: Large well-healed scar noted. Abdomen slightly distended. Auscultation: hypoactive bowel sounds Palpation: soft Back/Spine no CVA tenderness General Back: Negative for tenderness Extremity Negative for normal to inspection Extremity Narrative: Marked pitting edema of both lower extremities. Unable to appreciate PT or DP pulse because of swelling. Patient has a wound noted distal right leg. Neuro oriented x3, CN's II-XII intact bilaterally and no sensory deficits noted Neuro Narrative: He moves all extremities. Muscle tone is normal. Sensorium / Orientation: alert Speech: speech normal Psych mental status grossly normal Appearance: unkempt Skin No no wounds General Skin Exam: pallor; Negative for jaundice Rashes: no rashes MDM MDM MDM Narrative Medical decision making narrative: Patient's pulse ox was 80% on CPAP. He arrived by ambulance on CPAP. He was converted to BiPAP. VBG reveals no acid-base disturbance. ABG was ordered however venous vessel was cannulated. Patient is in respiratory distress. Will obtain chest x-ray, appropriate blood work EKG to assess for cardiac versus noncardiac/pulmonary cause. Since he has been on prednisone the last 90 days he was given a dose of Solu-Medrol. He also was treated with DuoNeb and albuterol. Patient will require admission. Since patient has Medicare a and B has a source with elevated white count elevated lactate by definition the patient has severe sepsis. He does not require fluid bolus. Hospitalist has been paged. Lab Data Attestation: I reviewed the patient's lab results. Lab results narrative: .White count is slight elevated 13.3 thousand with shift without bandemia. Comprehensive metabolic panel is remarkable for BUN/creatinine of 29 and 2.15. Lactate elevated 2.3. Suspect this is due to hypoxia transaminases are unremarkable. Labs: Laboratory Results - last 24 hr 11/02/21 11/02/21 11/02/21 12:28 12:28 12:28 WBC 13.3 H RBC 5.31 Hgb 14.6 Hct 45.7 MCV 86.1 MCH 27.5 MCHC 31.9 L RDW Std Deviation 49.3 H RDW Coeff of Nina 15.9 H Plt Count 279 MPV 8.8 Immature Gran % (Auto) 1.400 H Neut % (Auto) 88.4 H Lymph % (Auto) 3.7 L [place] % (Auto) 5.5 Eos % (Auto) 0.5 Baso % (Auto) 0.5 Absolute Neuts (auto) 11.7 H Absolute Lymphs (auto) 0.49 L Nucleated RBC % 0.2 Differential Comment SCANNED Sodium 135 L Potassium 3.7 Chloride 96 L Carbon Dioxide 27.0 Anion Gap 12 BUN 29 H Creatinine 2.15 H Estim Creat Clear Calc 31.37 Est GFR (MDRD) Af Amer 39 L Est GFR (MDRD) Non-Af 33 L BUN/Creatinine Ratio 13.5 Glucose 98 Lactic Acid 2.3 H* Calcium 9.6 Total Bilirubin 1.20 H AST 14 L ALT 16 Alkaline Phosphatase 49 Troponin I High Sens 94 H Total Protein 7.0 Albumin 2.9 L Globulin 4.1 Albumin/Globulin Ratio 0.7 L Radiography Chest X-Ray - ED: 1 View (Chest x-ray independently reviewed by me and reveals what appears to be an infiltrate or atelectasis left lower lobe. This is worse than prior film. Cardiac silhouette size is unremarkable.) and Read by ED Physician (Foot x-ray reveals soft tissue swelling which is due to edema. He also has atherosclerotic disease with calcification of his dorsalis pedis artery and posterior tibial artery.) Diagnostic Testing: Clinical Impression(s) from Imaging Studies Chest X-Ray 11/02/21 13:00 IMPRESSION: Progressive left lower lobe infiltrate with blunting of the left costophrenic angle. Electronically Signed: Rashid Jeffers MD at 13:22 EDT , Foot X-Ray 11/02/21 13:00 IMPRESSION: Diffuse soft tissue swelling. Electronically Signed: Rashid Jeffers MD at 13:23 EDT , EKG Initial EKG: Attestation: I personally reviewed and interpreted this EKG as follows: Interpretation: Sinus Tachycardia (Ventricular rate is 113. GA interval 234 ms. QRS duration 78 ms. QT duration 294 ms. [place] is normal. There are premature atrial complexes noted. There is also artifact, which computer is reading is nonspecific changes.) Critical Care Time Critical Care Time: Yes Critical care time (excluding procedures): 30-74 minutes (32 minutes), Including time spent: (History, physical, documentation, review of laboratory results initiation of therapy, treatment for severe sepsis,), Discussing w/Patient &/or Family/It Support Engineer, Discussing w/Consultants and Arranging Admission or Transfer Discharge Plan Dx/Rx/DC Orders Clinical Impression: Acute and chronic respiratory failure with hypoxia, Atherosclerosis of coronary artery of [place] heart without angina pectoris, Essential (primary) hypertension, Left lower lobe pneumonia, COPD exacerbation, Severe sepsis without septic shock, Acute pain of right foot, Acute on chronic renal insufficiency Disposition Disposition: Acute Care [facility]
[2021-11-02] MEDS: Ondansetron 4 MG/2 ML Vial IV (12:29)
[2021-11-02] MEDS: MethylPREDNISolone 125 MG/2 ML Vial IV (12:29)
[2021-11-02] MEDS: Morphine 4 MG/ML Syringe IV ×2 (12:30→14:11)
[2021-11-02 12:40] LABS: Absolute Lymphocyte Count 0.49 X10^3/uL (0.83-4.51); Absolute Neutrophil Count 11.7 X10^3/uL (2.0-7.7); Basophil# 0.07 X10^3/uL; Basophil% 0.5 % (0-1); Eosinophil# 0.07 X10^3/uL; Eosinophils% 0.5 % (0-5); Hematocrit 45.7 % (40-54); Hemoglobin 14.6 g/dL (13.0-16.5); Lymphocyte # 0.49 X10^3/ul (0.83-4.51); Lymphocyte % 3.7 % (19-41); Mean Corp Hgb Conc 31.9 g/dL (32-36); Mean Corpuscular Hgb 27.5 pg (27.0-32.0); Mean Corpuscular Volume 86.1 fL (80-94); Mean Platelet Vol. 8.8 fl (6.2-12.0); Monocyte# 0.73 X10^3/uL; Monocyte% 5.5 % (0-10); NRBC Flagged by Analyzer 0.2 % (0-5); Neutrophil # 11.73 X10^3/uL (2.7-7.7); Neutrophil % 88.4 % (47-70); POSITIVE DIFFERENTIAL YES; Platelet Count 279 K/mm3 (150-450); RBC Distribution Width CV 15.9 % (11.6-14.6); RBC Distribution Width SD 49.3 fl (35.1-43.9); Red Blood Count 5.31 M/mm3 (4.6-6.2); White Blood Count 13.3 K/mm3 (4.4-11.0)
[2021-11-02 12:41] LABS: Differential Indicated SCAN CRITERIA MET
--- NOTE | 2021-11-02 13:00 | RAD_ITS ---
STUDY: X-RAY - RIGHT FOOT CLINICAL: Male, 70 years old. Injury/Pain TECHNIQUE: 3 view(s) of the foot. COMPARISON: None. FINDINGS: There is a plantar calcaneal spur. Normal visualized subtalar, talonavicular, calcaneocuboid, tarsal and tarsometatarsal articulations. Normal metatarsi. Normal metatarsophalangeal joint of the great toe. Normal tibial and fibular sesamoid bones. Normal interphalangeal joint of the great toe. Normal phalanges of the great toe. Normal second through fifth metatarsophalangeal joints. Normal interphalangeal joints and phalanges of the lesser toes. Diffuse soft tissue swelling. Vascular calcification. RAD/Foot min 3 Views IMPRESSION: Diffuse soft tissue swelling. Electronically Signed: Rashid Jeffers MD at 13:23 EDT ,
--- NOTE | 2021-11-02 13:00 | RAD_ITS ---
STUDY: X-RAY CHEST REASON FOR EXAM: Male, 70 years old. Respiratory failure TECHNIQUE: Single AP portable view of the chest. COMPARISON: Comparison is made with prior study dated 01/27/2022. FINDINGS: EKG electrodes are seen. Hyperinflation. Progressive left lower lobe infiltrate with blunting of the left costo phrenic angle. There is no demonstrated pleural abnormality. Normal size heart. Normal mediastinum and jna. Normal visualized pulmonary arteries. There is atherosclerotic calcification of the aortic arch with tortuosity. There are degenerative changes of the visualized thoracic spine. There is degenerative osteoarthritis of the bilateral shoulders. There is no demonstrated abnormality of the visualized soft tissue structures of the upper abdomen. RAD/Chest 1 View (Portable) IMPRESSION: Progressive left lower lobe infiltrate with blunting of the left costophrenic angle. Electronically Signed: Rashid Jeffers MD at 13:22 EDT ,
[2021-11-02 13:09] LABS: ALB/GLOB Ratio 0.7 RATIO (0.9-2.4); AST(SGOT) 14 U/L (15-37); Alanine Aminotransfer ALT/SGPT 16 U/L (16-61); Albumin, Serum 2.9 g/dL (3.2-5.0); Alkaline Phosphatase 49 U/L (45-117); Anion Gap 12 (5-15); BUN 29 mg/dL (7-18); BUN/Creat Ratio 13.5 RATIO (10-20); Calcium,Total 9.6 mg/dL (8.5-10.1); Chloride 96 mmol/L (98-107); Creatinine, Serum 2.15 mg/dL (0.70-1.30); EST Glomerular Filtration Rate 33 mL/min (>60); Est Glom Filt Rate - Afr Amer 39 mL/min (>60); Estimated Creatinine Clearance 31.37 ml/min; Globulin 4.1 g/dL (2.2-4.2); Glucose 98 mg/dL (74-106); Potassium 3.7 mmol/L (3.5-5.1); Sodium Level 135 mmol/L (136-145); Troponin-I HS 94 pg/mL (3.0-78.0)
[2021-11-02 13:12] LABS: Differential Comment SCANNED; Lactic Acid 2.3 mmol/L (0.4-1.9)
[2021-11-02] MEDS: HYDROmorphone 0.5 MG/0.5 ML SYRINGE IV (15:00)
--- NOTE | 2021-11-02 16:21 | HP.PCM.HOS_ITS ---
Documented by User: Atiya Sweenye NP, [employer]ING [employer] UNLOADER-C 11/02/21 17:28 HPI - General General Date of Admission: 11/02/21 Date of Service: 11/02/21 Chief Complaint: Shortness of breath. HPI Narrative JB MCPHERSON, is a 70 M who presents to the emergency room due to shortness of breath. Patient reports increased shortness of breath over the past 24 hours. Reports dry cough which is somewhat chronic. Denies fever, chills. Denies exposure to sick contacts. Reports recent sore throat which has since resolved. Denies other URI symptoms. Patient states his breathing is worsened by lying flat and recently has been sleeping in a recliner. He also reports increased lower extremity swelling which extends up to his abdomen. He states he does not weigh himself routinely and is unaware of any significant weight gain. Patient reports injury to right foot approximately 1 week ago. He states he had some bruising to the top of right foot however last night began having severe pain to his right foot which is continued since that time. He has a past medical history of CAD, chronic heart failure with preserved ejection fraction, paroxysmal atrial fibrillation, hypertension, hyperlipidemia, COPD with chronic hypoxic respiratory failure, type 2 diabetes mellitus, NICK[place]. [facility] Medical History (Updated 11/02/21 @ 16:18 by Dina Bergeron) Abnormal EKG Abnormal positron emission tomography (PET) scan VIET (acute kidney injury) Alcohol abuse Anemia Atherosclerosis of coronary artery of [place] heart without angina pectoris B12 deficiency Golden's esophagus Benign neoplasm of colon Benign neoplasm of larynx Blood loss anemia Chronic back pain Chronic diastolic (congestive) heart failure Chronic renal disease, stage 3, moderately decreased glomerular filtration rate (GFR) between 30-59 mL/min/1.73 square meter Chronic respiratory failure COLD (chronic obstructive lung disease) COPD (chronic obstructive pulmonary disease) Debility Diabetes Diverticulosis of colon (without mention of hemorrhage) DVT (deep venous thrombosis) (11/09/16) Essential (primary) hypertension Familial combined hyperlipidemia Former smoker GERD (gastroesophageal reflux disease) GI bleed H/O immunosuppressive therapy Hyperlipidemia Hypertension Internal hemorrhoids without mention of complication Lumbar spinal stenosis Lung nodules Neuropathic pain Non-compliance Obesity Obstructive sleep apnea On home oxygen therapy Other voice and resonance disorders Paroxysmal atrial fibrillation Peripheral neuropathy Rheumatoid arthritis Sleep apnea Steroid long-term use Tracheostomy in place Type 2 diabetes mellitus Home Medications omeprazole 20 mg capsule,delayed release 20 mg PO BID GERD 11/04/17 [History Last Taken 11/01/21] albuterol sulfate 90 mcg/actuation aerosol inhaler 2 puff PO Q4H PRN PRN wheezing/sob 01/29/19 [History Last Taken 01/28/19] metformin 500 mg tablet 500 mg PO BID BS 01/29/19 [History Last Taken 11/01/21] nitroglycerin 0.4 mg sublingual tablet 0.4 mg sublingual PRN PRN chest pain 01/29/19 [History Last Taken Unknown] budesonide 0.5 mg/2 mL suspension for nebulization (Pulmicort) 2 ml inhalation Q12H PRN Sob &/Or Wheezing 02/19/19 [History Last Taken 11/01/21] budesonide-formoterol HFA 160 mcg-4.5 mcg/actuation aerosol inhaler 2 puff inhalation BID Lungs 05/18/19 [History Last Taken 11/01/21] cyanocobalamin (vitamin B-12) 500 mcg tablet 1,000 mcg PO QODAY Supplement 01/20/20 [History Last Taken 11/01/21] ipratropium 20 mcg-albuterol 100 mcg/actuation mist for inhalation 1 puff inhalation 4X/DAY Lungs 01/20/20 [History Last Taken 11/01/21] oxycodone-acetaminophen 5 mg-325 mg tablet 1 tab PO Q6H PRN Pain 06/19/21 [History Last Taken Unknown] pregabalin 25 mg capsule 25 mg PO BID neuropathy 06/19/21 [History Last Taken 11/01/21] metoprolol tartrate 25 mg tablet 25 mg PO BID BP #180 tabs 07/26/21 [Rx Last Taken 11/01/21] aspirin 81 mg tablet,delayed release (Enteric Coated Aspirin) 81 mg PO Q OTHER DAY Heart 09/18/21 [History Last Taken 11/01/21] ergocalciferol (vitamin D2) 1,250 mcg (50,000 unit) capsule 1,250 mcg PO TH supplement 11/02/21 [History Last Taken 11/01/21] furosemide 40 mg tablet 80 mg PO BID water pill 11/02/21 [History Last Taken 11/01/21] prednisone 10 mg tablet 10 mg PO DAILY PRN PRN Steroid 11/02/21 [History Last Taken Unknown] rosuvastatin 20 mg tablet 20 mg PO QHS Cholesterol 11/02/21 [History Last Taken Unknown] Allergy/AdvReac Type Severity Reaction Status Date / Time meropenem Allergy Unknown Verified 11/02/21 11:12 tramadol Allergy Unknown Verified 11/02/21 11:12 vancomycin Allergy Unknown Verified 11/02/21 11:12 hydrocodone bitartrate AdvReac nightmares Verified 11/02/21 11:12 [From Vicodin] Family History (Reviewed 11/02/21 @ 16:27 by Atiya Sweeney [employer] UNLOADER, [employer]LOADER-C) Father Heart disease Brother Heart disease Cancer prostate Surgical History (Reviewed 11/02/21 @ 16:27 by Atiya Sweeney [employer] UNLOADER, [employer]ER-C) history IVC filter insertion (2016) History of colonoscopy (08/08/16) History of coronary artery stent placement (08/29/10) History of esophagogastroduodenoscopy (EGD) (08/08/16) History of esophagogastroduodenoscopy (EGD) (03/2019) History of incisional hernia repair History of left heart catheterization History of lumbar laminectomy (01/2020) Social History household members: significant other Smoking Status: Former smoker Tobacco: How many years used: 40 how long ago did patient quit smokin + years ago alcohol intake: never substance use type: does not use caffeine: Yes Type: coffee Number of servings: 8 ROS Constitutional Constitutional: Denies change in weight, chills, fatigue, fever(s) or weakness Cardiovascular Cardiovascular: Reports edema; Denies chest pain, lightheadedness, palpitations or syncope Respiratory/Chest Respiratory/Chest: Reports cough and dyspnea; Denies productive cough or wheezing Gastrointestinal Gastrointestinal: Denies abdominal pain, constipation, diarrhea, nausea or vomiting Genitourinary Genitourinary: Denies burning urination, difficulty urinating, dysuria, hematuria, urinary frequency, urinary incontinence or urinary urgency Musculoskeletal Musculoskeletal: Denies back pain, joint pain or muscle weakness Integumentary Integumentary: Reports other Details: Bilateral lower extremity venous stasis ulcerations with right foot redness following injury ; Denies erythema, lesions, rash or wounds Neurologic Neurologic: Denies abnormal speech, confusion, dizziness, focal weakness, numbness, paresthesias, seizure-like activity or syncope Psychiatric Psychiatric: Denies anxiety or depression Hematologic/Lymphatic Hematologic/Lymphatic: Denies anemia, easy bleeding or easy bruising Allergic/Immunologic Allergic/Immunologic: Denies hives or asthma Vital Signs Vital Signs Vital Signs: 11/02/21 11:07 11/02/21 11:49 11/02/21 11:11 Temperature 98.6 F Temperature Source Temporal Pulse Rate 116 H 112 H 120 H Respiratory Rate 22 H 32 H 34 H Respiratory Pattern Tachypnea Blood Pressure 119/72 Blood Pressure Mean 87 Pulse Ox 100 100 Oxygen Delivery Method Bi-pap Fraction of Inspired Oxygen (FIO2) 50 50 11/02/21 13:15 11/02/21 13:43 11/02/21 15:09 Temperature Temperature Source Pulse Rate 104 H 101 H 89 Respiratory Rate 25 H 22 H 18 Respiratory Pattern Blood Pressure 125/76 H 113/74 Blood Pressure Mean 92 87 Pulse Ox 100 98 99 Oxygen Delivery Method Bi-pap Bi-pap Fraction of Inspired Oxygen (FIO2) 40 11/02/21 15:42 Temperature 97.2 F L Temperature Source Temporal Pulse Rate 84 Respiratory Rate 20 H Respiratory Pattern Blood Pressure 104/79 Blood Pressure Mean 87 Pulse Ox 98 Oxygen Delivery Method Bi-pap Fraction of Inspired Oxygen (FIO2) Weight Weight: 220 lb 10.923 oz Body Mass Index (BMI) 33.5 Physical Exam Const alert and oriented x3 HEENT normocephalic and moist oral mucous membranes Eyes PERRL, EOMs intact bilaterally and conjunctivae normal Neck no lymphadenopathy Resp Auscultation: crackles and wheezes Cardio regular rate, regular rhythm and no murmurs Peripheral Pulses: pulses 2+ throughout GI normal to inspection, nondistended, normoactive bowel sounds, non-tender and non-distended Extremity normal to inspection Skin no rashes or lesions noted Skin Narrative: Bilateral lower extremity venous stasis ulcerations. Noninfected appearing. Right foot diffuse redness. No warmth. Lesions: no lesions Rashes: no rashes Trauma: no lacerations or abrasions Neuro CN's II-XII intact bilaterally, no focal motor deficits, no sensory deficits noted and deep tendon reflexes 2+ bilaterally Psych mental status grossly normal and affect normal Results Lab / Micro Data Result Diagrams: 11/02/21 12:28 11/02/21 12:28 Labs: Laboratory Results - last 24 hr 11/02/21 12:28: WBC 13.3 H, RBC 5.31, Hgb 14.6, Hct 45.7, MCV 86.1, MCH 27.5, MCHC 31.9 L, RDW Std Deviation 49.3 H, RDW Coeff of Nina 15.9 H, Plt Count 279, MPV 8.8, Immature Gran % (Auto) 1.400 H, Neut % (Auto) 88.4 H, Lymph % (Auto) 3.7 L, [place] % (Auto) 5.5, Eos % (Auto) 0.5, Baso % (Auto) 0.5, Absolute Neuts (auto) 11.7 H, Absolute Lymphs (auto) 0.49 L, Nucleated RBC % 0.2, Differential Comment SCANNED 11/02/21 12:28: Sodium 135 L, Potassium 3.7, Chloride 96 L, Carbon Dioxide 27.0, Anion Gap 12, BUN 29 H, Creatinine 2.15 H, Estim Creat Clear Calc 31.37, Est GFR (MDRD) Af Amer 39 L, Est GFR (MDRD) Non-Af 33 L, BUN/Creatinine Ratio 13.5, Glucose 98, Calcium 9.6, Total Bilirubin 1.20 H, AST 14 L, ALT 16, Alkaline Phosphatase 49, Troponin I High Sens 94 H, Total Protein 7.0, Albumin 2.9 L, Globulin 4.1, Albumin/Globulin Ratio 0.7 L 11/02/21 12:28: Lactic Acid 2.3 H* Micro: Microbiology 11/02/21 12:39 Nasal Secretion SARS-CoV-2 & FLU Antigen (Rapid) - Final Radiology Impression Chest X-Ray 11/02/21 13:00 IMPRESSION: Progressive left lower lobe infiltrate with blunting of the left costophrenic angle. Electronically Signed: Rashid Jeffers MD at 13:22 EDT , Foot X-Ray 11/02/21 13:00 IMPRESSION: Diffuse soft tissue swelling. Electronically Signed: Rashid Jeffers MD at 13:23 EDT , Assessment & Plan Assessment/Plan (1) Acute and chronic respiratory failure with hypoxia: PLAN: Plan 1. Severe sepsis secondary to acute on chronic hypoxic respiratory failure secondary to exacerbation of COPD and left lower lobe pneumonia-chest x-ray with left lower lobe infiltrate. WBC 13.3. Lactic acid 2.3. Patient's pulse ox noted to be 80% on CPAP upon arrival to ED. Converted to BiPAP. Continue IV azithromycin and IV Rocephin. Albuterol and DuoNeb aerosols. Obtain sputum and blood cultures. Prednisone ordered. 2. Acute kidney injury on chronic kidney disease stage IIIa- hold off on IV fluids given edema. IV lasix X1. Trend BMP. 3. Intractable right foot pain-x-ray unremarkable. Ultrasound given history of DVT. Uric acid 11. On prednisone per above. 4. CAD with history of stent-continue aspirin, statin, metoprolol. 5. Chronic hypoxic respiratory failure secondary to COPD, [place]-on trilogy and supplemental oxygen at bedtime per patient. 6. Chronic heart failure with preserved ejection fraction-echo June 2020 with EF 60%, stage II diastolic dysfunction. 7. Paroxysmal atrial fibrillation-continue metoprolol. Per cardiology, not on anticoagulation due to maintaining sinus rhythm. 8. Hypertension-stable, continue current regimen. 9. Hyperlipidemia-continue statin. 10. Type 2 diabetes [id number] with sliding scale insulin. 11. GERD-continue PPI. 12. Hx DVT with history of IVC filter placement. DVT prophylaxis- heparin sc This patient was seen by ASHLEY Mercedes under the supervision of Dr. Davis. Time spent examining patient, reviewing data and subsequent management of care: 27 minutes Documented by User: Dr. Mohan Davis MD 11/02/21 17:33 HPI - General General Date of Admission: 11/02/21 [facility] Medical History (Updated 11/02/21 @ 16:18 by Dina Bergeron) Abnormal EKG Abnormal positron emission tomography (PET) scan VIET (acute kidney injury) Alcohol abuse Anemia Atherosclerosis of coronary artery of [place] heart without angina pectoris B12 deficiency Golden's esophagus Benign neoplasm of colon Benign neoplasm of larynx Blood loss anemia Chronic back pain Chronic diastolic (congestive) heart failure Chronic renal disease, stage 3, moderately decreased glomerular filtration rate (GFR) between 30-59 mL/min/1.73 square meter Chronic respiratory failure COLD (chronic obstructive lung disease) COPD (chronic obstructive pulmonary disease) Debility Diabetes Diverticulosis of colon (without mention of hemorrhage) DVT (deep venous thrombosis) (11/09/16) Essential (primary) hypertension Familial combined hyperlipidemia Former smoker GERD (gastroesophageal reflux disease) GI bleed H/O immunosuppressive therapy Hyperlipidemia Hypertension Internal hemorrhoids without mention of complication Lumbar spinal stenosis Lung nodules Neuropathic pain Non-compliance Obesity Obstructive sleep apnea On home oxygen therapy Other voice and resonance disorders Paroxysmal atrial fibrillation Peripheral neuropathy Rheumatoid arthritis Sleep apnea Steroid long-term use Tracheostomy in place Type 2 diabetes mellitus Home Medications omeprazole 20 mg capsule,delayed release 20 mg PO BID GERD 02/09/17 [History Last Taken 11/01/21] albuterol sulfate 90 mcg/actuation aerosol inhaler 2 puff PO Q4H PRN PRN wheezing/sob 01/29/19 [History Last Taken 01/28/19] metformin 500 mg tablet 500 mg PO BID BS 01/29/19 [History Last Taken 11/01/21] nitroglycerin 0.4 mg sublingual tablet 0.4 mg sublingual PRN PRN chest pain 01/29/19 [History Last Taken Unknown] budesonide 0.5 mg/2 mL suspension for nebulization (Pulmicort) 2 ml inhalation Q12H PRN Sob &/Or Wheezing 02/19/19 [History Last Taken 11/01/21] budesonide-formoterol HFA 160 mcg-4.5 mcg/actuation aerosol inhaler 2 puff inhalation BID Lungs 05/18/19 [History Last Taken 11/01/21] cyanocobalamin (vitamin B-12) 500 mcg tablet 1,000 mcg PO QODAY Supplement 01/20/20 [History Last Taken 11/01/21] ipratropium 20 mcg-albuterol 100 mcg/actuation mist for inhalation 1 puff inhalation 4X/DAY Lungs 01/20/20 [History Last Taken 11/01/21] oxycodone-acetaminophen 5 mg-325 mg tablet 1 tab PO Q6H PRN Pain 06/19/21 [History Last Taken Unknown] pregabalin 25 mg capsule 25 mg PO BID neuropathy 06/19/21 [History Last Taken 11/01/21] metoprolol tartrate 25 mg tablet 25 mg PO BID BP #180 tabs 07/26/21 [Rx Last Taken 11/01/21] aspirin 81 mg tablet,delayed release (Enteric Coated Aspirin) 81 mg PO Q OTHER DAY Heart 09/18/21 [History Last Taken 11/01/21] ergocalciferol (vitamin D2) 1,250 mcg (50,000 unit) capsule 1,250 mcg PO TH supplement 11/02/21 [History Last Taken 11/01/21] furosemide 40 mg tablet 80 mg PO BID water pill 11/02/21 [History Last Taken 11/01/21] prednisone 10 mg tablet 10 mg PO DAILY PRN PRN Steroid 11/02/21 [History Last Taken Unknown] rosuvastatin 20 mg tablet 20 mg PO QHS Cholesterol 11/02/21 [History Last Taken Unknown] Allergy/AdvReac Type Severity Reaction Status Date / Time meropenem Allergy Unknown Verified 11/02/21 11:12 tramadol Allergy Unknown Verified 11/02/21 11:12 vancomycin Allergy Unknown Verified 11/02/21 11:12 hydrocodone bitartrate AdvReac nightmares Verified 11/02/21 11:12 [From Vicodin] Family History (Reviewed 11/02/21 @ 16:27 by Atiya Sweeney [employer] UNLOADER, [employer] UNLOADER-C) Father Heart disease Brother Heart disease Cancer prostate Surgical History (Reviewed 11/02/21 @ 16:27 by Atiya Sweeney [employer]ERIAL UNLOADER, [employer] UNLOADER-C) history IVC filter insertion (2016) History of colonoscopy (08/08/16) History of coronary artery stent placement (08/29/10) History of esophagogastroduodenoscopy (EGD) (08/08/16) History of esophagogastroduodenoscopy (EGD) (03/2019) History of incisional hernia repair History of left heart catheterization History of lumbar laminectomy (01/2020) Social History (Reviewed 11/02/21 @ 16:27 by Atiya Sweeney [employer]ING MATERIAL UNLOADER, [employer]ING [employer]ERIAL UNLOADER-C) household members: significant other Smoking Status: Former smoker Tobacco: How many years used: 40 how long ago did patient quit smokin + years ago alcohol intake: never substance use type: does not use caffeine: Yes Type: coffee Number of servings: 8 Results Lab / Micro Data Result Diagrams: 11/02/21 12:28 11/02/21 12:28 Assessment & Plan Assessment/Plan (1) Acute and chronic respiratory failure with hypoxia: Charges/Coding Addendum Addendum: Addendum: Dr. Davis I personally examined the patient and reviewed the chart. I agree with the above. 70-year-old male with a history of COPD as well as chronic diastolic heart failure presents to the hospital with acute on chronic hypoxic respiratory failure. He does wear trilogy at night with oxygen he sometimes wears it during the day as well. He says that he is been feeling more short of breath and seems to have gained more weight, it is possible that he has combination of issues including an acute exacerbation of his diastolic CHF as well as COPD exacerbation as well as a left lower lobe pneumonia seen on x-ray. His white count is elevated but he is afebrile. Will obtain a sputum culture and will place him on steroids for possible COPD, he had very poor air movement on my exam and I could not hear any wheezing. He also states that he seems to have been a little bit more swollen in his legs so we will trial him in a one-time dose of Lasix, however his kidney function is at 2.15 and his baseline is around 1.3 so we will continue to monitor. He also has some redness on his right foot, he denies any major trauma and x-ray of his foot is negative however he says it is very sensitive and sore. He does have a history of gout and the steroid should help if if that is the cause otherwise the antibiotics for his pneumonia will also help as well. Clinical time spent in all aspects of patient care: 45 minutes Visit Charges Inpatient E&M: 85160 Init Hosp L3
[2021-11-02 16:39] LABS: Reflex Lactate? Y
[2021-11-02 16:47] LABS: Uric Acid 11.1 mg/dL (3.5-7.2)
[2021-11-02 17:02] LABS: BNP,B-Type NATRIURETIC PEPTIDE 180.6 pg/mL (0-100)
--- NOTE | 2021-11-02 17:23 | VDLE_ITS ---
Reason For Study: Elevated D-dimer RIGHT LEFT GSV is normal. GSV is normal. CFV is compressible, spontaneous, phasic, CFV is compressible, spontaneous, phasic, competent and demonstrates normal competent, and demonstrates normal augmentation. augmentation. FV is compressible, spontaneous, phasic, FV is compressible, spontaneous, phasic, competent and demonstrates normal competent and demonstrates normal augmentation. augmentation. POP V is compressible, spontaneous, phasic, POP V is compressible, spontaneous, phasic, competent and demonstrates normal competent and demonstrates normal augmentation. augmentation. T/P Trunk is compressible. T/P Trunk is compressible. PTV is compressible. PTV is compressible. RT PerV is compressible. LT PerV is compressible. Procedure This is a venous duplex using B-mode, color flow and spectral Doppler. Exam performed portable in patient room. A preliminary report was called and/or faxed to [facility]. VL/Venous Duplex US - Zhao Extrem Interpretation Summary No evidence for acute deep venous thrombosis bilateral lower extremities with p atent and compressible bilateral great saphenous veins. Ordering Physician: Atiya Sweeney Referring Physician: Andres Petty Performed By: Lacey Rodriges RVT
[2021-11-02 17:43] LABS: Blood Gas Specimen Type VEN
[2021-11-02 17:44] LABS: Allen Test POS; EPAP 6; FI02 50; IPAP 12; O2 Delivery Device Bi Pap; SITE L BRACHIAL
[2021-11-02 17:45] LABS: Base Excess 3 mmol/L (-2 to +2); Bicarbonate 27.4 mmol/L (22-26); PO2 27 mmHG (75-100); SO2 49 % (95-99); Total Carbon Dioxide 29 mmol/L; pCO2 43.4 mmHg (35-45); pH 7.41 (7.35-7.45)
[2021-11-02 17:49] LABS: Lactic Acid 2.1 mmol/L (0.4-1.9)
[2021-11-02] MEDS: oxyCODONE 5 MG Tablet 10 MG PO (18:28)
[2021-11-02] MEDS: Furosemide 40 MG/4 ML Vial IV (18:37)
[2021-11-02] MEDS: 0.9% Saline Lock 10 ML Syringe IV (18:37)
[2021-11-02 19:30] LABS: Bedside Glucose 141 mg/dL (74-106)
[2021-11-02] MEDS: Pantoprazole Sodium 20 MG Tablet PO (20:36)
[2021-11-02] MEDS: Heparin Injection (Vial) 5,000 UNIT/ML VIAL 5000 UNIT SC (20:40)
[2021-11-02] MEDS: Insulin Lispro 100 UNIT/ML INSULN.PEN SC (20:42)
[2021-11-02] MEDS: Acetaminophen 325 MG Tablet 650 MG PO (20:47)
[2021-11-02 21:05] LABS: Bedside Glucose 213 mg/dL (74-106)
[2021-11-03] VITALS (15 sets, daily range): BP systolic 125–157; BP diastolic 76–90; PULSE 66–108; RESP 12–22; TEMP 36.2–37; O2SAT 95–100
[2021-11-03] MEDS: oxyCODONE 5 MG Tablet 10 MG PO ×3 (05:55→17:51)
[2021-11-03] MEDS: Heparin Injection (Vial) 5,000 UNIT/ML VIAL 5000 UNIT SC ×3 (05:58→21:26)
[2021-11-03 07:19] LABS: Absolute Lymphocyte Count 0.19 X10^3/uL (0.83-4.51); Absolute Neutrophil Count 12.6 X10^3/uL (2.0-7.7); Basophil# 0.04 X10^3/uL; Basophil% 0.3 % (0-1); Hematocrit 38.9 % (40-54); Hemoglobin 12.8 g/dL (13.0-16.5); Lymphocyte # 0.19 X10^3/ul (0.83-4.51); Lymphocyte % 1.4 % (19-41); Mean Corp Hgb Conc 32.9 g/dL (32-36); Mean Corpuscular Hgb 26.7 pg (27.0-32.0); Mean Corpuscular Volume 81.2 fL (80-94); Monocyte# 0.69 X10^3/uL; NRBC Flagged by Analyzer 0 % (0-5); Neutrophil # 12.62 X10^3/uL (2.7-7.7); Neutrophil % 92.1 % (47-70); POSITIVE DIFFERENTIAL YES; Platelet Count 271 K/mm3 (150-450); RBC Distribution Width CV 15.8 % (11.6-14.6); RBC Distribution Width SD 46.4 fl (35.1-43.9); Red Blood Count 4.79 M/mm3 (4.6-6.2); White Blood Count 13.7 K/mm3 (4.4-11.0)
[2021-11-03 07:20] LABS: Bedside Glucose 121 mg/dL (74-106)
[2021-11-03 07:22] LABS: Differential Indicated SCAN CRITERIA MET
[2021-11-03] MEDS: Ipratropium/Albuterol Sulfate 3 ML AMPUL.NEB INHALATION ×3 (07:40→18:54)
[2021-11-03 07:42] LABS: Anion Gap 12 (5-15); BUN 44 mg/dL (7-18); BUN/Creat Ratio 16.4 RATIO (10-20); Calcium,Total 9.1 mg/dL (8.5-10.1); Chloride 98 mmol/L (98-107); Creatinine, Serum 2.69 mg/dL (0.70-1.30); EST Glomerular Filtration Rate 25 mL/min (>60); Est Glom Filt Rate - Afr Amer 30 mL/min (>60); Estimated Creatinine Clearance 25.07 ml/min; Glucose 150 mg/dL (74-106); Potassium 3.9 mmol/L (3.5-5.1); Sodium Level 135 mmol/L (136-145)
[2021-11-03] MEDS: predniSONE 20 MG Tablet 40 MG PO (08:06)
[2021-11-03] MEDS: Pantoprazole Sodium 20 MG Tablet PO ×2 (08:06→21:27)
[2021-11-03] MEDS: Ceftriaxone 1 GM/50 ML BAG IV (08:59)
[2021-11-03] MEDS: 0.9% Saline Lock 10 ML Syringe IV ×3 (09:00→20:42)
[2021-11-03 10:02] LABS: International Normalized Ratio 1.3; Prothrombin Time (Protime)PT. 16.3 SECONDS (11.7-14.9)
[2021-11-03 10:03] LABS: Partial Thromboplast Time 29.9 Seconds (24.1-36.2)
--- NOTE | 2021-11-03 10:26 | ART_ITS ---
Reason For Study: Ulcer in left leg, PAD Procedure A bilateral lower extremity continuous wave Doppler with analog waveform analysis and ankle brachial indexes. Left Segmental Pressures Left brachial= 137mmHg. Left posterior tibial artery = >254mmHg. Left dorsalis pedis artery = >254mmHg. Left digit = 56 mmHg. The left dorsalis pedis waveforms are triphasic. The left posterior tibial artery waveforms are triphasic. Right Segmental Pressures Right brachial= 145mmHg. Right posterior tibial artery = >254mmHg. Right dorsalis pedis artery = >254mmHg. Right digit = 49 mmHg. The right dorsalis pedis waveforms are triphasic. The right posterior tibial artery waveforms are triphasic. Indices The right ankle brachial index by the dorsalis pedis is NC. The right ankle brachial index by the posterior tibial artery is NC. The right digital-brachial index is 0.34. The left ankle brachial index by the dorsalis pedis is NC. The left ankle brachial index by the posterior tibial artery is NC. The left digital-brachial index is 0.39. VL/Ankle Brachial Index Interpretation Summary Unable to calculate bilateral ankle brachial indices due to vessel non-compress ibility suggestive of medial calcification of vessel kinsey making this examination non-diagnostic. Normal bilateral triphasic DP and PT doppler waveforms suggesting presence of a rterial flow. Abnormal bilateral digital brachial indices of 0.34 on the right and 0.39 on th e left suggestive of arterial occlusive disease. Ordering Physician: Mark Cornejo Referring Physician: Andres Petty Performed By: Lacey Rodriges RVT
--- NOTE | 2021-11-03 11:12 | PCM.RX.CS ---
Consult Type of Consult: New start Suspected Infection: Sepsis Labs: Sodium 135 mmol/L (136-145) L 11/03/21 07:10 Potassium 3.9 mmol/L (3.5-5.1) 11/03/21 07:10 Chloride 98 mmol/L (98-107) 11/03/21 07:10 Carbon Dioxide 25.0 mmol/L (21.0-32.0) 11/03/21 07:10 Anion Gap 12 (5-15) 11/03/21 07:10 BUN 44 mg/dL (7-18) H 11/03/21 07:10 Creatinine 2.69 mg/dL (0.70-1.30) H 11/03/21 07:10 Est GFR (MDRD) Af Amer 30 mL/min (>60) L 11/03/21 07:10 Est GFR (MDRD) Non-Af 25 mL/min (>60) L 11/03/21 07:10 BUN/Creatinine Ratio 16.4 RATIO (10-20) 11/03/21 07:10 Glucose 150 mg/dL (74-106) H 11/03/21 07:10 Microbiology: Microbiology 11/02/21 12:39 Nasal Secretion SARS-CoV-2 & FLU Antigen (Rapid) - Final Weight used for dosin.8 kg - Adjusted BW Goal Trough: 15-20 mcg/mL Pharmacy Plan for Drug Dosing: NEW START IV VANCOMYCIN Consulting Physician: Atiya Sweeney NP Indication: Sepsis secondary to COPD exacerbation Goal Trough: 15-20 SrCr: 2.69 mg/dL CrCl: 29.7 mL/min (using AdjBW 81.8kg) Comments: Vancomycin 2000mg x1 dose as loading dose to be given @ 1200 11/03/21 Vancomcyin Dose: 1000mg Q24H to start at 1200 11/04/21 Pending Level: Vancomycin trough @ 1130 11/06/21 S/W Atiya Sweeney NP and Sade RN caring for pt re: allergies listed in EMR. Meropenem and Vancomycin allergies added to EMR on 11/02/21 upon admission. Pt and deny antibiotic allergies. Atiya Sweeney NP OK'd to give Vancomycin Pharmacy Service will continue to monitor and adjust dosing as required. Labs to be done on [date and time ordered]: Vancomycin trough @ 1130 11/06/21
--- NOTE | 2021-11-03 11:25 | WOUNDNOTE ---
wound photo: left medial lower leg
--- NOTE | 2021-11-03 11:26 | WOUNDNOTE ---
wound photo: left lower leg
--- NOTE | 2021-11-03 11:27 | WOUNDNOTE ---
wound photo: right lower leg
[2021-11-03] MEDS: Insulin Lispro 100 UNIT/ML INSULN.PEN SC ×2 (12:01→17:53)
--- NOTE | 2021-11-03 12:19 | MRI_ITS ---
STUDY: MRI RIGHT FOREFOOT WITHOUT CONTRAST REASON FOR EXAM: Male, 70 years old. Redness and swelling of the top of the right foot TECHNIQUE: Standardized fat and water weighted pulse sequences were obtained in all 3 orthogonal planes. Significant limitation due to motion artifact. COMPARISON: None. FINDINGS: Mildly limited exam due to motion artifact. No evidence of T1 marrow replacement or significant edema to suggest acute osteomyelitis. There is subtle dorsal forefoot soft tissue swelling and edema. Possible cellulitis. No evidence of abscess. No evidence of acute fracture or dislocation. Intact surrounding ligaments and tendons. MRI/Lower Ext/No Jt/w/o IMPRESSION: Limited by motion artifact 1. Negative for osteomyelitis 2. Forefoot soft tissue swelling and edema suggesting cellulitis. No abscess 3. No acute fracture or dislocation. Electronically Signed: Dejuan Del Castillo DO at 5:48 EDT ,
[2021-11-03 12:45] LABS: Bedside Glucose 180 mg/dL (74-106)
--- NOTE | 2021-11-03 13:47 | PN.HOSP_ITS ---
Documented by User: Atiya Sweeney NP, STARTING GATE DRIVER-C 11/03/21 14:02 Subjective Subjective Patient seen and examined. Continues to require intractable right foot pain. Denies fever, chills. Reports improvement in breathing. Objective Data Objective Data Vital Signs: Vital Signs Temp Pulse Resp BP Pulse Ox O2 Del Method O2 Flow Rate 98.6 F 102 H 20 H 156/76 H 98 Nasal Cannula 6 11/03/21 10:00 11/03/21 11:26 11/03/21 11:26 11/03/21 10:00 11/03/21 10:00 11/03/21 10:00 11/03/21 10:00 FiO2 40 11/03/21 01:21 Oxygen Flow Rate (L/min) 6 Oxygen Delivery Method Nasal Cannula Weight: 220 lb 10.923 oz Body Mass Index (BMI) 33.5 Intake & Output: Intake and Output for Last 24 Hours 11/01/21 11/02/21 11/03/21 23:59 23:59 23:59 Intake Total 855 / 855 50 / 50 Output Total 175 / 175 Balance 855 / 780 -125 / -125 Lab / Micro Data Result Diagrams: 11/03/21 07:10 11/03/21 07:10 Labs: Laboratory Results - last 24 hr 11/02/21 12:28: Uric Acid 11.1 H 11/02/21 12:28: B-Natriuretic Peptide 180.6 H 11/02/21 12:28: D-Dimer Quant (PE/DVT) 0.90 H* 11/02/21 17:12: Lactic Acid 2.1 H* 11/02/21 18:42: POC Glucose 141 H 11/02/21 20:39: POC Glucose 213 H 11/03/21 06:59: POC Glucose 121 H 11/03/21 07:10: WBC 13.7 H, RBC 4.79, Hgb 12.8 L, Hct 38.9 L, MCV 81.2 D, MCH 26.7 L, MCHC 32.9, RDW Std Deviation 46.4 H, RDW Coeff of Nina 15.8 H, Plt Count 271, MPV 9.0, Immature Gran % (Auto) 1.200 H, Neut % (Auto) 92.1 H, Lymph % (Auto) 1.4 L, Garland % (Auto) 5.0, Eos % (Auto) 0.0, Baso % (Auto) 0.3, Absolute Neuts (auto) 12.6 H, Absolute Lymphs (auto) 0.19 L, Nucleated RBC % 0 11/03/21 07:10: Sodium 135 L, Potassium 3.9, Chloride 98, Carbon Dioxide 25.0, Anion Gap 12, BUN 44 H, Creatinine 2.69 H, Estim Creat Clear Calc 25.07, Est GFR (MDRD) Af Amer 30 L, Est GFR (MDRD) Non-Af 25 L, BUN/Creatinine Ratio 16.4, Glucose 150 H, Calcium 9.1 11/03/21 09:36: PT 16.3 H, INR 1.3, APTT 29.9 11/03/21 12:00: POC Glucose 180 H Micro: Microbiology 11/02/21 12:39 Nasal Secretion SARS-CoV-2 & FLU Antigen (Rapid) - Final ABG Data ABG results: ABG 11/02/21 11/02/21 11:40 11:49 Specimen Type NIKOS Cancelled Sample Site L BRACHIAL Cancelled pH 7.41 Bicarbonate Actual 27.4 H Total CO2 29 Base Excess 3 H O2 Saturation 49 L O2 % 50 Cancelled ABG pCO2 43.4 ABG pO2 27 L* Haris Test POS VBG pH Cancelled VBG pH (Temp Correct) Cancelled VBG pCO2 (Temp Corrct Cancelled VBG pO2 Cancelled VBG HCO3 Cancelled VBG Total CO2 Cancelled VBG O2 Sat (Calc) Cancelled VBG Base Excess Cancelled POC Mix VBG pCO2 Pt Tmp Cancelled Respiration Rate Cancelled O2 Delivery Device Bi Pap Cancelled Liter Flow Cancelled Minute Volume Cancelled Inspiratory Time Cancelled Expiratory Time Cancelled Tidal Volume Cancelled Mean Airway Pressure Cancelled POC PEEP Cancelled Peak Inspir Pressure Cancelled POC Pressure Suppt Cancelled Pressure Control Cancelled EPAP 6 Cancelled IPAP 12 Cancelled Blood Gas Comments Cancelled Crit Call To/Read Back Cancelled Blood Gas Notified Whom Cancelled Blood Gas Notified Time Cancelled Clinical Comments Cancelled Radiography Diagnostic Testing: Radiology Impression Venous Doppler Study 11/02/21 17:23 Interpretation Summary No evidence for acute deep venous thrombosis bilateral lower extremities with patent and compressible bilateral great saphenous veins. Ordering Physician: Atiya Sweeney Referring Physician: Andres Petty Performed By: Lacey Rodriges RVT Physical Exam Const alert, oriented x3 and no apparent distress Orientation / Consciousness: awake, oriented to person, oriented to place and oriented to time HEENT normocephalic and moist oral mucous membranes Eyes PERRL, EOMs intact bilaterally and conjunctivae normal Neck no lymphadenopathy Resp clear to auscultation bilaterally Auscultation: diminished lung sounds Cardio regular rate, regular rhythm and no murmurs Peripheral Pulses: pulses 2+ throughout GI normal to inspection, nondistended, normoactive bowel sounds, non-tender and non-distended Extremity normal to inspection Skin no rashes or lesions noted Skin Narrative: Bilateral lower extremity venous stasis ulcerations.? Noninfected appearing.? Right foot diffuse redness, now with area of necrotic appearance. Lesions: no lesions Rashes: no rashes Trauma: no lacerations or abrasions Neuro CN's II-XII intact bilaterally, no focal motor deficits, no sensory deficits noted and deep tendon reflexes 2+ bilaterally Psych mental status grossly normal and affect normal Assessment & Plan Assessment/Plan (1) Acute and chronic respiratory failure with hypoxia: PLAN: Plan 1.? Severe sepsis secondary to acute on chronic hypoxic respiratory failure secondary to exacerbation of COPD and left lower lobe pneumonia-chest x-ray with left lower lobe infiltrate.? WBC 13.3. Lactic acid 2.3.? Patient's pulse ox noted to be 80% on CPAP upon arrival to ED.? Converted to BiPAP.? Continue IV vanc and IV zosyn.? Albuterol and DuoNeb aerosols.? Obtain sputum and blood cultures. Prednisone ordered. 2. Acute kidney injury on chronic kidney disease stage IIIa- nephrology consulted. Hold off on IV fluids given significant edema. Trend BMP. Obtain urine studies, renal ultrasound. 3. Intractable right foot pain-concern for vasculitis/ischemia. X-ray unremarkable.? Ultrasound negative for DVT. PEDRO LUIS ordered. Vascular surgery consulted as well as podiatry. IV vancomycin and IV Zosyn as noted above however does not appear consistent with cellulitis. MRI pending. 4. CAD with history of stent-continue aspirin, statin, metoprolol. 5. Chronic hypoxic respiratory failure secondary to COPD, NICKOLAS-on trilogy and supplemental oxygen at bedtime per patient. 6. Chronic heart failure with preserved ejection fraction-echo June 2020 with EF 60%, stage II diastolic dysfunction. 7. Paroxysmal atrial fibrillation-continue metoprolol.? Per cardiology, not on anticoagulation due to maintaining sinus rhythm. 8. Hypertension-stable, continue current regimen. 9. Hyperlipidemia-continue statin. 10. Type 2 diabetes [id number] with sliding scale insulin. 11. GERD-continue PPI. 12. Hx DVT with history of IVC filter placement. DVT prophylaxis- heparin sc This patient was seen by ASHLEY Mercedes under the supervision of Dr. Cornejo. Time spent examining patient, reviewing data and subsequent management of care: 16 minutes Documented by User: Dr. Mark Cornejo MD 11/03/21 16:51 Subjective Subjective Patient seen and examined. Continues to require intractable right foot pain. Denies fever, chills. Reports improvement in breathing. Seen and examined. Objective Data Lab / Micro Data Result Diagrams: 11/03/21 07:10 11/03/21 07:10 Radiography Diagnostic Testing: Radiology Impression Venous Doppler Study 11/02/21 17:23 Interpretation Summary No evidence for acute deep venous thrombosis bilateral lower extremities with patent and compressible bilateral great saphenous veins. Physical Exam Narrative Physical exam General: Awake, according to speech. Oriented to time place. HEENT: Atraumatic, PERRLA, EOMI, Normocephalic Oral: No Gingival or Mucosal Lesions/ Ulcerations Neck: Supple, No JVD, Negative Carotid Bruits Lungs: Air entry diminished in bilateral lung bases. No crepitation/rhonchi Cardiovascular: Regular rate, Regular Rhythm, Normal S1, Normal S2, systolic murmur LLSB and cardiac apex Abdomen: Bowel Sounds Present, Soft, Non Tender, Non-Distended : No renal angle tenderness. No suprapubic tenderness. Extremities: Bilateral lower extremity pitting edema, Capillary Refill Less than 3 Seconds Skin: Bilateral lower legs redness, venous stasis and lymphedema. Small superficial ulceration over left lower leg. Grayish to black pigmentation of dorsum of right foot. Musculoskeletal: Tenderness over dorsum of right foot. Neurological: Cranial nerves II-XII grossly intact, DTR 2+/4 and Symmetrical Psych/Mental Status: Flat affect Assessment & Plan Assessment/Plan (1) Acute and chronic respiratory failure with hypoxia: PLAN: Plan 1.? Severe sepsis secondary to acute on chronic hypoxic respiratory failure secondary to exacerbation of COPD and left lower lobe pneumonia-chest x-ray with left lower lobe infiltrate.? WBC 13.3. Lactic acid 2.3.? Patient's pulse ox noted to be 80% on CPAP upon arrival to ED.? Converted to BiPAP.? Continue IV vanc and IV zosyn.? Albuterol and DuoNeb aerosols.? Obtain sputum and blood cultures. Prednisone ordered. 2. Acute kidney injury on chronic kidney disease stage IIIa- nephrology consulted. Hold off on IV fluids given significant edema. Trend BMP. Obtain u rine studies, renal ultrasound. 3. Intractable right foot pain-concern for vasculitis/ischemia. X-ray unremarkable.? Ultrasound negative for DVT. PEDRO LUIS ordered. Vascular surgery consulted as well as podiatry. IV vancomycin and IV Zosyn as noted above however does not appear consistent with cellulitis. MRI pending. 4. CAD with history of stent-continue aspirin, statin, metoprolol. 5. Chronic hypoxic respiratory failure secondary to COPD, NICKOLAS-on trilogy and supplemental oxygen at bedtime per patient. 6. Chronic heart failure with preserved ejection fraction-echo June 2020 with EF 60%, stage II diastolic dysfunction. 7. Paroxysmal atrial fibrillation-continue metoprolol.? Per cardiology, not on anticoagulation due to maintaining sinus rhythm. 8. Hypertension-stable, continue current regimen. 9. Hyperlipidemia-continue statin. 10. Type 2 diabetes [id number] with sliding scale insulin. 11. GERD-continue PPI. 12. Hx DVT with history of IVC filter placement. DVT prophylaxis- heparin sc This patient was seen by ASHLEY Mercedes under the supervision of Dr. Thea higginbotham. Time spent examining patient, reviewing data and subsequent management of care: 15 minutes This patient was seen in conjunction with Atiya GRIER. I have independently interviewed and examined the patient and reviewed pertinent history, examination findings, laboratory and plan of management. I have reviewed the note and agree with the documented findings with the few additional points. In brief, patient is admitted for for concern of sepsis. As per H&P patient was sick looking, short of breath, dry cough but no fever chills. the patient presented with 1. Sepsis due to left lower lobe pneumonia with acute sepsis-related organ dysfunction as evidenced by lactic acidosis, acute on chronic kidney disease and acute on chronic hypoxic respiratory failure. Baseline creatinine 1.3-1.4, creatinine went up to 2.69. In ED patient was on BiPAP 40% FiO2 Antibiotic upgraded to vancomycin and Zosyn. ID consulted. Rapid COVID-19 antigen negative. COVID-19 PCR pending. Other diagnosis and management as follows 2. Acute kidney injury on CKD stage III: Mysql Database Administrator is consulted. Monitor kidney function. Possible etiologies, pre-renal, infection and sepsis 3. Bilateral venous hypertension, stasis dermatitis, peripheral arterial disease with chronic left leg ulcer: Since patient has drop-of ice heavy weight on right foot and therefore black discoloration possible hematoma.Venous duplex negative for acute DVT. Pulses over bilateral BURN CREW MEMBER and DP are triphasic but PEDRO LUIS could not be calculated. TBI low suggestive of PAD. Vascular surgeon and information assurance officer consulted 4. Coronary artery disease with a stent. Chronic HFpEF, paroxysmal A. fib on metoprolol 5. COPD with chronic hypoxic respiratory failure and NICKOLAS: On Trelegy Other comorbidities admission eval hypertension, dyslipidemia, type 2 diabetes mellitus, GERD I have discussed my assessment with Atiya GRIER and orders have been reviewed. Total time of the visit including total time spent in counseling or coordination of care, (more than 50% of the total time, spent in obtaining medical information from nurses and other ancillary care providers,explaining to the patient about labs, imaging, diagnosis and management), discussion with consultants, review of labs and imaging is 45 minutes. I spent 30 minutes, Atiya STARTING GATE DRIVER spent 15 minutes Charges/Coding Visit Charges Inpatient E&M: 15731 Subs Hosp L3
--- NOTE | 2021-11-03 13:50 | CASEMGMT ---
PATRIC COX assessment: Face to Face with patient for initial transition planning/care coordination assessment. PATRIC COX introduced self and role at [facility], pt voices understanding and consents to assessment. Pt is sitting up in bed in no distress on 6L nc. Pt is A/Ox4 and answers all questions appropriately.? Care providers, pharmacy,?and demographics verified. ? Presentation: Pt c/o SOB and bilat lower leg pain/swelling Admitting dx: Acute on Chronic resp failure, leg wounds PCP: Jovanny Specialists: nancy Bazan; Gamal, cardio Preferred Pharmacy: [facility] Insurance: [facility] A/B, MMO Prescription Benefit:?Yes Living Will/HPOA: Pt does not have LW/HPOA and declines AD info at this time. LNOK: Francia Torres, Living Arrangements: Pt lives with in mobile home with couple steps in with bilat rails and states no concerns at home. Pt is independent with ADL's. Pt states does dressing changes on pt's legs and states no concerns. Transportation: Pt drives self or drives and states no transportation concerns. DME/HHC: Pt has the following DME: walker, grab bars, nebulizer, NIV, and 2L continuous home oxygen with portability. Pt states has been wearing increased oxygen at home. Pt states no need for any DME. Pt has had HHC in past and has been to [facility]. Pt states no concerns with going home at time of discharge. Pt is retired. Pt states quit smoking cigarettes 18 years ago and quit drinking ETOH 8 months ago. Pt voices no further concerns/needs. CM to follow for any further discharge planning/needs. Advised pt to ask for CM if any further questions/concerns/needs arise, voices understanding. Pt Goal: Home Plan: [place] PATRIC COX
--- NOTE | 2021-11-03 13:56 | US_ITS ---
STUDY: RENAL ULTRASOUND - COMPLETE REASON FOR EXAM: Male, 70 years old. VIET TECHNIQUE: Ultrasound evaluation of the kidneys was performed with real-time and static [place]-scale imaging. COMPARISON: None. FINDINGS: RIGHT KIDNEY: Normal location of the right kidney, which is normal in size. The right kidney measures 9.1 x 6.2 x 5.8 cm. Increased renal parenchymal echogenicity. The renal cortex measures 0.8 cm. 3.5 x 3.5 x 4.3 cm cyst with a septation. The industrial relations counselor measured a 3.3 x 3.1 x 1.7 cm soft tissue structure at the superior pole. There are no right renal calculi. There is no right hydronephrosis. DISTAL RIGHT URETER: There is non-visualization of the distal right ureter. There is no demonstrated right ureterovesical junction calculus. There is a visualized right ureteral jet. LEFT KIDNEY: Normal location of the left kidney, which is normal in size. The left kidney measures 9.3 x 4.2 x 5 cm. Increased renal parenchymal echogenicity. The renal cortex measures 1.0 cm. 1.4 x 1 x 0.9 cm cyst There are no left renal calculi. There is no left hydronephrosis. There is a small amount of perinephric fluid. DISTAL LEFT URETER: There is non-visualization of the distal left ureter. There is no demonstrated left ureterovesical junction calculus. There is a visualized left ureteral jet. BLADDER: The urinary bladder has a volume of 52 ml. There is a normal wall thickness of the distended urinary bladder. There is no demonstrated mass within the urinary bladder. There are no demonstrated bladder calculi. US/Kidney and Bladder IMPRESSION: Mild bilateral renal atrophy with increased echogenicity compatible with medical renal disease. Small left perinephric fluid. 3.3 cm soft tissue structure along the superior aspect of the right kidney may represent adrenal gland. Bilateral renal cysts. Electronically Signed: Raymon Phillips MD at 21:16 EDT ,
[2021-11-03] MEDS: Morphine 2 MG/ML Syringe IV ×3 (14:11→20:42)
[2021-11-03] MEDS: Aspirin E.C. 325 MG Tablet PO (14:11)
--- NOTE | 2021-11-03 14:25 | CON.PCM.ID_ITS ---
Assessment & Plan Assessment/Plan (1) Acute and chronic respiratory failure with hypoxia: PLAN: Will check covid pcr. Reports overdue for 1st covid booster. Will order sputum cx. Cont empiric vanc/zosyn. (2) Acute pain of right foot: PLAN: Concern for vascular source of pain. PEDRO LUIS/doppler and vascular consult pending. Podiatry consulted, MRI pending. PLAN: Plan Will follow, thank you, d/w primary team HPI Consult Data Date of Consult: 11/03/21 HPI Narrative Reason for Consultation: foot infection HPI Narrative: JB MCPHERSON, is a 70 M who presented 11/02 with several days worsening dyspnea. Has chronic yellow sputum with COPD. Developed new sudden color change and severe pain in R foot. No known inciting event. No fever or chills. Came to ED, admitted on vanc/zosyn. Podiatry and vascular consulted. Full ROS performed and neg except as noted above. [facility] Medical History Abnormal EKG Abnormal positron emission tomography (PET) scan VIET (acute kidney injury) Alcohol abuse Anemia Atherosclerosis of coronary artery of havasupai heart without angina pectoris B12 deficiency Golden's esophagus Benign neoplasm of colon Benign neoplasm of larynx Blood loss anemia Chronic back pain Chronic diastolic (congestive) heart failure Chronic renal disease, stage 3, moderately decreased glomerular filtration rate (GFR) between 30-59 mL/min/1.73 square meter Chronic respiratory failure COLD (chronic obstructive lung disease) COPD (chronic obstructive pulmonary disease) Debility Diabetes Diverticulosis of colon (without mention of hemorrhage) DVT (deep venous thrombosis) (11/09/16) Essential (primary) hypertension Familial combined hyperlipidemia Former smoker GERD (gastroesophageal reflux disease) GI bleed H/O immunosuppressive therapy Hyperlipidemia Hypertension Internal hemorrhoids without mention of complication Lumbar spinal stenosis Lung nodules Neuropathic pain Non-compliance Obesity Obstructive sleep apnea On home oxygen therapy Other voice and resonance disorders Paroxysmal atrial fibrillation Peripheral neuropathy Rheumatoid arthritis Sleep apnea Steroid long-term use Tracheostomy in place Type 2 diabetes mellitus Home Medications omeprazole 20 mg capsule,delayed release 20 mg PO BID GERD 02/09/17 [History Last Taken 11/01/21] albuterol sulfate 90 mcg/actuation aerosol inhaler 2 puff PO Q4H PRN PRN wheezing/sob 01/29/19 [History Last Taken 01/28/19] metformin 500 mg tablet 500 mg PO BID BS 01/29/19 [History Last Taken 11/01/21] nitroglycerin 0.4 mg sublingual tablet 0.4 mg sublingual PRN PRN chest pain 01/29/19 [History Last Taken Unknown] budesonide 0.5 mg/2 mL suspension for nebulization (Pulmicort) 2 ml inhalation Q12H PRN Sob &/Or Wheezing 02/19/19 [History Last Taken 11/01/21] budesonide-formoterol HFA 160 mcg-4.5 mcg/actuation aerosol inhaler 2 puff inhalation BID Lungs 05/18/19 [History Last Taken 11/01/21] cyanocobalamin (vitamin B-12) 500 mcg tablet 1,000 mcg PO QODAY Supplement 01/20/20 [History Last Taken 11/01/21] ipratropium 20 mcg-albuterol 100 mcg/actuation mist for inhalation 1 puff inhalation 4X/DAY Lungs 01/20/20 [History Last Taken 11/01/21] oxycodone-acetaminophen 5 mg-325 mg tablet 1 tab PO Q6H PRN Pain 06/19/21 [History Last Taken Unknown] pregabalin 25 mg capsule 25 mg PO BID neuropathy 06/19/21 [History Last Taken 11/01/21] metoprolol tartrate 25 mg tablet 25 mg PO BID BP #180 tabs 07/26/21 [Rx Last Taken 11/01/21] aspirin 81 mg tablet,delayed release (Enteric Coated Aspirin) 81 mg PO Q OTHER DAY Heart 09/18/21 [History Last Taken 11/01/21] ergocalciferol (vitamin D2) 1,250 mcg (50,000 unit) capsule 1,250 mcg PO TH supplement 11/02/21 [History Last Taken 11/01/21] furosemide 40 mg tablet 80 mg PO BID water pill 11/02/21 [History Last Taken 11/01/21] prednisone 10 mg tablet 10 mg PO DAILY PRN PRN Steroid 11/02/21 [History Last Taken Unknown] rosuvastatin 20 mg tablet 20 mg PO QHS Cholesterol 11/02/21 [History Last Taken Unknown] Allergy/AdvReac Type Severity Reaction Status Date / Time meropenem Allergy Unknown Verified 11/02/21 11:12 tramadol Allergy Unknown Verified 11/02/21 11:12 vancomycin Allergy Unknown Verified 11/02/21 11:12 hydrocodone bitartrate AdvReac nightmares Verified 11/02/21 11:12 [From Vicodin] Family History Father Heart disease Brother Heart disease Cancer prostate Surgical History history IVC filter insertion (2016) History of colonoscopy (08/08/16) History of coronary artery stent placement (08/29/10) History of esophagogastroduodenoscopy (EGD) (08/08/16) History of esophagogastroduodenoscopy (EGD) (03/2019) History of incisional hernia repair History of left heart catheterization History of lumbar laminectomy (01/2020) Social History household members: significant other Smoking Status: Former smoker Tobacco: How many years used: 40 how long ago did patient quit smokin + years ago alcohol intake: never substance use type: does not use caffeine: Yes Type: coffee Number of servings: 8 Physical Exam Const alert, oriented x3 and no apparent distress General Appearance: cooperative HEENT normocephalic Eyes PERRL and EOMs intact bilaterally Neck supple and No nodes Resp Auscultation: rhonchi and diminished lung sounds Cardio regular rate and regular rhythm GI soft to palpation, non-tender and non-distended Extremity General Extremity: edema Skin Skin Narrative: R foot quite tender, cool, discolored. Neuro CN's II-XII intact bilaterally Lab / Micro Data Attestation: I reviewed the patient's lab results. Result Diagrams: 11/03/21 07:10 11/03/21 07:10 Labs: Laboratory Results - last 24 hr 11/02/21 12:28: Uric Acid 11.1 H 11/02/21 12:28: B-Natriuretic Peptide 180.6 H 11/02/21 12:28: D-Dimer Quant (PE/DVT) 0.90 H* 11/02/21 17:12: Lactic Acid 2.1 H* 11/02/21 18:42: POC Glucose 141 H 11/02/21 20:39: POC Glucose 213 H 11/03/21 06:59: POC Glucose 121 H 11/03/21 07:10: WBC 13.7 H, RBC 4.79, Hgb 12.8 L, Hct 38.9 L, MCV 81.2 D, MCH 26.7 L, MCHC 32.9, RDW Std Deviation 46.4 H, RDW Coeff of Nina 15.8 H, Plt Count 271, MPV 9.0, Immature Gran % (Auto) 1.200 H, Neut % (Auto) 92.1 H, Lymph % (Auto) 1.4 L, Sibley % (Auto) 5.0, Eos % (Auto) 0.0, Baso % (Auto) 0.3, Absolute Neuts (auto) 12.6 H, Absolute Lymphs (auto) 0.19 L, Nucleated RBC % 0 11/03/21 07:10: Sodium 135 L, Potassium 3.9, Chloride 98, Carbon Dioxide 25.0, Anion Gap 12, BUN 44 H, Creatinine 2.69 H, Estim Creat Clear Calc 25.07, Est GFR (MDRD) Af Amer 30 L, Est GFR (MDRD) Non-Af 25 L, BUN/Creatinine Ratio 16.4, Glucose 150 H, Calcium 9.1 11/03/21 09:36: PT 16.3 H, INR 1.3, APTT 29.9 11/03/21 12:00: POC Glucose 180 H Micro: Microbiology 11/02/21 12:39 Nasal Secretion SARS-CoV-2 & FLU Antigen (Rapid) - Final ABG Data ABG results: ABG 11/02/21 11/02/21 11:40 11:49 Specimen Type NIKOS Cancelled Sample Site L BRACHIAL Cancelled pH 7.41 Bicarbonate Actual 27.4 H Total CO2 29 Base Excess 3 H O2 Saturation 49 L O2 % 50 Cancelled ABG pCO2 43.4 ABG pO2 27 L* Haris Test POS VBG pH Cancelled VBG pH (Temp Correct) Cancelled VBG pCO2 (Temp Corrct Cancelled VBG pO2 Cancelled VBG HCO3 Cancelled VBG Total CO2 Cancelled VBG O2 Sat (Calc) Cancelled VBG Base Excess Cancelled POC Mix VBG pCO2 Pt Tmp Cancelled Respiration Rate Cancelled O2 Delivery Device Bi Pap Cancelled Liter Flow Cancelled Minute Volume Cancelled Inspiratory Time Cancelled Expiratory Time Cancelled Tidal Volume Cancelled Mean Airway Pressure Cancelled POC PEEP Cancelled Peak Inspir Pressure Cancelled POC Pressure Suppt Cancelled Pressure Control Cancelled EPAP 6 Cancelled IPAP 12 Cancelled Blood Gas Comments Cancelled Crit Call To/Read Back Cancelled Blood Gas Notified Whom Cancelled Blood Gas Notified Time Cancelled Clinical Comments Cancelled Radiology Impression Venous Doppler Study 11/02/21 17:23 Interpretation Summary No evidence for acute deep venous thrombosis bilateral lower extremities with patent and compressible bilateral great saphenous veins. Ordering Physician: Atiya Sweeney Referring Physician: Andres Petty Performed By: Lacey Rodriges RVT
[2021-11-03 15:38] LABS: Urine Sodium < 5 mmol/L (Not Establ.)
--- NOTE | 2021-11-03 16:11 | PN.RENAL_ITS ---
Subjective Subjective attempt to see patient, currently in MRI -full consult to follow tomorrow -chart reviewed -prior echo diastolic dysfunction -urine sodium less than 5 noted, bp ok -check bladder scan. Objective Data Objective Data Vital Signs: Vital Signs Temp Pulse Resp BP Pulse Ox O2 Del Method O2 Flow Rate 98.6 F 93 20 H 156/76 H 98 Nasal Cannula 6 11/03/21 10:00 11/03/21 14:42 11/03/21 11:26 11/03/21 10:00 11/03/21 10:00 11/03/21 10:00 11/03/21 10:00 FiO2 40 11/03/21 01:21 Oxygen Flow Rate (L/min) 6 Oxygen Delivery Method Nasal Cannula Weight: 100.1 kg Body Mass Index (BMI) 33.5 Intake & Output: Intake and Output for Last 24 Hours 11/01/21 11/02/21 11/03/21 23:59 23:59 23:59 Intake Total 855 / 855 50 / 50 Output Total 175 / 175 Balance 855 / 780 -125 / -125 Lab / Micro Data Result Diagrams: 11/03/21 07:10 11/03/21 07:10 Labs: Laboratory Results - last 24 hr 11/02/21 12:28: Uric Acid 11.1 H 11/02/21 12:28: B-Natriuretic Peptide 180.6 H 11/02/21 12:28: D-Dimer Quant (PE/DVT) 0.90 H* 11/02/21 17:12: Lactic Acid 2.1 H* 11/02/21 18:42: POC Glucose 141 H 11/02/21 20:39: POC Glucose 213 H 11/03/21 06:59: POC Glucose 121 H 11/03/21 07:10: WBC 13.7 H, RBC 4.79, Hgb 12.8 L, Hct 38.9 L, MCV 81.2 D, MCH 26.7 L, MCHC 32.9, RDW Std Deviation 46.4 H, RDW Coeff of Nina 15.8 H, Plt Count 271, MPV 9.0, Immature Gran % (Auto) 1.200 H, Neut % (Auto) 92.1 H, Lymph % (Auto) 1.4 L, [place] % (Auto) 5.0, Eos % (Auto) 0.0, Baso % (Auto) 0.3, Absolute Neuts (auto) 12.6 H, Absolute Lymphs (auto) 0.19 L, Nucleated RBC % 0 11/03/21 07:10: Sodium 135 L, Potassium 3.9, Chloride 98, Carbon Dioxide 25.0, Anion Gap 12, BUN 44 H, Creatinine 2.69 H, Estim Creat Clear Calc 25.07, Est GFR (MDRD) Af Amer 30 L, Est GFR (MDRD) Non-Af 25 L, BUN/Creatinine Ratio 16.4, Glucose 150 H, Calcium 9.1 11/03/21 09:36: PT 16.3 H, INR 1.3, APTT 29.9 11/03/21 12:00: POC Glucose 180 H 11/03/21 14:55: Ur Random Sodium < 5, Urine Creatinine 113.00 Micro: Microbiology 11/02/21 12:39 Nasal Secretion SARS-CoV-2 & FLU Antigen (Rapid) - Final ABG Data ABG results: ABG 11/02/21 11/02/21 11:40 11:49 Specimen Type NIKOS Cancelled Sample Site L BRACHIAL Cancelled pH 7.41 Bicarbonate Actual 27.4 H Total CO2 29 Base Excess 3 H O2 Saturation 49 L O2 % 50 Cancelled ABG pCO2 43.4 ABG pO2 27 L* Haris Test POS VBG pH Cancelled VBG pH (Temp Correct) Cancelled VBG pCO2 (Temp Corrct Cancelled VBG pO2 Cancelled VBG HCO3 Cancelled VBG Total CO2 Cancelled VBG O2 Sat (Calc) Cancelled VBG Base Excess Cancelled POC Mix VBG pCO2 Pt Tmp Cancelled Respiration Rate Cancelled O2 Delivery Device Bi Pap Cancelled Liter Flow Cancelled Minute Volume Cancelled Inspiratory Time Cancelled Expiratory Time Cancelled Tidal Volume Cancelled Mean Airway Pressure Cancelled POC PEEP Cancelled Peak Inspir Pressure Cancelled POC Pressure Suppt Cancelled Pressure Control Cancelled EPAP 6 Cancelled IPAP 12 Cancelled Blood Gas Comments Cancelled Crit Call To/Read Back Cancelled Blood Gas Notified Whom Cancelled Blood Gas Notified Time Cancelled Clinical Comments Cancelled Radiography Diagnostic Testing: Radiology Impression Venous Doppler Study 11/02/21 17:23 Interpretation Summary No evidence for acute deep venous thrombosis bilateral lower extremities with patent and compressible bilateral great saphenous veins. Ordering Physician: Atiya Sweeney Referring Physician: Andres Petty Performed By: Lacey Rodriges RVT
--- NOTE | 2021-11-03 16:58 | PCM.CONS.GEN ---
Assessment & Plan Assessment/Plan (1) Contusion of foot, right: PLAN: Patient examined and evaluated, all findings cussed patient detail. Patient has mild leukocytosis likely related to his pneumonia. Radiographs reviewed of the right foot no evidence of acute fracture. There is noted to be calcified dorsalis pedis posterior tibial arteries. MRI was ordered due to concern for possible hematoma to right foot upon personal review I see no well demarcated fluid collection in the right forefoot. Venous Doppler studies were ordered negative for DVT. Arterial studies were ordered demonstrated noncompressible pulses bilaterally TBI's demonstrate significant arterial occlusive disease to bilateral lower extremity. Due to significant arterial disease and patient's inability to tolerate traumatic event it appears that his dorsal foot may demonstrate early signs of skin necrosis which will likely lead to deep wound formation. This is likely due to the patient's significant arterial occlusive disease when combined with the traumatic injury he suffered while on his golf cart. I recommend vascular consultation for further work-up and possible intervention per their discretion. Patient should elevate his right lower extremity at all times when at rest in his bed on a pillow. Patient can remain heel weightbearing in a Cam walking boot to his right lower extremity. I recommend light compression as to not shut off any major vessels to the foot as the patient does have significant arterial occlusive disease but significant edema to bilateral lower extremity. Will continue to follow the patient closely, no surgical ankle intervention from my hand at this time I will check in with the patient over the weekend. 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 Since that time patient has noticed increased pain and swelling to his right foot with increased redness. Patient is type II diabetic with history of neuropathy and arterial disease. He notices progression of redness and swelling worsening over time. Denies any wound to that site. Denies any other complaints. Patient has some shortness of breath dyspnea and cough secondary to pneumonia he is being treated for. [facility] Medical History Abnormal EKG Abnormal positron emission tomography (PET) scan VIET (acute kidney injury) Alcohol abuse Anemia Atherosclerosis of coronary artery of [place] heart without angina pectoris B12 deficiency Golden's esophagus Benign neoplasm of colon Benign neoplasm of larynx Blood loss anemia Chronic back pain Chronic diastolic (congestive) heart failure Chronic renal disease, stage 3, moderately decreased glomerular filtration rate (GFR) between 30-59 mL/min/1.73 square meter Chronic respiratory failure COLD (chronic obstructive lung disease) COPD (chronic obstructive pulmonary disease) Debility Diabetes Diverticulosis of colon (without mention of hemorrhage) DVT (deep venous thrombosis) (11/09/16) Essential (primary) hypertension Familial combined hyperlipidemia Former smoker GERD (gastroesophageal reflux disease) GI bleed H/O immunosuppressive therapy Hyperlipidemia Hypertension Internal hemorrhoids without mention of complication Lumbar spinal stenosis Lung nodules Neuropathic pain Non-compliance Obesity Obstructive sleep apnea On home oxygen therapy Other voice and resonance disorders Paroxysmal atrial fibrillation Peripheral neuropathy Rheumatoid arthritis Sleep apnea Steroid long-term use Tracheostomy in place Type 2 diabetes mellitus Home Medications omeprazole 20 mg capsule,delayed release 20 mg PO BID GERD 02/09/17 [History Last Taken 11/01/21] albuterol sulfate 90 mcg/actuation aerosol inhaler 2 puff PO Q4H PRN PRN wheezing/sob 01/29/19 [History Last Taken 01/28/19] metformin 500 mg tablet 500 mg PO BID BS 01/29/19 [History Last Taken 11/01/21] nitroglycerin 0.4 mg sublingual tablet 0.4 mg sublingual PRN PRN chest pain 01/29/19 [History Last Taken Unknown] budesonide 0.5 mg/2 mL suspension for nebulization (Pulmicort) 2 ml inhalation Q12H PRN Sob &/Or Wheezing 02/19/19 [History Last Taken 11/01/21] budesonide-formoterol HFA 160 mcg-4.5 mcg/actuation aerosol inhaler 2 puff inhalation BID Lungs 05/18/19 [History Last Taken 11/01/21] cyanocobalamin (vitamin B-12) 500 mcg tablet 1,000 mcg PO QODAY Supplement 01/20/20 [History Last Taken 11/01/21] ipratropium 20 mcg-albuterol 100 mcg/actuation mist for inhalation 1 puff inhalation 4X/DAY Lungs 01/20/20 [History Last Taken 11/01/21] oxycodone-acetaminophen 5 mg-325 mg tablet 1 tab PO Q6H PRN Pain 06/19/21 [History Last Taken Unknown] pregabalin 25 mg capsule 25 mg PO BID neuropathy 06/19/21 [History Last Taken 11/01/21] metoprolol tartrate 25 mg tablet 25 mg PO BID BP #180 tabs 07/26/21 [Rx Last Taken 11/01/21] aspirin 81 mg tablet,delayed release (Enteric Coated Aspirin) 81 mg PO Q OTHER DAY Heart 09/18/21 [History Last Taken 11/01/21] ergocalciferol (vitamin D2) 1,250 mcg (50,000 unit) capsule 1,250 mcg PO TH supplement 11/02/21 [History Last Taken 11/01/21] furosemide 40 mg tablet 80 mg PO BID water pill 11/02/21 [History Last Taken 11/01/21] prednisone 10 mg tablet 10 mg PO DAILY PRN PRN Steroid 11/02/21 [History Last Taken Unknown] rosuvastatin 20 mg tablet 20 mg PO QHS Cholesterol 11/02/21 [History Last Taken Unknown] Allergy/AdvReac Type Severity Reaction Status Date / Time meropenem Allergy Unknown Verified 11/02/21 11:12 tramadol Allergy Unknown Verified 11/02/21 11:12 vancomycin Allergy Unknown Verified 11/02/21 11:12 hydrocodone bitartrate AdvReac nightmares Verified 11/02/21 11:12 [From Vicodin] Family History (Reviewed 11/02/21 @ 16:27 by Atiya Sweeney YARN MERCERIZER OPERATOR HELPER, YARN MERCERIZER OPERATOR HELPER-C) Father Heart disease Brother Heart disease Cancer prostate Surgical History (Reviewed 11/02/21 @ 16:27 by Atiya Sweeney YARN MERCERIZER OPERATOR HELPER, YARN MERCERIZER OPERATOR HELPER-C) history IVC filter insertion (2016) History of colonoscopy (08/08/16) History of coronary artery stent placement (08/29/10) History of esophagogastroduodenoscopy (EGD) (08/08/16) History of esophagogastroduodenoscopy (EGD) (03/2019) History of incisional hernia repair History of left heart catheterization History of lumbar laminectomy (01/2020) Social History household members: significant other Smoking Status: Former smoker Tobacco: How many years used: 40 how long ago did patient quit smokin + years ago alcohol intake: never substance use type: does not use caffeine: Yes Type: coffee Number of servings: 8 ROS Eyes Eyes: Denies bloody eye, diplopia or exophthalmos ENT HEENT: Reports nasal congestion; Denies dental pain or halitosis Cardiovascular Cardiovascular: Reports dyspnea on exertion; Denies abdominal pain or chest pain with activity Respiratory/Chest Respiratory/Chest: Reports change in phlegm color, chest congestion and dyspnea on exertion Gastrointestinal Gastrointestinal: Denies bloating, change in bowel habits or diarrhea Physical Exam Narrative Patient alert oriented person place and time. Vascular: Diffuse pitting edema to bilateral lower extremity +2 noted to the forefoot foot and Joseph malleoli region. Pulses are diminished bilaterally and nonpalpable, dopplerable biphasic bilaterally PT DP pulses. arophic skin changes noted. Neurologic: Light touch protective sensation absent to bilateral feet. Dermatologic: Focal erythema noted to the dorsal right midfoot extending to the forefoot. Early area of necrosis to skin to the dorsal forefoot just proximal to the sulcus of the toes. Mild focal increase in warmth. No evidence of fluctuance or crepitus to the site. Multiple full-thickness wounds noted to the left lower extremity along the medial leg these wounds are small in nature and do not probe deep undermining or have any signs of infection. Musculoskeletal: Diffuse pain noted to right forefoot with increased swelling relative to the contralateral side. Pain is nonspecific in nature. No pain with calf squeeze or palpation popliteal fossa bilaterally. Lab / Micro Data Result Diagrams: 11/03/21 07:10 11/03/21 07:10 Labs: Laboratory Results - last 24 hr 11/02/21 12:28: B-Natriuretic Peptide 180.6 H 11/02/21 17:12: Lactic Acid 2.1 H* 11/02/21 18:42: POC Glucose 141 H 11/02/21 20:39: POC Glucose 213 H 11/03/21 06:59: POC Glucose 121 H 11/03/21 07:10: WBC 13.7 H, RBC 4.79, Hgb 12.8 L, Hct 38.9 L, MCV 81.2 D, MCH 26.7 L, MCHC 32.9, RDW Std Deviation 46.4 H, RDW Coeff of Nina 15.8 H, Plt Count 271, MPV 9.0, Immature Gran % (Auto) 1.200 H, Neut % (Auto) 92.1 H, Lymph % (Auto) 1.4 L, [place] % (Auto) 5.0, Eos % (Auto) 0.0, Baso % (Auto) 0.3, Absolute Neuts (auto) 12.6 H, Absolute Lymphs (auto) 0.19 L, Nucleated RBC % 0 11/03/21 07:10: Sodium 135 L, Potassium 3.9, Chloride 98, Carbon Dioxide 25.0, Anion Gap 12, BUN 44 H, Creatinine 2.69 H, Estim Creat Clear Calc 25.07, Est GFR (MDRD) Af Amer 30 L, Est GFR (MDRD) Non-Af 25 L, BUN/Creatinine Ratio 16.4, Glucose 150 H, Calcium 9.1 11/03/21 09:36: PT 16.3 H, INR 1.3, APTT 29.9 11/03/21 12:00: POC Glucose 180 H 11/03/21 14:55: Ur Random Sodium < 5, Urine Creatinine 113.00 Micro: Microbiology 11/02/21 12:39 Nasal Secretion SARS-CoV-2 & FLU Antigen (Rapid) - Final ABG Data ABG results: ABG 11/02/21 11/02/21 11:40 11:49 Specimen Type NIKOS Cancelled Sample Site L BRACHIAL Cancelled pH 7.41 Bicarbonate Actual 27.4 H Total CO2 29 Base Excess 3 H O2 Saturation 49 L O2 % 50 Cancelled ABG pCO2 43.4 ABG pO2 27 L* Haris Test POS VBG pH Cancelled VBG pH (Temp Correct) Cancelled VBG pCO2 (Temp Corrct Cancelled VBG pO2 Cancelled VBG HCO3 Cancelled VBG Total CO2 Cancelled VBG O2 Sat (Calc) Cancelled VBG Base Excess Cancelled POC Mix VBG pCO2 Pt Tmp Cancelled Respiration Rate Cancelled O2 Delivery Device Bi Pap Cancelled Liter Flow Cancelled Minute Volume Cancelled Inspiratory Time Cancelled Expiratory Time Cancelled Tidal Volume Cancelled Mean Airway Pressure Cancelled POC PEEP Cancelled Peak Inspir Pressure Cancelled POC Pressure Suppt Cancelled Pressure Control Cancelled EPAP 6 Cancelled IPAP 12 Cancelled Blood Gas Comments Cancelled Crit Call To/Read Back Cancelled Blood Gas Notified Whom Cancelled Blood Gas Notified Time Cancelled Clinical Comments Cancelled Radiology Impression Venous Doppler Study 11/02/21 17:23 Interpretation Summary No evidence for acute deep venous thrombosis bilateral lower extremities with patent and compressible bilateral great saphenous veins. Ordering Physician: Atiya Sweeney Referring Physician: Andres Petty Performed By: Lacey Rodriges RVT Ankle Brachial Index 11/03/21 10:26 Interpretation Summary Unable to calculate bilateral ankle brachial indices due to vessel non-compressibility suggestive of medial calcification of vessel kinsey making this examination non-diagnostic. Normal bilateral triphasic DP and PT doppler waveforms suggesting presence of arterial flow. Abnormal bilateral digital brachial indices of 0.34 on the right and 0.39 on the left suggestive of arterial occlusive disease. Ordering Physician: Mark Cornejo Referring Physician: Andres Petty Performed By: Lacey Rodriges RVT
[2021-11-03 17:15] LABS: Bedside Glucose 152 mg/dL (74-106)
[2021-11-03] MEDS: Juven (unflavored) Packet 1 PACKET PO (17:54)
[2021-11-03] MEDS: morphine 10 MG/ML Syringe 8 MG SC (18:56)
--- NOTE | 2021-11-03 21:22 | EX.PCM.CON.S ---
Assessment & Plan Assessment/Plan (1) Peripheral vascular disease, unspecified: PLAN: -traumatic etiology of foot appearance -may have some surrounding cellulitis though difficult to determine if reactive to trauma -on atbx -PVRs reviewed; non-compressible but normal waveforms to ankle, has pedal/digit disease -hopefully sufficient perfusion to heal with local care and avoidance of further trauma; pattern of disease pedal/digit not favorable for any revascularization efforts -will follow HPI Consult Data Date of Consult: 11/03/21 HPI Narrative HPI Narrative: JB MCPHERSON, is a 70 M who presents with increased SOB, bilateral edema. Upon admission he was also noted to have right foot erythema surrounding area of ecchymosis and bullae. He has known neuropathy from DM and endorsed several minor traumas to foot over recent weeks. Denies f/c/purulence, no prior wounds. Foot is painful, both feet hypersensitive. Has been more edematous bilateral over the past 1.5 months. Has heart failure, copd, DM, sleep apnea. [facility] Medical History Abnormal EKG Abnormal positron emission tomography (PET) scan VIET (acute kidney injury) Alcohol abuse Anemia Atherosclerosis of coronary artery of [place] heart without angina pectoris B12 deficiency Golden's esophagus Benign neoplasm of colon Benign neoplasm of larynx Blood loss anemia Chronic back pain Chronic diastolic (congestive) heart failure Chronic renal disease, stage 3, moderately decreased glomerular filtration rate (GFR) between 30-59 mL/min/1.73 square meter Chronic respiratory failure COLD (chronic obstructive lung disease) COPD (chronic obstructive pulmonary disease) Debility Diabetes Diverticulosis of colon (without mention of hemorrhage) DVT (deep venous thrombosis) (11/09/16) Essential (primary) hypertension Familial combined hyperlipidemia Former smoker GERD (gastroesophageal reflux disease) GI bleed H/O immunosuppressive therapy Hyperlipidemia Hypertension Internal hemorrhoids without mention of complication Lumbar spinal stenosis Lung nodules Neuropathic pain Non-compliance Obesity Obstructive sleep apnea On home oxygen therapy Other voice and resonance disorders Paroxysmal atrial fibrillation Peripheral neuropathy Rheumatoid arthritis Sleep apnea Steroid long-term use Tracheostomy in place Type 2 diabetes mellitus Home Medications omeprazole 20 mg capsule,delayed release 20 mg PO BID GERD 02/09/17 [History Last Taken 11/01/21] albuterol sulfate 90 mcg/actuation aerosol inhaler 2 puff PO Q4H PRN PRN wheezing/sob 01/29/19 [History Last Taken 01/28/19] metformin 500 mg tablet 500 mg PO BID BS 01/29/19 [History Last Taken 11/01/21] nitroglycerin 0.4 mg sublingual tablet 0.4 mg sublingual PRN PRN chest pain 01/29/19 [History Last Taken Unknown] budesonide 0.5 mg/2 mL suspension for nebulization (Pulmicort) 2 ml inhalation Q12H PRN Sob &/Or Wheezing 02/19/19 [History Last Taken 11/01/21] budesonide-formoterol HFA 160 mcg-4.5 mcg/actuation aerosol inhaler 2 puff inhalation BID Lungs 05/18/19 [History Last Taken 11/01/21] cyanocobalamin (vitamin B-12) 500 mcg tablet 1,000 mcg PO QODAY Supplement 01/20/20 [History Last Taken 11/01/21] ipratropium 20 mcg-albuterol 100 mcg/actuation mist for inhalation 1 puff inhalation 4X/DAY Lungs 01/20/20 [History Last Taken 11/01/21] oxycodone-acetaminophen 5 mg-325 mg tablet 1 tab PO Q6H PRN Pain 06/19/21 [History Last Taken Unknown] pregabalin 25 mg capsule 25 mg PO BID neuropathy 06/19/21 [History Last Taken 11/01/21] metoprolol tartrate 25 mg tablet 25 mg PO BID BP #180 tabs 07/26/21 [Rx Last Taken 11/01/21] aspirin 81 mg tablet,delayed release (Enteric Coated Aspirin) 81 mg PO Q OTHER DAY Heart 09/18/21 [History Last Taken 11/01/21] ergocalciferol (vitamin D2) 1,250 mcg (50,000 unit) capsule 1,250 mcg PO TH supplement 11/02/21 [History Last Taken 11/01/21] furosemide 40 mg tablet 80 mg PO BID water pill 11/02/21 [History Last Taken 11/01/21] prednisone 10 mg tablet 10 mg PO DAILY PRN PRN Steroid 11/02/21 [History Last Taken Unknown] rosuvastatin 20 mg tablet 20 mg PO QHS Cholesterol 11/02/21 [History Last Taken Unknown] Allergy/AdvReac Type Severity Reaction Status Date / Time meropenem Allergy Unknown Verified 11/02/21 11:12 tramadol Allergy Unknown Verified 11/02/21 11:12 vancomycin Allergy Unknown Verified 11/02/21 11:12 hydrocodone bitartrate AdvReac nightmares Verified 11/02/21 11:12 [From Vicodin] Family History Father Heart disease Brother Heart disease Cancer prostate Surgical History history IVC filter insertion (2016) History of colonoscopy (08/08/16) History of coronary artery stent placement (08/29/10) History of esophagogastroduodenoscopy (EGD) (08/08/16) History of esophagogastroduodenoscopy (EGD) (03/2019) History of incisional hernia repair History of left heart catheterization History of lumbar laminectomy (01/2020) Social History household members: significant other Smoking Status: Former smoker Tobacco: How many years used: 40 how long ago did patient quit smokin + years ago alcohol intake: never substance use type: does not use caffeine: Yes Type: coffee Number of servings: 8 Physical Exam Const alert, oriented x3 and no apparent distress General Appearance: cooperative HEENT normocephalic and head/scalp atraumatic Eyes EOMs intact bilaterally Neck no lymphadenopathy General: trachea midline Resp normal respiratory effort and no use of accessory muscles Effort and Inspection: able to speak in complete sentences Cardio Rate: regular rate Rhythm: regular rhythm Peripheral Pulses: Negative for posterior tibial pulses present or dorsalis pedis pulses present Extremity General Extremity: edema bilateral lower extremity Details: moderate Skin Skin Narrative: ecchymosis and surrounding erythema dorsum of right foot, bullae central ecchymosis Neuro CN's II-XII intact bilaterally Lab / Micro Data Result Diagrams: 11/03/21 07:10 11/03/21 07:10 Labs: Laboratory Results - last 24 hr 11/03/21 06:59: POC Glucose 121 H 11/03/21 07:10: WBC 13.7 H, RBC 4.79, Hgb 12.8 L, Hct 38.9 L, MCV 81.2 D, MCH 26.7 L, MCHC 32.9, RDW Std Deviation 46.4 H, RDW Coeff of Nina 15.8 H, Plt Count 271, MPV 9.0, Immature Gran % (Auto) 1.200 H, Neut % (Auto) 92.1 H, Lymph % (Auto) 1.4 L, [place] % (Auto) 5.0, Eos % (Auto) 0.0, Baso % (Auto) 0.3, Absolute Neuts (auto) 12.6 H, Absolute Lymphs (auto) 0.19 L, Nucleated RBC % 0 11/03/21 07:10: Sodium 135 L, Potassium 3.9, Chloride 98, Carbon Dioxide 25.0, Anion Gap 12, BUN 44 H, Creatinine 2.69 H, Estim Creat Clear Calc 25.07, Est GFR (MDRD) Af Amer 30 L, Est GFR (MDRD) Non-Af 25 L, BUN/Creatinine Ratio 16.4, Glucose 150 H, Calcium 9.1 11/03/21 09:36: PT 16.3 H, INR 1.3, APTT 29.9 11/03/21 12:00: POC Glucose 180 H 11/03/21 14:55: Ur Random Sodium < 5, Urine Creatinine 113.00 11/03/21 14:55: COVID-19 (JAIDEN) Negative 11/03/21 16:53: POC Glucose 152 H ABG Data ABG results: ABG 11/02/21 11:49 Specimen Type Cancelled Sample Site Cancelled O2 % Cancelled VBG pH Cancelled VBG pH (Temp Correct) Cancelled VBG pCO2 (Temp Corrct Cancelled VBG pO2 Cancelled VBG HCO3 Cancelled VBG Total CO2 Cancelled VBG O2 Sat (Calc) Cancelled VBG Base Excess Cancelled POC Mix VBG pCO2 Pt Tmp Cancelled Respiration Rate Cancelled O2 Delivery Device Cancelled Liter Flow Cancelled Minute Volume Cancelled Inspiratory Time Cancelled Expiratory Time Cancelled Tidal Volume Cancelled Mean Airway Pressure Cancelled POC PEEP Cancelled Peak Inspir Pressure Cancelled POC Pressure Suppt Cancelled Pressure Control Cancelled EPAP Cancelled IPAP Cancelled Blood Gas Comments Cancelled Crit Call To/Read Back Cancelled Blood Gas Notified Whom Cancelled Blood Gas Notified Time Cancelled Clinical Comments Cancelled Radiology Impression Venous Doppler Study 11/02/21 17:23 Interpretation Summary No evidence for acute deep venous thrombosis bilateral lower extremities with patent and compressible bilateral great saphenous veins. Ordering Physician: Atiya Sweeney Referring Physician: Andres Petty Performed By: Lacey Rodriges, CHARITOT Ankle Brachial Index 11/03/21 10:26 Interpretation Summary Unable to calculate bilateral ankle brachial indices due to vessel non-compressibility suggestive of medial calcification of vessel kinsey making this examination non-diagnostic. Normal bilateral triphasic DP and PT doppler waveforms suggesting presence of arterial flow. Abnormal bilateral digital brachial indices of 0.34 on the right and 0.39 on the left suggestive of arterial occlusive disease. Ordering Physician: Mark Cornejo Referring Physician: Andres Petty Performed By: Lacey Rodriges, RVT Renal Ultrasound 11/03/21 13:56 IMPRESSION: Mild bilateral renal atrophy with increased echogenicity compatible with medical renal disease. Small left perinephric fluid. 3.3 cm soft tissue structure along the superior aspect of the right kidney may represent adrenal gland. Bilateral renal cysts. Electronically Signed: Raymon Phillips MD at 21:16 EDT , Charges/Coding Visit Charges Inpatient E&M: 73017 Init Hosp L3
[2021-11-03 22:45] LABS: Bedside Glucose 140 mg/dL (74-106)
[2021-11-04] VITALS (14 sets, daily range): BP systolic 136–145; BP diastolic 78–90; PULSE 71–95; RESP 14–20; TEMP 36.6–36.7; O2SAT 94–97
--- NOTE | 2021-11-04 01:10 | NURSING ---
21:10 pm 11/03/21 Patient IV Zosyn held at 22:00 had a single lumen midline placed late on 11/03/21 per pharmacist Kendy delong not give, but 14:00 IV Zosyn was given and IV Vancomycin given late also due midline placement.
[2021-11-04] MEDS: Morphine 2 MG/ML Syringe IV ×6 (03:28→23:47)
[2021-11-04] MEDS: 0.9% Saline Lock 10 ML Syringe IV ×6 (03:29→23:48)
[2021-11-04 06:01] LABS: Absolute Lymphocyte Count 0.12 X10^3/uL (0.83-4.51); Absolute Neutrophil Count 10.1 X10^3/uL (2.0-7.7); Basophil# 0.01 X10^3/uL; Basophil% 0.1 % (0-1); Eosinophil# 0.01 X10^3/uL; Eosinophils% 0.1 % (0-5); Hematocrit 33.8 % (40-54); Hemoglobin 10.9 g/dL (13.0-16.5); Lymphocyte # 0.12 X10^3/ul (0.83-4.51); Lymphocyte % 1.1 % (19-41); Mean Corp Hgb Conc 32.2 g/dL (32-36); Mean Corpuscular Hgb 26.8 pg (27.0-32.0); Mean Platelet Vol. 9.1 fl (6.2-12.0); Monocyte# 0.82 X10^3/uL; Monocyte% 7.3 % (0-10); NRBC Flagged by Analyzer 0 % (0-5); Neutrophil # 10.05 X10^3/uL (2.7-7.7); Neutrophil % 89.9 % (47-70); POSITIVE DIFFERENTIAL YES; Platelet Count 237 K/mm3 (150-450); RBC Distribution Width CV 15.5 % (11.6-14.6); RBC Distribution Width SD 47.2 fl (35.1-43.9); Red Blood Count 4.07 M/mm3 (4.6-6.2); White Blood Count 11.2 K/mm3 (4.4-11.0)
[2021-11-04 06:10] LABS: Differential Indicated SCAN CRITERIA MET
[2021-11-04] MEDS: Heparin Injection (Vial) 5,000 UNIT/ML VIAL 5000 UNIT SC ×3 (06:19→21:27)
[2021-11-04] MEDS: oxyCODONE 5 MG Tablet 10 MG PO ×3 (06:23→19:33)
[2021-11-04 06:29] LABS: Anion Gap 10 (5-15); BUN 59 mg/dL (7-18); Calcium,Total 8.8 mg/dL (8.5-10.1); Chloride 98 mmol/L (98-107); Creatinine, Serum 2.11 mg/dL (0.70-1.30); EST Glomerular Filtration Rate 33 mL/min (>60); Est Glom Filt Rate - Afr Amer 40 mL/min (>60); Estimated Creatinine Clearance 31.97 ml/min; Glucose 120 mg/dL (74-106); Potassium 3.5 mmol/L (3.5-5.1); Sodium Level 135 mmol/L (136-145)
[2021-11-04 06:31] LABS: Differential Comment SCANNED
[2021-11-04] MEDS: Ipratropium/Albuterol Sulfate 3 ML AMPUL.NEB INHALATION ×4 (07:03→19:04)
[2021-11-04 07:11] LABS: Bedside Glucose 108 mg/dL (74-106)
[2021-11-04] MEDS: predniSONE 20 MG Tablet 40 MG PO (09:03)
[2021-11-04] MEDS: Juven (unflavored) Packet 1 PACKET PO ×2 (09:04→18:16)
[2021-11-04] MEDS: Pantoprazole Sodium 20 MG Tablet PO ×2 (09:04→21:29)
[2021-11-04] MEDS: Aspirin E.C. 325 MG Tablet PO (09:04)
--- NOTE | 2021-11-04 12:19 | PCM.PN.HOSP ---
Documented by User: Atiya Sweeney NP, CNC LASER OPERATOR-C 11/04/21 12:37 Subjective Subjective Patient seen and examined. Reports improvement in right foot pain. Denies shortness of breath. Denies fever, chills. Objective Data Objective Data Vital Signs: Vital Signs Temp Pulse Resp BP Pulse Ox O2 Del Method O2 Flow Rate 97.8 F 79 16 144/86 H 96 Nasal Cannula 3 11/04/21 09:08 11/04/21 10:52 11/04/21 10:52 11/04/21 09:08 11/04/21 09:08 11/04/21 09:08 11/04/21 09:08 FiO2 35 11/04/21 03:00 Oxygen Flow Rate (L/min) 3 Oxygen Delivery Method Nasal Cannula Weight: 220 lb 10.923 oz Body Mass Index (BMI) 33.5 Intake & Output: Intake and Output for Last 24 Hours 11/02/21 11/03/21 11/04/21 23:59 23:59 23:59 Intake Total 855 / 855 230 / 230 640 / 640 Output Total 675 / 675 300 / 300 Balance 855 / 780 -445 / -445 340 / 340 Lab / Micro Data Result Diagrams: 11/04/21 05:51 11/04/21 05:51 Labs: Laboratory Results - last 24 hr 11/03/21 12:00: POC Glucose 180 H 11/03/21 14:55: Ur Random Sodium < 5, Urine Creatinine 113.00 11/03/21 14:55: COVID-19 (JAIDEN) Negative 11/03/21 16:53: POC Glucose 152 H 11/03/21 21:24: POC Glucose 140 H 11/04/21 05:51: WBC 11.2 H, RBC 4.07 L, Hgb 10.9 L, Hct 33.8 L, MCV 83.0, MCH 26.8 L, MCHC 32.2, RDW Std Deviation 47.2 H, RDW Coeff of Nina 15.5 H, Plt Count 237, MPV 9.1, Immature Gran % (Auto) 1.500 H, Neut % (Auto) 89.9 H, Lymph % (Auto) 1.1 L, [place] % (Auto) 7.3, Eos % (Auto) 0.1, Baso % (Auto) 0.1, Absolute Neuts (auto) 10.1 H, Absolute Lymphs (auto) 0.12 L, Nucleated RBC % 0, Differential Comment SCANNED 11/04/21 05:51: Sodium 135 L, Potassium 3.5, Chloride 98, Carbon Dioxide 27.0, Anion Gap 10, BUN 59 H, Creatinine 2.11 H, Estim Creat Clear Calc 31.97, Est GFR (MDRD) Af Amer 40 L, Est GFR (MDRD) Non-Af 33 L, BUN/Creatinine Ratio 28.0 H, Glucose 120 H, Calcium 8.8 11/04/21 06:17: POC Glucose 108 H Micro: Microbiology 11/02/21 15:10 Blood Culture (Wb) - Left Wrist Blood Culture - Preliminary No growth in 48 hours. 11/02/21 12:39 Nasal Secretion SARS-CoV-2 & FLU Antigen (Rapid) - Final Radiography Diagnostic Testing: Radiology Impression Venous Doppler Study 11/02/21 17:23 Interpretation Summary No evidence for acute deep venous thrombosis bilateral lower extremities with patent and compressible bilateral great saphenous veins. Ordering Physician: Atiya Sweeney Referring Physician: Andres Petty Performed By: Lacey Rodriges RVT Ankle Brachial Index 11/03/21 10:26 Interpretation Summary Unable to calculate bilateral ankle brachial indices due to vessel non-compressibility suggestive of medial calcification of vessel kinsey making this examination non-diagnostic. Normal bilateral triphasic DP and PT doppler waveforms suggesting presence of arterial flow. Abnormal bilateral digital brachial indices of 0.34 on the right and 0.39 on the left suggestive of arterial occlusive disease. Ordering Physician: Mark Cornejo Referring Physician: Andres Petty Performed By: Lacey Rodriges, RVT Lower Extremity MRI 11/03/21 12:19 IMPRESSION: Limited by motion artifact 1. Negative for osteomyelitis 2. Forefoot soft tissue swelling and edema suggesting cellulitis. No abscess 3. No acute fracture or dislocation. Electronically Signed: Dejuan Del Castillo DO at 5:48 EDT , Renal Ultrasound 11/03/21 13:56 IMPRESSION: Mild bilateral renal atrophy with increased echogenicity compatible with medical renal disease. Small left perinephric fluid. 3.3 cm soft tissue structure along the superior aspect of the right kidney may represent adrenal gland. Bilateral renal cysts. Electronically Signed: Raymon Phillips MD at 21:16 EDT , Physical Exam Const alert and oriented x3 HEENT normocephalic and moist oral mucous membranes Eyes PERRL, EOMs intact bilaterally and conjunctivae normal Neck no lymphadenopathy Resp clear to auscultation bilaterally Auscultation: diminished lung sounds Cardio regular rate, regular rhythm and no murmurs Peripheral Pulses: pulses 2+ throughout GI normal to inspection, nondistended, normoactive bowel sounds, non-tender and non-distended Extremity normal to inspection Skin no rashes or lesions noted Skin Narrative: Right foot diffuse ecchymosis with right dorsum bullae Lesions: no lesions Rashes: no rashes Trauma: no lacerations or abrasions Neuro CN's II-XII intact bilaterally, no focal motor deficits, no sensory deficits noted and deep tendon reflexes 2+ bilaterally Psych mental status grossly normal and affect normal Assessment & Plan Assessment/Plan (1) Contusion of foot, right: (2) Acute and chronic respiratory failure with hypoxia: PLAN: Plan 1.? Severe sepsis secondary to acute on chronic hypoxic respiratory failure secondary to exacerbation of COPD and left lower lobe pneumonia-chest x-ray with left lower lobe infiltrate.? WBC 13.3. Lactic acid 2.3.? Patient's pulse ox noted to be 80% on CPAP upon arrival to ED.? Converted to BiPAP.?Now stable on 3L NC. Continue IV vanc and IV zosyn.? Albuterol and DuoNeb aerosols.? Continue prednisone. Blood culture with no growth. Sputum culture pending. 2. Acute kidney injury on chronic kidney disease stage IIIa- nephrology consulted.? Hold off on IV fluids given significant edema.? Trend BMP.? Renal ultrasound demonstrates medical renal disease. Creatinine trending down. 3. Right foot contusion-initial concern for vasculitis/ischemia.? X-ray unremarkable.? Ultrasound negative for DVT.? PEDRO LUIS completed and demonstrated pedal/visit disease.? Vascular surgery consulted as well as podiatry.? No evidence of significant hematoma. No plans for surgical intervention at this time. Continue supportive management. 4. CAD with history of stent-continue aspirin, statin, metoprolol. 5. Chronic hypoxic respiratory failure secondary to COPD, NICKOLAS-on trilogy and supplemental oxygen at bedtime per patient. 6. Chronic heart failure with preserved ejection fraction-echo June 2020 with EF 60%, stage II diastolic dysfunction. 7. Paroxysmal atrial fibrillation-continue metoprolol.? Per cardiology, not on anticoagulation due to maintaining sinus rhythm. 8. Hypertension-stable, continue current regimen. 9. Hyperlipidemia-continue statin. 10. Type 2 diabetes [id number] with sliding scale insulin. 11. GERD-continue PPI. 12. Hx DVT with history of IVC filter placement. DVT prophylaxis- heparin ri This patient was seen by ASHLEY Mercedes under the supervision of Dr. Cornejo. Time spent examining patient, reviewing data and subsequent management of care: 14 minutes Documented by User: Dr. Mark Cornejo MD 11/04/21 14:46 Subjective Subjective Patient seen and examined. Reports improvement in right foot pain. Denies shortness of breath. Denies fever, chills. Seen and examined. Right foot pain is much improved. Seems more traumatic. Denies shortness of breath. Patient is more awake and alert. Giving coherent history Objective Data Lab / Micro Data Result Diagrams: 11/04/21 05:51 11/04/21 05:51 Radiography Diagnostic Testing: Radiology Impression Venous Doppler Study 11/02/21 17:23 Interpretation Summary No evidence for acute deep venous thrombosis bilateral lower extremities with patent and compressible bilateral great saphenous veins. Ankle Brachial Index 11/03/21 10:26 Interpretation Summary Unable to calculate bilateral ankle brachial indices due to vessel non-compressibility suggestive of medial calcification of vessel kinsey making this examination non-diagnostic. Normal bilateral triphasic DP and PT doppler waveforms suggesting presence of arterial flow. Abnormal bilateral digital brachial indices of 0.34 on the right and 0.39 on the left suggestive of arterial occlusive disease. Ordering Physician: Mark Cornejo Referring Physician: Andres Petty Performed By: Lacey Rodriges RVT Lower Extremity MRI 11/03/21 12:19 IMPRESSION: Limited by motion artifact 1. Negative for osteomyelitis 2. Forefoot soft tissue swelling and edema suggesting cellulitis. No abscess 3. No acute fracture or dislocation. Renal Ultrasound 11/03/21 13:56 IMPRESSION: Mild bilateral renal atrophy with increased echogenicity compatible with medical renal disease. Small left perinephric fluid. 3.3 cm soft tissue structure along the superior aspect of the right kidney may represent adrenal gland. Bilateral renal cysts. E Physical Exam Narrative Physical exam General: Awake, oriented x3. coherent to speech HEENT: Atraumatic, PERRLA, EOMI, Normocephalic Oral: No Gingival or Mucosal Lesions/ Ulcerations Neck: Supple, No JVD, Negative Carotid Bruits Lungs: Air entry diminished in bilateral lung bases. No crepitation/rhonchi Cardiovascular: Regular rate, Regular Rhythm, Normal S1, Normal S2, systolic murmur LLSB and cardiac apex Abdomen: Bowel Sounds Present, Soft, Non Tender, Non-Distended : No renal angle tenderness. No suprapubic tenderness. Extremities: Bilateral lower extremity pitting edema, Capillary Refill Less than 3 Seconds Skin: Blister over dorsum of right foot, grayish discoloration. Features of cellulitis with redness, mild tenderness. Bilateral legs venous stasis and lymphedema. Small superficial ulceration over left lower leg. Musculoskeletal: ROM limited. Muscle strength 4/5 at major joints of LE Neurological: Cranial nerves II-XII grossly intact, DTR 2+/4 and Symmetrical Psych/Mental Status: Flat affect Assessment & Plan Assessment/Plan (1) Contusion of foot, right: (2) Acute and chronic respiratory failure with hypoxia: PLAN: Plan 1.? Severe sepsis secondary to acute on chronic hypoxic respiratory failure secondary to exacerbation of COPD and left lower lobe pneumonia-chest x-ray with left lower lobe infiltrate.? WBC 13.3. Lactic acid 2.3.? Patient's pulse ox noted to be 80% on CPAP upon arrival to ED.? Converted to BiPAP.?Now stable on 3L NC. Continue IV vanc and IV zosyn.? Albuterol and DuoNeb aerosols.? Continue prednisone. Blood culture with no growth. Sputum culture pending. 2. Acute kidney injury on chronic kidney disease stage IIIa- nephrology consulted.? Hold off on IV fluids given significant edema.? Trend BMP.? Renal ultrasound demonstrates medical renal disease. Creatinine trending down. 3. Right foot contusion-initial concern for vasculitis/ischemia.? X-ray unremarkable.? Ultrasound negative for DVT.? PEDRO LUIS completed and demonstrated pedal/visit disease.? Vascular surgery consulted as well as podiatry.? No evidence of significant hematoma. No plans for surgical intervention at this time. Continue supportive management. 4. CAD with history of stent-continue aspirin, statin, metoprolol. 5. Chronic hypoxic respiratory failure secondary to COPD, NICKOLAS-on trilogy and supplemental oxygen at bedtime per patient. 6. Chronic heart failure with preserved ejection fraction-echo June 2020 with EF 60%, stage II diastolic dysfunction. 7. Paroxysmal atrial fibrillation-continue metoprolol.? Per cardiology, not on anticoagulation due to maintaining sinus rhythm. 8. Hypertension-stable, continue current regimen. 9. Hyperlipidemia-continue statin. 10. Type 2 diabetes [id number] with sliding scale insulin. 11. GERD-continue PPI. 12. Hx DVT with history of IVC filter placement. DVT prophylaxis- heparin sc This patient was seen by LYLA MercedesC under the supervision of Dr. Cornejo. Time spent examining patient, reviewing data and subsequent management of care: 15 minutes This patient was seen in conjunction with CNC LASER OPERATORAtiya.? I have independently interviewed and examined the patient and reviewed pertinent history, examination findings, laboratory and plan of management.? I have? reviewed the note and agree with the documented findings with the few? additional points. In brief, patient is admitted for for concern of sepsis.? As per H&P patient was sick looking, short of breath, dry cough but no fever chills. the patient presented with 1.? Sepsis due to left lower lobe pneumonia with acute sepsis-related organ dysfunction as evidenced by lactic acidosis, acute on chronic kidney disease and acute on chronic hypoxic respiratory failure.? Baseline creatinine 1.3-1.4, creatinine went up to 2.69.? In ED patient was on BiPAP 40% FiO2. Antibiotic upgraded to vancomycin and Zosyn.? ID consulted.? Rapid COVID-19 antigen negative.? COVID-19 PCR negative. Blood culture negative for 48 hours. Sputum culture gram stain shows 1+ GNR, rare gram-positive rods, rare GPC. 2+ WBC. 11/04: COVID-19 PCR negative. Leukocytosis improving. Rapid flu and RSV negative. ID consult reviewed. Continue empiric vancomycin and Zosyn. Other diagnosis and management as follows 2.? Acute kidney injury on CKD stage III: Animal Nutritionist is consulted.? Monitor kidney function.? Possible etiologies, pre-renal, infection and sepsis 11/04: Improvement in creatinine. VIET probably due to prerenal heart sepsis. Renal ultrasound reported mild bilateral renal atrophy with increased echogenicity compatible with medical renal disease. Small left perinephric fluid, not clinically significant. 3.? Bilateral venous hypertension, stasis dermatitis, peripheral arterial disease with chronic left leg ulcer: Since patient has drop-of ice heavy weight on right foot and therefore black discoloration possible hematoma.Venous duplex negative for acute DVT.? Pulses over bilateral CLINICAL RESEARCH COORDINATOR and DP are triphasic but PEDRO LUIS could not be calculated.? TBI low suggestive of PAD.? Vascular surgeon and health inspector food consulted 11/04: MRI of foot was done does not show acute osteomyelitis or acute fracture or dislocation but skin/soft tissue infection consistent with cellulitis. Vascular surgeon consult reviewed suggestive of distal foot digital artery PAD, not amenable to vascular intervention. Patient on aspirin. Podiatry consult reviewed. 4.? Coronary artery disease with a stent.? Chronic HFpEF, paroxysmal A. fib on metoprolol 5.? COPD with chronic hypoxic respiratory failure and NICKOLAS: On Trelegy Other comorbidities admission eval hypertension, dyslipidemia, type 2 diabetes mellitus, GERD I have discussed my assessment with Atiya GRIER and orders have been reviewed. Total time of the visit including total time spent in counseling or coordination of care, (more than 50% of the total time, spent in obtaining medical information from nurses and other ancillary care providers,explaining to the patient about labs, imaging, diagnosis and management), discussion with consultants, review of labs and imaging is? 45 minutes.? I spent 30 minutes, Atiya CNC LASER OPERATOR spent 15 minutes Charges/Coding Visit Charges Inpatient E&M: 61460 [facility] L3
[2021-11-04 12:50] LABS: Bedside Glucose 143 mg/dL (74-106)
--- NOTE | 2021-11-04 13:01 | PCM.CONS.R ---
Assessment & Plan Assessment/Plan (1) Acute on chronic renal insufficiency: (2) Left lower lobe pneumonia: (3) Severe sepsis without septic shock: PLAN: Plan Assessment 70 y/o male, With underlying history of obstructive sleep apnea, COPD, hypertension, diabetes in addition to chronic kidney disease admitted to the hospital due to shortness of breath currently being treated for pneumonia and cellulitis. Nephrology is consulted for acute kidney injury #1 acute kidney injury on chronic kidney disease -Baseline serum creatinine is at 1.3 mg/dL -Serum creatinine peaked at 2.6 mg/dL, acute insult likely secondary to component of prerenal azotemia in the setting of sepsis -P.o. intake is improved serum creatinine improved to 2.1 mg/dL -Medications reviewed some of the stressors include combination of Vanco and Zosyn. #2 electrolytes -Overall stable -Renal ultrasound shows no obstruction #3 severe sepsis secondary to pneumonia and cellulitis -Overall improving, antibiotics per primary team Plan -Continue with supportive care, encourage p.o. intake -His uric acid level is elevated 11.1 patient will be allopurinol but will wait until renal function stabilized -Renal panel in the morning Discussed with primary team. Please call [phone] with any concerns HPI Consult Data Date of Consult: 11/04/21 HPI Narrative Reason for Consultation: viet/ckd HPI Narrative: JB MCPHERSON, is a 70 M who presents sob, currently being treated for PNA/cellulitis. Nephrology consulted for viet/ckd. Patient states about 10 years ago, had PNA and was close to needing dialysis, but not following with nephrology. Since hospitalization, and treated for infection, he feels better. Today, appetite is improved, breathing improved. On presenation, scr 2.15mg/dL up to 2.6mg/dL and imrpoved to 2.1mg/dL today. His baseline scr 1.3mg/dL [facility] Medical History Abnormal EKG Abnormal positron emission tomography (PET) scan VIET (acute kidney injury) Alcohol abuse Anemia Atherosclerosis of coronary artery of [place] heart without angina pectoris B12 deficiency Golden's esophagus Benign neoplasm of colon Benign neoplasm of larynx Blood loss anemia Chronic back pain Chronic diastolic (congestive) heart failure Chronic renal disease, stage 3, moderately decreased glomerular filtration rate (GFR) between 30-59 mL/min/1.73 square meter Chronic respiratory failure COLD (chronic obstructive lung disease) COPD (chronic obstructive pulmonary disease) Debility Diabetes Diverticulosis of colon (without mention of hemorrhage) DVT (deep venous thrombosis) (11/09/16) Essential (primary) hypertension Familial combined hyperlipidemia Former smoker GERD (gastroesophageal reflux disease) GI bleed H/O immunosuppressive therapy Hyperlipidemia Hypertension Internal hemorrhoids without mention of complication Lumbar spinal stenosis Lung nodules Neuropathic pain Non-compliance Obesity Obstructive sleep apnea On home oxygen therapy Other voice and resonance disorders Paroxysmal atrial fibrillation Peripheral neuropathy Rheumatoid arthritis Sleep apnea Steroid long-term use Tracheostomy in place Type 2 diabetes mellitus Home Medications omeprazole 20 mg capsule,delayed release 20 mg PO BID GERD 02/09/17 [History Last Taken 11/01/21] albuterol sulfate 90 mcg/actuation aerosol inhaler 2 puff PO Q4H PRN PRN wheezing/sob 01/29/19 [History Last Taken 01/28/19] metformin 500 mg tablet 500 mg PO BID BS 01/29/19 [History Last Taken 11/01/21] nitroglycerin 0.4 mg sublingual tablet 0.4 mg sublingual PRN PRN chest pain 01/29/19 [History Last Taken Unknown] budesonide 0.5 mg/2 mL suspension for nebulization (Pulmicort) 2 ml inhalation Q12H PRN Sob &/Or Wheezing 02/19/19 [History Last Taken 11/01/21] budesonide-formoterol HFA 160 mcg-4.5 mcg/actuation aerosol inhaler 2 puff inhalation BID Lungs 05/18/19 [History Last Taken 11/01/21] cyanocobalamin (vitamin B-12) 500 mcg tablet 1,000 mcg PO QODAY Supplement 01/20/20 [History Last Taken 11/01/21] ipratropium 20 mcg-albuterol 100 mcg/actuation mist for inhalation 1 puff inhalation 4X/DAY Lungs 01/20/20 [History Last Taken 11/01/21] oxycodone-acetaminophen 5 mg-325 mg tablet 1 tab PO Q6H PRN Pain 06/19/21 [History Last Taken Unknown] pregabalin 25 mg capsule 25 mg PO BID neuropathy 06/19/21 [History Last Taken 11/01/21] metoprolol tartrate 25 mg tablet 25 mg PO BID BP #180 tabs 07/26/21 [Rx Last Taken 11/01/21] aspirin 81 mg tablet,delayed release (Enteric Coated Aspirin) 81 mg PO Q OTHER DAY Heart 09/18/21 [History Last Taken 11/01/21] ergocalciferol (vitamin D2) 1,250 mcg (50,000 unit) capsule 1,250 mcg PO TH supplement 11/02/21 [History Last Taken 11/01/21] furosemide 40 mg tablet 80 mg PO BID water pill 11/02/21 [History Last Taken 11/01/21] prednisone 10 mg tablet 10 mg PO DAILY PRN PRN Steroid 11/02/21 [History Last Taken Unknown] rosuvastatin 20 mg tablet 20 mg PO QHS Cholesterol 11/02/21 [History Last Taken Unknown] Allergy/AdvReac Type Severity Reaction Status Date / Time meropenem Allergy Unknown Verified 11/02/21 11:12 tramadol Allergy Unknown Verified 11/02/21 11:12 vancomycin Allergy Unknown Verified 11/02/21 11:12 hydrocodone bitartrate AdvReac nightmares Verified 11/02/21 11:12 [From Vicodin] Family History Father Heart disease Brother Heart disease Cancer prostate Surgical History history IVC filter insertion (2016) History of colonoscopy (08/08/16) History of coronary artery stent placement (08/29/10) History of esophagogastroduodenoscopy (EGD) (08/08/16) History of esophagogastroduodenoscopy (EGD) (03/2019) History of incisional hernia repair History of left heart catheterization History of lumbar laminectomy (01/2020) Social History household members: significant other Smoking Status: Former smoker Tobacco: How many years used: 40 how long ago did patient quit smokin + years ago alcohol intake: never substance use type: does not use caffeine: Yes Type: coffee Number of servings: 8 ROS ROS Narrative 10 ROS negative other than stated above Physical Exam Narrative alert, responsive, no acute distress nc/at/eomi oral mucosa slightly dry s1s2 regular b/s diminished abdomen obese +cellulitis right foot Lab / Micro Data Result Diagrams: 11/04/21 05:51 11/04/21 05:51 Labs: Laboratory Results - last 24 hr 11/03/21 14:55: Ur Random Sodium < 5, Urine Creatinine 113.00 11/03/21 14:55: COVID-19 (JAIDEN) Negative 11/03/21 16:53: POC Glucose 152 H 11/03/21 21:24: POC Glucose 140 H 11/04/21 05:51: WBC 11.2 H, RBC 4.07 L, Hgb 10.9 L, Hct 33.8 L, MCV 83.0, MCH 26.8 L, MCHC 32.2, RDW Std Deviation 47.2 H, RDW Coeff of Nina 15.5 H, Plt Count 237, MPV 9.1, Immature Gran % (Auto) 1.500 H, Neut % (Auto) 89.9 H, Lymph % (Auto) 1.1 L, [place] % (Auto) 7.3, Eos % (Auto) 0.1, Baso % (Auto) 0.1, Absolute Neuts (auto) 10.1 H, Absolute Lymphs (auto) 0.12 L, Nucleated RBC % 0, Differential Comment SCANNED 11/04/21 05:51: Sodium 135 L, Potassium 3.5, Chloride 98, Carbon Dioxide 27.0, Anion Gap 10, BUN 59 H, Creatinine 2.11 H, Estim Creat Clear Calc 31.97, Est GFR (MDRD) Af Amer 40 L, Est GFR (MDRD) Non-Af 33 L, BUN/Creatinine Ratio 28.0 H, Glucose 120 H, Calcium 8.8 11/04/21 06:17: POC Glucose 108 H 11/04/21 12:27: POC Glucose 143 H Micro: Microbiology 11/02/21 15:10 Blood Culture (Wb) - Left Wrist Blood Culture - Preliminary No growth in 48 hours. Radiology Impression Venous Doppler Study 11/02/21 17:23 Interpretation Summary No evidence for acute deep venous thrombosis bilateral lower extremities with patent and compressible bilateral great saphenous veins. Ordering Physician: Atiya Sweeney Referring Physician: Andres Petty Performed By: Lacey Rodriges RVT Ankle Brachial Index 11/03/21 10:26 Interpretation Summary Unable to calculate bilateral ankle brachial indices due to vessel non-compressibility suggestive of medial calcification of vessel kinsey making this examination non-diagnostic. Normal bilateral triphasic DP and PT doppler waveforms suggesting presence of arterial flow. Abnormal bilateral digital brachial indices of 0.34 on the right and 0.39 on the left suggestive of arterial occlusive disease. Ordering Physician: Mark Cornejo Referring Physician: Andres Petty Performed By: Lacey Rodriges, RON Lower Extremity MRI 11/03/21 12:19 IMPRESSION: Limited by motion artifact 1. Negative for osteomyelitis 2. Forefoot soft tissue swelling and edema suggesting cellulitis. No abscess 3. No acute fracture or dislocation. Electronically Signed: Dejuan Del Castillo DO at 5:48 EDT , Renal Ultrasound 11/03/21 13:56 IMPRESSION: Mild bilateral renal atrophy with increased echogenicity compatible with medical renal disease. Small left perinephric fluid. 3.3 cm soft tissue structure along the superior aspect of the right kidney may represent adrenal gland. Bilateral renal cysts. Electronically Signed: Raymon Phillips MD at 21:16 EDT ,
[2021-11-04] MEDS: Insulin Lispro 100 UNIT/ML INSULN.PEN SC ×2 (18:17→21:27)
[2021-11-04 18:30] LABS: Bedside Glucose 249 mg/dL (74-106)
[2021-11-04 23:35] LABS: Bedside Glucose 191 mg/dL (74-106)
[2021-11-05] VITALS (12 sets, daily range): BP systolic 128–160; BP diastolic 82–98; PULSE 69–101; RESP 15–20; TEMP 36.4–36.8; O2SAT 94–97
[2021-11-05] MEDS: oxyCODONE 5 MG Tablet 10 MG PO ×3 (01:40→19:37)
[2021-11-05] MEDS: Vancomycin IV 1,000 MG/200 ML BAG 200 MG IV (01:45)
[2021-11-05] MEDS: Morphine 2 MG/ML Syringe IV ×5 (05:16→21:27)
[2021-11-05] MEDS: 0.9% Saline Lock 10 ML Syringe IV ×4 (05:17→21:27)
[2021-11-05] MEDS: Heparin Injection (Vial) 5,000 UNIT/ML VIAL 5000 UNIT SC ×3 (05:17→21:15)
[2021-11-05 07:00] LABS: Bedside Glucose 128 mg/dL (74-106)
[2021-11-05] MEDS: Ipratropium/Albuterol Sulfate 3 ML AMPUL.NEB INHALATION ×4 (07:08→19:02)
[2021-11-05] MEDS: predniSONE 20 MG Tablet 40 MG PO (08:40)
[2021-11-05] MEDS: Juven (unflavored) Packet 1 PACKET PO ×2 (08:40→17:06)
[2021-11-05] MEDS: Pantoprazole Sodium 20 MG Tablet PO ×2 (08:40→21:19)
[2021-11-05] MEDS: Aspirin E.C. 325 MG Tablet PO (08:41)
[2021-11-05 09:17] LABS: Absolute Lymphocyte Count 0.18 X10^3/uL (0.83-4.51); Absolute Neutrophil Count 8.7 X10^3/uL (2.0-7.7); Basophil# 0.02 X10^3/uL; Basophil% 0.2 % (0-1); Eosinophil# 0.02 X10^3/uL; Eosinophils% 0.2 % (0-5); Lymphocyte # 0.18 X10^3/ul (0.83-4.51); Lymphocyte % 1.8 % (19-41); Mean Corp Hgb Conc 31.4 g/dL (32-36); Mean Corpuscular Hgb 26.7 pg (27.0-32.0); Mean Platelet Vol. 9.5 fl (6.2-12.0); Monocyte# 0.81 X10^3/uL; Monocyte% 8.2 % (0-10); NRBC Flagged by Analyzer 0 % (0-5); Neutrophil # 8.65 X10^3/uL (2.7-7.7); Neutrophil % 87.8 % (47-70); POSITIVE DIFFERENTIAL YES; Platelet Count 261 K/mm3 (150-450); RBC Distribution Width CV 15.6 % (11.6-14.6); RBC Distribution Width SD 47.8 fl (35.1-43.9); Red Blood Count 4.12 M/mm3 (4.6-6.2); White Blood Count 9.9 K/mm3 (4.4-11.0)
[2021-11-05 09:27] LABS: Differential Indicated SCAN CRITERIA MET
[2021-11-05 09:30] LABS: Anion Gap 8 (5-15); BUN 60 mg/dL (7-18); BUN/Creat Ratio 30.9 RATIO (10-20); Calcium,Total 9.4 mg/dL (8.5-10.1); Chloride 97 mmol/L (98-107); Creatinine, Serum 1.94 mg/dL (0.70-1.30); EST Glomerular Filtration Rate 37 mL/min (>60); Est Glom Filt Rate - Afr Amer 44 mL/min (>60); Estimated Creatinine Clearance 34.77 ml/min; Glucose 214 mg/dL (74-106); Potassium 3.4 mmol/L (3.5-5.1); Sodium Level 135 mmol/L (136-145)
[2021-11-05 09:49] LABS: Differential Comment SCANNED
--- NOTE | 2021-11-05 10:02 | PCM.PROGNOTE ---
Subjective Subjective 70-year-old male seen bedside for right foot infection. Patient patient has 2 reported history of trauma to his right foot in setting of peripheral arterial disease and peripheral neuropathy secondary to diabetes. Patient first was attempting to weed whacking his lawn while driving a golf cart caught his forefoot in the golf pedal leading to a torsional injury to the right foot. This was approximately 2 and half months ago. Patient then notes dropping a carton of ice cream on his right foot 2 weeks ago. Since that time he is noted swelling and pain which progressively worsened over time and led to development of redness and skin changes to his right forefoot. At this time patient denies any constitutional symptoms. Patient notes improvement in his pain since admission to the hospital. Denies any new changes at this time. Objective Data Objective Data Vital Signs: Vital Signs Temp Pulse Resp BP Pulse Ox O2 Del Method O2 Flow Rate 97.8 F 93 15 152/86 H 95 Nasal Cannula 4 11/05/21 08:42 11/05/21 08:42 11/05/21 08:42 11/05/21 08:42 11/05/21 08:42 11/05/21 08:54 11/05/21 08:54 FiO2 35 11/05/21 05:10 Oxygen Flow Rate (L/min) 4 Oxygen Delivery Method Nasal Cannula Weight: 100.1 kg Body Mass Index (BMI) 33.5 Intake & Output: Intake and Output for Last 24 Hours 11/03/21 11/04/21 11/05/21 23:59 23:59 23:59 Intake Total 230 / 230 0 / 2050 300 / 300 Output Total 675 / 675 1525 / 1525 350 / 350 Balance -445 / -445 525 / 525 -50 / -50 Lab / Micro Data Attestation: I reviewed the patient's lab results. Result Diagrams: 11/05/21 09:10 11/05/21 09:10 Labs: Laboratory Results - last 24 hr 11/04/21 12:27: POC Glucose 143 H 11/04/21 18:13: POC Glucose 249 H 11/04/21 21:26: POC Glucose 191 H 11/05/21 06:25: POC Glucose 128 H 11/05/21 09:10: WBC 9.9, RBC 4.12 L, Hgb 11.0 L, Hct 35.0 L, MCV 85.0, MCH 26.7 L, MCHC 31.4 L, RDW Std Deviation 47.8 H, RDW Coeff of Nina 15.6 H, Plt Count 261, MPV 9.5, Immature Gran % (Auto) 1.800 H, Neut % (Auto) 87.8 H, Lymph % (Auto) 1.8 L, [place] % (Auto) 8.2, Eos % (Auto) 0.2, Baso % (Auto) 0.2, Absolute Neuts (auto) 8.7 H, Absolute Lymphs (auto) 0.18 L, Nucleated RBC % 0, Differential Comment SCANNED 11/05/21 09:10: Sodium 135 L, Potassium 3.4 L, Chloride 97 L, Carbon Dioxide 30.0, Anion Gap 8, BUN 60 H, Creatinine 1.94 H, Estim Creat Clear Calc 34.77, Est GFR (MDRD) Af Amer 44 L, Est GFR (MDRD) Non-Af 37 L, BUN/Creatinine Ratio 30.9 H, Glucose 214 H, Calcium 9.4 Micro: Microbiology 11/04/21 09:15 Sputum, Expectorated/Coughed Gram Stain - Final 11/04/21 09:15 Sputum, Expectorated/Coughed Respiratory Culture - Preliminary Gram negative jb GNR lactose product sales engineer 11/02/21 15:10 Blood Culture (Wb) - Left Wrist Blood Culture - Preliminary No growth in 48 hours. 11/02/21 12:39 Nasal Secretion SARS-CoV-2 & FLU Antigen (Rapid) - Final Physical Exam Narrative Patient alert oriented person place and time. Vascular: Diffuse pitting edema to bilateral lower extremity +2 noted to the forefoot foot and Joseph malleoli region. Pulses are diminished bilaterally and nonpalpable, dopplerable biphasic bilaterally PT DP pulses. atrophic skin changes noted. Neurologic: Light touch protective sensation absent to bilateral feet. Dermatologic: Focal erythema noted to the dorsal right midfoot extending to the forefoot. Early area of necrosis to skin to the dorsal forefoot just proximal to the sulcus of the toes. New onset hemorrhage bullous right forefoot, no evidence of purulence or deep probing upon lysing of bullous. Mild focal increase in warmth. No evidence of fluctuance or crepitus to the site. Multiple full-thickness wounds noted to the left lower extremity along the medial leg these wounds are small in nature and do not probe deep undermining or have any signs of infection. To anterior feel you full-thickness wounds stable no deep probing undermining. Erythema contiguous with the leg wounds approximately into the forefoot. Erythema unchanged at this time. Musculoskeletal: Diffuse pain noted to right forefoot with increased swelling relative to the contralateral side. Pain is nonspecific in nature. No pain with calf squeeze or palpation popliteal fossa bilaterally. Assessment & Plan Assessment/Plan (1) Contusion of foot, right: PLAN: Patient examined and evaluated, all findings cussed patient detail. Patient has a right foot cellulitis secondary to trip multiple traumatic injuries in the setting of peripheral arterial disease and peripheral neuropathy. MRI was negative for any deep abscess or hematoma formation. No evidence of bone fracture or osteomyelitis as well. Leukocytosis resolved. Patient vitally stable. Right foot and leg edema and erythema unchanged. Dressings were changed today the right forefoot bolus was lysed sterilely and cultured using swab cultures. Redressed the sites with Adaptic 4 x 4's Kerlix and light compression via 6 inch Néstor wraps bilaterally. Patient continue elevating for edema management. Patient has elevated BNP likely contributing to some peripheral edema. I recommend offloading in the right forefoot with heel weightbearing in a Cam walking boot or surgical shoe. Limiting ambulation to transfer purposes only. Left wound cultures demonstrate gram-negative rods and Enterobacter cloacae. We will await new right foot cultures. Patient currently receiving vancomycin and Zosyn. Patient demonstrates diminished TBI's bilaterally. Vascular evaluated the patient no surgical intervention at this time. The right forefoot will likely demarcate into a full-thickness wound over the coming weeks will require local wound care. If there are any additional delays in healing we will likely reconsult vascular surgery at that time. We will continue to monitor the right foot daily for improvement in edema and redness. (2) Type 2 diabetes mellitus with diabetic polyneuropathy: (3) Peripheral vascular disease, unspecified:
[2021-11-05 11:27] LABS: Hemoglobin A1c 7.2 % (3.8-5.6)
[2021-11-05 11:54] LABS: M R Staph aureus DNA By PCR Negative (Negative); Probe Check PASS; Specimen Processing Control PASS; Staph aureus DNA By PCR NEGATIVE (Negative)
--- NOTE | 2021-11-05 12:01 | PCM.PN.HOSP ---
Documented by User: Atiya Sweeney NP, LINER MACHINE OPERATOR HELPER-C 11/05/21 12:05 Subjective Subjective Patient seen and examined. Right foot pain improved. Denies fever, chills. Denies shortness of breath. States he overall feels better. Objective Data Objective Data Vital Signs: Vital Signs Temp Pulse Resp BP Pulse Ox O2 Del Method O2 Flow Rate 97.8 F 85 20 H 152/86 H 95 Nasal Cannula 4 11/05/21 08:42 11/05/21 10:36 11/05/21 10:36 11/05/21 08:42 11/05/21 08:42 11/05/21 08:54 11/05/21 08:54 FiO2 35 11/05/21 05:10 Oxygen Flow Rate (L/min) 4 Oxygen Delivery Method Nasal Cannula Weight: 220 lb 10.923 oz Body Mass Index (BMI) 33.5 Intake & Output: Intake and Output for Last 24 Hours 11/03/21 11/04/21 11/05/21 23:59 23:59 23:59 Intake Total 230 / 230 2050 / 2050 820 / 820 Output Total 675 / 675 1525 / 1525 750 / 750 Balance -445 / -445 525 / 525 70 / 70 Lab / Micro Data Result Diagrams: 11/05/21 09:10 11/05/21 09:10 Labs: Laboratory Results - last 24 hr 11/04/21 12:27: POC Glucose 143 H 11/04/21 18:13: POC Glucose 249 H 11/04/21 21:26: POC Glucose 191 H 11/05/21 06:25: POC Glucose 128 H 11/05/21 09:10: WBC 9.9, RBC 4.12 L, Hgb 11.0 L, Hct 35.0 L, MCV 85.0, MCH 26.7 L, MCHC 31.4 L, RDW Std Deviation 47.8 H, RDW Coeff of Nina 15.6 H, Plt Count 261, MPV 9.5, Immature Gran % (Auto) 1.800 H, Neut % (Auto) 87.8 H, Lymph % (Auto) 1.8 L, [place] % (Auto) 8.2, Eos % (Auto) 0.2, Baso % (Auto) 0.2, Absolute Neuts (auto) 8.7 H, Absolute Lymphs (auto) 0.18 L, Nucleated RBC % 0, Differential Comment SCANNED 11/05/21 09:10: Sodium 135 L, Potassium 3.4 L, Chloride 97 L, Carbon Dioxide 30.0, Anion Gap 8, BUN 60 H, Creatinine 1.94 H, Estim Creat Clear Calc 34.77, Est GFR (MDRD) Af Amer 44 L, Est GFR (MDRD) Non-Af 37 L, BUN/Creatinine Ratio 30.9 H, Glucose 214 H, Calcium 9.4 11/05/21 09:10: Hemoglobin A1c 7.2 H 11/05/21 10:00: S.aureus Protein A PCR NEGATIVE, MRSA (PCR) Negative Micro: Microbiology 11/04/21 09:15 Sputum, Expectorated/Coughed Gram Stain - Final 11/04/21 09:15 Sputum, Expectorated/Coughed Respiratory Culture - Preliminary Gram negative jb GNR lactose silverware cleaner 11/02/21 15:10 Blood Culture (Wb) - Left Wrist Blood Culture - Preliminary No growth in 48 hours. 11/02/21 12:39 Nasal Secretion SARS-CoV-2 & FLU Antigen (Rapid) - Final Physical Exam Const alert and oriented x3 HEENT normocephalic and moist oral mucous membranes Eyes PERRL, EOMs intact bilaterally and conjunctivae normal Neck no lymphadenopathy Resp clear to auscultation bilaterally Auscultation: diminished lung sounds Cardio regular rate, regular rhythm and no murmurs Peripheral Pulses: pulses 2+ throughout GI normal to inspection, nondistended, normoactive bowel sounds, non-tender and non-distended Extremity normal to inspection Skin no rashes or lesions noted Skin Narrative: Right foot dressing intact Lesions: no lesions Rashes: no rashes Trauma: no lacerations or abrasions Neuro CN's II-XII intact bilaterally, no focal motor deficits, no sensory deficits noted and deep tendon reflexes 2+ bilaterally Psych mental status grossly normal and affect normal Assessment & Plan Assessment/Plan (1) Contusion of foot, right: (2) Acute and chronic respiratory failure with hypoxia: PLAN: Plan 1.? Severe sepsis secondary to acute on chronic hypoxic respiratory failure as a result of exacerbation of COPD, left lower lobe pneumonia and right foot cellulitis-chest x-ray with left lower lobe infiltrate.? WBC 13.3. Lactic acid 2.3.? Patient's pulse ox noted to be 80% on CPAP upon arrival to ED.? Converted to BiPAP.?Now stable on 3L NC. Continue IV vanc and IV zosyn.? Albuterol and DuoNeb aerosols.? Continue prednisone. Blood culture with no growth.? Sputum culture pending. 2. Acute kidney injury on chronic kidney disease stage IIIa- nephrology consulted.? Hold off on IV fluids given significant edema.? Trend BMP.? Renal ultrasound demonstrates medical renal disease.? Creatinine trending down. 3.? Right foot cellulitis and contusion-initial concern for vasculitis/ischemia.? X-ray unremarkable.? Ultrasound negative for DVT.? PEDRO LUIS completed and demonstrated pedal/visit disease.? Vascular surgery consulted as well as podiatry.? No evidence of significant hematoma.? No plans for surgical intervention at this time.? Continue supportive management. Continue antibiotics per above. Dressing changes as ordered. 4. CAD with history of stent-continue aspirin, statin, metoprolol. 5. Chronic hypoxic respiratory failure secondary to COPD, NICKOLAS-on trilogy and supplemental oxygen at bedtime per patient. 6. Chronic heart failure with preserved ejection fraction-echo June 2020 with EF 60%, stage II diastolic dysfunction. 7. Paroxysmal atrial fibrillation-continue metoprolol.? Per cardiology, not on anticoagulation due to maintaining sinus rhythm. 8. Hypertension-stable, continue current regimen. 9. Hyperlipidemia-continue statin. 10. Type 2 diabetes [id number] with sliding scale insulin. 11. GERD-continue PPI. 12. Hx DVT with history of IVC filter placement. DVT prophylaxis- heparin sc This patient was seen by ASHLEY Mercedes under the supervision of Dr. Cornejo. Time spent examining patient, reviewing data and subsequent management of care: 14 minutes Documented by User: Dr. Mark Cornejo MD 11/05/21 14:33 Subjective Subjective Patient seen and examined. Right foot pain improved. Denies fever, chills. Denies shortness of breath. States he overall feels better. Seen and examined. Shortness of breath improved. Right foot pain better. Right foot blister popped out. Bilateral below-knee Néstor wrap bandage Objective Data Lab / Micro Data Result Diagrams: 11/05/21 09:10 11/05/21 09:10 Labs: Laboratory Results - last 24 hr 11/04/21 12:27: POC Glucose 143 H 11/04/21 18:13: POC Glucose 249 H 11/04/21 21:26: POC Glucose 191 H 11/05/21 06:25: POC Glucose 128 H 11/05/21 09:10: WBC 9.9, RBC 4.12 L, Hgb 11.0 L, Hct 35.0 L, MCV 85.0, MCH 26.7 L, MCHC 31.4 L, RDW Std Deviation 47.8 H, RDW Coeff of Nina 15.6 H, Plt Count 261, MPV 9.5, Immature Gran % (Auto) 1.800 H, Neut % (Auto) 87.8 H, Lymph % (Auto) 1.8 L, [place] % (Auto) 8.2, Eos % (Auto) 0.2, Baso % (Auto) 0.2, Absolute Neuts (auto) 8.7 H, Absolute Lymphs (auto) 0.18 L, Nucleated RBC % 0, Differential Comment SCANNED 11/05/21 09:10: Sodium 135 L, Potassium 3.4 L, Chloride 97 L, Carbon Dioxide 30.0, Anion Gap 8, BUN 60 H, Creatinine 1.94 H, Estim Creat Clear Calc 34.77, Est GFR (MDRD) Af Amer 44 L, Est GFR (MDRD) Non-Af 37 L, BUN/Creatinine Ratio 30.9 H, Glucose 214 H, Calcium 9.4 11/05/21 09:10: Hemoglobin A1c 7.2 H 11/05/21 10:00: S.aureus Protein A PCR NEGATIVE, MRSA (PCR) Negative Physical Exam Narrative Physical exam General: Awake, oriented x3. coherent to speech HEENT: Atraumatic, PERRLA, EOMI, Normocephalic Oral: No Gingival or Mucosal Lesions/ Ulcerations Neck: Supple, No JVD, Negative Carotid Bruits Lungs: Air entry diminished in bilateral lung bases. No crepitation/rhonchi Cardiovascular: Regular rate, Regular Rhythm, Normal S1, Normal S2, systolic murmur LLSB and cardiac apex Abdomen: Bowel Sounds Present, Soft, Non Tender, Non-Distended : No renal angle tenderness. No suprapubic tenderness. Extremities: Bilateral lower extremity pitting edema, improving. Capillary Refill Less than 3 Seconds Skin: Bilateral Néstor wrap bandage. Bilateral legs venous stasis and lymphedema. Small superficial ulceration over left lower leg. Musculoskeletal: ROM limited. Muscle strength 4/5 at major joints of LE Neurological: Cranial nerves II-XII grossly intact, DTR 2+/4 and Symmetrical Psych/Mental Status: Flat affect Assessment & Plan Assessment/Plan (1) Contusion of foot, right: (2) Acute and chronic respiratory failure with hypoxia: PLAN: Plan 1.? Severe sepsis secondary to acute on chronic hypoxic respiratory failure as a result of exacerbation of COPD, left lower lobe pneumonia and right foot cellulitis-chest x-ray with left lower lobe infiltrate.? WBC 13.3. Lactic acid 2.3.? Patient's pulse ox noted to be 80% on CPAP upon arrival to ED.? Converted to BiPAP.?Now stable on 3L NC. Continue IV vanc and IV zosyn.? Albuterol and DuoNeb aerosols.? Continue prednisone. Blood culture with no growth.? Sputum culture pending. 2. Acute kidney injury on chronic kidney disease stage IIIa- nephrology consulted.? Hold off on IV fluids given significant edema.? Trend BMP.? Renal ultrasound demonstrates medical renal disease.? Creatinine trending down. 3.? Right foot cellulitis and contusion-initial concern for vasculitis/ischemia.? X-ray unremarkable.? Ultrasound negative for DVT.? PEDRO LUIS completed and demonstrated pedal/visit disease.? Vascular surgery consulted as well as podiatry.? No evidence of significant hematoma.? No plans for surgical intervention at this time.? Continue supportive management. Continue antibiotics per above. Dressing changes as ordered. 4. CAD with history of stent-continue aspirin, statin, metoprolol. 5. Chronic hypoxic respiratory failure secondary to COPD, NICKOLAS-on trilogy and supplemental oxygen at bedtime per patient. 6. Chronic heart failure with preserved ejection fraction-echo June 2020 with EF 60%, stage II diastolic dysfunction. 7. Paroxysmal atrial fibrillation-continue metoprolol.? Per cardiology, not on anticoagulation due to maintaining sinus rhythm. 8. Hypertension-stable, continue current regimen. 9. Hyperlipidemia-continue statin. 10. Type 2 diabetes [id number] with sliding scale insulin. 11. GERD-continue PPI. 12. Hx DVT with history of IVC filter placement. DVT prophylaxis- heparin sc This patient was seen by Atiya Sweeney NP-C under the supervision of Dr. Cornejo. Time spent examining patient, reviewing data and subsequent management of care: 15 minutes This patient was seen in conjunction with LINER MACHINE OPERATOR HELPER, Atiya.? I have independently interviewed and examined the patient and reviewed pertinent history, examination findings, laboratory and plan of management.? I have? reviewed the note and agree with the documented findings with the few? additional points. In brief, patient is admitted for for concern of sepsis.? As per H&P patient was sick looking, short of breath, dry cough but no fever chills. the patient presented with 1.? Sepsis due to left lower lobe pneumonia with acute sepsis-related organ dysfunction as evidenced by lactic acidosis, acute on chronic kidney disease and acute on chronic hypoxic respiratory failure.? Baseline creatinine 1.3-1.4, creatinine went up to 2.69.? In ED patient was on BiPAP 40% FiO2. Antibiotic upgraded to vancomycin and Zosyn.? ID consulted.? Rapid COVID-19 antigen negative.? COVID-19 PCR negative.? Blood culture negative for 48 hours.? Sputum culture gram stain shows 1+ GNR, rare gram-positive rods, rare GPC.? 2+ WBC. 11/04: COVID-19 PCR negative.? Leukocytosis improving.? Rapid flu and RSV negative.? ID consult reviewed.? Continue empiric vancomycin and Zosyn. Other diagnosis and management as follows 11/05: Prelim sputum culture growing GNR, lactose silverware cleaner. Continue broad-spectrum antibiotic. Sepsis and shortness of breath symptoms are getting better. No fever. Tachycardia and leukocytosis resolved. 2.? Acute kidney injury on CKD stage III: Clothespin Drier Operator is consulted.? Monitor kidney function.? Possible etiologies, pre-renal, infection and sepsis 11/04: Improvement in creatinine.? VIET probably due to prerenal and sepsis.? Renal ultrasound reported mild bilateral renal atrophy with increased echogenicity compatible with medical renal disease.? Small left perinephric fluid, not clinically significant. 11/05: Improvement in creatinine. 3.? Bilateral venous hypertension, stasis dermatitis, peripheral arterial disease with chronic left leg ulcer: Since patient has drop-of ice heavy weight on right foot and therefore black discoloration possible hematoma.Venous duplex negative for acute DVT.? Pulses over bilateral SHELL REPRINT OPERATOR and DP are triphasic but PEDRO LUIS could not be calculated.? TBI low suggestive of PAD.? Vascular surgeon and heel varnisher consulted 11/04: MRI of foot was done does not show acute osteomyelitis or acute fracture or dislocation but skin/soft tissue infection consistent with cellulitis.? Vascular surgeon consult reviewed suggestive of distal foot digital artery PAD, not amenable to vascular intervention.? Patient on aspirin.? Podiatry consult reviewed. 4.? Coronary artery disease with a stent.? Chronic HFpEF, paroxysmal A. fib on metoprolol 5.? COPD with chronic hypoxic respiratory failure and NICKOLAS: On Trelegy Other comorbidities admission eval hypertension, dyslipidemia, type 2 diabetes mellitus, GERD I have discussed my assessment with LINER MACHINE OPERATOR HELPERAtiya and orders have been reviewed. Total time of the visit including total time spent in counseling or coordination of care, (more than 50% of the total time, spent in obtaining medical information from nurses and other ancillary care providers,explaining to the patient about labs, imaging, diagnosis and management), discussion with consultants, review of labs and imaging is? 40 minutes.? I spent 25 minutes, Atiya LINER MACHINE OPERATOR HELPER spent 15 minutes Charges/Coding Visit Charges Inpatient E&M: 11290 Subs Hosp L3
[2021-11-05 12:05] LABS: Bedside Glucose 127 mg/dL (74-106)
[2021-11-05] MEDS: Insulin Lispro 100 UNIT/ML INSULN.PEN SC ×2 (17:07→21:16)
[2021-11-05 17:31] LABS: Bedside Glucose 218 mg/dL (74-106)
[2021-11-05] MEDS: Potassium Chloride Oral Tablet 20 MEQ 40 MEQ PO (21:19)
[2021-11-05 22:55] LABS: Bedside Glucose 154 mg/dL (74-106)
[2021-11-06] VITALS (16 sets, daily range): BP systolic 140–166; BP diastolic 62–94; PULSE 67–95; RESP 18–24; TEMP 36.4–36.8; O2SAT 95–98
[2021-11-06] MEDS: Morphine 2 MG/ML Syringe IV ×7 (00:05→21:28)
[2021-11-06] MEDS: 0.9% Saline Lock 10 ML Syringe IV ×3 (00:07→21:28)
[2021-11-06 00:49] LABS: Vancomycin, Trough Level 17.4 ug/mL (5.0-15.0)
--- NOTE | 2021-11-06 01:16 | PCM.RX.CS ---
Consult Pharmacy has been consulted to manage selected antiobiotic: Vancomycin Type of Consult: Follow-up Labs: Sodium 135 mmol/L (136-145) L 11/05/21 09:10 Potassium 3.4 mmol/L (3.5-5.1) L 11/05/21 09:10 Chloride 97 mmol/L (98-107) L 11/05/21 09:10 Carbon Dioxide 30.0 mmol/L (21.0-32.0) 11/05/21 09:10 Anion Gap 8 (5-15) 11/05/21 09:10 BUN 60 mg/dL (7-18) H 11/05/21 09:10 Creatinine 1.94 mg/dL (0.70-1.30) H 11/05/21 09:10 Est GFR (MDRD) Af Amer 44 mL/min (>60) L 11/05/21 09:10 Est GFR (MDRD) Non-Af 37 mL/min (>60) L 11/05/21 09:10 BUN/Creatinine Ratio 30.9 RATIO (10-20) H 11/05/21 09:10 Glucose 214 mg/dL (74-106) H 11/05/21 09:10 Vancomycin Trough 17.4 ug/mL (5.0-15.0) H 11/06/21 00:03 Microbiology: Microbiology 11/04/21 09:15 Sputum, Expectorated/Coughed Gram Stain - Final 11/04/21 09:15 Sputum, Expectorated/Coughed Respiratory Culture - Preliminary Gram negative jb GNR lactose resaw carriage operator 11/02/21 15:10 Blood Culture (Wb) - Left Wrist Blood Culture - Preliminary No growth in 48 hours. 11/02/21 12:39 Nasal Secretion SARS-CoV-2 & FLU Antigen (Rapid) - Final Goal Trough: 15-20 mcg/mL Pharmacy Plan for Drug Dosing: VANCOMYCIN LEVEL RECEIVED Current Vancomycin Dose: 1000mg IV Q24hr Number of Doses Received: 2 (initial + scheduled) Vancomycin Level: 17.4 Hours Since Last Dose: 22.5hr Renal Function: 1.94 Renal Function Trend: improving Lab/Micro: SCx growing GNR Vancomycin Plan/Comments: Patient had a trough drawn which resulted in a value of 17.4 (goal 15-20). Patient is within therapeutic range. Will continue current dosing and recheck a trough in a few days to re-assess dosing. Pending Level: 11/08/21 @0000 Pharmacy Service will continue to monitor and adjust dosing as required.
[2021-11-06] MEDS: oxyCODONE 5 MG Tablet 10 MG PO ×4 (01:39→23:50)
[2021-11-06] MEDS: Vancomycin IV 1,000 MG/200 ML BAG 200 MG IV (01:42)
[2021-11-06] MEDS: Heparin Injection (Vial) 5,000 UNIT/ML VIAL 5000 UNIT SC ×3 (05:05→21:29)
[2021-11-06 06:26] LABS: Basophil# 0.03 X10^3/uL; Basophil% 0.3 % (0-1); Eosinophil# 0.02 X10^3/uL; Eosinophils% 0.2 % (0-5); Hematocrit 33.4 % (40-54); Hemoglobin 10.7 g/dL (13.0-16.5); Lymphocyte % 2.3 % (19-41); Mean Corpuscular Hgb 27.1 pg (27.0-32.0); Mean Corpuscular Volume 84.6 fL (80-94); Mean Platelet Vol. 9.1 fl (6.2-12.0); Monocyte# 1.13 X10^3/uL; Monocyte% 12.9 % (0-10); NRBC Flagged by Analyzer 0 % (0-5); Neutrophil # 7.04 X10^3/uL (2.7-7.7); Neutrophil % 80.2 % (47-70); POSITIVE DIFFERENTIAL YES; Platelet Count 279 K/mm3 (150-450); RBC Distribution Width CV 15.4 % (11.6-14.6); RBC Distribution Width SD 47.9 fl (35.1-43.9); Red Blood Count 3.95 M/mm3 (4.6-6.2); White Blood Count 8.8 K/mm3 (4.4-11.0)
[2021-11-06 06:28] LABS: Differential Indicated SCAN CRITERIA MET
[2021-11-06 06:48] LABS: Anion Gap 4 (5-15); BUN 54 mg/dL (7-18); BUN/Creat Ratio 34.4 RATIO (10-20); Calcium,Total 9.6 mg/dL (8.5-10.1); Chloride 104 mmol/L (98-107); Creatinine, Serum 1.57 mg/dL (0.70-1.30); EST Glomerular Filtration Rate 47 mL/min (>60); Est Glom Filt Rate - Afr Amer 57 mL/min (>60); Estimated Creatinine Clearance 42.96 ml/min; Glucose 121 mg/dL (74-106); Magnesium 2.1 mg/dL (1.6-2.6); Potassium 3.8 mmol/L (3.5-5.1); Sodium Level 138 mmol/L (136-145)
[2021-11-06 06:55] LABS: Anisocytosis 1+
[2021-11-06 07:05] LABS: Bedside Glucose 107 mg/dL (74-106)
[2021-11-06] MEDS: Ipratropium/Albuterol Sulfate 3 ML AMPUL.NEB INHALATION ×4 (07:14→19:20)
[2021-11-06] MEDS: predniSONE 20 MG Tablet 40 MG PO (08:39)
[2021-11-06] MEDS: Aspirin E.C. 325 MG Tablet PO (08:39)
[2021-11-06] MEDS: Pantoprazole Sodium 20 MG Tablet PO ×2 (08:39→21:29)
--- NOTE | 2021-11-06 10:34 | PCM.PROGNOTE ---
Subjective Subjective Patient was seen this morning for follow up on leg ulcers and right foot wound with cellulitis. Redness is better and swelling is down. He relates he still has difficulty breathing but relates this has improved. He has no new complaints, and he is resting comfortably in bed. No complaints of fever, chills, nausea or vomiting. Objective Data Objective Data Vital Signs: Vital Signs Temp Pulse Resp BP Pulse Ox O2 Del Method O2 Flow Rate 97.6 F L 94 18 140/71 H 97 Nasal Cannula 3 11/06/21 08:49 11/06/21 08:49 11/06/21 08:49 11/06/21 08:49 11/06/21 08:49 11/06/21 08:49 11/06/21 08:49 FiO2 35 11/05/21 05:10 Oxygen Flow Rate (L/min) 3 Oxygen Delivery Method Nasal Cannula Weight: 100.1 kg Body Mass Index (BMI) 33.5 Intake & Output: Intake and Output for Last 24 Hours 11/04/21 11/05/21 11/06/21 23:59 23:59 23:59 Intake Total 2050 / 2050 1470 / 1470 300 / 300 Output Total 1525 / 1525 1500 / 1500 450 / 450 Balance 525 / 525 -30 / -30 -150 / -150 Lab / Micro Data Result Diagrams: 11/06/21 06:05 11/06/21 06:05 Labs: Laboratory Results - last 24 hr 11/05/21 09:10: Hemoglobin A1c 7.2 H 11/05/21 10:00: S.aureus Protein A PCR NEGATIVE, MRSA (PCR) Negative 11/05/21 11:26: POC Glucose 127 H 11/05/21 17:05: POC Glucose 218 H 11/05/21 21:09: POC Glucose 154 H 11/06/21 00:03: Vancomycin Trough 17.4 H 11/06/21 06:05: WBC 8.8, RBC 3.95 L, Hgb 10.7 L, Hct 33.4 L, MCV 84.6, MCH 27.1, MCHC 32.0, RDW Std Deviation 47.9 H, RDW Coeff of Nina 15.4 H, Plt Count 279, MPV 9.1, Immature Gran % (Auto) 4.100 H, Neut % (Auto) 80.2 H, Lymph % (Auto) 2.3 L, [place] % (Auto) 12.9 H, Eos % (Auto) 0.2, Baso % (Auto) 0.3, Absolute Neuts (auto) 7.0, Absolute Lymphs (auto) 0.20 L, Nucleated RBC % 0, Anisocytosis 1+ 11/06/21 06:05: Sodium 138, Potassium 3.8, Chloride 104, Carbon Dioxide 30.0, Anion Gap 4 L, BUN 54 H, Creatinine 1.57 H, Estim Creat Clear Calc 42.96, Est GFR (MDRD) Af Amer 57 L, Est GFR (MDRD) Non-Af 47 L, BUN/Creatinine Ratio 34.4 H, Glucose 121 H, Calcium 9.6, Magnesium 2.1 11/06/21 06:29: POC Glucose 107 H Micro: Microbiology 11/04/21 09:15 Sputum, Expectorated/Coughed Gram Stain - Final 11/04/21 09:15 Sputum, Expectorated/Coughed Respiratory Culture - Preliminary Stenotrophomonas maltophilia GNR lactose leak gang supervisor Staphylococcus aureus 11/02/21 15:10 Blood Culture (Wb) - Left Wrist Blood Culture - Preliminary No growth in 48 hours. 11/02/21 12:39 Nasal Secretion SARS-CoV-2 & FLU Antigen (Rapid) - Final Physical Exam Narrative Patient alert oriented person place and time. Vascular: Diffuse pitting edema to bilateral lower extremity +2 noted to the forefoot foot and malleoli region. Pulses are diminished bilaterally and nonpalpable. atrophic skin changes noted bilateral. CFT < 3 seconds to all toes bilateral. Neurologic: Light touch protective sensation absent to bilateral feet. Dermatologic: Focal erythema noted to the dorsal right midfoot extending to the forefoot - improved. Right foot dorsal wound present down to dermal layer - no drainage, no maloder, no crepitus, no visible abscess. Multiple full-thickness wounds noted to the right and left lower extremity along the medial leg these wounds are small in nature and do not probe deep undermining or have any signs of infection - they are down to subcutaneous tissue layer - tissues viable. M/S: No evidence of compartment syndrome bilateral. Assessment & Plan Assessment/Plan (1) Contusion of foot, right: PLAN: Re-evaluation performed. Reviewed diagnostic data. Patient has a right foot cellulitis secondary to trip multiple traumatic injuries in the setting of peripheral arterial disease and peripheral neuropathy. Cellulitis is improving. Reviewed right foot culture results - final pending but so far growing gram positive organism. Left wound cultures demonstrate gram-negative rods and Enterobacter cloacae. Continue with IV antibiotics. MRI was negative for any deep abscess or hematoma formation. No evidence of bone fracture or osteomyelitis as well. Leukocytosis resolved. Patient vitally stable. Dressings were changed today the right forefoot, and dressing to leg ulcerations changed as well - Adaptic 4 x 4's Kerlix and light compression via 6 inch Néstor wraps bilaterally. Patient continue elevating for edema management. Patient has elevated BNP likely contributing to some peripheral edema. I recommend offloading in the right forefoot with heel weightbearing in a Cam walking boot or surgical shoe. Limiting ambulation to transfer purposes only. Patient demonstrates diminished TBI's bilaterally. Vascular evaluated the patient no surgical intervention at this time. Podiatry will continue to follow. (2) Type 2 diabetes mellitus with diabetic polyneuropathy: (3) Peripheral vascular disease, unspecified:
[2021-11-06] MEDS: levoFLOXacin IV 500 MG/100 ML BAG 100 MG IV (10:46)
[2021-11-06 11:15] LABS: Bedside Glucose 137 mg/dL (74-106)
--- NOTE | 2021-11-06 11:33 | PN.RENAL_ITS ---
Subjective Subjective Following for VIET on CKD Patient is sitting up in bed. Denies any complaints. States overall is feeling better, states has good appetite Objective Data Objective Data Vital Signs: Vital Signs Temp Pulse Resp BP Pulse Ox O2 Del Method O2 Flow Rate 97.6 F L 81 22 H 140/71 H 97 Nasal Cannula 3 11/06/21 08:49 11/06/21 11:12 11/06/21 11:12 11/06/21 08:49 11/06/21 11:12 11/06/21 11:12 11/06/21 11:12 FiO2 35 11/05/21 05:10 Oxygen Flow Rate (L/min) 3 Oxygen Delivery Method Nasal Cannula Weight: 100.1 kg Body Mass Index (BMI) 33.5 Intake & Output: Intake and Output for Last 24 Hours 11/04/21 11/05/21 11/06/21 23:59 23:59 23:59 Intake Total 2050 / 2050 1470 / 1470 300 / 300 Output Total 1525 / 1525 1500 / 1500 450 / 450 Balance 525 / 525 -30 / -30 -150 / -150 Lab / Micro Data Result Diagrams: 11/06/21 06:05 11/06/21 06:05 Labs: Laboratory Results - last 24 hr 11/05/21 10:00: S.aureus Protein A PCR NEGATIVE, MRSA (PCR) Negative 11/05/21 11:26: POC Glucose 127 H 11/05/21 17:05: POC Glucose 218 H 11/05/21 21:09: POC Glucose 154 H 11/06/21 00:03: Vancomycin Trough 17.4 H 11/06/21 06:05: WBC 8.8, RBC 3.95 L, Hgb 10.7 L, Hct 33.4 L, MCV 84.6, MCH 27.1, MCHC 32.0, RDW Std Deviation 47.9 H, RDW Coeff of Nina 15.4 H, Plt Count 279, MPV 9.1, Immature Gran % (Auto) 4.100 H, Neut % (Auto) 80.2 H, Lymph % (Auto) 2.3 L, [place] % (Auto) 12.9 H, Eos % (Auto) 0.2, Baso % (Auto) 0.3, Absolute Neuts (auto) 7.0, Absolute Lymphs (auto) 0.20 L, Nucleated RBC % 0, Anisocytosis 1+ 11/06/21 06:05: Sodium 138, Potassium 3.8, Chloride 104, Carbon Dioxide 30.0, Anion Gap 4 L, BUN 54 H, Creatinine 1.57 H, Estim Creat Clear Calc 42.96, Est GFR (MDRD) Af Amer 57 L, Est GFR (MDRD) Non-Af 47 L, BUN/Creatinine Ratio 34.4 H , Glucose 121 H, Calcium 9.6, Magnesium 2.1 11/06/21 06:29: POC Glucose 107 H 11/06/21 10:55: POC Glucose 137 H Micro: Microbiology 11/05/21 10:00 Wound - Right Foot Wound Culture - Preliminary Gram positive organism 11/04/21 09:15 Sputum, Expectorated/Coughed Gram Stain - Final 11/04/21 09:15 Sputum, Expectorated/Coughed Respiratory Culture - Preliminary Stenotrophomonas maltophilia GNR lactose tourist information assistant Staphylococcus aureus 11/02/21 15:10 Blood Culture (Wb) - Left Wrist Blood Culture - Preliminary No growth in 48 hours. 11/02/21 12:39 Nasal Secretion SARS-CoV-2 & FLU Antigen (Rapid) - Final Physical Exam Narrative alert and oriented x3, no acute distress oral mucosa moist s1s2 regular Lung sounds clear anteriorly and posteriorly, no wheezes, rhonchi or rales noted abdomen obese, soft, positive bowel sounds No pitting edema noted to bilateral thighs or lower legs. Bilateral lower legs with dressings clean, dry and intact Assessment & Plan Assessment/Plan (1) Acute on chronic renal insufficiency: (2) Left lower lobe pneumonia: (3) Severe sepsis without septic shock: PLAN: Plan Assessment 70 y/o male, With underlying history of obstructive sleep apnea, COPD, hypertension, diabetes in addition to chronic kidney disease stage III admitted to the hospital due to shortness of breath currently being treated for pneumonia and cellulitis. Nephrology is consulted for acute kidney injury #1 acute kidney injury on chronic kidney disease -Baseline serum creatinine 1.3-1.4 mg/dL as of 2020 -Serum creatinine peaked at 2.69mg/dL, acute insult likely secondary to component of prerenal azotemia in the setting of sepsis -oral intake improved; serum creatinine improved to 1.57mg/dL -Medications reviewed some of the stressors include combination of Vanco and Zosyn. -Renal ultrasound shows no obstruction, Mild b/l renal atrophy with increased echogenicity compatible with medical renal disease - lasix and metformin on hold -Overall renal function has improved. No acute indication for MATERIAL REQUIREMENTS PLANNING MANAGER. #2 electrolytes -Overall stable #3 severe sepsis secondary to pneumonia and cellulitis -Overall improving, antibiotics per primary team - no growth to date -right foot wound cx pending, on Zosyn. Dressing changes. US negative for DVT. On prednisone. Plan -Continue with supportive care, encouraged increase p.o. intake -His uric acid level was elevated 11.1, patient will be allopurinol and can initiate this since renal function has improved. He is currently on prednisone -Labs ordered for the morning -We will arrange for hospital follow-up -Discussed with primary team
--- NOTE | 2021-11-06 11:45 | PCM.PN.HOSP ---
Documented by User: Atiya Sweeney NP, HOTBED OPERATOR-C 11/06/21 12:08 Subjective Subjective Patient seen and examined. Continues to feel overall better. States he gets short of breath with activity however this is similar to his baseline. Denies fever, chills. Foot pain improved however states he is not able to bear any weight on his right foot. Amenable to SNF for rehab. Objective Data Objective Data Vital Signs: Vital Signs Temp Pulse Resp BP Pulse Ox O2 Del Method O2 Flow Rate 97.6 F L 81 22 H 140/71 H 97 Nasal Cannula 3 11/06/21 08:49 11/06/21 11:12 11/06/21 11:12 11/06/21 08:49 11/06/21 11:12 11/06/21 11:12 11/06/21 11:12 FiO2 35 11/05/21 05:10 Oxygen Flow Rate (L/min) 3 Oxygen Delivery Method Nasal Cannula Weight: 220 lb 10.923 oz Body Mass Index (BMI) 33.5 Intake & Output: Intake and Output for Last 24 Hours 11/04/21 11/05/21 11/06/21 23:59 23:59 23:59 Intake Total 2050 / 2050 1470 / 1470 300 / 300 Output Total 1525 / 1525 1500 / 1500 450 / 450 Balance 525 / 525 -30 / -30 -150 / -150 Lab / Micro Data Result Diagrams: 11/06/21 06:05 11/06/21 06:05 Labs: Laboratory Results - last 24 hr 11/05/21 10:00: S.aureus Protein A PCR NEGATIVE, MRSA (PCR) Negative 11/05/21 11:26: POC Glucose 127 H 11/05/21 17:05: POC Glucose 218 H 11/05/21 21:09: POC Glucose 154 H 11/06/21 00:03: Vancomycin Trough 17.4 H 11/06/21 06:05: WBC 8.8, RBC 3.95 L, Hgb 10.7 L, Hct 33.4 L, MCV 84.6, MCH 27.1, MCHC 32.0, RDW Std Deviation 47.9 H, RDW Coeff of Nina 15.4 H, Plt Count 279, MPV 9.1, Immature Gran % (Auto) 4.100 H, Neut % (Auto) 80.2 H, Lymph % (Auto) 2.3 L, [place] % (Auto) 12.9 H, Eos % (Auto) 0.2, Baso % (Auto) 0.3, Absolute Neuts (auto) 7.0, Absolute Lymphs (auto) 0.20 L, Nucleated RBC % 0, Anisocytosis 1+ 11/06/21 06:05: Sodium 138, Potassium 3.8, Chloride 104, Carbon Dioxide 30.0, Anion Gap 4 L, BUN 54 H, Creatinine 1.57 H, Estim Creat Clear Calc 42.96, Est GFR (MDRD) Af Amer 57 L, Est GFR (MDRD) Non-Af 47 L, BUN/Creatinine Ratio 34.4 H, Glucose 121 H, Calcium 9.6, Magnesium 2.1 11/06/21 06:29: POC Glucose 107 H 11/06/21 10:55: POC Glucose 137 H Micro: Microbiology 11/05/21 10:00 Wound - Right Foot Wound Culture - Preliminary Gram positive organism 11/04/21 09:15 Sputum, Expectorated/Coughed Gram Stain - Final 11/04/21 09:15 Sputum, Expectorated/Coughed Respiratory Culture - Preliminary Stenotrophomonas maltophilia GNR lactose compliance administrator Staphylococcus aureus 11/02/21 15:10 Blood Culture (Wb) - Left Wrist Blood Culture - Preliminary No growth in 48 hours. 11/02/21 12:39 Nasal Secretion SARS-CoV-2 & FLU Antigen (Rapid) - Final Physical Exam Const alert and oriented x3 HEENT normocephalic and moist oral mucous membranes Eyes PERRL, EOMs intact bilaterally and conjunctivae normal Neck no lymphadenopathy Resp clear to auscultation bilaterally Auscultation: diminished lung sounds Cardio regular rate, regular rhythm and no murmurs Peripheral Pulses: pulses 2+ throughout GI normal to inspection, nondistended, normoactive bowel sounds, non-tender and non-distended Extremity normal to inspection Skin no rashes or lesions noted Skin Narrative: Right foot dressing intact. Lesions: no lesions Rashes: no rashes Trauma: no lacerations or abrasions Neuro CN's II-XII intact bilaterally, no focal motor deficits, no sensory deficits noted and deep tendon reflexes 2+ bilaterally Psych mental status grossly normal and affect normal Assessment & Plan Assessment/Plan (1) Acute and chronic respiratory failure with hypoxia: (2) Contusion of foot, right: PLAN: Plan 1.? Severe sepsis secondary to acute on chronic hypoxic respiratory failure as a result of exacerbation of COPD, left lower lobe pneumonia and right foot cellulitis-chest x-ray with left lower lobe infiltrate.? WBC 13.3. Lactic acid 2.3.? Patient's pulse ox noted to be 80% on CPAP upon arrival to ED.? Converted to BiPAP.?Now stable on 3L NC. Continue IV zosyn.? Albuterol and DuoNeb aerosols.? Continue prednisone. Blood culture with no growth.? Sputum culture growing stenotrophomonas, GNR, staph aureus. Final pending. ID following. 2. Acute kidney injury on chronic kidney disease stage IIIa- nephrology consulted.? Hold off on IV fluids given significant edema.? Trend BMP.? Renal ultrasound demonstrates medical renal disease.? Creatinine trending down. 3.? Right foot cellulitis and contusion-initial concern for vasculitis/ischemia.? X-ray unremarkable.? Ultrasound negative for DVT.? PEDRO LUIS completed and demonstrated pedal/visit disease.? Vascular surgery consulted as well as podiatry.? No evidence of significant hematoma.? No plans for surgical intervention at this time.? Continue supportive management.? Continue antibiotics per above. Dressing changes as ordered. Wound RN consulted. Foot wound culture pending. Preliminary growing gram positive organism. 4. CAD with history of stent-continue aspirin, statin, metoprolol. 5. Chronic hypoxic respiratory failure secondary to COPD, NICKOLAS-on trilogy and supplemental oxygen at bedtime per patient. 6. Chronic heart failure with preserved ejection fraction-echo June 2020 with EF 60%, stage II diastolic dysfunction. 7. Paroxysmal atrial fibrillation-continue metoprolol.? Per cardiology, not on anticoagulation due to maintaining sinus rhythm. 8. Hypertension-stable, continue current regimen. 9. Hyperlipidemia-continue statin. 10. Type 2 diabetes tolygcsg-Cbyn-Abdsd with sliding scale insulin. 11. GERD-continue PPI. 12. Hx DVT with history of IVC filter placement. DVT prophylaxis- heparin nd This patient was seen by ASHLEY Mercedes under the supervision of Dr. Cornejo. Discharge planning: Agreeable to SNF. SW following. Time spent examining patient, reviewing data and subsequent management of care: 14 minutes Documented by User: Dr. Mark Cornejo MD 11/06/21 16:40 Objective Data Lab / Micro Data Result Diagrams: 11/06/21 06:05 11/06/21 06:05 Physical Exam Narrative Physical exam General: Awake, oriented x3. coherent to speech HEENT: Atraumatic, PERRLA, EOMI, Normocephalic Oral: No Gingival or Mucosal Lesions/ Ulcerations Neck: Supple, No JVD, Negative Carotid Bruits Lungs: Air entry diminished in bilateral lung bases. No crepitation/rhonchi Cardiovascular: Regular rate, Regular Rhythm, Normal S1, Normal S2, systolic murmur LLSB and cardiac apex Abdomen: Bowel Sounds Present, Soft, Non Tender, Non-Distended : No renal angle tenderness. No suprapubic tenderness. Extremities: Bilateral lower extremity pitting edema, improving. Capillary Refill Less than 3 Seconds Skin: Bilateral Néstor wrap bandage. Blister popped out. Bilateral legs venous stasis and lymphedema. Small superficial ulceration over left lower leg healing. Musculoskeletal: ROM limited. Muscle strength 4/5 at major joints of LE Neurological: Cranial nerves II-XII grossly intact, DTR 2+/4 and Symmetrical Psych/Mental Status: Flat affect Assessment & Plan Assessment/Plan (1) Acute and chronic respiratory failure with hypoxia: (2) Contusion of foot, right: PLAN: Plan 1.? Severe sepsis secondary to acute on chronic hypoxic respiratory failure as a result of exacerbation of COPD, left lower lobe pneumonia and right foot cellulitis-chest x-ray with left lower lobe infiltrate.? WBC 13.3. Lactic acid 2.3.? Patient's pulse ox noted to be 80% on CPAP upon arrival to ED.? Converted to BiPAP.?Now stable on 3L NC. Continue IV zosyn.? Albuterol and DuoNeb aerosols.? Continue prednisone. Blood culture with no growth.? Sputum culture growing stenotrophomonas, GNR, staph aureus. Final pending. ID following. 2. Acute kidney injury on chronic kidney disease stage IIIa- nephrology consulted.? Hold off on IV fluids given significant edema.? Trend BMP.? Renal ultrasound demonstrates medical renal disease.? Creatinine trending down. 3.? Right foot cellulitis and contusion-initial concern for vasculitis/ischemia.? X-ray unremarkable.? Ultrasound negative for DVT.? PEDRO LUIS completed and demonstrated pedal/visit disease.? Vascular surgery consulted as well as podiatry.? No evidence of significant hematoma.? No plans for surgical intervention at this time.? Continue supportive management.? Continue antibiotics per above. Dressing changes as ordered. Wound RN consulted. Foot wound culture pending. Preliminary growing gram positive organism. 4. CAD with history of stent-continue aspirin, statin, metoprolol. 5. Chronic hypoxic respiratory failure secondary to COPD, NICKOLAS-on trilogy and supplemental oxygen at bedtime per patient. 6. Chronic heart failure with preserved ejection fraction-echo June 2020 with EF 60%, stage II diastolic dysfunction. 7. Paroxysmal atrial fibrillation-continue metoprolol.? Per cardiology, not on anticoagulation due to maintaining sinus rhythm. 8. Hypertension-stable, continue current regimen. 9. Hyperlipidemia-continue statin. 10. Type 2 diabetes [id number]-[id number]-Gwrmw with sliding scale insulin. 11. GERD-continue PPI. 12. Hx DVT with history of IVC filter placement. DVT prophylaxis- heparin sc This patient was seen by ASHLEY Mercedes under the supervision of Dr. Cornejo. Discharge planning: Agreeable to SNF. SW following. Time spent examining patient, reviewing data and subsequent management of care: 14 minutes This patient was seen by ASHLEY Mercedes under the supervision of Dr. Cornejo. Time spent examining patient, reviewing data and subsequent management of care: 15 minutes This patient was seen in conjunction with Atiya GRIER.? I have independently interviewed and examined the patient and reviewed pertinent history, examination findings, laboratory and plan of management.? I have? reviewed the note and agree with the documented findings with the few? additional points. In brief, patient is admitted for for concern of sepsis.? As per H&P patient was sick looking, short of breath, dry cough but no fever chills. the patient presented with 1.? Sepsis due to left lower lobe pneumonia with acute sepsis-related organ dysfunction as evidenced by lactic acidosis, acute on chronic kidney disease and acute on chronic hypoxic respiratory failure.? Baseline creatinine 1.3-1.4, creatinine went up to 2.69.? In ED patient was on BiPAP 40% FiO2. Antibiotic upgraded to vancomycin and Zosyn.? ID consulted.? Rapid COVID-19 antigen negative.? COVID-19 PCR negative.? Blood culture negative for 48 hours.? Sputum culture gram stain shows 1+ GNR, rare gram-positive rods, rare GPC.? 2+ WBC. 11/04: COVID-19 PCR negative.? Leukocytosis improving.? Rapid flu and RSV negative.? ID consult reviewed.? Continue empiric vancomycin and Zosyn. Other diagnosis and management as follows 11/05: Prelim sputum culture growing GNR, lactose compliance administrator.? Continue broad-spectrum antibiotic.? Sepsis and shortness of breath symptoms are getting better.? No fever.? Tachycardia and leukocytosis resolved. 11/06: Continue broad-spectrum antibiotic. Sputum culture growing stenotrophomonas, GNR, staph aureus. Final pending. ID following. Antibiotic Levaquin added. 2.? Acute kidney injury on CKD stage III: Occupational Hygienist is consulted.? Monitor kidney function.? Possible etiologies, pre-renal, infection and sepsis 11/04: Improvement in creatinine.? VIET probably due to prerenal and sepsis.? Renal ultrasound reported mild bilateral renal atrophy with increased echogenicity compatible with medical renal disease.? Small left perinephric fluid, not clinically significant. 11/05: Improvement in creatinine. 11/06: Improvement in creatinine from 2.69-1.57. 3.? Bilateral venous hypertension, stasis dermatitis, peripheral arterial disease with chronic left leg ulcer: Since patient has drop-of ice heavy weight on right foot and therefore black discoloration possible hematoma.Venous duplex negative for acute DVT.? Pulses over bilateral FASHION SUPERVISOR and DP are triphasic but PEDRO LUIS could not be calculated.? TBI low suggestive of PAD.? Vascular surgeon and supervisor wood room consulted 11/04: MRI of foot was done does not show acute osteomyelitis or acute fracture or dislocation but skin/soft tissue infection consistent with cellulitis.? Vascular surgeon consult reviewed suggestive of distal foot digital artery PAD, not amenable to vascular intervention.? Patient on aspirin.? Podiatry consult reviewed. 4.? Coronary artery disease with a stent.? Chronic HFpEF, paroxysmal A. fib on metoprolol 5.? COPD with chronic hypoxic respiratory failure and NICKOLAS: On Trelegy Other comorbidities admission eval hypertension, dyslipidemia, type 2 diabetes mellitus, GERD I have discussed my assessment with HOTBED OPERATORAtiya and orders have been reviewed. Total time of the visit including total time spent in counseling or coordination of care, (more than 50% of the total time, spent in obtaining medical information from nurses and other ancillary care providers,explaining to the patient about labs, imaging, diagnosis and management), discussion with consultants, review of labs and imaging is? 40 minutes.? I spent 25 minutes, Atiya HOTBED OPERATOR spent 15 minutes Charges/Coding Visit Charges Inpatient E&M: 23914 Subs Hosp L2
--- NOTE | 2021-11-06 12:08 | CASEMGMT ---
RN CM updated by hospitalist that patient may need SNF at discharge. RN CM in to discuss discharge planning with patient. Patient states he wants to go home but he is not able to bear weight on his right foot. RN CM discuss care needs at discharge, patient agreeable that he will likely need SNF at discharge. RN CM provided patient with list of SNF provider with Medicare ratings and quality measures. Patient to review list and provide preferences. Patient voiced understand. CM to continue to follow this patient and plan for a safe discharge.
--- NOTE | 2021-11-06 13:27 | WOUNDNOTE ---
wound photo: left lower leg
--- NOTE | 2021-11-06 13:27 | WOUNDNOTE ---
wound photo: left lateral lower leg
--- NOTE | 2021-11-06 13:28 | WOUNDNOTE ---
wound photo: right lower leg/foot
--- NOTE | 2021-11-06 14:46 | CASEMGMT ---
RN CM in to discuss discharge planning with patient. Per therapy, patient will need SNF at discharge. Patient reviewed list and 1st choice is [facility], 2nd is [facility]. RN KENNY updated KATHYA Funez. Per , [facility] does not have any beds available. RN KENNY called and sent referral to [facility]. KATHYA Funez updated regarding referral sent. CM will continue to follow this patient and plan for a safe discharge.
--- NOTE | 2021-11-06 15:44 | CASEMGMT ---
Pt's oxygen is thru [facility]. SStkari RN CM
--- NOTE | 2021-11-06 15:49 | CASEMGMT ---
Social Work Note KATHYA received call from Erin at [facility] stating they can accept pt. Erin asked if pt was on BiPap. KATHYA reviewed chart, pt is on Oxygen currently but appears to wear BiPap at night. KATHYA informed Erin that pt does wear trilogy at night at home and has own trilogy machine. Erin states they can order trilogy as long as it is BiPap settings or pt can bring in his own trilogy. Erin states that they can also order BiPap machine. Erin states that pt will have his own private room. KTAHYA in to speak with pt. KATHYA informed pt that [facility] has no beds currently, but [facility] is able to accept and pt will have his own private rooms. Pt states I can't stay here until a bed opens up at the other one? KATHYA informed pt that he cannot. KATHYA asked pt about his trilogy machine, pt states that it cannot leave his house. KATHYA placed a call to Erin at [facility] and updated her that pt is stating his trilogy machine cannot leave his house. KATHYA faxed BiPap settings to Erin. Plan: [facility] when medically cleared and when [facility] orders needed BiPap. Lacey Funez DROP WORKER, PLANT SECURITY GUARD
[2021-11-06] MEDS: Insulin Lispro 100 UNIT/ML INSULN.PEN SC ×2 (16:28→21:29)
[2021-11-06 17:01] LABS: Bedside Glucose 180 mg/dL (74-106)
[2021-11-06 22:35] LABS: Bedside Glucose 183 mg/dL (74-106)
[2021-11-07] VITALS (11 sets, daily range): BP systolic 155–177; BP diastolic 89–102; PULSE 63–100; RESP 16–24; TEMP 36.2–37; O2SAT 95–97
[2021-11-07] MEDS: 0.9% Saline Lock 10 ML Syringe IV (04:17)
[2021-11-07] MEDS: Morphine 2 MG/ML Syringe IV ×2 (04:17→10:22)
[2021-11-07] MEDS: Heparin Injection (Vial) 5,000 UNIT/ML VIAL 5000 UNIT SC ×2 (06:06→15:22)
[2021-11-07 06:30] LABS: Hematocrit 34.5 % (40-54); Hemoglobin 10.8 g/dL (13.0-16.5); Mean Corp Hgb Conc 31.3 g/dL (32-36); Mean Corpuscular Hgb 26.7 pg (27.0-32.0); Mean Corpuscular Volume 85.2 fL (80-94); POSITIVE COUNT YES; POSITIVE DIFFERENTIAL YES; POSITIVE MORPHOLOGY YES; Platelet Count 285 K/mm3 (150-450); RBC Distribution Width CV 15.6 % (11.6-14.6); RBC Distribution Width SD 48.3 fl (35.1-43.9); Red Blood Count 4.05 M/mm3 (4.6-6.2); White Blood Count 8.3 K/mm3 (4.4-11.0)
[2021-11-07 06:39] LABS: Differential Indicated MANUAL DIFF
[2021-11-07 06:54] LABS: Anion Gap 7 (5-15); BUN 38 mg/dL (7-18); BUN/Creat Ratio 27.7 RATIO (10-20); Chloride 106 mmol/L (98-107); Creatinine, Serum 1.37 mg/dL (0.70-1.30); EST Glomerular Filtration Rate 55 mL/min (>60); Est Glom Filt Rate - Afr Amer 66 mL/min (>60); Estimated Creatinine Clearance 49.23 ml/min; Glucose 112 mg/dL (74-106); Potassium 3.5 mmol/L (3.5-5.1); Sodium Level 143 mmol/L (136-145)
[2021-11-07 07:00] LABS: Eosinophil 1 % (0-5); Lymphocyte 3 % (19-41); Metamyelocyte 2 % (0-1); Monocyte 18 % (0-10); Myelocyte 4 % (0-0); Neutrophil-Band 3 % (0-5); Neutrophil-Segmented 69 % (47-70); Platelet Estimate ADEQUATE (ADEQ); Total Cells Counted 100 (MANUAL DIFF)
[2021-11-07 07:02] LABS: Red Cell Morphology NORM C+C NORMAL (NORM C&C)
[2021-11-07 07:05] LABS: Bedside Glucose 106 mg/dL (74-106)
[2021-11-07 07:06] LABS: Absolute Lymphocyte Count 0.25 X10^3/uL (0.83-4.51); Lymphocyte # 0.25 X10^3/ul (0.83-4.51); Neutrophil # 5.97 X10^3/uL (2.7-7.7)
[2021-11-07 07:07] LABS: Nucleated Red Bld Cells,Manual 3 % (0-5)
[2021-11-07] MEDS: Ipratropium/Albuterol Sulfate 3 ML AMPUL.NEB INHALATION ×3 (07:26→19:49)
[2021-11-07] MEDS: oxyCODONE 5 MG Tablet 10 MG PO ×3 (07:41→19:55)
[2021-11-07] MEDS: Pantoprazole Sodium 20 MG Tablet PO (07:41)
[2021-11-07] MEDS: predniSONE 20 MG Tablet 40 MG PO (07:41)
[2021-11-07] MEDS: Aspirin E.C. 325 MG Tablet PO (07:41)
[2021-11-07] MEDS: Juven (unflavored) Packet 1 PACKET PO (07:42)
--- NOTE | 2021-11-07 10:17 | CASEMGMT ---
Addendum entered by Lacey Funez 11/07/21 16:48: Pt is to discharge to [facility] today. KATHYA placed a call to Erin and updated her that pt will discharge to [facility] today. Original Note: Social Work Note KATHYA placed a call to Erin at [facility]. Erin states she got the Bipap ordered and pt can admit to [facility] today. KATHYA updated Erin that the plan is for pt to discharge today pending ID recommendations. Erin states understanding. Plan: [facility] when medically cleared Lacey Funez CHIEF DISPATCHER, LINE REPAIRER TOWER
[2021-11-07] MEDS: Insulin Lispro 100 UNIT/ML INSULN.PEN SC ×2 (11:01→15:58)
--- NOTE | 2021-11-07 11:17 | PCM.PN.REN ---
Subjective Subjective Following for VIET on CKD Sitting up in bed, denies any complaints. No overnight events. States has good appetite. Denies any shortness of breath. Objective Data Objective Data Vital Signs: Vital Signs Temp Pulse Resp BP Pulse Ox O2 Del Method O2 Flow Rate 98.6 F 88 17 156/95 H 97 Nasal Cannula 3 11/07/21 06:11 11/07/21 07:27 11/07/21 07:27 11/07/21 06:11 11/07/21 07:27 11/07/21 07:50 11/07/21 07:50 FiO2 35 11/05/21 05:10 Oxygen Flow Rate (L/min) 3 Oxygen Delivery Method Nasal Cannula Weight: 100.1 kg Body Mass Index (BMI) 33.5 Intake & Output: Intake and Output for Last 24 Hours 11/05/21 11/06/21 11/07/21 23:59 23:59 23:59 Intake Total 1470 / 1470 450 / 750 400 / 400 Output Total 1500 / 1500 1000 / 1250 575 / 575 Balance -30 / -30 -550 / -500 -175 / -175 Lab / Micro Data Result Diagrams: 11/07/21 06:10 11/07/21 06:10 Labs: Laboratory Results - last 24 hr 11/05/21 10:00: S.aureus Protein A PCR NEGATIVE, MRSA (PCR) Negative 11/06/21 16:27: POC Glucose 180 H 11/06/21 21:24: POC Glucose 183 H 11/07/21 06:04: POC Glucose 106 11/07/21 06:10: Sodium 143, Potassium 3.5, Chloride 106, Carbon Dioxide 30.0, Anion Gap 7, BUN 38 H, Creatinine 1.37 H, Estim Creat Clear Calc 49.23, Est GFR (MDRD) Af Amer 66, Est GFR (MDRD) Non-Af 55 L, BUN/Creatinine Ratio 27.7 H, Glucose 112 H, Calcium 10.0 11/07/21 06:10: WBC 8.3, RBC 4.05 L, Hgb 10.8 L, Hct 34.5 L, MCV 85.2, MCH 26.7 L, MCHC 31.3 L, RDW Std Deviation 48.3 H, RDW Coeff of Nina 15.6 H, Plt Count 285, MPV 9.0, Neut % (Auto) Not Reportable, Absolute Neuts (auto) 6.0, Absolute Lymphs (auto) 0.25 L, Total Counted 100, Neutrophils % (Manual) 69, Band Neutrophils % 3, Lymphocytes % (Manual) 3 L, Monocytes % (Manual) 18 H, Eosinophils % (Manual) 1, Metamyelocytes % 2 H, Myelocytes % 4 H, Nucleated RBCs/100 WBC 3, Diff Path Review May , Platelet Estimate ADEQUATE, RBC Morphology NORM C+C Micro: Microbiology 11/05/21 10:00 Wound - Right Foot Gram Stain - Final 11/05/21 10:00 Wound - Right Foot Wound Culture - Preliminary Coag Negative Staph 11/04/21 09:15 Sputum, Expectorated/Coughed Gram Stain - Final 11/04/21 09:15 Sputum, Expectorated/Coughed Respiratory Culture - Preliminary Stenotrophomonas maltophilia Klebsiella pneumoniae sp pneum Meth. resistant Staph. aureus 11/02/21 15:10 Blood Culture (Wb) - Left Wrist Blood Culture - Preliminary No growth in 48 hours. 11/02/21 12:39 Nasal Secretion SARS-CoV-2 & FLU Antigen (Rapid) - Final Physical Exam Narrative alert and oriented x3, no acute distress oral mucosa moist s1s2 regular Lung sounds clear anteriorly and posteriorly, no wheezes, rhonchi or rales noted abdomen obese, soft, positive bowel sounds No pitting edema noted to bilateral thighs or lower legs. Bilateral lower legs with dressings clean, dry and intact Assessment & Plan Assessment/Plan (1) Acute on chronic renal insufficiency: (2) Left lower lobe pneumonia: (3) Severe sepsis without septic shock: PLAN: Plan Assessment 70 y/o male, With underlying history of obstructive sleep apnea, COPD, hypertension, diabetes in addition to chronic kidney disease stage III admitted to the hospital due to shortness of breath currently being treated for pneumonia and cellulitis. Nephrology is consulted for acute kidney injury #1 acute kidney injury on chronic kidney disease -Baseline serum creatinine 1.3-1.4 mg/dL as of 2020 -Serum creatinine peaked at 2.69mg/dL, acute insult likely secondary to component of prerenal azotemia in the setting of sepsis -oral intake improved; serum creatinine improved to 1.37mg/dL -Medications reviewed some of the stressors include combination of Vanco and Zosyn. -Renal ultrasound shows no obstruction, Mild b/l renal atrophy with increased echogenicity compatible with medical renal disease - lasix and metformin on hold -Overall renal function has improved. 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 #2 electrolytes -Overall stable #3 severe sepsis secondary to pneumonia and cellulitis -Overall improving, antibiotics per primary team -BC no growth to date -right foot wound cx coag neg staph, on Zosyn. Dressing changes. US negative for DVT. On prednisone. Plan -Continue with supportive care, encouraged increase p.o. intake -His uric acid level was elevated 11.1, patient will be allopurinol and can initiate this since renal function has improved. He is currently on prednisone -Labs ordered for the morning -patient takes lasix 80mg bid at home which is on hold. Can restart at discharge but at lower dose. Discussed with Dr. Cornejo -We will arrange for hospital follow-up.
[2021-11-07 11:35] LABS: Bedside Glucose 175 mg/dL (74-106)
--- NOTE | 2021-11-07 12:19 | PN_ITS ---
Subjective Subjective Patient was seen today for follow up on right foot and bilateral legs. He is resting comfortably in bed with no new complaints. No fever, chills, nausea or vomiting. He is planning to go to nursing facility upon discharge. Objective Data Objective Data Vital Signs: Vital Signs Temp Pulse Resp BP Pulse Ox O2 Del Method O2 Flow Rate 97.2 F L 90 18 158/94 H 95 Nasal Cannula 3 11/07/21 11:33 11/07/21 11:33 11/07/21 11:33 11/07/21 11:33 11/07/21 11:33 11/07/21 11:33 11/07/21 11:33 FiO2 35 11/05/21 05:10 Oxygen Flow Rate (L/min) 3 Oxygen Delivery Method Nasal Cannula Weight: 100.1 kg Body Mass Index (BMI) 33.5 Intake & Output: Intake and Output for Last 24 Hours 11/05/21 11/06/21 11/07/21 23:59 23:59 23:59 Intake Total 1470 / 1470 450 / 750 880 / 880 Output Total 1500 / 1500 1000 / 1250 675 / 675 Balance -30 / -30 -550 / -500 205 / 205 Lab / Micro Data Result Diagrams: 11/07/21 06:10 11/07/21 06:10 Labs: Laboratory Results - last 24 hr 11/05/21 10:00: S.aureus Protein A PCR NEGATIVE, MRSA (PCR) Negative 11/06/21 16:27: POC Glucose 180 H 11/06/21 21:24: POC Glucose 183 H 11/07/21 06:04: POC Glucose 106 11/07/21 06:10: Sodium 143, Potassium 3.5, Chloride 106, Carbon Dioxide 30.0, Anion Gap 7, BUN 38 H, Creatinine 1.37 H, Estim Creat Clear Calc 49.23, Est GFR (MDRD) Af Amer 66, Est GFR (MDRD) Non-Af 55 L, BUN/Creatinine Ratio 27.7 H, Glucose 112 H, Calcium 10.0 11/07/21 06:10: WBC 8.3, RBC 4.05 L, Hgb 10.8 L, Hct 34.5 L, MCV 85.2, MCH 26.7 L, MCHC 31.3 L, RDW Std Deviation 48.3 H, RDW Coeff of Nina 15.6 H, Plt Count 285, MPV 9.0, Neut % (Auto) Not Reportable, Absolute Neuts (auto) 6.0, Absolute Lymphs (auto) 0.25 L, Total Counted 100, Neutrophils % (Manual) 69, Band Neutrophils % 3, Lymphocytes % (Manual) 3 L, Monocytes % (Manual) 18 H, Eosinophils % (Manual) 1, Metamyelocytes % 2 H, Myelocytes % 4 H, Nucleated RBCs/100 WBC 3, Diff Path Review May foll, Platelet Estimate ADEQUATE, RBC Mo rphology NORM C+C 11/07/21 10:59: POC Glucose 175 H Micro: Microbiology 11/05/21 10:00 Wound - Right Foot Gram Stain - Final 11/05/21 10:00 Wound - Right Foot Wound Culture - Preliminary Coag Negative Staph 11/04/21 09:15 Sputum, Expectorated/Coughed Gram Stain - Final 11/04/21 09:15 Sputum, Expectorated/Coughed Respiratory Culture - Prelimin mendoza Stenotrophomonas maltophilia Klebsiella pneumoniae sp pneum Meth. resistant Staph. aureus 11/02/21 15:10 Blood Culture (Wb) - Left Wrist Blood Culture - Preliminary No growth in 48 hours. 11/02/21 12:39 Nasal Secretion SARS-CoV-2 & FLU Antigen (Rapid) - Final Physical Exam Narrative Patient alert oriented person place and time. Vascular: Diffuse pitting edema to bilateral lower extremity much improved. Pulses are diminished bilaterally and nonpalpable. Atrophic skin changes noted bilateral. CFT < 3 seconds to all toes bilateral. Neurologic: Light touch protective sensation absent to bilateral feet. Dermatologic: Focal erythema noted to the dorsal right midfoot extending to the forefoot - much improved. Right foot dorsal wound present down to dermal layer - no drainage, no maloder, no crepitus, no visible abscess. Multiple full- thickness wounds noted to the right and left lower extremity along the medial leg these wounds are small in nature and do not probe deep undermining or have any signs of infection - they are down to subcutaneous tissue layer - tissues viable - they are healing. M/S: No evidence of compartment syndrome bilateral. Assessment & Plan Assessment/Plan (1) Contusion of foot, right: PLAN: Re-evaluation performed. Reviewed diagnostic data. Patient has a right foot cellulitis secondary to trip multiple traumatic injuries in the setting of peripheral arterial disease and peripheral neuropathy. Cellulitis continues to improve. Reviewed right foot culture results - growing coag neg staph. He remains on antibiotic therapy. MRI was negative for any deep abscess or hematoma formation. No evidence of bone fracture or osteomyelitis as well. Leukocytosis resolved. Patient vitally stable. Dressings were changed today the right forefoot, and dressing to leg ulcerations changed as well - Adaptic 4 x 4's Kerlix and light compression via 6 inch Néstor wraps bilaterally. Patient continue elevating for edema management. I recommend offloading in the right forefoot with heel weightbearing in a Cam walking boot or surgical shoe. Limiting ambulation to transfer purposes only. Patient demonstrates diminished TBI's bilaterally. Vascular surgery evaluated the patient - no surgical intervention at this time. Podiatry will continue to follow. (2) Type 2 diabetes mellitus with diabetic polyneuropathy: (3) Peripheral vascular disease, unspecified:
--- NOTE | 2021-11-07 14:10 | PN.HOSP_ITS ---
Documented by User: Atiya Seweney NP, [facility]-C 11/07/21 14:16 Subjective Subjective Patient seen and examined. Reports increased shortness of breath. Right foot pain increased. Denies fever, chills. Objective Data Objective Data Vital Signs: Vital Signs Temp Pulse Resp BP Pulse Ox O2 Del Method O2 Flow Rate 97.2 F L 90 18 158/94 H 95 Nasal Cannula 3 11/07/21 11:33 11/07/21 11:33 11/07/21 11:33 11/07/21 11:33 11/07/21 11:33 11/07/21 11:33 11/07/21 11:33 FiO2 35 11/05/21 05:10 Oxygen Flow Rate (L/min) 3 Oxygen Delivery Method Nasal Cannula Weight: 220 lb 10.923 oz Body Mass Index (BMI) 33.5 Intake & Output: Intake and Output for Last 24 Hours 11/05/21 11/06/21 11/07/21 23:59 23:59 23:59 Intake Total 1470 / 1470 450 / 750 880 / 880 Output Total 1500 / 1500 1000 / 1250 675 / 675 Balance -30 / -30 -550 / -500 205 / 205 Lab / Micro Data Result Diagrams: 11/07/21 06:10 11/07/21 06:10 Labs: Laboratory Results - last 24 hr 11/05/21 10:00: S.aureus Protein A PCR NEGATIVE, MRSA (PCR) Negative 11/06/21 16:27: POC Glucose 180 H 11/06/21 21:24: POC Glucose 183 H 11/07/21 06:04: POC Glucose 106 11/07/21 06:10: Sodium 143, Potassium 3.5, Chloride 106, Carbon Dioxide 30.0, Anion Gap 7, BUN 38 H, Creatinine 1.37 H, Estim Creat Clear Calc 49.23, Est GFR (MDRD) Af Amer 66, Est GFR (MDRD) Non-Af 55 L, BUN/Creatinine Ratio 27.7 H, Glucose 112 H, Calcium 10.0 11/07/21 06:10: WBC 8.3, RBC 4.05 L, Hgb 10.8 L, Hct 34.5 L, MCV 85.2, MCH 26.7 L, MCHC 31.3 L, RDW Std Deviation 48.3 H, RDW Coeff of Nina 15.6 H, Plt Count 285, MPV 9.0, Neut % (Auto) Not Reportable, Absolute Neuts (auto) 6.0, Absolute Lymphs (auto) 0.25 L, Total Counted 100, Neutrophils % (Manual) 69, Band Neutrophils % 3, Lymphocytes % (Manual) 3 L, Monocytes % (Manual) 18 H, Eosinophils % (Manual) 1, Metamyelocytes % 2 H, Myelocytes % 4 H, Nucleated RBCs/100 WBC 3, Diff Path Review August, Platelet Estimate ADEQUATE, RBC Morphology NORM C+C 11/07/21 10:59: POC Glucose 175 H Micro: Microbiology 11/05/21 10:00 Wound - Right Foot Gram Stain - Final 11/05/21 10:00 Wound - Right Foot Wound Culture - Preliminary Coag Negative Staph 11/04/21 09:15 Sputum, Expectorated/Coughed Gram Stain - Final 11/04/21 09:15 Sputum, Expectorated/Coughed Respiratory Culture - Preliminary Stenotrophomonas maltophilia Klebsiella pneumoniae sp pneum Meth. resistant Staph. aureus 11/02/21 15:10 Blood Culture (Wb) - Left Wrist Blood Culture - Preliminary No growth in 48 hours. 11/02/21 12:39 Nasal Secretion SARS-CoV-2 & FLU Antigen (Rapid) - Final Physical Exam Const alert and oriented x3 HEENT normocephalic Mouth: dry mucous membranes Eyes PERRL, EOMs intact bilaterally and conjunctivae normal Neck no lymphadenopathy Resp clear to auscultation bilaterally Auscultation: diminished lung sounds Cardio regular rate, regular rhythm and no murmurs Peripheral Pulses: pulses 2+ throughout GI normal to inspection, nondistended, normoactive bowel sounds, non-tender and non-distended Extremity normal to inspection Skin no rashes or lesions noted Skin Narrative: Right foot dressing intact, changed by podiatry. Lesions: no lesions Rashes: no rashes Trauma: no lacerations or abrasions Neuro CN's II-XII intact bilaterally, no focal motor deficits, no sensory deficits noted and deep tendon reflexes 2+ bilaterally Psych mental status grossly normal and affect normal Assessment & Plan Assessment/Plan (1) Acute and chronic respiratory failure with hypoxia: (2) Contusion of foot, right: PLAN: Plan 1.? Severe sepsis secondary to acute on chronic hypoxic respiratory failure as a result of exacerbation of COPD, left lower lobe pneumonia and right foot cellulitis-chest x-ray with left lower lobe infiltrate.? WBC 13.3. Lactic acid 2.3.? Patient's pulse ox noted to be 80% on CPAP upon arrival to ED.? Converted to BiPAP.?Now stable on 3L NC. Continue IV zosyn.? Albuterol and DuoNeb aerosols.? Continue prednisone. Blood culture with no growth.? Sputum culture growing stenotrophomonas, Klebsiella and MRSA. ID following. Transition to oral Levaquin and Zyvox. 2. Acute kidney injury on chronic kidney disease stage IIIa- nephrology consulted.? Hold off on IV fluids given significant edema.? Trend BMP.? Renal ultrasound demonstrates medical renal disease.? Creatinine trending down. 3.? Right foot cellulitis and contusion-initial concern for vasculitis/ischemia.? X-ray unremarkable.? Ultrasound negative for DVT.? PEDRO LUIS completed and demonstrated pedal/visit disease.? Vascular surgery consulted as well as podiatry.? No evidence of significant hematoma.? No plans for surgical intervention at this time.? Continue supportive management.? Continue antibiotics per above. Dressing changes as ordered. Wound RN consulted. Foot wound culture pending. Preliminary growing coag negative staph. 4. CAD with history of stent-continue aspirin, statin, metoprolol. 5. Chronic hypoxic respiratory failure secondary to COPD, NICKOLAS-on trilogy and supplemental oxygen at bedtime per patient. 6. Chronic heart failure with preserved ejection fraction-echo June 2020 with EF 60%, stage II diastolic dysfunction. 7. Paroxysmal atrial fibrillation-continue metoprolol.? Per cardiology, not on anticoagulation due to maintaining sinus rhythm. 8. Hypertension-stable, continue current regimen. 9. Hyperlipidemia-continue statin. 10. Type 2 diabetes [id number] with sliding scale insulin. 11. GERD-continue PPI. 12. Hx DVT with history of IVC filter placement. DVT prophylaxis- heparin ok This patient was seen by ASHLEY Mercedes under the supervision of Dr. Cornejo. Discharge planning: Agreeable to SNF. Likely DC 11/08/21. Time spent examining patient, reviewing data and subsequent management of care: 14 minutes Documented by User: Dr. Mark Cornejo MD 11/07/21 15:46 Subjective Subjective Patient seen and examined. Reports increased shortness of breath. Right foot pain increased. Denies fever, chills. Seen and examined. Patient is states that he is short of breath but objectively patient is talking fluently without getting short of breath. No fever or chills. On 3 L of oxyg en. Objective Data Lab / Micro Data Result Diagrams: 11/07/21 06:10 11/07/21 06:10 Labs: Laboratory Results - last 24 hr 11/05/21 10:00: S.aureus Protein A PCR NEGATIVE, MRSA (PCR) Negative 11/06/21 16:27: POC Glucose 180 H 11/06/21 21:24: POC Glucose 183 H 11/07/21 06:04: POC Glucose 106 11/07/21 06:10: Sodium 143, Potassium 3.5, Chloride 106, Carbon Dioxide 30.0, Anion Gap 7, BUN 38 H, Creatinine 1.37 H, Estim Creat Clear Calc 49.23, Est GFR (MDRD) Af Amer 66, Est GFR (MDRD) Non-Af 55 L, BUN/Creatinine Ratio 27.7 H, Glucose 112 H, Calcium 10.0 11/07/21 06:10: WBC 8.3, RBC 4.05 L, Hgb 10.8 L, Hct 34.5 L, MCV 85.2, MCH 26.7 L, MCHC 31.3 L, RDW Std Deviation 48.3 H, RDW Coeff of Nina 15.6 H, Plt Count 285, MPV 9.0, Neut % (Auto) Not Reportable, Absolute Neuts (auto) 6.0, Absolute Lymphs (auto) 0.25 L, Total Counted 100, Neutrophils % (Manual) 69, Band Neutrophils % 3, Lymphocytes % (Manual) 3 L, Monocytes % (Manual) 18 H, Eosinophils % (Manual) 1, Metamyelocytes % 2 H, Myelocytes % 4 H, Nucleated RBCs/100 WBC 3, Diff Path Review May foll, Platelet Estimate ADEQUATE, RBC Morphology NORM C+C 11/07/21 10:59: POC Glucose 175 H Physical Exam Narrative Physical exam General: Awake, oriented x3. coherent to speech HEENT: Atraumatic, PERRLA, EOMI, Normocephalic Oral: No Gingival or Mucosal Lesions/ Ulcerations Neck: Supple, No JVD, Negative Carotid Bruits Lungs: Air entry diminished in bilateral lung bases. Mild bilateral expiratory rhonchi Cardiovascular: Regular rate, Regular Rhythm, Normal S1, Normal S2, systolic murmur LLSB and cardiac apex Abdomen: Bowel Sounds Present, Soft, Non Tender, Non-Distended : No renal angle tenderness. No suprapubic tenderness. Extremities: Bilateral lower extremity pitting edema, improving. Capillary Refill Less than 3 Seconds Skin: Bilateral Néstor wrap bandage. Bilateral legs venous stasis and lymphedema. Small superficial ulceration over left lower leg healing. Musculoskeletal: ROM limited. Muscle strength 4/5 at major joints of LE Neurological: Cranial nerves II-XII grossly intact, DTR 2+/4 and Symmetrical Psych/Mental Status: Flat affect Assessment & Plan Assessment/Plan (1) Acute and chronic respiratory failure with hypoxia: (2) Contusion of foot, right: PLAN: Plan 1.? Severe sepsis secondary to acute on chronic hypoxic respiratory failure as a result of exacerbation of COPD, left lower lobe pneumonia and right foot cellul itis-chest x-ray with left lower lobe infiltrate.? WBC 13.3. Lactic acid 2.3.? Patient's pulse ox noted to be 80% on CPAP upon arrival to ED.? Converted to BiPAP.?Now stable on 3L NC. Continue IV zosyn.? Albuterol and DuoNeb aerosols.? Continue prednisone. Blood culture with no growth.? Sputum culture growing stenotrophomonas, Klebsiella and MRSA. ID following. Transition to oral Levaquin and Zyvox. 2. Acute kidney injury on chronic kidney disease stage IIIa- nephrology consulted.? Hold off on IV fluids given significant edema.? Trend BMP.? Renal ultrasound demonstrates medical renal disease.? Creatinine trending down. 3.? Right foot cellulitis and contusion-initial concern for vasculitis /ischemia.? X-ray unremarkable.? Ultrasound negative for DVT.? PEDRO ULIS completed and demonstrated pedal/visit disease.? Vascular surgery consulted as well as podiatry.? No evidence of significant hematoma.? No plans for surgical intervention at this time.? Continue supportive management.? Continue antib iotics per above. Dressing changes as ordered. Wound RN consulted. Foot wound culture pending. Preliminary growing coag negative staph. 4. CAD with history of stent-continue aspirin, statin, metoprolol. 5. Chronic hypoxic respiratory failure secondary to COPD, NICKOLAS-on trilogy and supplemental oxygen at bedtime per patient. 6. Chronic heart failure with preserved ejection fraction-echo June 2020 with EF 60%, stage II diastolic dysfunction. 7. Paroxysmal atrial fibrillation-continue metoprolol.? Per cardiology, not on anticoagulation due to maintaining sinus rhythm. 8. Hypertension-stable, continue current regimen. 9. Hyperlipidemia-continue statin. 10. Type 2 diabetes [id number] with sliding scale insulin. 11. GERD-continue PPI. 12. Hx DVT with history of IVC filter placement. DVT prophylaxis- heparin sc This patient was seen by LYLA MercedesC under the supervision of Dr. Cornejo. Discharge planning: Agreeable to SNF. Likely DC 11/08/21. Time spent examining patient, reviewing data and subsequent management of care: 14 minutes This patient was seen in conjunction with [facility]MER CHILD CAREGIVERAtiya.? I have independently interviewed and examined the patient and reviewed pertinent history, examination findings, laboratory and plan of management.? I have? reviewed the note and agree with the documented findings with the few? additional points. In brief, patient is admitted for for concern of sepsis.? As per H&P patient was sick looking, short of breath, dry cough but no fever chills. the patient presented with 1.? Sepsis due to left lower lobe pneumonia with acute sepsis-related organ dysfunction as evidenced by lactic acidosis, acute on chronic kidney disease and acute on chronic hypoxic respiratory failure.? Baseline creatinine 1.3-1.4, creatinine went up to 2.69.? In ED patient was on BiPAP 40% FiO2. Antibiotic upgraded to vancomycin and Zosyn.? ID consulted.? Rapid COVID-19 antigen negative.? COVID-19 PCR negative.? Blood culture negative for 48 hours.? Sputum culture gram stain shows 1+ GNR, rare gram-positive rods, rare GPC.? 2+ WBC. 11/04: COVID-19 PCR negative.? Leukocytosis improving.? Rapid flu and RSV negative.? ID consult reviewed.? Continue empiric vancomycin and Zosyn. 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 Continue broad- spectrum antibiotic.? Sepsis and shortness of breath symptoms are getting better.? No fever.? Tachycardia and leukocytosis resolved. 11/06: Continue broad-spectrum antibiotic.? Sputum culture growing stenotrophomonas, GNR, staph aureus. Final pending. ID following.? Antibiotic Levaquin added. 11/07: Respiratory culture grew stenotrophomonas, ESBL positive, Klebsiella and MRSA. Patient on isolation. Antibiotic changed to linezolid and Levaquin. 2.? Acute kidney injury on CKD stage III: Pharmacy Technician is consulted.? Monitor kidney function.? Possible etiologies, pre-renal, infection and sepsis 11/04: Improvement in creatinine.? VIET probably due to prerenal and sepsis.? Renal ultrasound reported mild bilateral renal atrophy with increased echogenicity compatible with medical renal disease.? Small left perinephric fluid, not clinically significant. 11/05: Improvement in creatinine. 11/06: Improvement in creatinine from 2.69-1.57. 11/07: Creatinine 1.37. Discussed with the nephrology [facility] CHILD CAREGIVER. Patient was on furosemide 80 mg twice daily. Plan to restart at lower dose 40 mg daily. Uric acid elevated 11.1. He started on low-dose allopurinol. 3.? Bilateral venous hypertension, stasis dermatitis, peripheral arterial disease with chronic left leg ulcer: Since patient has drop-of ice heavy weight on right foot and therefore black discoloration possible hematoma.Venous duplex negative for acute DVT.? Pulses over bilateral SCIENCE TECHNICIANS and DP are triphasic but PEDRO LUIS could not be calculated.? TBI low suggestive of PAD.? Vascular surgeon and senior mechanical design engineer consulted 11/04: MRI of foot was done does not show acute osteomyelitis or acute fracture or dislocation but skin/soft tissue infection consistent with cellulitis.? Vascular surgeon consult reviewed suggestive of distal foot digital artery PAD, not amenable to vascular intervention.? Patient on aspirin.? Podiatry consult reviewed. 4.? Coronary artery disease with a stent.? Chronic HFpEF, paroxysmal A. fib on metoprolol 5.? COPD with chronic hypoxic respiratory failure and NICKOLAS: On Trelegy Other comorbidities admission eval hypertension, dyslipidemia, type 2 diabetes mellitus, GERD I have discussed my assessment with SUMMER CHILD CAREGIVERAtiya and orders have been reviewed. Total time of the visit including total time spent in counseling or coordination of care, (more than 50% of the total time, spent in obtaining medical information from nurses and other ancillary care providers,explaining to the patient about labs, imaging, diagnosis and management), discussion with consultants, review of labs and imaging is? 40 minutes.? I spent 25 minutes, Atiya GRIER spent 15 minutes Charges/Coding Visit Charges Inpatient E&M: 31993 Subs Hosp L2
--- NOTE | 2021-11-07 14:20 | PCM.PN.ID ---
Physical Exam Narrative Feeling about the same, still cough and dyspnea. No fever. Const alert and no apparent distress Resp Auscultation: rhonchi Cardio regular rate and regular rhythm GI soft to palpation, non-tender and non-distended Skin Skin Narrative: R foot wrapped ID ID: Route of nutrition/ use of supplements: [] Nutritional Intake: [] IV Site: [] Head Catheter: [] Assessment & Plan Assessment/Plan (1) Acute and chronic respiratory failure with hypoxia: PLAN: Sputum with steno, klebs, mrsa. Will change abx to linezolid/levaquin. Will follow (2) Acute pain of right foot: PLAN: Abx as above. PLAN: Plan Will follow, thank you, d/w primary team
[2021-11-07] MEDS: Linezolid 600 MG Tablet PO (15:23)
[2021-11-07] MEDS: levoFLOXacin 500 MG Tablet PO (15:23)
--- NOTE | 2021-11-07 15:44 | PCM.TXEXTCAR ---
Diet Diet Order/Speech Therapy: 11/03/21 13:16 Diet: Carbohydrate Controlled Dietary Modifications:: No Added Salt Is pt able to select menu?: Yes Routine Orders/Code Status Enema Type: Fleetz Enema Frequency: Daily PRN O2 Liters per Minute: 3 O2 Frequency: Continuous Keep PO Greater than or Equal to (%): 90 Routine Lab Work: - (Weekly CBC, BMP) Code Status: Full Code Wound(s) rt dobson: Wound Type: open blisters Dressing Change: Adaptic left dobson: Wound Type: Stasis Ulcer Dressing Change: Adaptic left medial lower leg: Wound Type: Stasis Ulcer Dressing Change: Adaptic fish cleft: Wound Type: Skin Tear right dorsal foot: Wound Type: unroofed blister Dressing Change: Adaptic Therapies Weight Bearing: Partial weight bearing Physical Therapy: Eval and Treat Occupational Therapy: Eval and Treat Problem/Diagnosis (1) Acute and chronic respiratory failure with hypoxia: Status: Chronic Code(s): J96.21 - Acute and chronic respiratory failure with hypoxia (2) Contusion of foot, right: Status: Acute Code(s): S90.31XA - Contusion of right foot, initial encounter Allergies/Procedures Done in Hospital Allergies meropenem Allergy (Verified 11/02/21 11:12) Unknown tramadol Allergy (Verified 11/02/21 11:12) Unknown vancomycin Allergy (Verified 11/02/21 11:12) Unknown hydrocodone bitartrate [From Vicodin] Adverse Reaction (Verified 11/02/21 11:12) nightmares nightmares Procedures: None Type of Care/Length of Stay Estimated LOS: Convalescent Care Less Than 30 days Type of Care Needed: Skilled Rehab Potential: Fair Prognosis: Fair Additional Orders/Day of Discharge H&P will serve as current which was dated: 11/02/21 Day of Discharge: 11/07/21 Dietary and Speech Recommendations Dietitian Recommendations/Changes: Will continue carbohydrate-controlled, no added salt diet for now. Will continue Jayro BID for wounds. Glucerna Shake if oral intake fails at meals---will defer for now. Discharge Plan Admission Admit Date/Time: 11/02/21 15:14 Primary Reason for Your Visit: COPD, pneumonia, right foot cellulitis Attending Provider: Mark Cornejo Primary Care Provider: Andres Petty Consulting Providers: Mohan Davis ; Ariane Bell ; Shayne Diop ; Nany Monk ; Tomeka Fine ; Buck Yoon ; Radha Hart ; Emily Russell ; Mykel Newell ; Roosevelt Dhaliwal ; Mago Duran ; Joe Sanchez ; Manjit López ; Caterina Youngblood ; Cain Gonzalez ; Sobeida Farris ; Darell Trevizo ; Soy Leblanc Instructions Additional Instructions / Restrictions: wash bilateral lower legs and feet gently with soap and water. pat dry. place Adaptic to the open areas bilateral lower legs. cover with dry dressings. wrap with kerlix. change daily and prn. recommend offloading in the right forefoot with heel weightbearing in a Cam walking boot or surgical shoe.? Limiting ambulation to transfer purposes only. Discharge Orders/Prescriptions Prescriptions: New linezolid 600 mg Tablet 600 mg PO BID 7 Days Qty: 0 0RF levofloxacin 500 mg Tablet 500 mg PO DAILY@0600 7 Days Qty: 0 0RF oxycodone 5 mg Tablet 10 mg PO Q6H PRN PRN (Reason: Pain Score 6-10) 2 Days Qty: 10 0RF Continued budesonide [Pulmicort] 0.5 mg/2 mL suspension for nebulization 2 ml INHALATION Q12H PRN (Reason: Sob &/Or Wheezing) budesonide-formoterol 160-4.5 mcg/actuation HFA aerosol inhaler 2 puff INHALATION BID Label Comments: INHALE 2 PUFFS INTO THE LUNGS INSTRUCTED TWICE DAILY aspirin [Enteric Coated Aspirin] 81 mg tablet,delayed release (DR/EC) 81 mg PO Q OTHER DAY oxycodone-acetaminophen 5-325 mg tablet 1 tab PO Q6H PRN (Reason: Pain) omeprazole 20 MG capsule 20 mg PO BID metformin 500 MG tablet 500 mg PO BID Label Comments: TAKE 1 TABLET BY MOUTH TWICE A DAY WITH MEALS nitroglycerin 0.4 MG tablet, sublingual 0.4 mg sublingual PRN PRN (Reason: chest pain ) albuterol sulfate 8.5 GM HFA aerosol inhaler 2 puff PO Q4H PRN PRN (Reason: wheezing/sob ) Label Comments: INHALE 2 PUFFS INSTRUCTED EVERY 4 HOURS NEEDED FOR WHEEZING/SHORTNESS OF BREATH. cyanocobalamin (vitamin B-12) 500 MCG tablet 1,000 mcg PO QODAY ipratropium-albuterol 1 PUFF inhaler 1 puff INHALATION 4X/DAY pregabalin 25 mg capsule 25 mg PO BID ergocalciferol (vitamin D2) 1,250 mcg (50,000 unit) capsule 1,250 mcg PO TH prednisone 10 mg tablet 10 mg PO DAILY PRN PRN (Reason: Steroid) Label Comments: TAKE 1 TABLET BY MOUTH EVERY DAY rosuvastatin 20 mg tablet 20 mg PO QHS metoprolol tartrate 25 mg tablet 25 mg PO BID Qty: 180 3RF Discontinued furosemide 40 mg tablet 80 mg PO BID Referrals / Follow Up: Manjit López DPM [Med Staff - Active Staff] - Within 2 Weeks Nany Monk MD [Med Staff - Consulting] - Within 1 Month Andres Petty MD [Primary Care Provider] - In 1 Week Disposition Disposition (needs filled in before D/C Order can be placed): Residential Facility
--- NOTE | 2021-11-07 15:59 | DS.PCM_ITS ---
Documented by User: Atiya Sweeney NP, MICROFILM CLERK-C 11/07/21 16:05 Providers Date of Admission: 11/02/21 Date of Discharge: 11/07/21 Primary Care Physician: Dr. Andres Petty MD Consultations 11/03/21 09:43 Consult: Nephrology Routine Consulting Provider: [facility] Reason for Consult: VIET, CKD EMERGENT Consult: No MD Notified: Yes Date Notified: 11/03/21 Time Notified: 09:48 Method of Notification: Answering Service 11/03/21 10:21 Consult: Podiatry Routine Consulting Provider: [facility] Reason for Consult: Right foot pain, recent injury EMERGENT Consult: No MD Notified: Yes Date Notified: 11/03/21 Time Notified: 11:42 Method of Notification: Verbal 11/03/21 10:34 Consult: Infectious Disease Routine Consulting Provider: Joe Sanchez Reason for Consult: right foot cellulitis? EMERGENT Consult: No Notified: Yes Date Notified: 11/03/21 Time Notified: 11:45 Method of Notification: Text 11/03/21 10:37 Consult: Vascular Surgery Routine Consulting Provider: Soy Leblanc Reason for Consult: Suspected PVD with lower extremity wounds EMERGENT Consult: No MD Notified: Yes Date Notified: 11/03/21 Time Notified: 11:44 Method of Notification: Text 11/03/21 13:59 Consult: Onc/Wound/psychiatry physician Routine Comment: Reason for Consult:: BLLE venous stasis wounds Reason For Visit: CUTE ON CHRONIC RESPIRATORY FAILURE, Diagnosis Discharge Diagnosis (1) Acute and chronic respiratory failure with hypoxia: Status: Chronic Code(s): J96.21 - Acute and chronic respiratory failure with hypoxia (2) Contusion of foot, right: Status: Acute Code(s): S90.31XA - Contusion of right foot, initial encounter Plan 1.? Severe sepsis secondary to acute on chronic hypoxic respiratory failure as a result of exacerbation of COPD, left lower lobe pneumonia and right foot cellulitis-chest x-ray with left lower lobe infiltrate.? WBC 13.3. Lactic acid 2.3.? Patient's pulse ox noted to be 80% on CPAP upon arrival to ED.? Converted to BiPAP.?Now stable on 3L NC. Continue IV zosyn.? Albuterol and DuoNeb aerosols.? Continue prednisone. Blood culture with no growth.? Sputum culture growing stenotrophomonas, Klebsiella and MRSA. ID following. Transition to oral Levaquin and Zyvox. 2. Acute kidney injury on chronic kidney disease stage IIIa- nephrology consulted.? Hold off on IV fluids given significant edema.? Trend BMP.? Renal ultrasound demonstrates medical renal disease.? Creatinine trending down. 3.? Right foot cellulitis and contusion-initial concern for vasculitis/ischemia.? X-ray unremarkable.? Ultrasound negative for DVT.? PEDRO LUIS completed and demonstrated pedal/visit disease.? Vascular surgery consulted as well as podiatry.? No evidence of significant hematoma.? No plans for surgical intervention at this time.? Continue supportive management.? Continue antibiotics per above. Dressing changes as ordered. Wound RN consulted. Foot wound culture pending. Preliminary growing coag negative staph. 4. CAD with history of stent-continue aspirin, statin, metoprolol. 5. Chronic hypoxic respiratory failure secondary to COPD, NICKOLAS-on trilogy and supplemental oxygen at bedtime per patient. 6. Chronic heart failure with preserved ejection fraction-echo June 2020 with EF 60%, stage II diastolic dysfunction. 7. Paroxysmal atrial fibrillation-continue metoprolol.? Per cardiology, not on anticoagulation due to maintaining sinus rhythm. 8. Hypertension-stable, continue current regimen. 9. Hyperlipidemia-continue statin. 10. Type 2 diabetes [id number] with sliding scale insulin. 11. GERD-continue PPI. 12. Hx DVT with history of IVC filter placement. DVT prophylaxis- heparin sc This patient was seen by ASHLEY Mercedes under the supervision of Dr. Cornejo. Discharge planning: Agreeable to SNF. Likely DC 11/08/21. Time spent examining patient, reviewing data and subsequent management of care: 14 minutes Medications at Discharge Home Medications omeprazole 20 mg capsule,delayed release 20 mg PO BID GERD 02/09/17 albuterol sulfate 90 mcg/actuation aerosol inhaler 2 puff PO Q4H PRN PRN wheezing/sob 01/29/19 metformin 500 mg tablet 500 mg PO BID BS 01/29/19 nitroglycerin 0.4 mg sublingual tablet 0.4 mg sublingual PRN PRN chest pain 01/29/19 budesonide 0.5 mg/2 mL suspension for nebulization (Pulmicort) 2 ml inhalation Q12H PRN Sob &/Or Wheezing 02/19/19 budesonide-formoterol HFA 160 mcg-4.5 mcg/actuation aerosol inhaler 2 puff inhalation BID Lungs 05/18/19 cyanocobalamin (vitamin B-12) 500 mcg tablet 1,000 mcg PO QODAY Supplement 01/20/20 ipratropium 20 mcg-albuterol 100 mcg/actuation mist for inhalation 1 puff inhalation 4X/DAY Lungs 01/20/20 oxycodone-acetaminophen 5 mg-325 mg tablet 1 tab PO Q6H PRN Pain 06/19/21 pregabalin 25 mg capsule 25 mg PO BID neuropathy 06/19/21 metoprolol tartrate 25 mg tablet 25 mg PO BID BP #180 tabs 07/26/21 aspirin 81 mg tablet,delayed release (Enteric Coated Aspirin) 81 mg PO Q OTHER DAY Heart 09/18/21 ergocalciferol (vitamin D2) 1,250 mcg (50,000 unit) capsule 1,250 mcg PO TH supplement 11/02/21 prednisone 10 mg tablet 10 mg PO DAILY PRN PRN Steroid 11/02/21 rosuvastatin 20 mg tablet 20 mg PO QHS Cholesterol 11/02/21 levofloxacin 500 mg tablet 500 mg PO DAILY@0600 7 days #0 tabs 11/07/21 linezolid 600 mg tablet 600 mg PO BID 7 days #0 tabs 11/07/21 oxycodone 5 mg tablet 10 mg PO Q6H PRN PRN Pain Score 6-10 2 days #10 tabs 11/07/21 Hospital Course Operations None Procedures None Summary of Care Provided Hospital Course: Patient is a 70-year-old male admitted 11/02/2021 due to shortness of breath. 1.? Severe sepsis secondary to acute on chronic hypoxic respiratory failure as a result of exacerbation of COPD, left lower lobe pneumonia and right foot cellulitis-chest x-ray with left lower lobe infiltrate.? Patient's pulse ox noted to be 80% on CPAP upon arrival to ED.? Converted to BiPAP.?Now stable on 3L NC. Completed prednisone burst. Blood culture with no growth.? Sputum culture growing stenotrophomonas, Klebsiella and MRSA. ID consulted during admission.? Transition to oral Levaquin and Zyvox for 1 week at discharge. Follow-up with PCP in 1 week. 2. Acute kidney injury on chronic kidney disease stage IIIa- nephrology consulted during admission.? Renal ultrasound demonstrates medical renal disease.? Creatinine trending down. Reduce home Lasix to 40 mg daily at discharge with weekly BMP and nephrology follow-up. 3.? Right foot cellulitis and contusion-initial concern for vasculitis/ischemia.? X-ray unremarkable.? Ultrasound negative for DVT.? PEDRO LUIS completed and demonstrated pedal/digit disease.? Vascular surgery consulted as well as podiatry during admission.? No evidence of significant hematoma. Foot wound culture growing coag negative staph. Antibiotics per above. Continue dressing changes as ordered. Continue outpatient follow-up with podiatry. 4. CAD with history of stent-continue aspirin, statin, metoprolol. 5. Chronic hypoxic respiratory failure secondary to COPD, NICKOLAS-on trilogy and supplemental oxygen at bedtime per patient. 6. Chronic heart failure with preserved ejection fraction-echo June 2020 with EF 60%, stage II diastolic dysfunction. 7. Paroxysmal atrial fibrillation-continue metoprolol.? Per cardiology, not on anticoagulation due to maintaining sinus rhythm. Continue outpatient follow-up. 8. Hypertension-stable, continue current regimen. 9. Hyperlipidemia-continue statin. 10. Type 2 diabetes mellitus-continue home regimen. 11. GERD-continue PPI. 12. Hx DVT with history of IVC filter placement. Physical Exam Const alert and oriented x3 HEENT normocephalic Mouth: dry mucous membranes Eyes PERRL, EOMs intact bilaterally and conjunctivae normal Neck no lymphadenopathy Resp clear to auscultation bilaterally Auscultation: diminished lung sounds Cardio regular rate, regular rhythm and no murmurs Peripheral Pulses: pulses 2+ throughout GI normal to inspection, nondistended, normoactive bowel sounds, non-tender and non-distended Extremity normal to inspection Skin no rashes or lesions noted Skin Narrative: Right foot dressing intact, changed by podiatry. Lesions: no lesions Rashes: no rashes Trauma: no lacerations or abrasions Neuro CN's II-XII intact bilaterally, no focal motor deficits, no sensory deficits noted and deep tendon reflexes 2+ bilaterally Psych mental status grossly normal and affect normal Patient seen and examined prior to discharge. Physical assessment as noted above. Patient is stable for discharge with follow up recommendations as noted above. This patient was seen by ASHLEY Merceeds under the supervision of Dr. Cornejo. Time spent examining patient, reviewing data and subsequent management of care: 28 minutes Weight / BMI Weight Weight: 220 lb 10.923 oz Body Mass Index (BMI) 33.5 ABG / Lab / Microbiology Data Result Diagrams: 11/07/21 06:10 11/07/21 06:10 Laboratory: Laboratory Results - last 24 hr 11/05/21 10:00: S.aureus Protein A PCR NEGATIVE, MRSA (PCR) Negative 11/06/21 16:27: POC Glucose 180 H 11/06/21 21:24: POC Glucose 183 H 11/07/21 06:04: POC Glucose 106 11/07/21 06:10: Sodium 143, Potassium 3.5, Chloride 106, Carbon Dioxide 30.0, Anion Gap 7, BUN 38 H, Creatinine 1.37 H, Estim Creat Clear Calc 49.23, Est GFR (MDRD) Af Amer 66, Est GFR (MDRD) Non-Af 55 L, BUN/Creatinine Ratio 27.7 H, Glucose 112 H, Calcium 10.0 11/07/21 06:10: WBC 8.3, RBC 4.05 L, Hgb 10.8 L, Hct 34.5 L, MCV 85.2, MCH 26.7 L, MCHC 31.3 L, RDW Std Deviation 48.3 H, RDW Coeff of Nina 15.6 H, Plt Count 285, MPV 9.0, Neut % (Auto) Not Reportable, Absolute Neuts (auto) 6.0, Absolute Lymphs (auto) 0.25 L, Total Counted 100, Neutrophils % (Manual) 69, Band Neutrophils % 3, Lymphocytes % (Manual) 3 L, Monocytes % (Manual) 18 H, Eosinophils % (Manual) 1, Metamyelocytes % 2 H, Myelocytes % 4 H, Nucleated RBCs/100 WBC 3, Diff Path Review May foll, Platelet Estimate ADEQUATE, RBC Morphology NORM C+C 11/07/21 10:59: POC Glucose 175 H Microbiology: Microbiology 11/05/21 10:00 Wound - Right Foot Gram Stain - Final 11/05/21 10:00 Wound - Right Foot Wound Culture - Preliminary Coag Negative Staph 11/04/21 09:15 Sputum, Expectorated/Coughed Gram Stain - Final 11/04/21 09:15 Sputum, Expectorated/Coughed Respiratory Culture - Preliminary Stenotrophomonas maltophilia Klebsiella pneumoniae sp pneum Meth. resistant Staph. aureus 11/02/21 15:10 Blood Culture (Wb) - Left Wrist Blood Culture - Preliminary No growth in 48 hours. 11/02/21 12:39 Nasal Secretion SARS-CoV-2 & FLU Antigen (Rapid) - Final Meaningful Use Info Meaningful Use Diagnoses (Choose all that apply): None applicable Discharge Plan Admission Admit Date/Time: 11/02/21 15:14 Primary Reason for Your Visit: COPD, pneumonia, right foot cellulitis Attending Provider: Mark Cornejo Primary Care Provider: Andres Petty Consulting Providers: Mohan Davis ; Ariane Bell ; Shayne Diop ; Nany Monk ; Tomeka Fine ; Buck Yoon ; Radha Hart ; Emily Russell ; Mykel Newell ; Roosevelt Dhaliwal ; Mago Duran ; Joe Sanchez ; Manjit López ; Caterina Youngblood ; Cain Gonzalez ; Sobeida Farris ; Darell Trevizo ; Soy Leblanc Instructions Additional Instructions / Restrictions: wash bilateral lower legs and feet gently with soap and water. pat dry. place Adaptic to the open areas bilateral lower legs. cover with dry dressings. wrap with kerlix. change daily and prn. recommend offloading in the right forefoot with heel weightbearing in a Cam walking boot or surgical shoe.? Limiting ambulation to transfer purposes only. Discharge Orders/Prescriptions Prescriptions: New linezolid 600 mg Tablet 600 mg PO BID 7 Days Qty: 0 0RF levofloxacin 500 mg Tablet 500 mg PO DAILY@0600 7 Days Qty: 0 0RF oxycodone 5 mg Tablet 10 mg PO Q6H PRN PRN (Reason: Pain Score 6-10) 2 Days Qty: 10 0RF Continued budesonide [Pulmicort] 0.5 mg/2 mL suspension for nebulization 2 ml INHALATION Q12H PRN (Reason: Sob &/Or Wheezing) budesonide-formoterol 160-4.5 mcg/actuation HFA aerosol inhaler 2 puff INHALATION BID Label Comments: INHALE 2 PUFFS INTO THE LUNGS INSTRUCTED TWICE DAILY aspirin [Enteric Coated Aspirin] 81 mg tablet,delayed release (DR/EC) 81 mg PO Q OTHER DAY oxycodone-acetaminophen 5-325 mg tablet 1 tab PO Q6H PRN (Reason: Pain) omeprazole 20 MG capsule 20 mg PO BID metformin 500 MG tablet 500 mg PO BID Label Comments: TAKE 1 TABLET BY MOUTH TWICE A DAY WITH MEALS nitroglycerin 0.4 MG tablet, sublingual 0.4 mg sublingual PRN PRN (Reason: chest pain ) albuterol sulfate 8.5 GM HFA aerosol inhaler 2 puff PO Q4H PRN PRN (Reason: wheezing/sob ) Label Comments: INHALE 2 PUFFS INSTRUCTED EVERY 4 HOURS NEEDED FOR WHEEZING/SHORTNESS OF BREATH. cyanocobalamin (vitamin B-12) 500 MCG tablet 1,000 mcg PO QODAY ipratropium-albuterol 1 PUFF inhaler 1 puff INHALATION 4X/DAY pregabalin 25 mg capsule 25 mg PO BID ergocalciferol (vitamin D2) 1,250 mcg (50,000 unit) capsule 1,250 mcg PO TH prednisone 10 mg tablet 10 mg PO DAILY PRN PRN (Reason: Steroid) Label Comments: TAKE 1 TABLET BY MOUTH EVERY DAY rosuvastatin 20 mg tablet 20 mg PO QHS metoprolol tartrate 25 mg tablet 25 mg PO BID Qty: 180 3RF Discontinued furosemide 40 mg tablet 80 mg PO BID Referrals / Follow Up: Manjit López DPM [Med Staff - Active Staff] - Within 2 Weeks Nany Monk MD [Med Staff - Consulting] - Within 1 Month Andres Petty MD [Primary Care Provider] - In 1 Week Disposition Disposition (needs filled in before D/C Order can be placed): Longterm Facility Documented by User: Dr. Mark Cornejo MD 11/07/21 16:28 Providers Date of Admission: 11/02/21 Reason For Visit: CUTE ON CHRONIC RESPIRATORY FAILURE, Diagnosis Discharge Diagnosis (1) Acute and chronic respiratory failure with hypoxia: Status: Chronic Code(s): J96.21 - Acute and chronic respiratory failure with hypoxia (2) Contusion of foot, right: Status: Acute Code(s): S90.31XA - Contusion of right foot, initial encounter Medications at Discharge Home Medications omeprazole 20 mg capsule,delayed release 20 mg PO BID GERD 02/09/17 albuterol sulfate 90 mcg/actuation aerosol inhaler 2 puff PO Q4H PRN PRN wheezing/sob 01/29/19 metformin 500 mg tablet 500 mg PO BID BS 01/29/19 nitroglycerin 0.4 mg sublingual tablet 0.4 mg sublingual PRN PRN chest pain 01/29/19 budesonide 0.5 mg/2 mL suspension for nebulization (Pulmicort) 2 ml inhalation Q12H PRN Sob &/Or Wheezing 02/19/19 budesonide-formoterol HFA 160 mcg-4.5 mcg/actuation aerosol inhaler 2 puff inhalation BID Lungs 05/18/19 cyanocobalamin (vitamin B-12) 500 mcg tablet 1,000 mcg PO QODAY Supplement 01/20/20 ipratropium 20 mcg-albuterol 100 mcg/actuation mist for inhalation 1 puff inhalation 4X/DAY Lungs 01/20/20 oxycodone-acetaminophen 5 mg-325 mg tablet 1 tab PO Q6H PRN Pain 06/19/21 pregabalin 25 mg capsule 25 mg PO BID neuropathy 06/19/21 metoprolol tartrate 25 mg tablet 25 mg PO BID BP #180 tabs 07/26/21 aspirin 81 mg tablet,delayed release (Enteric Coated Aspirin) 81 mg PO Q OTHER DAY Heart 09/18/21 ergocalciferol (vitamin D2) 1,250 mcg (50,000 unit) capsule 1,250 mcg PO TH supplement 11/02/21 prednisone 10 mg tablet 10 mg PO DAILY PRN PRN Steroid 11/02/21 rosuvastatin 20 mg tablet 20 mg PO QHS Cholesterol 11/02/21 levofloxacin 500 mg tablet 500 mg PO DAILY@0600 7 days #0 tabs 11/07/21 linezolid 600 mg tablet 600 mg PO BID 7 days #0 tabs 11/07/21 oxycodone 5 mg tablet 10 mg PO Q6H PRN PRN Pain Score 6-10 2 days #10 tabs 11/07/21 Hospital Course Summary of Care Provided Hospital Course: Patient is a 70-year-old male admitted 11/02/2021 due to shortness of breath. 1.? Severe sepsis secondary to acute on chronic hypoxic respiratory failure as a result of exacerbation of COPD, left lower lobe pneumonia and right foot cellulitis-chest x-ray with left lower lobe infiltrate.? Patient's pulse ox noted to be 80% on CPAP upon arrival to ED.? Converted to BiPAP.?Now stable on 3L NC. Completed prednisone burst. Blood culture with no growth.? Sputum culture growing stenotrophomonas, Klebsiella and MRSA. ID consulted during admission.? Transition to oral Levaquin and Zyvox for 1 week at discharge. Follow-up with PCP in 1 week. 2. Acute kidney injury on chronic kidney disease stage IIIa- nephrology consulted during admission.? Renal ultrasound demonstrates medical renal disease.? Creatinine trending down. Reduce home Lasix to 40 mg daily at discharge with weekly BMP and nephrology follow-up. 3.? Right foot cellulitis and contusion-initial concern for vasculitis/ischemia.? X-ray unremarkable.? Ultrasound negative for DVT.? PEDRO LUIS completed and demonstrated pedal/digit disease.? Vascular surgery consulted as well as podiatry during admission.? No evidence of significant hematoma. Foot wound culture growing coag negative staph. Antibiotics per above. Continue dressing changes as ordered. Continue outpatient follow-up with podiatry. 4. CAD with history of stent-continue aspirin, statin, metoprolol. 5. Chronic hypoxic respiratory failure secondary to COPD, NICKOLAS-on trilogy and supplemental oxygen at bedtime per patient. 6. Chronic heart failure with preserved ejection fraction-echo June 2020 with EF 60%, stage II diastolic dysfunction. 7. Paroxysmal atrial fibrillation-continue metoprolol.? Per cardiology, not on anticoagulation due to maintaining sinus rhythm. Continue outpatient follow-up. 8. Hypertension-stable, continue current regimen. 9. Hyperlipidemia-continue statin. 10. Type 2 diabetes mellitus-continue home regimen. 11. GERD-continue PPI. 12. Hx DVT with history of IVC filter placement. This patient was seen in conjunction with Atiya GRIER.? I have independently interviewed and examined the patient and reviewed pertinent history, examination findings, laboratory and plan of management.? I have? reviewed the note and agree with the documented findings with the few? additional points. In brief, patient is admitted for for concern of sepsis.? As per H&P patient was sick looking, short of breath, dry cough but no fever chills. the patient presented with 1.? Sepsis due to left lower lobe pneumonia with acute sepsis-related organ dysfunction as evidenced by lactic acidosis, acute on chronic kidney disease and acute on chronic hypoxic respiratory failure.? Baseline creatinine 1.3-1.4, crea tinine went up to 2.69.? In ED patient was on BiPAP 40% FiO2. Antibiotic upgraded to vancomycin and Zosyn.? ID consulted.? Rapid COVID-19 antigen negative.? COVID-19 PCR negative.? Blood culture negative for 48 hours.? Sputum culture gram stain shows 1+ GNR, rare gram-positive rods, rare GPC.? 2+ WBC. 11/04: COVID-19 PCR negative.? Leukocytosis improving.? Rapid flu and RSV negative.? ID consult reviewed.? Continue empiric vancomycin and Zosyn. Other diagnosis and management as follows 11/05: Prelim sputum culture growing GNR, lactose gas or water meter installer.? Continue broad- spectrum antibiotic.? Sepsis and shortness of breath symptoms are getting better.? No fever.? Tachycardia and leukocytosis resolved. 11/06: Continue broad-spectrum antibiotic.? Sputum culture growing stenotrophomonas, GNR, staph aureus. Final pending. ID following.? Antibiotic Levaquin added. 11/07: Respiratory culture grew stenotrophomonas, ESBL positive, Klebsiella and MRSA.? Patient on isolation.? Antibiotic changed to linezolid and Levaquin and discharged on the same antibiotics. 2.? Acute kidney injury on CKD stage III: Motor Block Mechanic is consulted.? Monitor kidney function.? Possible etiologies, pre-renal, infection and sepsis 11/04: Improvement in creatinine.? VIET probably due to prerenal and sepsis.? Renal ultrasound reported mild bilateral renal atrophy with increased echogenicity compatible with medical renal disease.? Small left perinephric fluid, not clinically significant. 11/05: Improvement in creatinine. 11/06: Improvement in creatinine from 2.69-1.57. 11/07: Creatinine 1.37.? Discussed with the nephrology MICROFILM CLERK.? Patient was on furosemide 80 mg twice daily.? Plan to restart at lower dose 40 mg daily from tomorrow.? Uric acid elevated 11.1.? He started on low-dose allopurinol 100 mg twice daily. Follow-up BMP in 1 week with delivery crew member. 3.? Bilateral venous hypertension, stasis dermatitis, peripheral arterial disease with chronic left leg ulcer: Since patient has drop-of ice heavy weight on right foot and therefore black discoloration possible hematoma.Venous duplex negative for acute DVT.? Pulses over bilateral COMMISSIONED SALES ASSOCIATE and DP are triphasic but PEDRO LUIS could not be calculated.? TBI low suggestive of PAD.? Vascular surgeon and lottery manager consulted 11/04: MRI of foot was done does not show acute osteomyelitis or acute fracture or dislocation but skin/soft tissue infection consistent with cellulitis.? Vascular surgeon consult reviewed suggestive of distal foot digital artery PAD, not amenable to vascular intervention.? Patient on aspirin.? Podiatry consult reviewed. 4.? Coronary artery disease with a stent.? Chronic HFpEF, paroxysmal A. fib on metoprolol 5.? COPD with chronic hypoxic respiratory failure and NICKOLAS: On Trelegy Other comorbidities admission eval hypertension, dyslipidemia, type 2 diabetes mellitus, GERD I have discussed my assessment with MICROFILM CLERKAtiya and orders have been reviewed. Discharge medication reconciliation done. Discharge follow-up instructions completed. Discharge process discussed with the patient and all questions were answered to patient's satisfaction. Patient discharged to SNF. Total time spent, exact 35 minutes on discharge meds reconciliation, examination, coordination of care with nurses and ancillary staff, review of imaging and blood test and discussion with the patient on follow-up instructions. Physical Exam Const alert and oriented x3 HEENT normocephalic Mouth: dry mucous membranes Eyes PERRL, EOMs intact bilaterally and conjunctivae normal Neck no lymphadenopathy Resp clear to auscultation bilaterally Auscultation: diminished lung sounds Cardio regular rate, regular rhythm and no murmurs Peripheral Pulses: pulses 2+ throughout GI normal to inspection, nondistended, normoactive bowel sounds, non-tender and non-distended Extremity normal to inspection Skin no rashes or lesions noted Skin Narrative: Right foot dressing intact, changed by podiatry. Lesions: no lesions Rashes: no rashes Trauma: no lacerations or abrasions Neuro CN's II-XII intact bilaterally, no focal motor deficits, no sensory deficits noted and deep tendon reflexes 2+ bilaterally Psych mental status grossly normal and affect normal Patient seen and examined prior to discharge. Physical assessment as noted above. Patient is stable for discharge with follow up recommendations as noted above. This patient was seen by ASHLEY Mercedes under the supervision of Dr. Cornejo. Time spent examining patient, reviewing data and subsequent management of care: 28 minutes Physical Exam Narrative Please see progress note of same date for physical exam findings. Patient was seen and examined on the day of discharge. ABG / Lab / Microbiology Data Result Diagrams: 11/07/21 06:10 11/07/21 06:10 Discharge Plan Admission Admit Date/Time: 11/02/21 15:14 Primary Reason for Your Visit: COPD, pneumonia, right foot cellulitis Attending Provider: Mark Cornejo Primary Care Provider: Andres Petty Consulting Providers: Mohan Davis ; Ariane Bell ; Shayne Diop ; Nany Monk ; Tomeka Fine ; Buck Yoon ; Radha Hart ; Emily Russell ; Mykel Newell ; Roosevelt Dhaliwal ; Mago Browne i ; Joe Sanchez ; Manjit López ; Caterina Youngblood ; Cain Gonzalez ; Sobeida Farris ; Darell Trevizo ; Soy Leblanc Instructions Additional Instructions / Restrictions: wash bilateral lower legs and feet gently with soap and water. pat dry. place A daptic to the open areas bilateral lower legs. cover with dry dressings. wrap with kerlix. change daily and prn. recommend offloading in the right forefoot with heel weightbearing in a Cam walking boot or surgical shoe.? Limiting ambulation to transfer purposes only. Discharge Orders/Prescriptions Prescriptions: New linezolid 600 mg Tablet 600 mg PO BID 7 Days Qty: 0 0RF levofloxacin 500 mg Tablet 500 mg PO DAILY@0600 7 Days Qty: 0 0RF oxycodone 5 mg Tablet 10 mg PO Q6H PRN PRN (Reason: Pain Score 6-10) 2 Days Qty: 10 0RF Continued budesonide [Pulmicort] 0.5 mg/2 mL suspension for nebulization 2 ml INHALATION Q12H PRN (Reason: Sob &/Or Wheezing) budesonide-formoterol 160-4.5 mcg/actuation HFA aerosol inhaler 2 puff INHALATION BID Label Comments: INHALE 2 PUFFS INTO THE LUNGS INSTRUCTED TWICE DAILY aspirin [Enteric Coated Aspirin] 81 mg tablet,delayed release (DR/EC) 81 mg PO Q OTHER DAY oxycodone-acetaminophen 5-325 mg tablet 1 tab PO Q6H PRN (Reason: Pain) omeprazole 20 MG capsule 20 mg PO BID metformin 500 MG tablet 500 mg PO BID Label Comments: TAKE 1 TABLET BY MOUTH TWICE A DAY WITH MEALS nitroglycerin 0.4 MG tablet, sublingual 0.4 mg sublingual PRN PRN (Reason: chest pain ) albuterol sulfate 8.5 GM HFA aerosol inhaler 2 puff PO Q4H PRN PRN (Reason: wheezing/sob ) Label Comments: INHALE 2 PUFFS INSTRUCTED EVERY 4 HOURS NEEDED FOR WHEEZING/SHORTNESS OF BREATH. cyanocobalamin (vitamin B-12) 500 MCG tablet 1,000 mcg PO QODAY ipratropium-albuterol 1 PUFF inhaler 1 puff INHALATION 4X/DAY pregabalin 25 mg capsule 25 mg PO BID ergocalciferol (vitamin D2) 1,250 mcg (50,000 unit) capsule 1,250 mcg PO TH prednisone 10 mg tablet 10 mg PO DAILY PRN PRN (Reason: Steroid) Label Comments: TAKE 1 TABLET BY MOUTH EVERY DAY rosuvastatin 20 mg tablet 20 mg PO QHS metoprolol tartrate 25 mg tablet 25 mg PO BID Qty: 180 3RF Discontinued furosemide 40 mg tablet 80 mg PO BID Referrals / Follow Up: Manjit López DPM [Med Staff - Active Staff] - Within 2 Weeks Nany Monk MD [Med Staff - Consulting] - Within 1 Month Andres Petty MD [Primary Care Provider] - In 1 Week Disposition Disposition (needs filled in before D/C Order can be placed): Longterm Facility Charges/Coding Addendum Addendum: Please cancel the billing charge of progress note of the same date. Visit Charges Inpatient E&M: 80564 Disch Hosp
[2021-11-07 16:35] LABS: Bedside Glucose 228 mg/dL (74-106)
--- NOTE | 2021-11-07 17:38 | CASEMGMT ---
Social Work Note KATHYA completed convalescent [facility]000 in [facility]. KATHYA faxed completed discharge paperwork to [facility] including transfer to extended care facility, signed medication list, any scripts, COVID test/tool, and Con[facility]escent [facility]. Original in SNF folder and copy on pt's chart. KATHYA spoke with RN, pt to transport via cot and will need 3 Liters Oxygen. SW accessed trip assist and arranged transportation via cot for 6:30pm. Transportation form completed and placed on SNF folder and copy on pt's chart. Transportation form completed and placed on SNF folder and copy on pt's chart. SW updated RN and executive legal secretary on transportation time. SW in to speak with pt and updated him on discharge and transportation time. SW asked pt if he wanted this worker to call his and pt states she already knows. KATHYA placed a call to Eirn at [facility] and left message updating her on transportation time. Plan: [facility] skilled today under convalescent stay with Physician's transporting pt via cot at 6:30pm. Lacey Funez DISABILITY BENEFITS SPECIALIST, [employer]OP [employer]ER
[2021-11-07] MEDS: Allopurinol 100 MG Tablet PO (17:51)
--- NOTE | 2021-11-07 21:02 | NURSING ---
Pt was discharged with belongings at this time. VS obtained prior to transfer. Report and updated emar given to transport. Pt's bp was elevated discussed with weigh and charge worker states pt is likely anxious regarding the transfer, transport personnel states will check bp enroute as well.
[2021-11-08 12:15] LABS: Pathologist Review Reviewed
== END 2021-11-07 21:03 | DRG 871 ==
LOC: ED 14:54 → PCU 15:59
PROVIDERS: Internal Medicine Infectious Disease; Nurse Practitioner Adult Health; Nurse Practitioner Family; Podiatrist; Admitting Provider Family Medicine; Emergency Provider Emergency Medicine; PCP Family Medicine; Visit Provider Internal Medicine
DX: A41.9 Sepsis, unspecified organism (principal); J96.21 Acute and chronic respiratory failure with hypoxia; J18.9 Pneumonia, unspecified organism; I13.0 Hypertensive heart and chronic kidney disease with heart failure and stage 1 through stage 4 chronic kidney disease, or unspecified chronic kidney disease; I87.313 Chronic venous hypertension (idiopathic) with ulcer of bilateral lower extremity; J44.0 Chronic obstructive pulmonary disease with (acute) lower respiratory infection; N17.9 Acute kidney failure, unspecified; I50.32 Chronic diastolic (congestive) heart failure; L97.922 Non-pressure chronic ulcer of unspecified part of left lower leg with fat layer exposed; L97.912 Non-pressure chronic ulcer of unspecified part of right lower leg with fat layer exposed; J44.1 Chronic obstructive pulmonary disease with (acute) exacerbation; L03.115 Cellulitis of right lower limb; E11.22 Type 2 diabetes mellitus with diabetic chronic kidney disease; I70.211 Atherosclerosis of native arteries of extremities with intermittent claudication, right leg; I48.0 Paroxysmal atrial fibrillation; E11.42 Type 2 diabetes mellitus with diabetic polyneuropathy; N18.31 Chronic kidney disease, stage 3a; E11.51 Type 2 diabetes mellitus with diabetic peripheral angiopathy without gangrene; E11.59 Type 2 diabetes mellitus with other circulatory complications; R65.20 Severe sepsis without septic shock; E78.49 Other hyperlipidemia; G47.33 Obstructive sleep apnea (adult) (pediatric); I25.10 Atherosclerotic heart disease of native coronary artery without angina pectoris; S90.31XA Contusion of right foot, initial encounter; K21.9 Gastro-esophageal reflux disease without esophagitis; W23.0XXA Caught, crushed, jammed, or pinched between moving objects, initial encounter; G89.29 Other chronic pain; E66.9 Obesity, unspecified; Z79.82 Long term (current) use of aspirin; Z79.84 Long term (current) use of oral hypoglycemic drugs; Z79.51 Long term (current) use of inhaled steroids; Z20.822 Contact with and (suspected) exposure to COVID-19; Z87.891 Personal history of nicotine dependence; Z79.52 Long term (current) use of systemic steroids; Z86.718 Personal history of other venous thrombosis and embolism; Z95.5 Presence of coronary angioplasty implant and graft
CPT/HCPCS: 36415; 36600; 71045; 73630; 73718; 76770; 80048; 80053; 80202; 82570; 82803; 82962; 83036; 83605; 83735; 83880; 84300; 84484; 84550; 85025; 85379; 85610; 85730; 87040; 87070; 87077; 87186; 87205; 87428; 87635; 87640; 87811; 93005; 93922; 93970; 94002; 94003; 94640; 94762; 97162; 97166; 97802; 99285; J7040; A4216; J0696; J1940; J2405; U0003; U0005

== ENCOUNTER 2021-11-17 08:47 | Inpatient (IN) | payer MEDICARE, OTHER, SELFPAY ==
[2021-11-17] VITALS (10 sets, daily range): BP systolic 87–104; BP diastolic 50–67; PULSE 75–84; RESP 16–18; TEMP 36.3–36.7; O2SAT 93–100; BMI 36.6; BMI 34.7
[2021-11-17] MEDS: Morphine 4 MG/ML Syringe IM (09:47)
--- NOTE | 2021-11-17 09:54 | EX.ED.DYSGE1 ---
HPI <ASHLEY Hyatt - Last Filed: 11/17/21 12:10> History of Present Illness Chief Complaint: Back Narrative Narrative: 70-year-old male with history of atrial fibrillation, chronic back pain and pain management history of CHF presents to the emergency department with bilateral leg pain, back pain. Patient is currently in a [facility] for rehabilitation after a admission for pneumonia here. Over the last 3 to 4 days, the patient states that he has had shooting pains from his back to bilateral thighs. Patient does have significant lower leg edema, patient states that he is getting physical therapy however he is sitting most of the time. Patient does see pain management. He is on Percocet at the facility however this helped the pain minimally. Patient denies any fevers or chills, denies any bowel or bladder incontinence. [facility] <ASHLEY Hyatt - Last Filed: 11/17/21 12:10> [facility] Medical History Abnormal EKG Abnormal positron emission tomography (PET) scan VIET (acute kidney injury) Alcohol abuse Anemia Atherosclerosis of coronary artery of [place] heart without angina pectoris B12 deficiency Golden's esophagus Benign neoplasm of colon Benign neoplasm of larynx Blood loss anemia Chronic back pain Chronic diastolic (congestive) heart failure Chronic renal disease, stage 3, moderately decreased glomerular filtration rate (GFR) between 30-59 mL/min/1.73 square meter Chronic respiratory failure COLD (chronic obstructive lung disease) COPD (chronic obstructive pulmonary disease) Debility Diabetes Diverticulosis of colon (without mention of hemorrhage) DVT (deep venous thrombosis) (11/09/16) Essential (primary) hypertension Familial combined hyperlipidemia Former smoker GERD (gastroesophageal reflux disease) GI bleed H/O immunosuppressive therapy Hyperlipidemia Hypertension Internal hemorrhoids without mention of complication Lumbar spinal stenosis Lung nodules Neuropathic pain Non-compliance Obesity Obstructive sleep apnea On home oxygen therapy Other voice and resonance disorders Paroxysmal atrial fibrillation Peripheral neuropathy Rheumatoid arthritis Sleep apnea Steroid long-term use Tracheostomy in place Type 2 diabetes mellitus Home Medications omeprazole 20 mg capsule,delayed release 20 mg PO BID GERD 02/09/17 [History Last Taken 11/01/21] albuterol sulfate 90 mcg/actuation aerosol inhaler 2 puff PO Q4H PRN PRN wheezing/sob 01/29/19 [History Last Taken 01/28/19] metformin 500 mg tablet 500 mg PO BID BS 01/29/19 [History Last Taken 11/01/21] nitroglycerin 0.4 mg sublingual tablet 0.4 mg sublingual PRN PRN chest pain 01/29/19 [History Last Taken Unknown] budesonide 0.5 mg/2 mL suspension for nebulization (Pulmicort) 2 ml inhalation Q12H PRN Sob &/Or Wheezing 02/19/19 [History Last Taken 11/01/21] cyanocobalamin (vitamin B-12) 500 mcg tablet 1,000 mcg PO QODAY Supplement 01/20/20 [History Last Taken 11/01/21] ipratropium 20 mcg-albuterol 100 mcg/actuation mist for inhalation 1 puff inhalation BID Lungs 01/20/20 [History Last Taken 11/01/21] oxycodone-acetaminophen 5 mg-325 mg tablet 1 tab PO Q6H PRN Pain 06/19/21 [History Last Taken Unknown] pregabalin 25 mg capsule 25 mg PO BID neuropathy 06/19/21 [History Last Taken 11/01/21] metoprolol tartrate 25 mg tablet 25 mg PO BID BP #180 tabs 07/26/21 [Rx Last Taken 11/01/21] aspirin 81 mg tablet,delayed release (Enteric Coated Aspirin) 81 mg PO Q OTHER DAY Heart 09/18/21 [History Last Taken 11/01/21] ergocalciferol (vitamin D2) 1,250 mcg (50,000 unit) capsule 1,250 mcg PO TH supplement 11/02/21 [History Last Taken 11/01/21] allopurinol 100 mg tablet 100 mg PO BIDCM #0 tabs 11/07/21 [Rx Last Taken Unknown] furosemide 40 mg tablet 40 mg PO DAILY #0 tabs 11/07/21 [Rx Last Taken Unknown] oxycodone 5 mg tablet 10 mg PO Q6H PRN PRN Pain Score 6-10 2 days #10 tabs 11/07/21 [Rx Last Taken Unknown] Lactobacillus rhamnosus GG 10 billion cell capsule (Culturelle) 1 cap PO DAILY 11/17/21 [History Last Taken Unknown] atorvastatin 40 mg tablet 40 mg PO QHS 11/17/21 [History Last Taken Unknown] fluticasone furoate 100 mcg-vilanterol 25 mcg/dose inhalation powder 1 inh inhalation DAILY 11/17/21 [History Last Taken Unknown] Allergy/AdvReac Type Severity Reaction Status Date / Time meropenem Allergy Unknown Verified 11/17/21 08:48 tramadol Allergy Unknown Verified 11/17/21 08:48 vancomycin Allergy Unknown Verified 11/17/21 08:48 hydrocodone bitartrate AdvReac nightmares Verified 11/17/21 08:48 [From Vicodin] Family History Father Heart disease Brother Heart disease Cancer prostate Surgical History history IVC filter insertion (2016) History of colonoscopy (08/08/16) History of coronary artery stent placement (08/29/10) History of esophagogastroduodenoscopy (EGD) (08/08/16) History of esophagogastroduodenoscopy (EGD) (03/2019) History of incisional hernia repair History of left heart catheterization History of lumbar laminectomy (01/2020) Social History household members: significant other Smoking Status: Former smoker Tobacco: How many years used: 40 how long ago did patient quit smokin + years ago alcohol intake: never substance use type: does not use caffeine: Yes Type: coffee Number of servings: 8 ROS <ASHLEY Hyatt - Last Filed: 11/17/21 12:10> ROS ED ROS Narrative Constitutional: Negative for fever, chills, weight loss, weakness Eyes: Negative for vision loss, vision change, double vision ENT: Negative for any sore throat, ear pain, congestion Cardiovascular: Negative for any chest pain, tightness, palpitations Respiratory: Negative for any cough, sputum production, hemoptysis, dyspnea, dyspnea on exertion, orthopnea Gastrointestinal: Negative for any abdominal pain, nausea, vomiting, diarrhea, constipation, blood in stool, blood in vomit : Negative for any urinary frequency, dysuria, retention, blood in urine Muscle skeletal: Negative for any muscle joint pain, stiffness, myalgias, arthralgias, neck pain. Positive for lower back pain that radiates to bilateral legs. Neurological: Negative for any headache, syncope, numbness or tingling, dizziness Skin: Negative for any rashes, lumps, itching, abrasions, lacerations Psychiatric: Negative for any depression, anxiety, stress, suicidal ideation, homicidal ideation Hematologic: Negative for any easy bruising, excessive bruising, easy bleeding Allergies: Negative for any eczema, hives, rash EXAM <Raymon CarrieASHLEY miller - Last Filed: 11/17/21 12:10> Physical Exam Narrative Exam Narrative: Vital signs reviewed. HEET: Head normocephalic atraumatic, TMs clear bilaterally. Posterior pharynx is clear, moist mucous membranes. Nares clear bilaterally. Neck: Supple with no lymphadenopathy or tenderness. No signs of meningismus, negative jolt sign. Cardiac: Regular rate and rhythm no murmurs gallops or rubs, equal peripheral pulses bilaterally. Respiratory: Crackles to the lower lobes. No chest tenderness. Abdomen: Soft, nontender, nondistended. Patient does have some ecchymosis to his lower abdomen secondary to Lovenox shots will be in the hospital. No abdominal bruit or pulsatile masses. No hepatosplenomegaly Extremities: Patient does have significant edema of the lower legs, +3 pitting edema to the left leg, right leg is wrapped secondary to having blisters., no signs of gross trauma or deformity. Patient has no weakness to his lower extremities, no pain on palpation, equal sensation. Pain is not shooting or causing burning sensation on time of assessment. Neuro: Cranial nerves II through XII intact, no focal neurological deficits. Skin: Clean dry and intact with no rash, purpura, petechiae, vesicles or pustules. Backs/flank: No CVA tenderness, no midline spinal tenderness, no deformity. Psych: Normal mood and affect. No SI, HI or acute psychosis. Const Vital Signs: 11/17/21 08:48 11/17/21 11:20 11/17/21 11:49 Temperature 97.3 F L Temperature Source Temporal Pulse Rate 75 78 Respiratory Rate 18 16 Blood Pressure 97/59 L 87/67 L Blood Pressure Mean 71 73 Pulse Ox 99 97 Oxygen Delivery Method Nasal Cannula Nasal Cannula Oxygen Flow Rate (L/min) 4 4 <Dr. Soy Mccoy, - Last Filed: 11/17/21 12:12> Physical Exam Const Vital Signs: 11/17/21 08:48 08/12/22 11:20 11/17/21 11:49 Temperature 97.3 F L Temperature Source Temporal Pulse Rate 75 78 Respiratory Rate 18 16 Blood Pressure 97/59 L 87/67 L Blood Pressure Mean 71 73 Pulse Ox 99 97 Oxygen Delivery Method Nasal Cannula Nasal Cannula Oxygen Flow Rate (L/min) 4 4 [facility] <Raymon Bateman TERRITORY ACCOUNT EXECUTIVE-C - Last Filed: 11/17/21 12:10> [facility] Lab Data Labs: Laboratory Results - last 24 hr 11/17/21 11/17/21 11/17/21 10:25 10:25 10:25 WBC 8.3 RBC 3.98 L Hgb 10.9 L Hct 32.9 L MCV 82.7 MCH 27.4 MCHC 33.1 RDW Std Deviation 47.9 H RDW Coeff of Nina 16.0 H Plt Count 175 MPV 8.9 Immature Gran % (Auto) 0.800 Neut % (Auto) 78.8 H Lymph % (Auto) 3.3 L [place] % (Auto) 13.4 H Eos % (Auto) 3.1 Baso % (Auto) 0.6 Absolute Neuts (auto) 6.5 Absolute Lymphs (auto) 0.27 L Nucleated RBC % 0 Differential Comment Platelet Estimate ADEQUATE RBC Morphology NORM C+C Sodium 132 L Potassium 3.3 L Chloride 98 Carbon Dioxide 23.0 Anion Gap 11 BUN 45 H Creatinine 4.28 H Estim Creat Clear Calc 15.76 Est GFR (MDRD) Af Amer 18 L Est GFR (MDRD) Non-Af 15 L BUN/Creatinine Ratio 10.5 Glucose 90 Calcium 8.0 L B-Natriuretic Peptide 146.2 H Urine Color Urine Clarity Urine pH Ur Specific Moody Urine Protein Urine Glucose (UA) Urine Ketones Urine Occult Blood Urine Nitrite Urine Bilirubin Urine Urobilinogen Ur Leukocyte Esterase Urine RBC Urine WBC Ur Squamous Epith Cells Urine Bacteria Urine Mucus 11/17/21 11:20 WBC RBC Hgb Hct MCV MCH MCHC RDW Std Deviation RDW Coeff of Nina Plt Count MPV Immature Gran % (Auto) Neut % (Auto) Lymph % (Auto) [place] % (Auto) Eos % (Auto) Baso % (Auto) Absolute Neuts (auto) Absolute Lymphs (auto) Nucleated RBC % Differential Comment Platelet Estimate RBC Morphology Sodium Potassium Chloride Carbon Dioxide Anion Gap BUN Creatinine Estim Creat Clear Calc Est GFR (MDRD) Af Amer Est GFR (MDRD) Non-Af BUN/Creatinine Ratio Glucose Calcium B-Natriuretic Peptide Urine Color Yellow Urine Clarity Clear Urine pH 5.0 Ur Specific Moody 1.020 Urine Protein 15 H Urine Glucose (UA) Normal Urine Ketones Negative Urine Occult Blood 25 H Urine Nitrite Negative Urine Bilirubin Negative Urine Urobilinogen Normal Ur Leukocyte Esterase 25 H Urine RBC 0-5 SEEN Urine WBC 0-5 SEEN Ur Squamous Epith Cells 0-5 SEEN Urine Bacteria 0 SEEN Urine Mucus 0 SEEN Radiography Diagnostic Testing: Clinical Impression(s) from Imaging Studies Chest X-Ray 11/17/21 11:30 IMPRESSION: No change from 11/02/2021. Electronically Signed: Bob Pacheco MD at 11:46 EDT , Treatment and Re-Evaluation Narrative: Patient arrives in mild distress secondary to back pain, patient presents emergency department with worsening back pain that rates down bilateral legs. Due to the patient's worsening lower leg edema, decreased urination, basic laboratory values were obtained. Patient's urinalysis was unremarkable. Patient's laboratory studies show slight anemia with a hemoglobin 10.9 this is chronic. Patient's chemistry shows slight hyponatremia with a sodium 132, new onset renal failure with a creatinine of 4.28, BUN of 45. In November 08, 2021 which was only 9 days ago, his creatinine is 1.34. This will explain the patient's bilateral lower edema, decreased urination. Patient will need to be admitted to the hospital. A repeat chest x-ray was completed. This showed no acute change from previous. I did speak with the hospitalist Dr. Rivera, he will accept the patient for admission, he did request the patient receive a CT scan of his lumbar spine as well as venous duplex studies of bilateral lower extremity. Patient was given 2 doses of morphine secondary to the back pain. Patient will be admitted to the hospital. Patient's blood pressure remains 94/54. <Dr. Soy Mccoy, DO - Last Filed: 11/17/21 12:12> [facility] Narrative Medical decision making narrative: I have personally performed a face to face assessment of the patient and have reviewed the SKIP Note. I performed a substantive portion of the visit including all aspects of the following. My eaton findings include: History: Patient presents with back pain that radiates into his thighs that has been getting progressively worse over the past few days. Patient describes the pain as burning. Patient denies any trauma or injury. Patient denies any fevers or chills. Patient does admit to some increased swelling in his legs and arms. Family reports that there has been drainage coming from his skin due to the swelling. Exam: Vital signs are stable. Patient is afebrile. Patient is in no acute distress. Oral mucosa is pink and moist. Neck is supple. Trachea is midline. There is no JVD. Heart was regular rate and rhythm. Lungs are clear and equal bilaterally. Abdomen is soft and nontender. There is some mild tenderness over the lower lumbar paraspinal muscles. There is no bony crepitance or step-off. There is mild tenderness to palpation of the anterior thighs bilaterally. Sensation was intact to light touch bilaterally in the lower extremities. There is no saddle anesthesia. Pedal pulses are equal bilaterally. Medical Decision Making: Patient was given injection of morphine here. CBC shows a mild anemia with a hemoglobin of 10.9 and hematocrit 32.9. Basic metabolic profile showed a sodium of 132 and potassium of 3.3. BUN was 45 and creatinine was 4.28. This is increased from previous results. BNP was only slightly elevated at 146.2. Urinalysis does not show any evidence of urinary tract infection or hematuria. Portable 1 view chest x-ray was obtained. On my interpretation, lung angulo are unchanged from previous x-ray. There is normal cardiac silhouette. Bony thorax is normal. There is no acute process noted. Radiologist also interpreted the x-ray and agrees. Case was discussed with the hospitalist. He recommended obtaining CT scan of the lumbar spine and bilateral lower extremity venous Dopplers. He will admit the patient to his service. Patient and family understood and were agreeable with the plan. All questions were answered. Lab Data Attestation: I reviewed the patient's lab results. Labs: Laboratory Results - last 24 hr 11/17/21 11/17/21 11/17/21 10:25 10:25 10:25 WBC 8.3 RBC 3.98 L Hgb 10.9 L Hct 32.9 L MCV 82.7 MCH 27.4 MCHC 33.1 RDW Std Deviation 47.9 H RDW Coeff of Nina 16.0 H Plt Count 175 MPV 8.9 Immature Gran % (Auto) 0.800 Neut % (Auto) 78.8 H Lymph % (Auto) 3.3 L [place] % (Auto) 13.4 H Eos % (Auto) 3.1 Baso % (Auto) 0.6 Absolute Neuts (auto) 6.5 Absolute Lymphs (auto) 0.27 L Nucleated RBC % 0 Differential Comment Platelet Estimate ADEQUATE RBC Morphology NORM C+C Sodium 132 L Potassium 3.3 L Chloride 98 Carbon Dioxide 23.0 Anion Gap 11 BUN 45 H Creatinine 4.28 H Estim Creat Clear Calc 15.76 Est GFR (MDRD) Af Amer 18 L Est GFR (MDRD) Non-Af 15 L BUN/Creatinine Ratio 10.5 Glucose 90 Calcium 8.0 L B-Natriuretic Peptide 146.2 H Urine Color Urine Clarity Urine pH Ur Specific Moody Urine Protein Urine Glucose (UA) Urine Ketones Urine Occult Blood Urine Nitrite Urine Bilirubin Urine Urobilinogen Ur Leukocyte Esterase Urine RBC Urine WBC Ur Squamous Epith Cells Urine Bacteria Urine Mucus 11/17/21 11:20 WBC RBC Hgb Hct MCV MCH MCHC RDW Std Deviation RDW Coeff of Nina Plt Count MPV Immature Gran % (Auto) Neut % (Auto) Lymph % (Auto) [place] % (Auto) Eos % (Auto) Baso % (Auto) Absolute Neuts (auto) Absolute Lymphs (auto) Nucleated RBC % Differential Comment Platelet Estimate RBC Morphology Sodium Potassium Chloride Carbon Dioxide Anion Gap BUN Creatinine Estim Creat Clear Calc Est GFR (MDRD) Af Amer Est GFR (MDRD) Non-Af BUN/Creatinine Ratio Glucose Calcium B-Natriuretic Peptide Urine Color Yellow Urine Clarity Clear Urine pH 5.0 Ur Specific [place] 1.020 Urine Protein 15 H Urine Glucose (UA) Normal Urine Ketones Negative Urine Occult Blood 25 H Urine Nitrite Negative Urine Bilirubin Negative Urine Urobilinogen Normal Ur Leukocyte Esterase 25 H Urine RBC 0-5 SEEN Urine WBC 0-5 SEEN Ur Squamous Epith Cells 0-5 SEEN Urine Bacteria 0 SEEN Urine Mucus 0 SEEN Radiography Diagnostic Testing: Clinical Impression(s) from Imaging Studies Chest X-Ray 11/17/21 11:30 IMPRESSION: No change from 11/02/2021. Electronically Signed: Bob Pacheco MD at 11:46 EDT , Discharge Plan Triage Chief Complaint: Back ED Midlevel Provider: Raymon Bateman ED Provider: Soy Mccoy Dx/Rx/DC Orders Clinical Impression: Acute kidney injury, Bilateral edema of lower extremity, Back pain, History of community acquired pneumonia, Neuropathic pain Prescriptions: No Action budesonide [Pulmicort] 0.5 mg/2 mL suspension for nebulization 2 ml INHALATION Q12H PRN (Reason: Sob &/Or Wheezing) aspirin [Enteric Coated Aspirin] 81 mg tablet,delayed release (DR/EC) 81 mg PO Q OTHER DAY oxycodone-acetaminophen 5-325 mg tablet 1 tab PO Q6H PRN (Reason: Pain) omeprazole 20 MG capsule 20 mg PO BID metformin 500 MG tablet 500 mg PO BID Label Comments: TAKE 1 TABLET BY MOUTH TWICE A DAY WITH MEALS nitroglycerin 0.4 MG tablet, sublingual 0.4 mg sublingual PRN PRN (Reason: chest pain ) albuterol sulfate 8.5 GM HFA aerosol inhaler 2 puff PO Q4H PRN PRN (Reason: wheezing/sob ) Label Comments: INHALE 2 PUFFS INSTRUCTED EVERY 4 HOURS NEEDED FOR WHEEZING/SHORTNESS OF BREATH. cyanocobalamin (vitamin B-12) 500 MCG tablet 1,000 mcg PO QODAY ipratropium-albuterol 1 PUFF inhaler 1 puff INHALATION BID pregabalin 25 mg capsule 25 mg PO BID ergocalciferol (vitamin D2) 1,250 mcg (50,000 unit) capsule 1,250 mcg PO TH oxycodone 5 mg Tablet 10 mg PO Q6H PRN PRN (Reason: Pain Score 6-10) 2 Days Qty: 10 0RF furosemide 40 mg Tablet 40 mg PO DAILY Qty: 0 0RF allopurinol 100 mg Tablet 100 mg PO BIDCM Qty: 0 0RF atorvastatin 40 mg Tablet 40 mg PO QHS Culturelle 10 billion cell Capsule 1 cap PO DAILY fluticasone furoate-vilanterol 100-25 mcg/dose Blister With Device 1 inh INHALATION DAILY metoprolol tartrate 25 mg tablet 25 mg PO BID Qty: 180 3RF Primary Care Provider: Andres Petty Referrals: Andres Petty MD [Primary Care Provider] - Disposition Disposition: Acute Care Hospital [facility]
[2021-11-17 10:34] LABS: Absolute Lymphocyte Count 0.27 X10^3/uL (0.83-4.51); Absolute Neutrophil Count 6.5 X10^3/uL (2.0-7.7); Basophil# 0.05 X10^3/uL; Basophil% 0.6 % (0-1); Eosinophil# 0.26 X10^3/uL; Eosinophils% 3.1 % (0-5); Hematocrit 32.9 % (40-54); Hemoglobin 10.9 g/dL (13.0-16.5); Lymphocyte # 0.27 X10^3/ul (0.83-4.51); Lymphocyte % 3.3 % (19-41); Mean Corp Hgb Conc 33.1 g/dL (32-36); Mean Corpuscular Hgb 27.4 pg (27.0-32.0); Mean Corpuscular Volume 82.7 fL (80-94); Mean Platelet Vol. 8.9 fl (6.2-12.0); Monocyte# 1.11 X10^3/uL; Monocyte% 13.4 % (0-10); NRBC Flagged by Analyzer 0 % (0-5); Neutrophil # 6.54 X10^3/uL (2.7-7.7); Neutrophil % 78.8 % (47-70); POSITIVE DIFFERENTIAL YES; Platelet Count 175 K/mm3 (150-450); RBC Distribution Width SD 47.9 fl (35.1-43.9); Red Blood Count 3.98 M/mm3 (4.6-6.2); White Blood Count 8.3 K/mm3 (4.4-11.0)
[2021-11-17 10:46] LABS: Anion Gap 11 (5-15); BUN 45 mg/dL (7-18); BUN/Creat Ratio 10.5 RATIO (10-20); Chloride 98 mmol/L (98-107); Creatinine, Serum 4.28 mg/dL (0.70-1.30); EST Glomerular Filtration Rate 15 mL/min (>60); Est Glom Filt Rate - Afr Amer 18 mL/min (>60); Estimated Creatinine Clearance 15.76 ml/min; Glucose 90 mg/dL (74-106); Potassium 3.3 mmol/L (3.5-5.1); Sodium Level 132 mmol/L (136-145)
[2021-11-17 10:47] LABS: BNP,B-Type NATRIURETIC PEPTIDE 146.2 pg/mL (0-100)
[2021-11-17 11:00] LABS: Differential Indicated SCAN CRITERIA MET
[2021-11-17 11:01] LABS: Platelet Estimate ADEQUATE (ADEQ); Red Cell Morphology NORM C+C NORMAL (NORM C&C)
[2021-11-17] MEDS: Morphine 4 MG/ML Syringe IV (11:29)
--- NOTE | 2021-11-17 11:30 | RAD_ITS ---
STUDY: X-RAY CHEST REASON FOR EXAM: Male, 70 years old. cough TECHNIQUE: Single AP portable view of the chest. COMPARISON: 11/02/2021 FINDINGS: The lungs are clear and expanded. Elevated left hemidiaphragm with some left lower lobe discoid atelectasis which is unchanged. Normal size heart. Normal mediastinum and jan. Normal visualized pulmonary arteries. Normal visualized aortic arch and descending thoracic aorta. Normal visualized thoracic spine. Normal visualized ribs, clavicles, and shoulders. There is no demonstrated abnormality of the visualized soft tissue structures of the upper abdomen. RAD/Chest 1 View (Portable) IMPRESSION: No change from 11/02/2021. Electronically Signed: Bob Pacheco MD at 11:46 EDT ,
[2021-11-17 11:41] LABS: Bacteria 0 SEEN /hpf (None Seen); Mucous, Urine 0 SEEN /hpf (<or=2+)
[2021-11-17 11:44] LABS: Color, Urine Yellow (Yellow); Glucose, Dipstick Normal (Normal); Ketone-Dipstick Negative (Negative); Leukocyte Esterase-Dipstick 25 /ul (Negative); Nitrite-Dipstick Negative (Negative); Occult Blood-Urine 25 /ul (Negative); Protein-Dipstick 15 mg/dl (Negative); Urine Bilirubin Dipstick Negative (Negative); Urine Clarity Clear (Clear); Urine Urobilinogen Normal (Normal)
--- NOTE | 2021-11-17 11:53 | CT_ITS ---
STUDY: CT LUMBAR SPINE WITHOUT CONTRAST REASON FOR EXAM: Male, 70 years old. back pain RADIATION DOSAGE (If Supplied By Facility): CTDIvol = ( 40.31 ) mGy, DLP = ( 1161.13 ) mGycm TECHNIQUE: The patient was scanned in a multi detector CT scanner. High resolution transaxial imaging was performed. Images were obtained from T12 to S1. Sagittal and coronal images were reconstructed. Individualized dose optimization techniques were used for this CT. COMPARISON: X-ray 03/16/2020 FINDINGS: Normal lumbar lordosis. Mild dextroscoliosis centered at L3. Normal vertebrae of the lumbar spine. L1-2: Normal endplates. Normal disc height and morphology. Normal bilateral facet joints. Normal central canal and bilateral lateral recesses. Normal bilateral intervertebral neural foramina. L2-3: Mild broad disc protrusion produces mild spinal stenosis and mild bilateral neural foraminal stenosis. L3-4: Mild bilateral facet hypertrophy and ligament flavum hypertrophy. Moderate broad disc osteophyte complex produces moderate spinal stenosis and moderate bilateral neural foraminal stenosis. L4-5: Mild bilateral facet hypertrophy and ligamentum flavum hypertrophy. 5 mm retrolisthesis of L4 on L5 with a moderate broad disc osteophyte complex with vacuum disc formation produces moderate spinal stenosis, severe right neural foraminal stenosis and moderate left neural foraminal stenosis. L5-S1: Mild bilateral facet hypertrophy and ligament flavum hypertrophy. Moderate broad disc osteophyte complex produces moderate spinal stenosis and severe bilateral neural foraminal stenosis. Normal visualized paraspinous soft tissue structures. CT/Spine Lumbar without Contrast IMPRESSION: Mild dextroscoliosis and degenerative disc disease as described above. Electronically Signed: Bob Pacheco MD at 12:35 EDT ,
--- NOTE | 2021-11-17 11:53 | VDLE_ITS ---
Reason For Study: Swelling RIGHT LEFT GSV is normal. GSV is normal. CFV is compressible, spontaneous, phasic, CFV is compressible, spontaneous, phasic, competent and demonstrates normal competent, and demonstrates normal augmentation. augmentation. FV is compressible, spontaneous, phasic, FV is compressible, spontaneous, phasic, competent and demonstrates normal competent and demonstrates normal augmentation. augmentation. POP V is compressible, spontaneous, phasic, POP V is compressible, spontaneous, phasic, competent and demonstrates normal competent and demonstrates normal augmentation. augmentation. T/P Trunk is compressible. T/P Trunk is compressible. PTV is compressible. PTV is compressible. RT PerV is compressible. LT PerV is compressible. Procedure This is a venous duplex using B-mode, color flow and spectral Doppler. Exam performed portable in ED. A preliminary report was called and/or faxed to [facility]. VL/Venous Duplex US - Zhao Extrem Interpretation Summary Deep veins of the right lower extremity are patent and compressible segmentally . There is no evidence of right lower extremity deep vein thrombosis. The right great sapheno us vein appears patent and compressible segmentally. Deep veins of the left lower extremity are patent and compressible segmentally. There is no evidence of left lower extremity deep vein thrombosis. The left great saphenous vein consuelo ears patent and compressible segmentally. Ordering Physician: Raymon Bateman Referring Physician: Andres Petty Performed By: Lacey Rodriges RVT
[2021-11-17 11:54] LABS: Red Blood Cells-Urine 0-5 SEEN /hpf (0-5); Squamous Epithelial Cells - UA 0-5 SEEN /hpf (0-5); White Blood Cells 0-5 SEEN /hpf (0-5)
--- NOTE | 2021-11-17 12:17 | PCM.HP.STD ---
HPI - General General Date of Admission: 11/17/21 Date of Service: 11/17/21 Chief Complaint: Bilateral lower extremity weakness and pain HPI Narrative JB MCPHERSON, is a 70 M who presents with bilateral lower extremity weakness and pain. Patient was apparently on admission from 11/02/2021 to 11/07/2021 severe sepsis with acute on chronic hypoxic respite failure secondary to pneumonia and right lower extremity cellulitis. Patient was also found to be deconditioned discharged to a halfway facility. The patient reports a 3-day history of progressive weakness in both lower extremities worse on the left than the right. Has also experienced difficulty walking. Per patient he had been prescribed Lasix at the [facility] for swelling involving both lower legs. Was brought to the emergency department as a result. Initial studies in the ED was consistent with VIET superimposed on chronic kidney disease. Prior to patient being admitted requested for bilateral venous duplex as well as CT of the back without contrast for further evaluation. [facility] Medical History Abnormal EKG Abnormal positron emission tomography (PET) scan VIET (acute kidney injury) Alcohol abuse Anemia Atherosclerosis of coronary artery of [place] heart without angina pectoris B12 deficiency Golden's esophagus Benign neoplasm of colon Benign neoplasm of larynx Blood loss anemia Chronic back pain Chronic diastolic (congestive) heart failure Chronic renal disease, stage 3, moderately decreased glomerular filtration rate (GFR) between 30-59 mL/min/1.73 square meter Chronic respiratory failure COLD (chronic obstructive lung disease) COPD (chronic obstructive pulmonary disease) Debility Diabetes Diverticulosis of colon (without mention of hemorrhage) DVT (deep venous thrombosis) (11/09/16) Essential (primary) hypertension Familial combined hyperlipidemia Former smoker GERD (gastroesophageal reflux disease) GI bleed H/O immunosuppressive therapy Hyperlipidemia Hypertension Internal hemorrhoids without mention of complication Lumbar spinal stenosis Lung nodules Neuropathic pain Non-compliance Obesity Obstructive sleep apnea On home oxygen therapy Other voice and resonance disorders Paroxysmal atrial fibrillation Peripheral neuropathy Peripheral vascular disease, unspecified Rheumatoid arthritis Sleep apnea Steroid long-term use Tracheostomy in place Type 2 diabetes mellitus Type 2 diabetes mellitus with diabetic polyneuropathy Home Medications omeprazole 20 mg capsule,delayed release 20 mg PO BID GERD 02/09/17 [History Last Taken 11/01/21] albuterol sulfate 90 mcg/actuation aerosol inhaler 2 puff PO Q4H PRN PRN wheezing/sob 01/29/19 [History Last Taken 01/28/19] metformin 500 mg tablet 500 mg PO BID BS 01/29/19 [History Last Taken 11/01/21] nitroglycerin 0.4 mg sublingual tablet 0.4 mg sublingual PRN PRN chest pain 01/29/19 [History Last Taken Unknown] budesonide 0.5 mg/2 mL suspension for nebulization (Pulmicort) 2 ml inhalation Q12H PRN Sob &/Or Wheezing 02/19/19 [History Last Taken 11/01/21] cyanocobalamin (vitamin B-12) 500 mcg tablet 1,000 mcg PO QODAY Supplement 01/20/20 [History Last Taken 11/01/21] ipratropium 20 mcg-albuterol 100 mcg/actuation mist for inhalation 1 puff inhalation BID Lungs 01/20/20 [History Last Taken 11/01/21] oxycodone-acetaminophen 5 mg-325 mg tablet 1 tab PO Q6H PRN Pain 06/19/21 [History Last Taken Unknown] pregabalin 25 mg capsule 25 mg PO BID neuropathy 06/19/21 [History Last Taken 11/01/21] metoprolol tartrate 25 mg tablet 25 mg PO BID BP #180 tabs 07/26/21 [Rx Last Taken 11/01/21] aspirin 81 mg tablet,delayed release (Enteric Coated Aspirin) 81 mg PO Q OTHER DAY Heart 09/18/21 [History Last Taken 11/01/21] ergocalciferol (vitamin D2) 1,250 mcg (50,000 unit) capsule 1,250 mcg PO TH supplement 11/02/21 [History Last Taken 11/01/21] allopurinol 100 mg tablet 100 mg PO BIDCM #0 tabs 11/07/21 [Rx Last Taken Unknown] furosemide 40 mg tablet 40 mg PO DAILY #0 tabs 11/07/21 [Rx Last Taken Unknown] oxycodone 5 mg tablet 10 mg PO Q6H PRN PRN Pain Score 6-10 2 days #10 tabs 11/07/21 [Rx Last Taken Unknown] Lactobacillus rhamnosus GG 10 billion cell capsule (Culturelle) 1 cap PO DAILY 11/17/21 [History Last Taken Unknown] atorvastatin 40 mg tablet 40 mg PO QHS 11/17/21 [History Last Taken Unknown] fluticasone furoate 100 mcg-vilanterol 25 mcg/dose inhalation powder 1 inh inhalation DAILY 11/17/21 [History Last Taken Unknown] Allergy/AdvReac Type Severity Reaction Status Date / Time meropenem Allergy Unknown Verified 11/17/21 08:48 tramadol Allergy Unknown Verified 11/17/21 08:48 vancomycin Allergy Unknown Verified 11/17/21 08:48 hydrocodone bitartrate AdvReac nightmares Verified 11/17/21 08:48 [From Vicodin] Family History Father Heart disease Brother Heart disease Cancer prostate Surgical History history IVC filter insertion (2016) History of colonoscopy (08/08/16) History of coronary artery stent placement (08/29/10) History of esophagogastroduodenoscopy (EGD) (08/08/16) History of esophagogastroduodenoscopy (EGD) (03/2019) History of incisional hernia repair History of left heart catheterization History of lumbar laminectomy (01/2020) Social History household members: significant other Smoking Status: Former smoker Tobacco: How many years used: 40 how long ago did patient quit smokin + years ago alcohol intake: never substance use type: does not use caffeine: Yes Type: coffee Number of servings: 8 ROS ROS Narrative GENERAL: denies fever, chills, night sweats, weight loss, anorexia HEENT: denies headache, sinus congestion, or drainage, dysphagia RESPIRATORY: denies cough, sputum production, shortness of breath, CARDIAC: denies chest pain, palpitations, orthopnea, PND GASTROINTESTINAL: denies abdominal pain, nausea, vomiting, melena, GENITOURINARY: denies dysuria, urgency, frequency, heamaturia EXTREMITY: Bilateral lower extremity swelling swelling MUSCULOSKELETAL: Pain in both thighs NEUROLOGIC: denies focal numbness, weakness, tingling HEMATOLOGIC: denies easy bruising and/or hemorrhage INTEGUMENT: denies rashes PSYCHIATRIC: denies suicidal or homicidal ideation Vital Signs Vital Signs Vital Signs: 11/17/21 08:48 11/17/21 11:20 11/17/21 11:49 Temperature 97.3 F L Temperature Source Temporal Pulse Rate 75 78 Respiratory Rate 18 16 Blood Pressure 97/59 L 87/67 L Blood Pressure Mean 71 73 Pulse Ox 99 97 Oxygen Delivery Method Nasal Cannula Nasal Cannula Oxygen Flow Rate (L/min) 4 4 Weight Weight: 109.1 kg Body Mass Index (BMI) 36.6 Physical Exam Narrative GENERAL: cooperative HEENT: Atraumatic; EYES; Anicteric, Normal Conjunctiva NECK; supple, normal thyroid, RESPIRATORY: Diminished to auscultation CARDIOVASCULAR: Regular S1 S2, GI: soft, normoactive bowel sounds, : No Renal angle tenderness; EXTREMITIES: Trinity involving both lower extremities with wounds on the left mid tibia and right foot MUSCULOSKELETAL: no muscle wasting NEURO: Awake; no lateralizing signs. SKIN: No Rash PSYCH; Flat affect Results Lab / Micro Data Result Diagrams: 11/17/21 10:25 11/17/21 10:25 Labs: Laboratory Results - last 24 hr 11/17/21 10:25: WBC 8.3, RBC 3.98 L, Hgb 10.9 L, Hct 32.9 L, MCV 82.7, MCH 27.4, MCHC 33.1, RDW Std Deviation 47.9 H, RDW Coeff of Nina 16.0 H, Plt Count 175, MPV 8.9, Immature Gran % (Auto) 0.800, Neut % (Auto) 78.8 H, Lymph % (Auto) 3.3 L, [place] % (Auto) 13.4 H, Eos % (Auto) 3.1, Baso % (Auto) 0.6, Absolute Neuts (auto) 6.5, Absolute Lymphs (auto) 0.27 L, Nucleated RBC % 0, Differential Comment , Platelet Estimate ADEQUATE, RBC Morphology NORM C+C 11/17/21 10:25: Sodium 132 L, Potassium 3.3 L, Chloride 98, Carbon Dioxide 23.0, Anion Gap 11, BUN 45 H, Creatinine 4.28 H, Estim Creat Clear Calc 15.76, Est GFR (MDRD) Af Amer 18 L, Est GFR (MDRD) Non-Af 15 L, BUN/Creatinine Ratio 10.5, Glucose 90, Calcium 8.0 L 11/17/21 10:25: B-Natriuretic Peptide 146.2 H 11/17/21 11:20: Urine Color Yellow, Urine Clarity Clear, Urine pH 5.0, Ur Specific Wheeler 1.020, Urine Protein 15 H, Urine Glucose (UA) Normal, Urine Ketones Negative, Urine Occult Blood 25 H, Urine Nitrite Negative, Urine Bilirubin Negative, Urine Urobilinogen Normal, Ur Leukocyte Esterase 25 H, Urine RBC 0-5 SEEN, Urine WBC 0-5 SEEN, Ur Squamous Epith Cells 0-5 SEEN, Urine Bacteria 0 SEEN, Urine Mucus 0 SEEN Radiology Impression Chest X-Ray 11/17/21 11:30 IMPRESSION: No change from 11/02/2021. Electronically Signed: Bob Pacheco MD at 11:46 EDT , Assessment & Plan Assessment/Plan (1) Acute kidney injury: (2) Bilateral edema of lower extremity: (3) Back pain: PLAN: Plan JB MCPHERSON, is a 70 M who presents with bilateral lower extremity weakness and pain. 1. Bilateral lower extremity pain and weakness ? Do suspect degenerative joint disease involving the lumbar spine. CT of the LS spine requested to confirm the diagnosis. Patient has been admitted to regular nursing floor for symptom management in addition to PT OT eval. Also requested for bilateral venous duplex prior to patient being admitted 2. Acute kidney injury ? Superimposed on chronic kidney disease stage IIIa. Patient creatinine on discharge was 1.34, was 4.28 on admission. Patient is on furosemide diagnosed for bilateral lower extremity swelling discontinued started on IV fluid with subsequent monitoring of electrolytes ordered. Also ordered bilateral renal ultrasound and consultation placed to nephrology Case discussed with Dr. Enriquez 3. Bilateral lower extremity chronic wounds ? Consult placed wound care nurse 4. Coronary artery disease ? With previous PCI patient is on recommended medications including statin therapy aspirin and beta-blockers did continue 5. Dyslipidemia -Patient is on statin therapy, continued at home dose 6. Class II obesity with BMI of 36.6 ? Weight loss advised 7. Previous history of DVT -status post IVC filter placement 8. Chronic congestive heart failure ? With preserved ejection fraction echo obtained in June 2020 demonstrated EF of 60% 9. Chronic hypoxic respiratory failure Secondary to combination of COPD as well as obstructive sleep apnea. Patient is on baseline oxygen and trilogy 10. Diabetes mellitus type 2 ? Patient is on metformin held please on Accu-Cheks before meals and at bedtime with sliding scale coverage 11. Hypertension - Blood pressure controlled, home medications continued with dose adjustment as needed 12. Paroxysmal A. fib ? Rate controlled. Patient was not placed on systemic anticoagulation in view of patient having maintained sinus rhythm for prolonged period of time 13. GERD ? On PPI 14. DVT prophylaxis ? SC heparin Advance planning; did discuss with the patient and family patient's regarding advanced directives as well as CODE STATUS. Did explain the various scenarios involved ( FULL CODE, DNR CCA, DNR CCA with no intubation, and DNR CC and what each meant) patient elected to remain full code and CPR if needed. Order was placed. Time spent on discussion 18 minutes. Charges/Coding Visit Charges Inpatient E&M: 62532 Init Hosp L3 Procedures Hospitalists Procedures: 21975 Advncd Care Plan 30 Min
--- NOTE | 2021-11-17 12:51 | NURSING ---
Elizabeth ZAMORANO ACUTE KIDNEY INJURY, LOWER LEG SWELLING, BACK PAIN
--- NOTE | 2021-11-17 13:11 | US_ITS ---
STUDY: RENAL ULTRASOUND - COMPLETE REASON FOR EXAM: Male, 70 years old. VIET -- PREVIOUS US DONE 11/03/21 TECHNIQUE: Ultrasound evaluation of the kidneys was performed with real-time and static [place]-scale imaging. COMPARISON: 11/03/2021 FINDINGS: RIGHT KIDNEY: Normal location of the right kidney, which is normal in size. The right kidney measures 10.0 cm. There is a normal cortex of the right kidney. The renal cortex measures 1.1 cm. 4 cm exophytic cyst in the midsection of right kidney. There are no right renal calculi. There is no right hydronephrosis. DISTAL RIGHT URETER: There is non-visualization of the distal right ureter. There is no demonstrated right ureterovesical junction calculus. There is a visualized right ureteral jet. LEFT KIDNEY: Normal location of the left kidney, which is normal in size. The left kidney measures 9.5 cm. There is a normal cortex of the left kidney. The renal cortex measures 1.7 cm. 1 cm exophytic cyst lower pole of the left kidney. There are no left renal calculi. There is no left hydronephrosis. DISTAL LEFT URETER: There is non-visualization of the distal left ureter. There is no demonstrated left ureterovesical junction calculus. There is a visualized left ureteral jet. BLADDER: The distended urinary bladder has a volume of 207 ml. The empty urinary bladder has a volume of ml. There is a normal wall thickness of the distended urinary bladder. There is no demonstrated mass within the urinary bladder. There are no demonstrated bladder calculi. US/Kidney and Bladder IMPRESSION: No hydronephrosis to suggest obstruction. Electronically Signed: Bob Pacheco MD at 15:13 EDT ,
[2021-11-17] MEDS: 0.9% Normal Saline 1,000 ML 125 ML IV ×2 (15:13→23:27)
[2021-11-17] MEDS: oxyCODONE 5 MG Tablet 10 MG PO ×2 (15:13→21:18)
[2021-11-17] MEDS: Menthol/Lanolin/Calamine/Znox 113 GM Tube 1 APPLIC TOPICAL ×2 (15:14→21:19)
[2021-11-17] MEDS: Nystatin Ointment 1 APPLIC TOPICAL (15:15)
[2021-11-17] MEDS: Aspirin E.C. 81 MG Tablet PO (15:15)
[2021-11-17] MEDS: Heparin Injection (Vial) 5,000 UNIT/ML VIAL 5000 UNIT SC ×2 (15:15→21:57)
--- NOTE | 2021-11-17 15:47 | CASEMGMT ---
Social Work Pt is admitted from [facility] skilled level of care. KATHYA met with pt and he confirmed that he plans to return there upon discharge. Phone call to Erin at [facility] and they are able to accept pt back when medically ready. Pt will need a negative covid test prior to return to facility. Plan: [facility], when medically ready TANYA Thompson
[2021-11-17] MEDS: Allopurinol 100 MG Tablet PO (17:59)
[2021-11-17] MEDS: Budesonide Respules 0.5 MG/2 ML AMPUL.NEB. INHALATION (19:05)
[2021-11-17] MEDS: Ipratropium/Albuterol Sulfate 3 ML AMPUL.NEB INHALATION (19:06)
--- NOTE | 2021-11-17 20:07 | CPS ---
dr. york gave telephone order for cpap/bipap at .
[2021-11-17] MEDS: Atorvastatin Calcium 40 MG Tablet PO (21:19)
[2021-11-17] MEDS: Pantoprazole Sodium 20 MG Tablet PO (21:20)
[2021-11-17] MEDS: Pregabalin 25 MG Capsule PO (21:38)
[2021-11-17] MEDS: MELATONIN 3 MG TABLET PO (21:57)
--- NOTE | 2021-11-17 22:59 | CPS ---
patient attempted on cpap of 10 with medium mask. patient stated that he could not tolerate mask. rt attempted patient on cpap with large mask with same results. patient stated that he didnt want to wear cpap tonight and would bring in home mask tommorrow. patients nurse aware. patient placed back on nc.
[2021-11-18] VITALS (9 sets, daily range): BP systolic 102–133; BP diastolic 60–66; PULSE 67–96; RESP 16–20; TEMP 36.5–37.2; O2SAT 95–99
[2021-11-18] MEDS: oxyCODONE 5 MG Tablet 10 MG PO ×5 (03:06→22:26)
[2021-11-18] MEDS: oxyCODONE 5 MG Tablet PO ×2 (05:57→08:38)
[2021-11-18] MEDS: Acetaminophen 325 MG Tablet 650 MG PO ×2 (05:57→22:26)
[2021-11-18 07:07] LABS: Absolute Lymphocyte Count 0.21 X10^3/uL (0.83-4.51); Absolute Neutrophil Count 5.1 X10^3/uL (2.0-7.7); Basophil# 0.03 X10^3/uL; Basophil% 0.5 % (0-1); Eosinophil# 0.22 X10^3/uL; Eosinophils% 3.4 % (0-5); Hematocrit 29.9 % (40-54); Hemoglobin 9.3 g/dL (13.0-16.5); Lymphocyte # 0.21 X10^3/ul (0.83-4.51); Lymphocyte % 3.2 % (19-41); Mean Corp Hgb Conc 31.1 g/dL (32-36); Mean Corpuscular Hgb 26.8 pg (27.0-32.0); Mean Corpuscular Volume 86.2 fL (80-94); Mean Platelet Vol. 9.3 fl (6.2-12.0); Monocyte# 0.94 X10^3/uL; Monocyte% 14.5 % (0-10); NRBC Flagged by Analyzer 0 % (0-5); Neutrophil # 5.05 X10^3/uL (2.7-7.7); Neutrophil % 77.8 % (47-70); POSITIVE DIFFERENTIAL YES; Platelet Count 141 K/mm3 (150-450); RBC Distribution Width CV 16.1 % (11.6-14.6); RBC Distribution Width SD 50.4 fl (35.1-43.9); Red Blood Count 3.47 M/mm3 (4.6-6.2); White Blood Count 6.5 K/mm3 (4.4-11.0)
[2021-11-18] MEDS: Heparin Injection (Vial) 5,000 UNIT/ML VIAL 5000 UNIT SC ×3 (07:07→21:38)
[2021-11-18 07:09] LABS: Differential Indicated SCAN CRITERIA MET
[2021-11-18] MEDS: Menthol/Lanolin/Calamine/Znox 113 GM Tube 1 APPLIC TOPICAL ×3 (07:09→21:37)
[2021-11-18] MEDS: Ipratropium/Albuterol Sulfate 3 ML AMPUL.NEB INHALATION ×3 (07:11→20:12)
[2021-11-18] MEDS: Budesonide Respules 0.5 MG/2 ML AMPUL.NEB. INHALATION ×2 (07:12→20:12)
[2021-11-18 07:30] LABS: Anion Gap 9 (5-15); BUN 44 mg/dL (7-18); BUN/Creat Ratio 12.3 RATIO (10-20); Calcium,Total 7.5 mg/dL (8.5-10.1); Chloride 104 mmol/L (98-107); Creatinine, Serum 3.58 mg/dL (0.70-1.30); EST Glomerular Filtration Rate 18 mL/min (>60); Est Glom Filt Rate - Afr Amer 22 mL/min (>60); Estimated Creatinine Clearance 18.84 ml/min; Glucose 85 mg/dL (74-106); Magnesium 1.4 mg/dL (1.6-2.6); Phosphorus 3.4 mg/dL (2.5-4.9); Potassium 3.3 mmol/L (3.5-5.1); Sodium Level 132 mmol/L (136-145)
[2021-11-18] MEDS: Allopurinol 100 MG Tablet PO ×2 (07:47→18:34)
[2021-11-18 07:56] LABS: Platelet Estimate ADEQUATE (ADEQ); Red Cell Morphology NORM C+C NORMAL (NORM C&C)
[2021-11-18] MEDS: 0.9% Normal Saline 1,000 ML 125 ML IV ×2 (08:36→17:05)
--- NOTE | 2021-11-18 10:05 | CON.PCM.RE_ITS ---
Assessment & Plan Assessment/Plan (1) Acute kidney injury: PLAN: VIET is likely prerenal from volume depletion. The patient had diarrhea, vomiting and poor oral intake at [facility] prior to admission. He was also on diuretic for lower extremity edema. Renal function is better with volume expansion with IV fluid today although renal function has not yet back to baseline. The patient is not in respiratory distress. Edema of the lower extremity may be chronic from lymphedema as well. I agree with stopping diuretic for now and rehydrating the patient with IV fluid. We will follow volume status closely while the patient is getting IV fluid. There is no need for kidney replacement therapy. Recheck renal function, volume status, electrolytes, and acid-base status again tomorrow. 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 Baseline serum creatinine is around 1.3 to 1.4 mg/dL. Long-term goal is to keep BP below 130/80. Will check urine protein to creatinine ratio when renal function stabilizes. (3) Chronic diastolic (congestive) heart failure: PLAN: The patient has a history of heart failure with preserved ejection fraction. He appears to be compensated at this point. Continue IV fluid because of VIET. Continue to hold diuretic for now, but we will monitor volume status closely. HPI Consult Data Date of Consult: 11/18/21 HPI Narrative Reason for Consultation: VIET on CKD. HPI Narrative: The patient is a 70-year-old man with past history significant for type 2 diabetes mellitus, hypertension, COPD, hyperlipidemia, and gout. The patient presented to the hospital from [facility] with history of progressive weakness of the lower extremities bilaterally. The patient was recently admitted to the hospital between 10/25/2021 until 11/07/2021 for treatment of severe sepsis due to pneumonia and right lower extremity cellulitis. During this past admission, the patient was seen by our service for VIET on CKD as well. Baseline serum creatinine appears to be around 1.31 mg/dL. During the last admission, creatinine increased to as high as 2.69 mg/dL with gradual improvement back to baseline. Serum creatinine on 11/08/2021 was 1.34 mg/dL. Nephrology is asked to see the patient for VIET. The patient presented to the hospital yesterday with serum creatinine of 4.28 mg/dL. Urinalysis shows high specific gravity with no significant RBC or WBC on microscopic examination. There is 1+ proteinuria on dipstick. The patient also complained of poor oral intake, nausea and diarrhea. The patient has baseline dyspnea, but he denies increasing severity of shortness of breath. The patient also complains of hesitancy and needed straight cath yesterday. So far, he has been able to urinate today. Renal ultrasound from 11/17/2021 did not show hydronephrosis. [facility] Medical History (Updated 11/18/21 @ 11:[address] Buck Yoon MD) Abnormal EKG Abnormal positron emission tomography (PET) scan VIET (acute kidney injury) Alcohol abuse Anemia Atherosclerosis of coronary artery of [place] heart without angina pectoris B12 deficiency Golden's esophagus Benign neoplasm of colon Benign neoplasm of larynx Blood loss anemia Chronic back pain Chronic diastolic (congestive) heart failure Chronic renal disease, stage 3, moderately decreased glomerular filtration rate (GFR) between 30-59 mL/min/1.73 square meter Chronic respiratory failure COLD (chronic obstructive lung disease) COPD (chronic obstructive pulmonary disease) Debility Diabetes Diverticulosis of colon (without mention of hemorrhage) DVT (deep venous thrombosis) (11/09/16) Essential (primary) hypertension Familial combined hyperlipidemia Former smoker GERD (gastroesophageal reflux disease) GI bleed H/O immunosuppressive therapy Hyperlipidemia Hypertension Internal hemorrhoids without mention of complication Lumbar spinal stenosis Lung nodules Neuropathic pain Non-compliance Obesity Obstructive sleep apnea On home oxygen therapy Other voice and resonance disorders Paroxysmal atrial fibrillation Peripheral neuropathy Peripheral vascular disease, unspecified Rheumatoid arthritis Sleep apnea Steroid long-term use Tracheostomy in place Type 2 diabetes mellitus Type 2 diabetes mellitus with diabetic polyneuropathy Home Medications omeprazole 20 mg capsule,delayed release 20 mg PO BID GERD 02/09/17 [History Last Taken 11/01/21] albuterol sulfate 90 mcg/actuation aerosol inhaler 2 puff PO Q4H PRN PRN wheezing/sob 01/29/19 [History Last Taken 01/28/19] metformin 500 mg tablet 500 mg PO BID BS 01/29/19 [History Last Taken 11/01/21] nitroglycerin 0.4 mg sublingual tablet 0.4 mg sublingual PRN PRN chest pain 01/29/19 [History Last Taken Unknown] budesonide 0.5 mg/2 mL suspension for nebulization (Pulmicort) 2 ml inhalation Q12H PRN Sob &/Or Wheezing 02/19/19 [History Last Taken 11/01/21] cyanocobalamin (vitamin B-12) 500 mcg tablet 1,000 mcg PO QODAY Supplement [History Last Taken 11/01/21] ipratropium 20 mcg-albuterol 100 mcg/actuation mist for inhalation 1 puff inhalation BID Lungs 01/20/20 [History Last Taken 11/01/21] oxycodone-acetaminophen 5 mg-325 mg tablet 1 tab PO Q6H PRN Pain 06/19/21 [History Last Taken Unknown] pregabalin 25 mg capsule 25 mg PO BID neuropathy 06/19/21 [History Last Taken 11/01/21] metoprolol tartrate 25 mg tablet 25 mg PO BID BP #180 tabs 07/26/21 [Rx Last Taken 11/01/21] aspirin 81 mg tablet,delayed release (Enteric Coated Aspirin) 81 mg PO Q OTHER DAY Heart 09/18/21 [History Last Taken 11/01/21] ergocalciferol (vitamin D2) 1,250 mcg (50,000 unit) capsule 1,250 mcg PO TH supplement 11/02/21 [History Last Taken 11/01/21] allopurinol 100 mg tablet 100 mg PO BIDCM #0 tabs 11/07/21 [Rx Last Taken Unknown] furosemide 40 mg tablet 40 mg PO DAILY #0 tabs 11/07/21 [Rx Last Taken Unknown] oxycodone 5 mg tablet 10 mg PO Q6H PRN PRN Pain Score 6-10 2 days #10 tabs 11/07/21 [Rx Last Taken Unknown] Lactobacillus rhamnosus GG 10 billion cell capsule (Culturelle) 1 cap PO DAILY 11/17/21 [History Last Taken Unknown] atorvastatin 40 mg tablet 40 mg PO QHS 11/17/21 [History Last Taken Unknown] fluticasone furoate 100 mcg-vilanterol 25 mcg/dose inhalation powder 1 inh inhalation DAILY 11/17/21 [History Last Taken Unknown] Allergy/AdvReac Type Severity Reaction Status Date / Time meropenem Allergy Unknown Verified 11/17/21 08:48 tramadol Allergy Unknown Verified 11/17/21 08:48 vancomycin Allergy Unknown Verified 11/17/21 08:48 hydrocodone bitartrate AdvReac nightmares Verified 11/17/21 08:48 [From Vicodin] Family History Father Heart disease Brother Heart disease Cancer prostate Surgical History (Updated 11/17/21 @ 13:[address]) history IVC filter insertion (2016) History of colonoscopy (08/08/16) History of coronary artery stent placement (08/29/10) History of esophagogastroduodenoscopy (EGD) (08/08/16) History of esophagogastroduodenoscopy (EGD) (03/2019) History of incisional hernia repair History of left heart catheterization History of lumbar laminectomy (01/2020) Social History household members: significant other Smoking Status: Former smoker Tobacco: How many years used: 40 how long ago did patient quit smokin + years ago alcohol intake: never substance use type: does not use caffeine: Yes Type: coffee Number of servings: 8 Physical Exam Narrative General: Alert and oriented x3 in no apparent distress. HEENT: Normocephalic, atraumatic. Pupil equal round and reactive to light and accommodation. Extraocular motion intact. Hearing is intact. Mucous membranes moist without erythema. Heart: Normal S1, S2. No rubs, or murmurs. Lungs: Diffuse rhonchi bilaterally. No crackles. Abdomen: Normal bowel sound. Abdomen is soft, nontender, no guarding or rebound. Extremities: There is nonpitting edema of the feet bilaterally. Leg is wrapped in gauze which appears to be clean and dry. Psychiatric: Normal mood and affect. Skin: No rash. Skin is warm and dry. Musculoskeletal: Full passive range of motion. No joint swelling. Lab / Micro Data Result Diagrams: 11/18/21 06:55 11/18/21 06:55 Labs: Laboratory Results - last 24 hr 11/17/21 10:25: WBC 8.3, RBC 3.98 L, Hgb 10.9 L, Hct 32.9 L, MCV 82.7, MCH 27.4, MCHC 33.1, RDW Std Deviation 47.9 H, RDW Coeff of Nina 16.0 H, Plt Count 175, MPV 8.9, Immature Gran % (Auto) 0.800, Neut % (Auto) 78.8 H, Lymph % (Auto) 3.3 L, [place] % (Auto) 13.4 H, Eos % (Auto) 3.1, Baso % (Auto) 0.6, Absolute Neuts (auto) 6.5, Absolute Lymphs (auto) 0.27 L, Nucleated RBC % 0, Differential Comment , Platelet Estimate ADEQUATE, RBC Morphology NORM C+C 11/17/21 10:25: Sodium 132 L, Potassium 3.3 L, Chloride 98, Carbon Dioxide 23.0, Anion Gap 11, BUN 45 H, Creatinine 4.28 H, Estim Creat Clear Calc 15.76, Est GFR (MDRD) Af Amer 18 L, Est GFR (MDRD) Non-Af 15 L, BUN/Creatinine Ratio 10.5, Glucose 90, Calcium 8.0 L 11/17/21 10:25: B-Natriuretic Peptide 146.2 H 11/17/21 11:20: Urine Color Yellow, Urine Clarity Clear, Urine pH 5.0, Ur Specific [place] 1.020, Urine Protein 15 H, Urine Glucose (UA) Normal, Urine Ketones Negative, Urine Occult Blood 25 H, Urine Nitrite Negative, Urine Bilirubin Negative, Urine Urobilinogen Normal, Ur Leukocyte Esterase 25 H, Urine RBC 0-5 SEEN, Urine WBC 0-5 SEEN, Ur Squamous Epith Cells 0-5 SEEN, Urine Bacteria 0 SEEN, Urine Mucus 0 SEEN 11/18/21 06:55: WBC 6.5, RBC 3.47 L, Hgb 9.3 L, Hct 29.9 L, MCV 86.2, MCH 26.8 L , MCHC 31.1 L D, RDW Std Deviation 50.4 H, RDW Coeff of Nina 16.1 H, Plt Count 141 L, MPV 9.3, Immature Gran % (Auto) 0.600, Neut % (Auto) 77.8 H, Lymph % (Auto) 3.2 L, [place] % (Auto) 14.5 H, Eos % (Auto) 3.4, Baso % (Auto) 0.5, Absolute Neuts (auto) 5.1, Absolute Lymphs (auto) 0.21 L, Nucleated RBC % 0, Platelet Estimate ADEQUATE, RBC Morphology NORM C+C 11/18/21 06:55: Sodium 132 L, Potassium 3.3 L, Chloride 104, Carbon Dioxide 19.0 L, Anion Gap 9, BUN 44 H, Creatinine 3.58 H, Estim Creat Clear Calc 18.84, Est GFR (MDRD) Af Amer 22 L, Est GFR (MDRD) Non-Af 18 L, BUN/Creatinine Ratio 12.3, Glucose 85, Calcium 7.5 L, Phosphorus 3.4, Magnesium 1.4 L Radiology Impression Chest X-Ray 11/17/21 11:30 IMPRESSION: No change from 11/02/2021. Electronically Signed: Bob Pacheco MD at 11:46 EDT Reading Location ID and State: [id number] / [employer] , Service support , Lumbar Spine CT 11/17/21 11:53 IMPRESSION: Mild dextroscoliosis and degenerative disc disease as described above. Electronically Signed: Bob Pacheco MD at 12:35 EDT Reading Location ID and State: [id number] / [employer] , Service support , Renal Ultrasound 11/17/21 13:11 IMPRESSION: No hydronephrosis to suggest obstruction. Electronically Signed: Bob Pacheco MD at 15:13 EDT Reading Location ID and State: [id number] / [employer] , Service support ,
[2021-11-18] MEDS: Metoprolol Tartrate 25 MG Tablet PO ×2 (10:12→21:39)
[2021-11-18] MEDS: Pantoprazole Sodium 20 MG Tablet PO ×2 (10:12→21:39)
[2021-11-18] MEDS: Nystatin Ointment 1 APPLIC TOPICAL (10:32)
[2021-11-18] MEDS: Pregabalin 25 MG Capsule PO ×2 (14:19→21:36)
--- NOTE | 2021-11-18 17:28 | PN.HOSP_ITS ---
Subjective Subjective Patient was seen and examined today, I talked briefly with nephrology about his care, nephrology feels that fluid should be administered and the creatinine should be monitored. Patient complains of diarrhea, stool for C. difficile at this time is pending on the patient. Objective Data Objective Data Vital Signs: Vital Signs Temp Pulse Resp BP Pulse Ox O2 Del Method O2 Flow Rate 97.7 F L 82 18 133/65 H 95 Nasal Cannula 3.5 11/18/21 14:00 11/18/21 14:00 11/18/21 14:00 11/18/21 14:00 11/18/21 14:00 11/18/21 14:49 11/18/21 14:49 Oxygen Flow Rate (L/min) 3.5 Oxygen Delivery Method Nasal Cannula Weight: 103.646 kg Body Mass Index (BMI) 34.7 Intake & Output: Intake and Output for Last 24 Hours 11/16/21 11/17/21 11/18/21 23:59 23:59 23:59 Intake Total 1000 / 1000 2500 / 2500 Output Total 200 / 200 Balance 800 / 800 2500 / 2500 Lab / Micro Data Result Diagrams: 11/18/21 06:55 11/18/21 06:55 Labs: Laboratory Results - last 24 hr 11/18/21 06:55: WBC 6.5, RBC 3.47 L, Hgb 9.3 L, Hct 29.9 L, MCV 86.2, MCH 26.8 L , MCHC 31.1 L D, RDW Std Deviation 50.4 H, RDW Coeff of Nina 16.1 H, Plt Count 141 L, MPV 9.3, Immature Gran % (Auto) 0.600, Neut % (Auto) 77.8 H, Lymph % (Auto) 3.2 L, [place] % (Auto) 14.5 H, Eos % (Auto) 3.4, Baso % (Auto) 0.5, Absolute Neuts (auto) 5.1, Absolute Lymphs (auto) 0.21 L, Nucleated RBC % 0, Platelet Estimate ADEQUATE, RBC Morphology NORM C+C 11/18/21 06:55: Sodium 132 L, Potassium 3.3 L, Chloride 104, Carbon Dioxide 19.0 L, Anion Gap 9, BUN 44 H, Creatinine 3.58 H, Estim Creat Clear Calc 18.84, Est GFR (MDRD) Af Amer 22 L, Est GFR (MDRD) Non-Af 18 L, BUN/Creatinine Ratio 12.3, Glucose 85, Calcium 7.5 L, Phosphorus 3.4, Magnesium 1.4 L Physical Exam Const alert, oriented x3 and no apparent distress Constitutional Narrative: Patient appears older than his stated age General Appearance: cooperative, well kempt and well developed Orientation / Consciousness: awake, oriented to person, oriented to place and oriented to time HEENT normocephalic, head/scalp atraumatic and moist oral mucous membranes Eyes PERRL, EOMs intact bilaterally and conjunctivae normal Neck supple, no JVD, thyroid normal and no carotid bruits General: trachea midline Resp normal respiratory effort, no retractions, no use of accessory muscles and clear to auscultation bilaterally Auscultation: Negative for rales, rhonchi or wheezes Cardio regular rate, regular rhythm, S1 normal heart sound, S2 normal heart sound, no murmurs, no rub and no gallops GI normal to inspection, nondistended, normoactive bowel sounds, soft to palpation, non-tender and non-distended Extremity Extremity Narrative: There is evidence of generalized edema in the patient's upper arms Skin Skin Narrative: Patient has some superficial skin tears of his lower legs-chiefly the right leg, there is an eschar noted on the dorsum of the right foot-these areas are only approximately 2 cm in diameter Neuro oriented x3, CN's II-XII intact bilaterally, moves all extremities and no sensory deficits noted Neuro Narrative: Patient is unable to walk at this time Sensorium / Orientation: awake and alert Speech: speech normal Psych affect normal Assessment & Plan Assessment/Plan (1) Acute kidney injury: PLAN: Plan 1. Acute kidney injury on a backdrop of chronic kidney disease stage IIIa- continue IV fluid administration, nephrology is participating in his care #2 severe degenerative disc disease lumbar spine with history of disc herniation L3-4 and [id number] will continue with PT and OT, he will need placement in a long term facility at the time of discharge from the hospital #3 chronic spinal stenosis of lumbar spine with chronic pain-complicates care, recovery, and prognosis #4 coronary artery disease-stable at this time #5 paroxysmal atrial fibrillation-patient is on metoprolol #6 hyperlipidemia-patient is on atorvastatin #7 generalized debility-again OT and PT are seeing the patient, he will need placement in a long term facility at the time of discharge #8 type 2 diabetes-patient is currently diet controlled #9 urinary retention-I will place a Head catheter due to urinary retention and place patient on Flomax Charges/Coding Visit Charges Inpatient E&M: 72744 Subs Hosp L2
--- NOTE | 2021-11-18 17:48 | CASEMGMT ---
PATRIC [facility] Readmission Review: Index: 11/02 thru 11/07/21 Severe sepsis w/Acute hypoxic respiratory failure secondary to COPD, pneumonia, right foot cellulitis, VIET. Current: Bilat LE pain, weakness, VIET, chronic wounds of bilat LE. Pt w/hx CAD, HFpEF, CKD stage 3, COPD, DM, HTN, HLD, obesity, NICK[place] was admitted 11/02 and discharged on 11/07 to [facility] after tx for the above noted conditions. Pt had been independent prior to that admission with ADLs and had the assistance of his for dressing changes. Pt had home O2, NIV, nebulizer and walker. Pt returned with progressive weakness and pain. Plan is for pt to return to [facility] at discharge. The discharge planning process was reviewed without any identification of concerns resulting in readmission. Tex Oconnor RN CM
[2021-11-18] MEDS: Tamsulosin HCl 0.4 MG Capsule PO (18:33)
[2021-11-18] MEDS: Atorvastatin Calcium 40 MG Tablet PO (21:37)
[2021-11-18] MEDS: Nystatin Powder 15gm Bottle 1 APPLIC TOPICAL (22:25)
[2021-11-18] MEDS: MELATONIN 3 MG TABLET PO (22:26)
[2021-11-19] VITALS (13 sets, daily range): BP systolic 95–143; BP diastolic 49–73; PULSE 81–108; RESP 12–24; TEMP 36.2–37.1; O2SAT 92–99
[2021-11-19] MEDS: Ipratropium/Albuterol Sulfate 3 ML AMPUL.NEB INHALATION ×3 (01:05→19:25)
[2021-11-19] MEDS: 0.9% Normal Saline 1,000 ML 125 ML IV ×2 (01:13→09:14)
[2021-11-19] MEDS: Heparin Injection (Vial) 5,000 UNIT/ML VIAL 5000 UNIT SC ×3 (05:06→20:52)
[2021-11-19] MEDS: oxyCODONE 5 MG Tablet 10 MG PO ×4 (05:06→20:49)
[2021-11-19] MEDS: Acetaminophen 325 MG Tablet 650 MG PO ×2 (05:06→20:49)
[2021-11-19 05:27] LABS: Absolute Neutrophil Count 4.9 X10^3/uL (2.0-7.7); Basophil# 0.04 X10^3/uL; Basophil% 0.6 % (0-1); Eosinophil# 0.24 X10^3/uL; Eosinophils% 3.3 % (0-5); Hemoglobin 10.1 g/dL (13.0-16.5); Lymphocyte % 5.6 % (19-41); Mean Corp Hgb Conc 30.6 g/dL (32-36); Mean Corpuscular Hgb 26.6 pg (27.0-32.0); Mean Corpuscular Volume 87.1 fL (80-94); Mean Platelet Vol. 9.5 fl (6.2-12.0); Monocyte# 1.53 X10^3/uL; Monocyte% 21.3 % (0-10); NRBC Flagged by Analyzer 0 % (0-5); Neutrophil % 68.1 % (47-70); POSITIVE DIFFERENTIAL YES; Platelet Count 137 K/mm3 (150-450); RBC Distribution Width CV 16.4 % (11.6-14.6); RBC Distribution Width SD 51.2 fl (35.1-43.9); Red Blood Count 3.79 M/mm3 (4.6-6.2); White Blood Count 7.2 K/mm3 (4.4-11.0)
[2021-11-19 05:43] LABS: Anion Gap 11 (5-15); BUN 38 mg/dL (7-18); BUN/Creat Ratio 15.1 RATIO (10-20); Calcium,Total 7.4 mg/dL (8.5-10.1); Chloride 107 mmol/L (98-107); Creatinine, Serum 2.51 mg/dL (0.70-1.30); EST Glomerular Filtration Rate 27 mL/min (>60); Est Glom Filt Rate - Afr Amer 33 mL/min (>60); Estimated Creatinine Clearance 26.87 ml/min; Glucose 87 mg/dL (74-106); Potassium 3.7 mmol/L (3.5-5.1); Sodium Level 134 mmol/L (136-145)
[2021-11-19 05:48] LABS: Differential Indicated SCAN CRITERIA MET
[2021-11-19 06:16] LABS: Differential Comment SCANNED
--- NOTE | 2021-11-19 07:53 | PCM.PN.HOSP ---
Subjective Subjective Patient was seen and salmon today, he is alert and in no distress. Patient's hemoglobin this morning was 10.1, creatinine was improved at 2.51. Patient states she uses a walker at home, he agrees that he has to go back to a fdc for skilled care at the time of discharge from the hospital. Objective Data Objective Data Vital Signs: Vital Signs Temp Pulse Resp BP Pulse Ox O2 Del Method O2 Flow Rate 97.1 F L 86 18 119/57 L 97 Nasal Cannula 3 11/19/21 05:15 11/19/21 05:15 11/19/21 05:15 11/19/21 05:15 11/19/21 05:35 11/19/21 05:35 11/19/21 05:35 FiO2 30 11/19/21 01:02 Oxygen Flow Rate (L/min) 3 Oxygen Delivery Method Nasal Cannula Weight: 103.646 kg Body Mass Index (BMI) 34.7 Intake & Output: Intake and Output for Last 24 Hours 11/17/21 11/18/21 11/19/21 23:59 23:59 23:59 Intake Total 1000 / 1000 2745 / 2745 1000 / 1000 Output Total 200 / 200 480 / 580 275 / 275 Balance 800 / 800 2265 / 2165 725 / 725 Lab / Micro Data Result Diagrams: 11/19/21 05:06 11/19/21 05:06 Labs: Laboratory Results - last 24 hr 11/18/21 06:55: Platelet Estimate ADEQUATE, RBC Morphology NORM C+C 11/19/21 05:06: WBC 7.2, RBC 3.79 L, Hgb 10.1 L, Hct 33.0 L, MCV 87.1, MCH 26.6 L, MCHC 30.6 L, RDW Std Deviation 51.2 H, RDW Coeff of Nina 16.4 H, Plt Count 137 L, MPV 9.5, Immature Gran % (Auto) 1.100 H, Neut % (Auto) 68.1, Lymph % (Auto) 5.6 L, [place] % (Auto) 21.3 H, Eos % (Auto) 3.3, Baso % (Auto) 0.6, Absolute Neuts (auto) 4.9, Absolute Lymphs (auto) 0.40 L, Nucleated RBC % 0, Differential Comment SCANNED 11/19/21 05:06: Sodium 134 L, Potassium 3.7, Chloride 107, Carbon Dioxide 16.0 L, Anion Gap 11, BUN 38 H, Creatinine 2.51 H, Estim Creat Clear Calc 26.87, Est GFR (MDRD) Af Amer 33 L, Est GFR (MDRD) Non-Af 27 L, BUN/Creatinine Ratio 15.1, Glucose 87, Calcium 7.4 L Micro: Microbiology 11/18/21 13:30 Stool C. difficile DNA Amplification - Final Physical Exam Narrative alert, oriented x3 and no apparent distress Constitutional Narrative: Patient appears older than his stated age General Appearance: cooperative, well kempt and well developed Orientation / Consciousness: awake, oriented to person, oriented to place and oriented to time HEENT normocephalic, head/scalp atraumatic and moist oral mucous membranes Eyes PERRL, EOMs intact bilaterally and conjunctivae normal Neck supple, no JVD, thyroid normal and no carotid bruits General: trachea midline Resp normal respiratory effort, no retractions, no use of accessory muscles and clear to auscultation bilaterally Auscultation: Negative for rales, rhonchi or wheezes Cardio regular rate, regular rhythm, S1 normal heart sound, S2 normal heart sound, no murmurs, no rub and no gallops GI normal to inspection, nondistended, normoactive bowel sounds, soft to palpation, non-tender and non-distended Extremity Extremity Narrative: There is evidence of generalized edema in the patient's upper arms Skin Skin Narrative: Patient has some superficial skin tears of his lower legs-chiefly the right leg, there is an eschar noted on the dorsum of the right foot-these areas are only approximately 2 cm in diameter Neuro oriented x3, CN's II-XII intact bilaterally, moves all extremities and no sensory deficits noted Neuro Narrative: Patient is unable to walk at this time Sensorium / Orientation: awake and alert Speech: speech normal Psych affect normal Const alert, oriented x3 and no apparent distress Constitutional Narrative: Patient appears older than his stated age General Appearance: cooperative, well kempt and well developed Orientation / Consciousness: awake, oriented to person, oriented to place and oriented to time HEENT normocephalic, head/scalp atraumatic and moist oral mucous membranes Eyes PERRL, EOMs intact bilaterally and conjunctivae normal Neck supple, no JVD, thyroid normal and no carotid bruits General: trachea midline Resp normal respiratory effort, no retractions, no use of accessory muscles and clear to auscultation bilaterally Auscultation: Negative for rales, rhonchi or wheezes Cardio regular rate, regular rhythm, S1 normal heart sound, S2 normal heart sound, no murmurs, no rub and no gallops GI normal to inspection, nondistended, normoactive bowel sounds, soft to palpation, non-tender and non-distended Extremity no clubbing, cyanosis or edema Extremity Narrative: There is evidence of generalized edema in the patient's upper arms Skin no rashes or lesions noted Skin Narrative: Patient has some superficial skin tears of his lower legs-chiefly the right leg, there is an eschar noted on the dorsum of the right foot-these areas are only approximately 2 cm in diameter General Skin Exam: no breakdown Neuro oriented x3, CN's II-XII intact bilaterally, moves all extremities, no focal motor deficits and no sensory deficits noted Neuro Narrative: Patient is unable to walk at this time Sensorium / Orientation: awake and alert Speech: speech normal Psych affect normal Assessment & Plan Assessment/Plan (1) Acute kidney injury: PLAN: Plan 1. Acute kidney injury on a backdrop of chronic kidney disease stage IIIa-continue IV fluid administration, nephrology is participating in his care, creatinine is improved today #2 severe degenerative disc disease lumbar spine with history of disc herniation L3-4 and [id number] will continue with PT and OT, he will need placement in a senior living facility at the time of discharge from the hospital #3 chronic spinal stenosis of lumbar spine with chronic pain-complicates care, recovery, and prognosis #4 coronary artery disease-stable at this time #5 paroxysmal atrial fibrillation-patient is on metoprolol #6 hyperlipidemia-patient is on atorvastatin #7 generalized debility-again OT and PT are seeing the patient, he will need placement in a senior living facility at the time of discharge #8 type 2 diabetes-patient is currently diet controlled #9 urinary retention-patient now has a Head catheter, he remains on Flomax Charges/Coding Visit Charges Inpatient E&M: 75666 Subs Hosp L2
[2021-11-19] MEDS: Aspirin E.C. 81 MG Tablet PO (07:57)
[2021-11-19] MEDS: Cyanocobalamin 500 MCG Tablet 1000 MCG PO (07:57)
[2021-11-19] MEDS: Allopurinol 100 MG Tablet PO ×2 (07:57→16:43)
[2021-11-19] MEDS: Pantoprazole Sodium 20 MG Tablet PO ×2 (07:58→20:53)
[2021-11-19] MEDS: Metoprolol Tartrate 25 MG Tablet PO ×2 (08:02→20:52)
[2021-11-19] MEDS: Pregabalin 25 MG Capsule PO ×2 (08:02→20:49)
[2021-11-19] MEDS: Menthol/Lanolin/Calamine/Znox 113 GM Tube 1 APPLIC TOPICAL ×2 (08:03→20:51)
[2021-11-19] MEDS: Nystatin Powder 15gm Bottle 1 APPLIC TOPICAL ×2 (08:03→20:53)
--- NOTE | 2021-11-19 10:49 | PCM.PN.REN ---
Subjective Subjective Following for VIET on CKD. The patient feels a bit better. However, appetite is still poor. There has been no further diarrhea since admission. He denies nausea or vomiting. He denies chest pain. Shortness of breath is about the same as yesterday. He complains of increasing edema in upper extremities. Objective Data Objective Data Vital Signs: Vital Signs Temp Pulse Resp BP Pulse Ox O2 Del Method O2 Flow Rate 97.5 F L 84 16 95/49 L 99 Nasal Cannula 3 11/19/21 08:44 11/19/21 08:44 11/19/21 08:44 11/19/21 08:44 11/19/21 08:44 11/19/21 08:47 11/19/21 08:47 FiO2 30 11/19/21 01:02 Oxygen Flow Rate (L/min) 3 Oxygen Delivery Method Nasal Cannula Weight: 103.646 kg Body Mass Index (BMI) 34.7 Intake & Output: Intake and Output for Last 24 Hours 11/17/21 11/18/21 11/19/21 23:59 23:59 23:59 Intake Total 1000 / 1000 2745 / 2745 1999 / 1999 Output Total 200 / 200 480 / 580 275 / 275 Balance 800 / 800 2265 / 2165 1725 / 1725 Lab / Micro Data Result Diagrams: 11/19/21 05:06 11/19/21 05:06 Labs: Laboratory Results - last 24 hr 11/19/21 05:06: WBC 7.2, RBC 3.79 L, Hgb 10.1 L, Hct 33.0 L, MCV 87.1, MCH 26.6 L, MCHC 30.6 L, RDW Std Deviation 51.2 H, RDW Coeff of Nina 16.4 H, Plt Count 137 L, MPV 9.5, Immature Gran % (Auto) 1.100 H, Neut % (Auto) 68.1, Lymph % (Auto) 5.6 L, Giles % (Auto) 21.3 H, Eos % (Auto) 3.3, Baso % (Auto) 0.6, Absolute Neuts (auto) 4.9, Absolute Lymphs (auto) 0.40 L, Nucleated RBC % 0, Differential Comment SCANNED 11/19/21 05:06: Sodium 134 L, Potassium 3.7, Chloride 107, Carbon Dioxide 16.0 L, Anion Gap 11, BUN 38 H, Creatinine 2.51 H, Estim Creat Clear Calc 26.87, Est GFR (MDRD) Af Amer 33 L, Est GFR (MDRD) Non-Af 27 L, BUN/Creatinine Ratio 15.1, Glucose 87, Calcium 7.4 L Micro: Microbiology 11/18/21 13:30 Stool C. difficile DNA Amplification - Final Physical Exam Narrative General: Alert and oriented x3 in no apparent distress. Heart: Normal S1, S2. No rubs, or murmurs. Lungs: Diffuse rhonchi bilaterally. No crackles. Abdomen: Normal bowel sound. Abdomen is soft, nontender, no guarding or rebound. Extremities: There is nonpitting edema of the feet bilaterally. Leg is wrapped in EMILY bandage. Assessment & Plan Assessment/Plan (1) Acute kidney injury: PLAN: VIET is likely prerenal from volume depletion. The patient had diarrhea, vomiting and poor oral intake at [facility] prior to admission. He was also on diuretic for lower extremity edema. Renal function is improving with volume expansion although renal function has not yet back to baseline (serum creatinine is 1.3 to 1.4 mg/dL at baseline). The patient is not in respiratory distress. Edema of the lower extremity may be chronic from lymphedema as well. I agree with holding diuretic for now and rehydrating the patient with IV fluid. However, I will decrease IV rate today and switched patient to LR from normal saline since acidosis is a bit worse. Encouraged patient to push oral solute/fluid intake on his own as well. We will follow volume status closely while the patient is getting IV fluid. There is no need for kidney replacement therapy. Recheck renal function, volume status, electrolytes, and acid-base status again tomorrow. 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 Baseline serum creatinine is around 1.3 to 1.4 mg/dL. Long-term goal is to keep BP below 130/80. Will check urine protein to creatinine ratio when renal function stabilizes. (3) Chronic diastolic (congestive) heart failure: PLAN: The patient has a history of heart failure with preserved ejection fraction. He appears to be compensated at this point. Continue IV fluid because of VIET, but we will use a lower rate. Continue to hold diuretic for now, but we will monitor volume status closely.
[2021-11-19] MEDS: Lactated Ringers 1,000 ML 75 ML IV (12:16)
[2021-11-19] MEDS: Budesonide Respules 0.5 MG/2 ML AMPUL.NEB. INHALATION ×2 (13:14→19:25)
[2021-11-19] MEDS: Tamsulosin HCl 0.4 MG Capsule PO (16:43)
[2021-11-19] MEDS: MELATONIN 3 MG TABLET PO (20:49)
[2021-11-19] MEDS: Atorvastatin Calcium 40 MG Tablet PO (20:52)
[2021-11-20] VITALS (12 sets, daily range): BP systolic 103–135; BP diastolic 52–69; PULSE 77–91; RESP 16–22; TEMP 36.6–36.7; O2SAT 93–98
[2021-11-20] MEDS: oxyCODONE 5 MG Tablet 10 MG PO ×4 (02:51→17:15)
[2021-11-20] MEDS: Acetaminophen 325 MG Tablet 650 MG PO ×3 (02:51→13:30)
[2021-11-20] MEDS: Ipratropium/Albuterol Sulfate 3 ML AMPUL.NEB INHALATION ×3 (07:18→18:54)
[2021-11-20] MEDS: Budesonide Respules 0.5 MG/2 ML AMPUL.NEB. INHALATION ×2 (07:18→18:54)
[2021-11-20 07:38] LABS: Albumin, Serum 1.8 g/dL (3.2-5.0); BUN 33 mg/dL (7-18); BUN/Creat Ratio 16.8 RATIO (10-20); Calcium,Total 7.8 mg/dL (8.5-10.1); Chloride 105 mmol/L (98-107); Creatinine, Serum 1.96 mg/dL (0.70-1.30); EST Glomerular Filtration Rate 36 mL/min (>60); Est Glom Filt Rate - Afr Amer 44 mL/min (>60); Estimated Creatinine Clearance 34.41 ml/min; Glucose 98 mg/dL (74-106); Phosphorus 2.7 mg/dL (2.5-4.9); Potassium 3.3 mmol/L (3.5-5.1); Sodium Level 134 mmol/L (136-145)
[2021-11-20] MEDS: Allopurinol 100 MG Tablet PO ×2 (08:18→17:16)
[2021-11-20] MEDS: Metoprolol Tartrate 25 MG Tablet PO (08:19)
[2021-11-20] MEDS: Pantoprazole Sodium 20 MG Tablet PO (08:20)
[2021-11-20] MEDS: Nystatin Powder 15gm Bottle 1 APPLIC TOPICAL (08:21)
[2021-11-20] MEDS: Menthol/Lanolin/Calamine/Znox 113 GM Tube 1 APPLIC TOPICAL (08:21)
[2021-11-20] MEDS: guaiFENesin 10 ML UDC (200MG/10ML) 20 ML PO ×3 (08:31→17:18)
--- NOTE | 2021-11-20 08:48 | WOUNDNOTE ---
wound photo: right dorsal foot
--- NOTE | 2021-11-20 08:48 | WOUNDNOTE ---
wound photo: left medial lower leg
--- NOTE | 2021-11-20 08:49 | WOUNDNOTE ---
wound photo: left lateral lower leg
[2021-11-20] MEDS: Pregabalin 25 MG Capsule PO (10:03)
--- NOTE | 2021-11-20 10:36 | CASEMGMT ---
Discharge Pipe Layer Madeline vega/andreina special ed assistant called [facility]Danne at [facility]. Beds are available. Madeline sent referral to Dianne. Will follow up. Plan: [facility], Waiting Acceptance. Madeline Will Discharge Pipe Layer
--- NOTE | 2021-11-20 13:11 | CASEMGMT ---
Social Work SW met with pt to confirm he wants to return to [facility] upon discharge. Pt reports he has changed his mind and would not like to go back to [facility]. Patient was provided a list of?SNF?providers including quality and resource use data that is consistent with the patient?s preferred geographic region, medical needs, and insurance network. Pt requesting SW talk with his to complete discharge plans. SW called pt , Francia Torres, and she reports she was not happy with the care pt received at [facility] and that she and her daughter would like him to either come home or go to [facility]. SW discussed intent to inquire about beds at [facility] and speak with when she arrives at hospital to see pt. Francia voiced agreement. Francia, pt's , and their daughter arrived at the hospital shortly after. SW met with them to discuss pt's discharge. Francia and daughter inquired about resources for wheelchair and a hospital bed. SW was able to provide resources for both of these requests. Pt's daughter discussed some concerns with pt's care and SW also provided contact information for [place], the [facility] patient Advocate. SW spoke with Francia about patient PT notes and shared that based on these notes patient will be needing ongoing therapy and assistance with ambulation and hygiene/toiletry needs. Pt will also require wound care. With this information pt's and daughter deciding they would like pt to go to [facility] for rehab. Discharge medical records assistant, Madeline Will, will send referral to [facility]. Plan: [facility], pending acceptance TANYA Murillo
--- NOTE | 2021-11-20 13:24 | CASEMGMT ---
Discharge Umbrella Finisher Madeline vega/andreina assistant department manager sent pt/ot notes to Dianne at [facility]. Plan: [facility], Waiting acceptance. Madeline Will Discharge Umbrella Finisher
[2021-11-20] MEDS: Heparin Injection (Vial) 5,000 UNIT/ML VIAL 5000 UNIT SC (13:32)
--- NOTE | 2021-11-20 15:06 | PN.RENAL_ITS ---
Subjective Subjective Following for VIET on CKD Sitting up in chair, denies any complaints. Reports breathing improved. Denies any diarrhea today. Reports appetite improving. Objective Data Objective Data Vital Signs: Vital Signs Temp Pulse Resp BP Pulse Ox O2 Del Method O2 Flow Rate 97.8 F 80 20 H 119/63 95 Nasal Cannula 4 11/20/21 08:15 11/20/21 13:48 11/20/21 13:48 11/20/21 08:15 11/20/21 13:48 11/20/21 13:48 11/20/21 13:48 FiO2 30 11/19/21 23:27 Oxygen Flow Rate (L/min) 4 Oxygen Delivery Method Nasal Cannula Weight: 103.646 kg Body Mass Index (BMI) 34.7 Intake & Output: Intake and Output for Last 24 Hours 11/18/21 11/19/21 11/20/21 23:59 23:59 23:59 Intake Total 2745 / 2745 3652.08 / 3652.08 1138.75 / 1138.75 Output Total 480 / 580 975 / 975 600 / 600 Balance 2265 / 2165 2677.08 / 2677.08 538.75 / 538.75 Lab / Micro Data Result Diagrams: 11/19/21 05:06 11/20/21 06:00 Labs: Laboratory Results - last 24 hr 11/20/21 06:00: Sodium 134 L, Potassium 3.3 L, Chloride 105, Carbon Dioxide 21.0, BUN 33 H, Creatinine 1.96 H, Estim Creat Clear Calc 34.41, Est GFR (MDRD) Af Amer 44 L, Est GFR (MDRD) Non-Af 36 L, BUN/Creatinine Ratio 16.8, Glucose 98, Calcium 7.8 L, Phosphorus 2.7, Albumin 1.8 L Micro: Microbiology 11/18/21 13:30 Stool C. difficile DNA Amplification - Final Radiography Diagnostic Testing: Radiology Impression Venous Doppler Study 11/17/21 11:53 Interpretation Summary Deep veins of the right lower extremity are patent and compressible segmentally. There is no evidence of right lower extremity deep vein thrombosis. The right great saphenous vein appears patent and compressible segmentally. Deep veins of the left lower extremity are patent and compressible segmentally. There is no evidence of left lower extremity deep vein thrombosis. The left great saphenous vein appears patent and compressible segmentally. Ordering Physician: Raymon Bateman Referring Physician: Andres Petty Performed By: Lacey Rodriges RVT Physical Exam Narrative General: Alert and oriented x3 in no apparent distress. Heart: Normal S1, S2. No rubs, or murmurs. Lungs: Clear anteriorly, no wheezes rhonchi rales noted Abdomen: Normal bowel sounds. Abdomen is soft, nontender, no guarding or rebound. Extremities: There is nonpitting edema of the feet bilaterally. Legs wrapped in EMILY bandage. chen with clear yellow urine in bag Assessment & Plan Assessment/Plan (1) Acute kidney injury: PLAN: Nonoliguric, hypovolemic VIET is likely prerenal from volume depletion. The patient had diarrhea, vomiting and poor oral intake at SNF prior to admission. He was also on diuretic for lower extremity edema. Serum creatinine peaked 4.28 mg/dL, today his creatinine is 1.96 mg/dL. Renal function improved with volume expansion although renal function is not yet back to baseline (serum creatinine is 1.3 to 1.4 mg/dL at baseline). The patient is not in respiratory distress. Edema of the lower extremity may be chronic from lymphedema as well. I agree with holding diuretic again today. Now off IV fluids. Encouraged patient to push oral solute/fluid intake on his own as well. There is no need for kidney replacement therapy. Recheck renal function, volume status, electrolytes, and acid-base status again tomorrow. 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 Baseline serum creatinine is around 1.3 to 1.4 mg/dL. Long-term goal is to keep BP below 130/80. Will check urine protein to creatinine ratio when renal function stabilizes. (3) Chronic diastolic (congestive) heart failure: PLAN: The patient has a history of heart failure with preserved ejection fraction. He appears to be compensated at this point. Continue to hold diuretic for now, but we will monitor volume status closely. Home Lasix was 80 mg twice daily but was reduced during last hospitalization and when at [facility]CF.
--- NOTE | 2021-11-20 15:15 | CHAPLAIN ---
Type of Pastoral Visit _x__ Initial Visit ___ Follow-up Visit ___ On-call Visit ___ General Patient Visit ___ Spiritual Assessment ___ Family Conference ___ Bereavement ___ Rapid Response ___ Code Blue ___ Other (describe below) Pastoral Care Referral From _x__ Patient ___ Family ___ Nurse ___ Physician ___ Cut Press Operator ___ Chip Unloader ___ Other (describe below) Sacrament/Intervention _x__ Active listening ___ Anointing ___ Jainism ___ Bereavement ___ Communion ___ Mariaa exploration ___ ___ Life review _x__ Prayer ___ Reconciliation ___ Sacrament of Sick _x__ Supportive presence ___ Wedding ___ Other (describe below) Pastoral Comments patient and family members are in the room; pt speaks about his discomfort of being in hospitals; pt states that a prayer would be good; pt also uses humor to manage; offer of support now and later as well is made
--- NOTE | 2021-11-20 15:27 | CASEMGMT ---
Discharge Wood Carving Machine Operator Dianne called. Patient has been accepted at [facility]. Patient can go to [facility] when medically ready. KATHYA Houser notified. Plan: [facility]. Madeline Will Discharge Wood Carving Machine Operator
--- NOTE | 2021-11-20 15:41 | PN.HOSP_ITS ---
Subjective Subjective Patient was seen and examined today, his creatinine is improved to 1.96, nephrology does not feel he needs fluid ministration any longer. Patient would like to go to a different nursing facility for rehab services, we are presently awaiting word of acceptance from another facility. Objective Data Objective Data Vital Signs: Vital Signs Temp Pulse Resp BP Pulse Ox O2 Del Method O2 Flow Rate 98.0 F 80 18 120/71 95 Room Air 4 11/20/21 15:15 11/20/21 15:15 11/20/21 15:15 11/20/21 15:15 11/20/21 15:15 11/20/21 15:15 11/20/21 13:48 FiO2 30 11/19/21 23:27 Oxygen Flow Rate (L/min) 4 Oxygen Delivery Method Room Air Weight: 103.646 kg Body Mass Index (BMI) 34.7 Intake & Output: Intake and Output for Last 24 Hours 11/18/21 11/19/21 11/20/21 23:59 23:59 23:59 Intake Total 2745 / 2745 3652.08 / 3652.08 1138.75 / 1138.75 Output Total 480 / 580 975 / 975 600 / 600 Balance 2265 / 2165 2677.08 / 2677.08 538.75 / 538.75 Lab / Micro Data Result Diagrams: 11/19/21 05:06 11/20/21 06:00 Labs: Laboratory Results - last 24 hr 11/20/21 06:00: Sodium 134 L, Potassium 3.3 L, Chloride 105, Carbon Dioxide 21.0, BUN 33 H, Creatinine 1.96 H, Estim Creat Clear Calc 34.41, Est GFR (MDRD) Af Amer 44 L, Est GFR (MDRD) Non-Af 36 L, BUN/Creatinine Ratio 16.8, Glucose 98, Calcium 7.8 L, Phosphorus 2.7, Albumin 1.8 L Micro: Microbiology 11/18/21 13:30 Stool C. difficile DNA Amplification - Final Radiography Diagnostic Testing: Radiology Impression Venous Doppler Study 11/17/21 11:53 Interpretation Summary Deep veins of the right lower extremity are patent and compressible segmentally. There is no evidence of right lower extremity deep vein thrombosis. The right great saphenous vein appears patent and compressible segmentally. Deep veins of the left lower extremity are patent and compressible segmentally. There is no evidence of left lower extremity deep vein thrombosis. The left great saphenous vein appears patent and compressible segmentally. Ordering Physician: Raymon Bateman Referring Physician: Andres Petty Performed By: Lacey Rodriges RVT
--- NOTE | 2021-11-20 15:59 | TREXTCAR_ITS ---
Diet Diet Order/Speech Therapy: 11/20/21 14:12 Diet: Regular - General Food consistency: 2000 zainab Liquid Consistency:: Regular/Thin Dietary Modifications:: Sodium Restricted Is pt able to select menu?: Yes Routine Orders/Code Status O2 Liters per Minute: 4 O2 Frequency: Continuous Keep PO Greater than or Equal to (%): 90 Routine Lab Work: BMP (Obtain on 11/23/2021, then weekly) and - (Fingerstick blood sugars every morning and every 4 PM-notify attending of blood sugar over 180) Code Status: Full Code Wound(s) Top of Rt foot: Wound Type: Neuropathic/Diabetic Foot Ulcer Dressing Change: AntiMicrobial (Aquacel AG, etc) Rt dobson: Wound Type: Stasis Ulcer Lt dobson: Wound Type: scattered small stasis ulcers Dressing Change: Adaptic Therapies Weight Bearing: Full weight bearing Physical Therapy: Eval and Treat Occupational Therapy: Eval and Treat Problem/Diagnosis (1) Acute kidney injury: Status: Acute Code(s): N17.9 - Acute kidney failure, unspecified (2) Chronic kidney disease, stage 3a: Status: Chronic Code(s): N18.31 - Chronic kidney disease, stage 3a (3) Chronic diastolic (congestive) heart failure: Status: Chronic Code(s): I50.32 - Chronic diastolic (congestive) heart failure Comment: with stents (4) Neuropathic pain: Status: Chronic Code(s): M79.2 - Neuralgia and neuritis, unspecified Plan 1.? 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 with chronic pain-complicates care, recovery, and prognosis #4 coronary artery disease-stable at this time #5 paroxysmal atrial fibrillation-patient is on metoprolol #6 hyperlipidemia-patient is on atorvastatin #7 generalized debility-again OT and PT are seeing the patient, he will need placement in a senior living facility at the time of discharge #8 type 2 diabetes-patient is currently diet controlled #9 urinary retention-patient now has a Head catheter, he remains on Flomax #10 diarrhea-currently resolved-possibly secondary to metformin usage-patient will be kept off metformin at this time #11 chronic hypoxic respiratory failure-patient remains on 4 L of oxygen via nasal cannula #12 chronic obstructive pulmonary disease Allergies/Procedures Done in Hospital Allergies meropenem Allergy (Verified 11/17/21 08:48) Unknown tramadol Allergy (Verified 11/17/21 08:48) Unknown vancomycin Allergy (Verified 11/17/21 08:48) Unknown hydrocodone bitartrate [From Vicodin] Adverse Reaction (Verified 11/17/21 08:48) nightmares nightmares Procedures: None Type of Care/Length of Stay Estimated LOS: Convalescent Care Less Than 30 days Type of Care Needed: Skilled Rehab Potential: Good Prognosis: Good Additional Orders/Day of Discharge H&P will serve as current which was dated: 11/17/21 Day of Discharge: 11/20/21 Dietary and Speech Recommendations Dietitian Recommendations/Changes: Discharge Plan Admission Admit Date/Time: 11/17/21 11:54 Primary Reason for Your Visit: Acute kidney injury Attending Provider: Dave Pete Primary Care Provider: Andres Petty Consulting Providers: Buck Yoon ; Gregor Petty Instructions Additional Instructions / Restrictions: Maintain Head catheter for 5 days, then discontinue Patient will need appointment for follow-up at the wound care center at [facility] in 10 to 14 days Discharge Orders/Prescriptions Prescriptions: New acetaminophen [Tylenol] 325 mg Tablet 650 mg PO Q6H PRN PRN (Reason: Pain Score 1-10/Temp > 100.7 F) Qty: 0 0RF ipratropium-albuterol 0.5 mg-3 mg(2.5 mg base)/3 mL Solution For Nebulization 3 ml inhalation Q6H.RT Qty: 0 0RF albuterol sulfate 2.5 mg /3 mL (0.083 %) Solution For Nebulization 2.5 mg inhalation Q2H PRN PRN (Reason: Shortness of Breath/Wheezing) Qty: 0 0RF acidophilus-pectin, citrus 25 million cell -100 mg Tablet 1 tab PO TID Qty: 0 0RF pregabalin 25 mg Capsule 25 mg PO BID Qty: 10 0RF menthol-zinc oxide [Calmoseptine] 0.44-20.6 % Ointment 1 applic topical BID Qty: 0 0RF Protocol: *Topical Application Instructions APPLICATION INSTRUCTIONS: buttock/coccyx Ensure Enlive 0.08 gram-1.5 kcal/mL Liquid 120 ml PO TID Qty: 0 0RF nystatin [Nyamyc] 100,000 unit/gram Powder 1 applic topical BID Qty: 0 0RF Protocol: *Topical Application Instructions APPLICATION INSTRUCTIONS: . oxycodone 5 mg Tablet 15 mg PO Q6H PRN PRN (Reason: Pain Score 4-5) 5 Days Qty: 25 0RF tamsulosin 0.4 mg Capsule 0.8 mg PO DAILY@1730 Qty: 0 0RF potassium chloride 10 mEq tablet,ER particles/crystals 20 meq PO DAILY Qty: 1 0RF glimepiride [Amaryl] 1 mg tablet 1 mg PO DAILY Qty: 1 0RF Continued budesonide [Pulmicort] 0.5 mg/2 mL suspension for nebulization 2 ml INHALATION Q12H PRN (Reason: Sob &/Or Wheezing) omeprazole 20 MG capsule 20 mg PO BID nitroglycerin 0.4 MG tablet, sublingual 0.4 mg sublingual PRN PRN (Reason: chest pain ) albuterol sulfate 8.5 GM HFA aerosol inhaler 2 puff PO Q4H PRN PRN (Reason: wheezing/sob ) Label Comments: INHALE 2 PUFFS INSTRUCTED EVERY 4 HOURS NEEDED FOR WHEEZING/SHORTNESS OF BREATH. cyanocobalamin (vitamin B-12) 500 MCG tablet 1,000 mcg PO QODAY ergocalciferol (vitamin D2) 1,250 mcg (50,000 unit) capsule 1,250 mcg PO TH furosemide 40 mg Tablet 40 mg PO DAILY Qty: 0 0RF allopurinol 100 mg Tablet 100 mg PO BIDCM Qty: 0 0RF atorvastatin 40 mg Tablet 40 mg PO QHS fluticasone furoate-vilanterol 100-25 mcg/dose Blister With Device 1 inh INHALATION DAILY metoprolol tartrate 25 mg tablet 25 mg PO BID Qty: 180 3RF Changed aspirin [Enteric Coated Aspirin] 81 mg tablet,delayed release (DR/EC) 81 mg PO DAILY Qty: 1 0RF Discontinued oxycodone-acetaminophen 5-325 mg tablet 1 tab PO Q6H PRN (Reason: Pain) metformin 500 MG tablet 500 mg PO BID Label Comments: TAKE 1 TABLET BY MOUTH TWICE A DAY WITH MEALS ipratropium-albuterol 1 PUFF inhaler 1 puff INHALATION BID pregabalin 25 mg capsule 25 mg PO BID oxycodone 5 mg Tablet 10 mg PO Q6H PRN PRN (Reason: Pain Score 6-10) 2 Days Qty: 10 0RF Culturelle 10 billion cell Capsule 1 cap PO DAILY Referrals / Follow Up: Buck Yoon MD [Med Staff - Consulting] - See Referral Note (In 2 to 3 weeks-make appointment) Andres Petty MD [Primary Care Provider] - Disposition Disposition (needs filled in before D/C Order can be placed): Long-Term Facility
--- NOTE | 2021-11-20 16:07 | CASEMGMT ---
Addendum entered by Corrina Kovacs 11/20/21 16:25: SW called [facility] to inform them pt would be transferring to them this evening. Bicycle Messenger shared she would inform Dianne. Original Note: Social Work SW updated pt that he will be discharged to [facility] today. SW called pt to update her as well. Both voiced understanding. SW notified pt nurse and ordered covid test. KATHYA notified Dr. Pete that the ED SW would be completing the 7000 and would need the transfer summary to upload. SW completed green sheet and put it on pt chart. Notified clerk secretary. TANYA Murillo
--- NOTE | 2021-11-20 16:45 | PCM.DC.SUM ---
Providers Date of Admission: 11/17/21 Date of Discharge: 11/20/21 Primary Care Physician: Dr. Andres Petty MD Consultations 11/17/21 12:47 Consult: Nephrology Routine Consulting Provider: Buck Yoon Reason for Consult: VIET EMERGENT Consult: No MD Notified: Yes Date Notified: 11/17/21 Time Notified: 12:47 Method of Notification: Verbal 11/17/21 15:13 Consult: Onc/Wound/local operator Routine Comment: Reason For Visit: GUILLE LOWER LEG WEAKNESS, VIET Diagnosis Discharge Diagnosis (1) Acute kidney injury: Status: Acute Code(s): N17.9 - Acute kidney failure, unspecified (2) Chronic kidney disease, stage 3a: Status: Chronic Code(s): N18.31 - Chronic kidney disease, stage 3a (3) Chronic diastolic (congestive) heart failure: Status: Chronic Code(s): I50.32 - Chronic diastolic (congestive) heart failure (4) Neuropathic pain: Status: Chronic Code(s): M79.2 - Neuralgia and neuritis, unspecified Plan 1.? Acute kidney injury on a backdrop of chronic kidney disease stage IIIa-continue IV fluid administration, nephrology is participating in his care, creatinine is improved today #2 severe degenerative disc disease lumbar spine with history of disc herniation L3-4 and N3-5-sbujqpr will continue with PT and OT, he will need placement in a group home facility at the time of discharge from the hospital #3 chronic spinal stenosis of lumbar spine with chronic pain-complicates care, recovery, and prognosis #4 coronary artery disease-stable at this time #5 paroxysmal atrial fibrillation-patient is on metoprolol #6 hyperlipidemia-patient is on atorvastatin #7 generalized debility-again OT and PT are seeing the patient, he will need placement in a group home facility at the time of discharge #8 type 2 diabetes-patient is currently diet controlled #9 urinary retention-patient now has a Head catheter, he remains on Flomax #10 diarrhea-currently resolved-possibly secondary to metformin usage-patient will be kept off metformin at this time #11 chronic hypoxic respiratory failure-patient remains on 4 L of oxygen via nasal cannula #12 chronic obstructive pulmonary disease #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-unstageable and present on admission Medications at Discharge Home Medications omeprazole 20 mg capsule,delayed release 20 mg PO BID GERD 02/09/17 albuterol sulfate 90 mcg/actuation aerosol inhaler 2 puff PO Q4H PRN PRN wheezing/sob 01/29/19 nitroglycerin 0.4 mg sublingual tablet 0.4 mg sublingual PRN PRN chest pain 01/29/19 budesonide 0.5 mg/2 mL suspension for nebulization (Pulmicort) 2 ml inhalation Q12H PRN Sob &/Or Wheezing 02/19/19 cyanocobalamin (vitamin B-12) 500 mcg tablet 1,000 mcg PO QODAY Supplement 01/20/20 metoprolol tartrate 25 mg tablet 25 mg PO BID BP #180 tabs 07/26/21 ergocalciferol (vitamin D2) 1,250 mcg (50,000 unit) capsule 1,250 mcg PO TH supplement 11/02/21 allopurinol 100 mg tablet 100 mg PO BIDCM #0 tabs 11/07/21 furosemide 40 mg tablet 40 mg PO DAILY #0 tabs 11/07/21 atorvastatin 40 mg tablet 40 mg PO QHS 11/17/21 fluticasone furoate 100 mcg-vilanterol 25 mcg/dose inhalation powder 1 inh inhalation DAILY 11/17/21 acetaminophen 325 mg tablet (Tylenol) 650 mg PO Q6H PRN PRN Pain Score 1-10/Temp > 100.7 F #0 tabs 11/20/21 acidophilus 25 million cell-pectin, citrus 100 mg tablet 1 tab PO TID #0 tabs 11/20/21 albuterol sulfate 2.5 mg/3 mL (0.083 %) solution for nebulization 2.5 mg (3 mL) inhalation Q2H PRN PRN Shortness of Breath/Wheezing #0 mL 11/20/21 aspirin 81 mg tablet,delayed release (Enteric Coated Aspirin) 81 mg PO DAILY Heart #1 TAB 11/20/21 food supplemt, lactose-reduced 0.08 gram-1.5 kcal/mL oral liquid (Ensure Enlive) 120 ml PO TID #0 mL 11/20/21 glimepiride 1 mg tablet (Amaryl) 1 mg PO DAILY #1 TAB 11/20/21 ipratropium 0.5 mg-albuterol 3 mg (2.5 mg base)/3 mL nebulization soln 3 ml inhalation Q6H.RT #0 mL 11/20/21 menthol 0.44 %-zinc oxide 20.6 % topical ointment (Calmoseptine) 1 applic topical BID #0 grams 11/20/21 nystatin 100,000 unit/gram topical powder (Nyamyc) 1 applic topical BID #0 grams 11/20/21 oxycodone 5 mg tablet 15 mg PO Q6H PRN PRN Pain Score 4-5 5 days #25 tabs 11/20/21 potassium chloride 10 mEq tablet,extended release(part/cryst) 20 meq PO DAILY #1 TAB 11/20/21 pregabalin 25 mg capsule 25 mg PO BID #10 caps 11/20/21 tamsulosin 0.4 mg capsule 0.8 mg PO DAILY@1730 #0 caps 11/20/21 Hospital Course Operations None Procedures None and - (Venous duplex scan of the legs) Summary of Care Provided Minutes Spent on Discharge: 32 Hospital Course: 70-year-old white male was seen in the emergency room after being transported from a local extended care facility at which she was receiving rehab services after admission recently at [facility] for pneumonia. He was brought into the emergency room with complaints of lower leg edema, pain from his radiculopathy into his legs, and complaints of weakness. Work-up in the emergency room showed his BUN and creatinine to be elevated-creatinine was 4.28. Patient was admitted to [place] [address], he was seen in consultation by nephrology, he was given IV fluids, and his labs were monitored. Patient underwent a venous duplex of his legs which did not show evidence of VTE. Patient was also seen by wound care. Patient's creatinine improved during his hospital stay, he was seen by PT and OT, patient decided he did not want to return to the [facility] where he had been receiving outpatient skilled services, arrangements were made for the patient to be transferred to a new nursing facility. Patient had an episode of urinary retention and a Head catheter had to be placed, he was placed on Flomax. Patient also had complaints of diarrhea, his C. difficile toxin test was negative, it was felt that the metformin the patient was taking could have precipitated diarrhea. On 11/20/2021, patient was seen and examined: On examination he appeared older than his stated age. Vital signs as documented. Skin warm and dry and without overt rashes. Neck without JVD, neck was supple, trachea midline, thyroid was normal. Lungs clear bilaterally, normal air movement was noted. Heart exam notable for regular rhythm, normal sounds and absence of murmurs, rubs or gallops. Abdomen unremarkable and without evidence of organomegaly, masses, or abdominal aortic enlargement. Bowel sounds are present, abdomen is not distended. Extremities-generalized edema was noted in the upper arms and over the lower leg, no cyanosis was noted, no clubbing was noted. There was a right foot wound noted to be present which was several centimeters diameter over the dorsum of the right foot, there is also some superficial wounds on both legs. Neuro: Cranial nerves II through XII are grossly intact, no focal motor deficits were noted, sensation to light touch and pinprick intact, motor exam 5/5 throughout. Psych: Patient is alert and oriented x3, he does not appear anxious or depressed, he does not appear agitated. Patient's metformin was not continued at the time of discharge from the hospital to the [facility], he was placed on Amaryl instead for his type 2 diabetes. On 11/20/2021, patient was seen and examined and felt to be stable for discharge to an extended care facility for inpatient rehab services. Patient was sent to [facility]. Weight / BMI Weight Weight: 103.646 kg Body Mass Index (BMI) 34.7 ABG / Lab / Microbiology Data Result Diagrams: 11/19/21 05:06 11/20/21 06:00 Laboratory: Laboratory Results - last 24 hr 11/20/21 06:00: Sodium 134 L, Potassium 3.3 L, Chloride 105, Carbon Dioxide 21.0, BUN 33 H, Creatinine 1.96 H, Estim Creat Clear Calc 34.41, Est GFR (MDRD) Af Amer 44 L, Est GFR (MDRD) Non-Af 36 L, BUN/Creatinine Ratio 16.8, Glucose 98, Calcium 7.8 L, Phosphorus 2.7, Albumin 1.8 L Microbiology: Microbiology 11/18/21 13:30 Stool C. difficile DNA Amplification - Final Radiography Diagnostic Testing: Radiology Impression Venous Doppler Study 11/17/21 11:53 Interpretation Summary Deep veins of the right lower extremity are patent and compressible segmentally. There is no evidence of right lower extremity deep vein thrombosis. The right great saphenous vein appears patent and compressible segmentally. Deep veins of the left lower extremity are patent and compressible segmentally. There is no evidence of left lower extremity deep vein thrombosis. The left great saphenous vein appears patent and compressible segmentally. Ordering Physician: Raymon Bateman Referring Physician: Andres Petty Performed By: Lacey Rodriges RVT Meaningful Use Info Meaningful Use Diagnoses (Choose all that apply): None applicable Discharge Plan Admission Admit Date/Time: 11/17/21 11:54 Primary Reason for Your Visit: Acute kidney injury Attending Provider: Dave Pete Primary Care Provider: Andres Petty Consulting Providers: Buck Yoon ; Gregor Petty Instructions Additional Instructions / Restrictions: Maintain Head catheter for 5 days, then discontinue Patient will need appointment for follow-up at the wound care center at [facility] in 10 to 14 days Discharge Orders/Prescriptions Prescriptions: New acetaminophen [Tylenol] 325 mg Tablet 650 mg PO Q6H PRN PRN (Reason: Pain Score 1-10/Temp > 100.7 F) Qty: 0 0RF ipratropium-albuterol 0.5 mg-3 mg(2.5 mg base)/3 mL Solution For Nebulization 3 ml inhalation Q6H.RT Qty: 0 0RF albuterol sulfate 2.5 mg /3 mL (0.083 %) Solution For Nebulization 2.5 mg inhalation Q2H PRN PRN (Reason: Shortness of Breath/Wheezing) Qty: 0 0RF acidophilus-pectin, citrus 25 million cell -100 mg Tablet 1 tab PO TID Qty: 0 0RF pregabalin 25 mg Capsule 25 mg PO BID Qty: 10 0RF menthol-zinc oxide [Calmoseptine] 0.44-20.6 % Ointment 1 applic topical BID Qty: 0 0RF Protocol: *Topical Application Instructions APPLICATION INSTRUCTIONS: buttock/coccyx Ensure Enlive 0.08 gram-1.5 kcal/mL Liquid 120 ml PO TID Qty: 0 0RF nystatin [Nyamyc] 100,000 unit/gram Powder 1 applic topical BID Qty: 0 0RF Protocol: *Topical Application Instructions APPLICATION INSTRUCTIONS: . oxycodone 5 mg Tablet 15 mg PO Q6H PRN PRN (Reason: Pain Score 4-5) 5 Days Qty: 25 0RF tamsulosin 0.4 mg Capsule 0.8 mg PO DAILY@1730 Qty: 0 0RF potassium chloride 10 mEq tablet,ER particles/crystals 20 meq PO DAILY Qty: 1 0RF glimepiride [Amaryl] 1 mg tablet 1 mg PO DAILY Qty: 1 0RF Continued budesonide [Pulmicort] 0.5 mg/2 mL suspension for nebulization 2 ml INHALATION Q12H PRN (Reason: Sob &/Or Wheezing) omeprazole 20 MG capsule 20 mg PO BID nitroglycerin 0.4 MG tablet, sublingual 0.4 mg sublingual PRN PRN (Reason: chest pain ) albuterol sulfate 8.5 GM HFA aerosol inhaler 2 puff PO Q4H PRN PRN (Reason: wheezing/sob ) Label Comments: INHALE 2 PUFFS INSTRUCTED EVERY 4 HOURS NEEDED FOR WHEEZING/SHORTNESS OF BREATH. cyanocobalamin (vitamin B-12) 500 MCG tablet 1,000 mcg PO QODAY ergocalciferol (vitamin D2) 1,250 mcg (50,000 unit) capsule 1,250 mcg PO TH furosemide 40 mg Tablet 40 mg PO DAILY Qty: 0 0RF allopurinol 100 mg Tablet 100 mg PO BIDCM Qty: 0 0RF atorvastatin 40 mg Tablet 40 mg PO QHS fluticasone furoate-vilanterol 100-25 mcg/dose Blister With Device 1 inh INHALATION DAILY metoprolol tartrate 25 mg tablet 25 mg PO BID Qty: 180 3RF Changed aspirin [Enteric Coated Aspirin] 81 mg tablet,delayed release (DR/EC) 81 mg PO DAILY Qty: 1 0RF Discontinued oxycodone-acetaminophen 5-325 mg tablet 1 tab PO Q6H PRN (Reason: Pain) metformin 500 MG tablet 500 mg PO BID Label Comments: TAKE 1 TABLET BY MOUTH TWICE A DAY WITH MEALS ipratropium-albuterol 1 PUFF inhaler 1 puff INHALATION BID pregabalin 25 mg capsule 25 mg PO BID oxycodone 5 mg Tablet 10 mg PO Q6H PRN PRN (Reason: Pain Score 6-10) 2 Days Qty: 10 0RF Culturelle 10 billion cell Capsule 1 cap PO DAILY Referrals / Follow Up: Buck Yoon MD [Med Staff - Consulting] - See Referral Note (In 2 to 3 weeks-make appointment) Andres Petty MD [Primary Care Provider] - Disposition Disposition (needs filled in before D/C Order can be placed): [facility] Facility Charges/Coding Visit Charges Inpatient E&M: 41584 Disch Hosp
--- NOTE | 2021-11-20 16:45 | CM.ED ---
Delmis completed 7000 for patient. Copy printed out and sent to [facility] for patient's chart. Mariela DODD
[2021-11-20] MEDS: Potassium Chloride Oral Tablet 20 MEQ 40 MEQ PO (17:15)
[2021-11-20] MEDS: Tamsulosin HCl 0.4 MG Capsule PO (17:16)
--- NOTE | 2021-11-20 21:45 | CM.ED ---
KATHYA received call from Mee stating that patient has a trilogy and he is reporting that he can't bring it inside the facility, [facility]. Patient is scheduled for transport at 8:30pm. KATHYA called Verito, net applications developer for [facility] Lay Out Machine Operator. She said that patient could not take his trilogy into a SNF. She said that the only time that SNF's provide the equipment is when the local office is unable to provide it that night. Verito said that there is no way patient can take his trilogy to SNF. Vreito said I have a van driver net applications developer and if he is not certified he can't do it. KATHYA called Mee back. She said that [facility] stated that they will not take patient if he does not have his trilogy. KATHYA called CM Boiler Or Engine Operator, Zhanna Oconnor. KATHYA advised of situation. Mee had advised that patient is going to [facility] and is going to the step down unit and has spoken to PATRIC Perry. KATHYA called Navi, Charge on [employer], and advised that Zhanna Oconnor is working on the system. KATHYA received call from Zhanna Oconnor that the situation has been resolved with a cpap that [facility] can provide. Floor has been updated by Zhanna Oconnor. Plan: [facility] at discharge Mariela DODD
--- NOTE | 2021-11-21 07:11 | CASEMGMT ---
Late Entry for 11/20/21 at 1930: This RN CM Bag Printer notified of situation regarding trilogy and pending transfer to [facility]. This RN CM spoke with Vicky at [facility] who states she was not familiar with the trilogy and they did not have this equipment. Discussed with pt's RN Maryse who states pt has not been wearing the trilogy at [facility] nor was he wearing it at [facility] prior to admission. Maryse confirmed with respiratory tx that pt has worn Cpap, pressure 10 at [facility]. This RN CM confirmed with Vicky at [facility] that they do have a cpap machine at [facility] and can accept patient for transfer. Navi RN on [employer] notified that pt can transfer as scheduled. Tex Oconnor RN CM
--- NOTE | 2021-11-21 12:09 | CASEMGMT ---
Social Work SW left VM with Erin at [facility] notifying that pt choosing not to return to [facility] and discharge to alternate facility per pt and family choice. TANYA Thompson
== END 2021-11-20 21:10 | DRG 683 ==
LOC: ED 12:12 → MS3 12:59
PROVIDERS: Internal Medicine Nephrology; Nurse Practitioner; Admitting Provider Internal Medicine; Emergency Provider Emergency Medicine; PCP Family Medicine; Visit Provider Internal Medicine
DX: N17.9 Acute kidney failure, unspecified (principal); J96.11 Chronic respiratory failure with hypoxia; I13.0 Hypertensive heart and chronic kidney disease with heart failure and stage 1 through stage 4 chronic kidney disease, or unspecified chronic kidney disease; E87.1 Hypo-osmolality and hyponatremia; K52.1 Toxic gastroenteritis and colitis; I50.32 Chronic diastolic (congestive) heart failure; E11.22 Type 2 diabetes mellitus with diabetic chronic kidney disease; J44.9 Chronic obstructive pulmonary disease, unspecified; E11.40 Type 2 diabetes mellitus with diabetic neuropathy, unspecified; N18.31 Chronic kidney disease, stage 3a; M06.9 Rheumatoid arthritis, unspecified; M51.36 Other intervertebral disc degeneration, lumbar region; D64.9 Anemia, unspecified; K21.9 Gastro-esophageal reflux disease without esophagitis; E78.5 Hyperlipidemia, unspecified; G47.33 Obstructive sleep apnea (adult) (pediatric); I25.10 Atherosclerotic heart disease of native coronary artery without angina pectoris; I89.0 Lymphedema, not elsewhere classified; M10.9 Gout, unspecified; S81.811A Laceration without foreign body, right lower leg, initial encounter; S81.812A Laceration without foreign body, left lower leg, initial encounter; M51.26 Other intervertebral disc displacement, lumbar region; M48.061 Spinal stenosis, lumbar region without neurogenic claudication; S91.301A Unspecified open wound, right foot, initial encounter; Z87.01 Personal history of pneumonia (recurrent); Z87.19 Personal history of other diseases of the digestive system; Z86.718 Personal history of other venous thrombosis and embolism; Z99.81 Dependence on supplemental oxygen; Z79.84 Long term (current) use of oral hypoglycemic drugs; Z79.82 Long term (current) use of aspirin; Z79.899 Other long term (current) drug therapy; Z87.891 Personal history of nicotine dependence; E66.9 Obesity, unspecified; Z68.36 Body mass index [BMI] 36.0-36.9, adult; R33.9 Retention of urine, unspecified; T38.3X5A Adverse effect of insulin and oral hypoglycemic [antidiabetic] drugs, initial encounter; R53.81 Other malaise
CPT/HCPCS: 36415; 71045; 72131; 76770; 80048; 80069; 81001; 83735; 83880; 84100; 85025; 87426; 87493; 93970; 94003; 94640; 94660; 94762; 97162; 97166; 99251; 99285; J7030; J7120; A4216; G0463

== ENCOUNTER 2021-11-24 23:25 | Inpatient (IN) | payer MEDICARE, OTHER, SELFPAY ==
--- NOTE | 2021-11-24 00:16 | RAD_ITS ---
EXAM: XR CHEST, 1 VIEW CLINICAL INDICATION: dyspnea TECHNIQUE: Frontal view of the chest. This report was created using [employer] report generation technology. COMPARISON: 11/17/2021, 11/02/2021, and 01/28/2020. FINDINGS: LUNGS AND PLEURAL SPACES: Compared with the previous examination there is increasing opacification of the left lung base and increased left retrocardiac density. Left lower lobe bronchus not well-visualized. No pneumothorax. No effusion. HEART: Unremarkable. Cardiac silhouette not enlarged. MEDIASTINUM: Central airways and mediastinal contour are unremarkable. BONES/JOINTS: Unremarkable. SOFT TISSUES: Unremarkable. RAD/Chest 1 View (Portable) IMPRESSION: Worsening atelectasis/consolidation left lung base. Poor visualization of the left lower lobe bronchus. A mass cannot be excluded. Recommend CT with contrast for further evaluation. Electronically Signed: Darell Lyles MD at 0:41 EDT ,
[2021-11-24 23:27] VITALS: BP 113/72; PULSE 103; RESP 26; TEMP 37.1; O2SAT 92; BMI 37.8
[2021-11-24 23:30] VITALS: PULSE 104; RESP 12; RESP 26; O2SAT 93
--- NOTE | 2021-11-24 23:40 | EKG12_ITS ---
Test Reason : DYSRHYTHMIA Blood Pressure : / mmHG Vent. Rate : 092 BPM Atrial Rate : 092 BPM P-R Int : 148 ms QRS Dur : 076 ms QT Int : 324 ms P-R-T Axes : 039 011 078 degrees QTc Int : 400 ms Sinus rhythm with Premature atrial complexes Nonspecific T wave abnormality Abnormal ECG Confirmed by BELKIS SMITH, PATRICA ([id number]), video effects editor AMANDA CARRERA ([id number]) on 11/28/2021 7:53:04 AM Referred By: YEN Confirmed By:PATRICA TAMAYO MD
--- NOTE | 2021-11-24 23:41 | ED.VIS.DYS ---
HPI History of Present Illness Chief Complaint: Shortness of Breath Narrative Narrative: 70-year-old male presenting on CPAP for shortness of breath for the last couple of days. Patient states he is not having any pain anywhere and does not note any chest pain. He states he has been rundown. Apparently the patient[facility] and he was given glucagon. There was difficulty obtaining IV access in route. Blood sugar was checked here and it is 59. I asked him if he has a history of congestive heart failure and he stated to talk to his . His is not present in the room. [facility] Medical History Abnormal EKG Abnormal positron emission tomography (PET) scan VIET (acute kidney injury) Alcohol abuse Anemia Atherosclerosis of coronary artery of [place] heart without angina pectoris B12 deficiency Golden's esophagus Benign neoplasm of colon Benign neoplasm of larynx Blood loss anemia Chronic back pain Chronic diastolic (congestive) heart failure Chronic renal disease, stage 3, moderately decreased glomerular filtration rate (GFR) between 30-59 mL/min/1.73 square meter Chronic respiratory failure COLD (chronic obstructive lung disease) COPD (chronic obstructive pulmonary disease) Debility Diabetes Diverticulosis of colon (without mention of hemorrhage) DVT (deep venous thrombosis) (11/09/16) Essential (primary) hypertension Familial combined hyperlipidemia Former smoker GERD (gastroesophageal reflux disease) GI bleed H/O immunosuppressive therapy Hyperlipidemia Hypertension Internal hemorrhoids without mention of complication Lumbar spinal stenosis Lung nodules Neuropathic pain Non-compliance Obesity Obstructive sleep apnea On home oxygen therapy Other voice and resonance disorders Paroxysmal atrial fibrillation Peripheral neuropathy Peripheral vascular disease, unspecified Rheumatoid arthritis Sleep apnea Steroid long-term use Tracheostomy in place Type 2 diabetes mellitus Type 2 diabetes mellitus with diabetic polyneuropathy Home Medications omeprazole 20 mg capsule,delayed release 20 mg PO BID GERD 02/09/17 [History Last Taken 11/01/21] albuterol sulfate 90 mcg/actuation aerosol inhaler 2 puff PO Q4H PRN PRN wheezing/sob 01/29/19 [History Last Taken 01/28/19] nitroglycerin 0.4 mg sublingual tablet 0.4 mg sublingual PRN PRN chest pain 01/29/19 [History Last Taken Unknown] budesonide 0.5 mg/2 mL suspension for nebulization (Pulmicort) 2 ml inhalation Q12H PRN Sob &/Or Wheezing 02/19/19 [History Last Taken 11/01/21] cyanocobalamin (vitamin B-12) 500 mcg tablet 1,000 mcg PO QODAY Supplement 01/20/20 [History Last Taken 11/01/21] metoprolol tartrate 25 mg tablet 25 mg PO BID BP #180 tabs 07/26/21 [Rx Last Taken 11/01/21] ergocalciferol (vitamin D2) 1,250 mcg (50,000 unit) capsule 1,250 mcg PO TH supplement 11/02/21 [History Last Taken 11/01/21] allopurinol 100 mg tablet 100 mg PO BIDCM #0 tabs 11/07/21 [Rx Last Taken Unknown] furosemide 40 mg tablet 40 mg PO DAILY #0 tabs 11/07/21 [Rx Last Taken Unknown] atorvastatin 40 mg tablet 40 mg PO QHS 11/17/21 [History Last Taken Unknown] fluticasone furoate 100 mcg-vilanterol 25 mcg/dose inhalation powder 1 inh inhalation DAILY 11/17/21 [History Last Taken Unknown] acetaminophen 325 mg tablet (Tylenol) 650 mg PO Q6H PRN PRN Pain Score 1-10/Temp > 100.7 F #0 tabs 11/20/21 [Rx Last Taken Unknown] acidophilus 25 million cell-pectin, citrus 100 mg tablet 1 tab PO TID #0 tabs 11/20/21 [Rx Last Taken Unknown] albuterol sulfate 2.5 mg/3 mL (0.083 %) solution for nebulization 2.5 mg (3 mL) inhalation Q2H PRN PRN Shortness of Breath/Wheezing #0 mL 11/20/21 [Rx Last Taken Unknown] aspirin 81 mg tablet,delayed release (Enteric Coated Aspirin) 81 mg PO DAILY Heart #1 TAB 11/20/21 [Rx Last Taken 11/01/21] food supplemt, lactose-reduced 0.08 gram-1.5 kcal/mL oral liquid (Ensure Enlive) 120 ml PO TID #0 mL 11/20/21 [Rx Last Taken Unknown] glimepiride 1 mg tablet (Amaryl) 1 mg PO DAILY #1 TAB 11/20/21 [Rx Last Taken Unknown] ipratropium 0.5 mg-albuterol 3 mg (2.5 mg base)/3 mL nebulization soln 3 ml inhalation Q6H.RT #0 mL 11/20/21 [Rx Last Taken Unknown] menthol 0.44 %-zinc oxide 20.6 % topical ointment (Calmoseptine) 1 applic topical BID #0 grams 11/20/21 [Rx Last Taken Unknown] nystatin 100,000 unit/gram topical powder (Nyamyc) 1 applic topical BID #0 grams 11/20/21 [Rx Last Taken Unknown] oxycodone 5 mg tablet 15 mg PO Q6H PRN PRN Pain Score 4-5 5 days #25 tabs 11/20/21 [Rx Last Taken Unknown] potassium chloride 10 mEq tablet,extended release(part/cryst) 20 meq PO DAILY #1 TAB 11/20/21 [Rx Last Taken Unknown] pregabalin 25 mg capsule 25 mg PO BID #10 caps 11/20/21 [Rx Last Taken Unknown] tamsulosin 0.4 mg capsule 0.8 mg PO DAILY@1730 #0 caps 11/20/21 [Rx Last Taken Unknown] Allergy/AdvReac Type Severity Reaction Status Date / Time meropenem Allergy Unknown Verified 11/17/21 08:48 tramadol Allergy Unknown Verified 11/17/21 08:48 vancomycin Allergy Unknown Verified 11/17/21 08:48 hydrocodone bitartrate AdvReac nightmares Verified 11/17/21 08:48 [From Vicodin] Family History Father Heart disease Brother Heart disease Cancer prostate Surgical History history IVC filter insertion (2016) History of colonoscopy (08/08/16) History of coronary artery stent placement (08/29/10) History of esophagogastroduodenoscopy (EGD) (08/08/16) History of esophagogastroduodenoscopy (EGD) (03/2019) History of incisional hernia repair History of left heart catheterization History of lumbar laminectomy (01/2020) Social History household members: significant other Smoking Status: Former smoker Tobacco: How many years used: 40 how long ago did patient quit smokin + years ago alcohol intake: never substance use type: does not use caffeine: Yes Type: coffee Number of servings: 8 EXAM Physical Exam Const Vital Signs: 11/24/21 23:27 11/24/21 23:30 Temperature 98.7 F Temperature Source Axillary Pulse Rate 103 H 104 H Respiratory Rate 26 H 26 H Respiratory Pattern Tachypnea Blood Pressure 113/72 Blood Pressure Mean 85 Pulse Ox 92 93 Oxygen Delivery Method Bi-pap Fraction of Inspired Oxygen (FIO2) 100 100 Positive obese and unkempt Constitutional Narrative: Appears to be in respiratory distress General Appearance ED: unkempt; Negative for pallor Nutritional Appearance: obese HEENT Reports dry mucous membranes atraumatic Mouth ED: Yes dry mucous membranes Mouth: dry mucous membranes Eyes PERRL and EOMs intact bilaterally General Eye ED: Negative for pale conjunctiva or scleral icterus Resp Resp Narrative: Tachypneic on BiPAP. Auscultation: rales and rhonchi; Negative for wheezes GI non-tender Extremity General Extremety ED: Yes edema; Negative for tenderness General Extremity: edema Neuro oriented x3 Sensorium / Orientation: alert Psych mental status grossly normal Appearance: unkempt Skin General Skin Exam: Negative for jaundice or pallor MDM MDM MDM Narrative Medical decision making narrative: Patient arrives on CPAP. He switched to BiPAP. He states that this is helping him breathe better. His blood sugar is 59 here. We will establish IV and give him an amp of D50. Patient does look edematous in all 4 extremities. He is on him at home he has a history of heart failure but is not coming to talk to his . He says he [facility] a [facility]. He does not have any chest pain. Since he is tachypneic, tachycardic, hypoxic sepsis work-up will be obtained. EKG sinus rhythm with PACs at a ventricular rate of 92 bpm on my interpretation. Chest x-ray shows a left lower lobe consolidation my interpretation. The radiologist believes this may be a mass. CBC is obtained and his white blood cell count is 7.4. Hemoglobin stable at 9.3. Platelets 285. He does have 7 bands as well as some atypical cells on his CBC. Coagulation studies normal. Creatinine is actually improved at 1.2. Electrolytes are normal. LFTs appear to be normal. Lactic acid 0.9. BNP 58. Urinalysis shows 500 leukocyte esterase and 3+ bacteria from his Head catheter. Unsure if this is due to contamination. Patient had multiple issues with his blood sugar as well as IV access. Patient was given glucagon prior to arrival to help with his blood sugar and it was reported to me that he was drinking orange juice periodically over the last couple of days because his blood sugar was just dropping. After the IV line was established patient was given 2 A of D50 without any improvement really. He was given a dose of octreotide subcu because his IV infiltrated. Ultrasound guidance was used to establish an IV line by ED physician in the left antecubital fossa. This was initially working and he was given an additional dose of glucagon to the IV and initially started on D10. He was also given a dose of Lasix 60 mg IV as clinically appear to be in CHF with his edema. I had at least a 10-minute discussion with the family including his and daughter and he at the bedside and they decided that they did not want any intubation or CPR. We had multiple discussions regarding his care because his blood sugars kept dropping. I suspect this is due to his Amaryl. He seemed to be doing well on the BiPAP. I discussed the patient with the hospitalist who did see the patient and we put the orders in for admission. Unfortunately his IV did infiltrate again at which point we did not have any IV access. The patient himself stated that he did not want a central line, any more IV lines, and IO line. The hospital stated that he was going to get a hospice consult for the patient. Impression: 1. Hypoglycemia 2. Hypoxic respiratory failure 3. 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 Corrected WBC 7.4 RBC 3.54 L Hgb 9.3 L Hct 29.6 L MCV 83.6 MCH 26.3 L MCHC 31.4 L RDW Std Deviation 52.5 H RDW Coeff of Nina 17.5 H Plt Count 285 MPV 9.0 Neut % (Auto) Not Reportable Absolute Neuts (auto) 5.5 Absolute Lymphs (auto) 0.54 L Total Counted 100 Neutrophils % (Manual) 64 Band Neutrophils % 7 H Lymphocytes % (Manual) 7 L Monocytes % (Manual) 11 H Eosinophils % (Manual) 6 H Metamyelocytes % 1 Myelocytes % 3 H Promyelocytes % 1 H Nucleated RBCs/100 WBC 6 H Diff Path Review May foll Platelet Estimate ADEQUATE Ovalocytes RARE Acanthocytes (Spur) RARE PT 15.3 H INR 1.2 APTT 35.3 Sodium 137 Potassium 4.5 Chloride 106 Carbon Dioxide 24.0 Anion Gap 7 BUN 31 H Creatinine 1.82 H Estim Creat Clear Calc 37.06 Est GFR (MDRD) Af Amer 48 L Est GFR (MDRD) Non-Af 39 L BUN/Creatinine Ratio 17.0 Glucose 59 L Lactic Acid Calcium 8.6 Total Bilirubin 0.40 AST 24 ALT 16 Alkaline Phosphatase 55 Troponin I High Sens 9 B-Natriuretic Peptide Total Protein 5.7 L Albumin 1.8 L Globulin 3.9 Albumin/Globulin Ratio 0.5 L Urine Color Urine Clarity Urine pH Ur Specific [place] Urine Protein Urine Glucose (UA) Urine Ketones Urine Occult Blood Urine Nitrite Urine Bilirubin Urine Urobilinogen Ur Leukocyte Esterase Urine RBC Urine WBC Ur Squamous Epith Cells Urine Bacteria Urine Mucus Urine Yeast POC Glucose 11/24/21 11/24/21 11/25/21 23:45 23:45 00:26 WBC Corrected WBC RBC Hgb Hct MCV MCH MCHC RDW Std Deviation RDW Coeff of Nina Plt Count MPV Neut % (Auto) Absolute Neuts (auto) Absolute Lymphs (auto) Total Counted Neutrophils % (Manual) Band Neutrophils % Lymphocytes % (Manual) Monocytes % (Manual) Eosinophils % (Manual) Metamyelocytes % Myelocytes % Promyelocytes % Nucleated RBCs/100 WBC Diff Path Review Platelet Estimate Ovalocytes Acanthocytes (Spur) PT INR APTT Sodium Potassium Chloride Carbon Dioxide Anion Gap BUN Creatinine Estim Creat Clear Calc Est GFR (MDRD) Af Amer Est GFR (MDRD) Non-Af BUN/Creatinine Ratio Glucose Lactic Acid 0.9 Calcium Total Bilirubin AST ALT Alkaline Phosphatase Troponin I High Sens B-Natriuretic Peptide 58.1 Total Protein Albumin Globulin Albumin/Globulin Ratio Urine Color Yellow Urine Clarity Clear Urine pH 5.0 Ur Specific [place] 1.015 Urine Protein 15 H Urine Glucose (UA) Normal Urine Ketones Negative Urine Occult Blood 150 H Urine Nitrite Negative Urine Bilirubin Negative Urine Urobilinogen Normal Ur Leukocyte Esterase 500 H Urine RBC 0-5 SEEN Urine WBC 0-5 SEEN Ur Squamous Epith Cells 0-5 SEEN Urine Bacteria 0 SEEN Urine Mucus 0 SEEN Urine Yeast 3+ POC Glucose 11/25/21 01:00 WBC Corrected WBC RBC Hgb Hct MCV MCH MCHC RDW Std Deviation RDW Coeff of Nina Plt Count MPV Neut % (Auto) Absolute Neuts (auto) Absolute Lymphs (auto) Total Counted Neutrophils % (Manual) Band Neutrophils % Lymphocytes % (Manual) Monocytes % (Manual) Eosinophils % (Manual) Metamyelocytes % Myelocytes % Promyelocytes % Nucleated RBCs/100 WBC Diff Path Review Platelet Estimate Ovalocytes Acanthocytes (Spur) PT INR APTT Sodium Potassium Chloride Carbon Dioxide Anion Gap BUN Creatinine Estim Creat Clear Calc Est GFR (MDRD) Af Amer Est GFR (MDRD) Non-Af BUN/Creatinine Ratio Glucose Lactic Acid Calcium Total Bilirubin AST ALT Alkaline Phosphatase Troponin I High Sens B-Natriuretic Peptide Total Protein Albumin Globulin Albumin/Globulin Ratio Urine Color Urine Clarity Urine pH Ur Specific [place] Urine Protein Urine Glucose (UA) Urine Ketones Urine Occult Blood Urine Nitrite Urine Bilirubin Urine Urobilinogen Ur Leukocyte Esterase Urine RBC Urine WBC Ur Squamous Epith Cells Urine Bacteria Urine Mucus Urine Yeast POC Glucose 40 L* Radiography Diagnostic Testing: Clinical Impression(s) from Imaging Studies Chest X-Ray 11/24/21 00:16 IMPRESSION: Worsening atelectasis/consolidation left lung base. Poor visualization of the left lower lobe bronchus. A mass cannot be excluded. Recommend CT with contrast for further evaluation. Electronically Signed: Darell Lyles MD at 0:41 EDT , Critical Care Time Critical care time (excluding procedures): 30-74 minutes (40), Discussing w/Patient &/or Family/Medical Collections Representative, Arranging Admission or Transfer and Performing Direct Patient Care at Bedside Discharge Plan Triage Chief Complaint: Shortness of Breath Other Complaint: Cough ED Provider: Jarrod Crowley Dx/Rx/DC Orders Primary Care Provider: Andres Petty
[2021-11-24] MEDS: Dextrose 50%-Water 25 GM/50 ML DISP.SYRIN IV (23:56)
[2021-11-25] VITALS (14 sets, daily range): BP systolic 83–124; BP diastolic 50–92; PULSE 100–133; RESP 12–34; TEMP 36.7–37.3; O2SAT 92–99; BMI 34.2
[2021-11-25] MEDS: Dextrose 50%-Water 25 GM/50 ML DISP.SYRIN IV (00:19)
[2021-11-25 00:22] LABS: International Normalized Ratio 1.2; Prothrombin Time (Protime)PT. 15.3 SECONDS (11.7-14.9)
[2021-11-25 00:23] LABS: Partial Thromboplast Time 35.3 Seconds (24.1-36.2)
[2021-11-25 00:26] LABS: Differential Indicated MANUAL DIFF; Hematocrit 29.6 % (40-54); Hemoglobin 9.3 g/dL (13.0-16.5); Mean Corp Hgb Conc 31.4 g/dL (32-36); Mean Corpuscular Hgb 26.3 pg (27.0-32.0); Mean Corpuscular Volume 83.6 fL (80-94); POSITIVE COUNT YES; POSITIVE DIFFERENTIAL YES; POSITIVE MORPHOLOGY YES; Platelet Count 285 K/mm3 (150-450); RBC Distribution Width CV 17.5 % (11.6-14.6); RBC Distribution Width SD 52.5 fl (35.1-43.9); Red Blood Count 3.54 M/mm3 (4.6-6.2)
[2021-11-25 00:28] LABS: ALB/GLOB Ratio 0.5 RATIO (0.9-2.4); AST(SGOT) 24 U/L (15-37); Alanine Aminotransfer ALT/SGPT 16 U/L (16-61); Albumin, Serum 1.8 g/dL (3.2-5.0); Alkaline Phosphatase 55 U/L (45-117); Anion Gap 7 (5-15); BUN 31 mg/dL (7-18); Calcium,Total 8.6 mg/dL (8.5-10.1); Chloride 106 mmol/L (98-107); Creatinine, Serum 1.82 mg/dL (0.70-1.30); EST Glomerular Filtration Rate 39 mL/min (>60); Est Glom Filt Rate - Afr Amer 48 mL/min (>60); Estimated Creatinine Clearance 37.06 ml/min; Globulin 3.9 g/dL (2.2-4.2); Glucose 59 mg/dL (74-106); Potassium 4.5 mmol/L (3.5-5.1); Protein, Total 5.7 g/dL (6.4-8.2); Sodium Level 137 mmol/L (136-145); Troponin-I HS 9 pg/mL (3.0-78.0)
[2021-11-25 00:31] LABS: Lactic Acid 0.9 mmol/L (0.4-1.9)
[2021-11-25 00:33] LABS: Bacteria 0 SEEN /hpf (None Seen); Mucous, Urine 0 SEEN /hpf (<or=2+)
[2021-11-25 00:34] LABS: BNP,B-Type NATRIURETIC PEPTIDE 58.1 pg/mL (0-100)
[2021-11-25 00:35] LABS: Color, Urine Yellow (Yellow); Glucose, Dipstick Normal (Normal); Ketone-Dipstick Negative (Negative); Leukocyte Esterase-Dipstick 500 /ul (Negative); Nitrite-Dipstick Negative (Negative); Occult Blood-Urine 150 /ul (Negative); Protein-Dipstick 15 mg/dl (Negative); Specific Gravity, Urine 1.015 (1.002-1.030); Urine Bilirubin Dipstick Negative (Negative); Urine Clarity Clear (Clear); Urine Urobilinogen Normal (Normal)
[2021-11-25 00:38] LABS: Eosinophil 6 % (0-5); Lymphocyte 7 % (19-41); Metamyelocyte 1 % (0-1); Monocyte 11 % (0-10); Myelocyte 3 % (0-0); Neutrophil-Band 7 % (0-5); Neutrophil-Segmented 64 % (47-70); Promyelocyte 1 % (0-0); Total Cells Counted 100 (MANUAL DIFF)
[2021-11-25 00:39] LABS: Corrected WBC 7.4 K/mm3 (4.4-11.0); Nucleated Red Bld Cells,Manual 6 % (0-5)
[2021-11-25 00:40] LABS: Acanthocytes RARE; Ovalocyte RARE; Platelet Estimate ADEQUATE (ADEQ)
[2021-11-25 00:41] LABS: Absolute Lymphocyte Count 0.54 X10^3/uL (0.83-4.51); Absolute Neutrophil Count 5.5 X10^3/uL (2.0-7.7); Lymphocyte # 0.54 X10^3/ul (0.83-4.51); Neutrophil # 5.47 X10^3/uL (2.7-7.7)
[2021-11-25 00:52] LABS: Red Blood Cells-Urine 0-5 SEEN /hpf (0-5); Squamous Epithelial Cells - UA 0-5 SEEN /hpf (0-5); White Blood Cells 0-5 SEEN /hpf (0-5); Yeast-Urine 3+ /hpf (None Seen)
[2021-11-25] MEDS: Furosemide 100 MG/10 ML Vial 60 MG IV (01:11)
[2021-11-25] MEDS: Dextrose 10%-Water 250 ML 20 ML IV (01:14)
[2021-11-25] MEDS: Glucagon 1 MG/ML Syringe IV (01:15)
[2021-11-25] MEDS: Octreotide 0.1 MG/ML ML SC (01:15)
--- NOTE | 2021-11-25 01:21 | HP.PCM.HOS_ITS ---
[facility] - General General Date of Admission: 11/25/21 Date of Service: 11/25/21 Chief Complaint: Shortness of breath HPI Narrative JB MCPHERSON, is a 70 M with a significant history of sleep apnea on trilogy; heart failure with preserved ejection fraction who was admitted and discharged from the hospital on 11/17/21 to 11/20/21 for VIET and sent to correction presenting to the emergency department with 2-day history of progressive worseni ng shortness of breath. Associated with his symptoms is progressively worsening swelling of bilateral lower extremity; and swelling of his bilateral hands. Also patient was found to be hypoglycemic in the residential and was given glucagon. Patient was brought to emergency department via squad on his CPAP. His CPAP was transitioned to BiPAP at the emergency department. [facility] Medical History Abnormal EKG Abnormal positron emission tomography (PET) scan VIET (acute kidney injury) Alcohol abuse Anemia Atherosclerosis of coronary artery of [place] heart without angina pectoris B12 deficiency Golden's esophagus Benign neoplasm of colon Benign neoplasm of larynx Blood loss anemia Chronic back pain Chronic diastolic (congestive) heart failure Chronic renal disease, stage 3, moderately decreased glomerular filtration rate (GFR) between 30-59 mL/min/1.73 square meter Chronic respiratory failure COLD (chronic obstructive lung disease) COPD (chronic obstructive pulmonary disease) Debility Diabetes Diverticulosis of colon (without mention of hemorrhage) DVT (deep venous thrombosis) (11/09/16) Essential (primary) hypertension Familial combined hyperlipidemia Former smoker GERD (gastroesophageal reflux disease) GI bleed H/O immunosuppressive therapy Hyperlipidemia Hypertension Internal hemorrhoids without mention of complication Lumbar spinal stenosis Lung nodules Neuropathic pain Non-compliance Obesity Obstructive sleep apnea On home oxygen therapy Other voice and resonance disorders Paroxysmal atrial fibrillation Peripheral neuropathy Peripheral vascular disease, unspecified Rheumatoid arthritis Sleep apnea Steroid long-term use Tracheostomy in place Type 2 diabetes mellitus Type 2 diabetes mellitus with diabetic polyneuropathy Home Medications omeprazole 20 mg capsule,delayed release 20 mg PO BID GERD 02/09/17 [History Last Taken 11/01/21] albuterol sulfate 90 mcg/actuation aerosol inhaler 2 puff PO Q4H PRN PRN w heezing/sob 01/29/19 [History Last Taken 01/28/19] nitroglycerin 0.4 mg sublingual tablet 0.4 mg sublingual PRN PRN chest pain 01/29/19 [History Last Taken Unknown] budesonide 0.5 mg/2 mL suspension for nebulization (Pulmicort) 2 ml inhalation Q12H PRN Sob &/Or Wheezing 02/19/19 [History Last Taken 11/01/21] cyanocobalamin (vitamin B-12) 500 mcg tablet 1,000 mcg PO QODAY Supplement 01/20/20 [History Last Taken 11/01/21] metoprolol tartrate 25 mg tablet 25 mg PO BID BP #180 tabs 07/26/21 [Rx Last Taken 11/01/21] ergocalciferol (vitamin D2) 1,250 mcg (50,000 unit) capsule 1,250 mcg PO TH supplement 11/02/21 [History Last Taken 11/01/21] allopurinol 100 mg tablet 100 mg PO BIDCM #0 tabs 11/07/21 [Rx Last Taken Unknown] furosemide 40 mg tablet 40 mg PO DAILY #0 tabs 11/07/21 [Rx Last Taken Unknown] atorvastatin 40 mg tablet 40 mg PO QHS 11/17/21 [History Last Taken Unknown] fluticasone furoate 100 mcg-vilanterol 25 mcg/dose inhalation powder 1 inh inhalation DAILY 11/17/21 [History Last Taken Unknown] acetaminophen 325 mg tablet (Tylenol) 650 mg PO Q6H PRN PRN Pain Score 1-10/Temp > 100.7 F #0 tabs 11/20/21 [Rx Last Taken Unknown] acidophilus 25 million cell-pectin, citrus 100 mg tablet 1 tab PO TID #0 tabs 11/20/21 [Rx Last Taken Unknown] albuterol sulfate 2.5 mg/3 mL (0.083 %) solution for nebulization 2.5 mg (3 mL) inhalation Q2H PRN PRN Shortness of Breath/Wheezing #0 mL 11/20/21 [Rx Last Taken Unknown] aspirin 81 mg tablet,delayed release (Enteric Coated Aspirin) 81 mg PO DAILY Heart #1 TAB 11/20/21 [Rx Last Taken 11/01/21] food supplemt, lactose-reduced 0.08 gram-1.5 kcal/mL oral liquid (Ensure Enlive) 120 ml PO TID #0 mL 11/20/21 [Rx Last Taken Unknown] glimepiride 1 mg tablet (Amaryl) 1 mg PO DAILY #1 TAB 11/20/21 [Rx Last Taken Unknown] ipratropium 0.5 mg-albuterol 3 mg (2.5 mg base)/3 mL nebulization soln 3 ml inhalation Q6H.RT #0 mL 11/20/21 [Rx Last Taken Unknown] menthol 0.44 %-zinc oxide 20.6 % topical ointment (Calmoseptine) 1 applic topical BID #0 grams 11/20/21 [Rx Last Taken Unknown] nystatin 100,000 unit/gram topical powder (Nyamyc) 1 applic topical BID #0 grams 11/20/21 [Rx Last Taken Unknown] oxycodone 5 mg tablet 15 mg PO Q6H PRN PRN Pain Score 4-5 5 days #25 tabs 11/20/21 [Rx Last Taken Unknown] potassium chloride 10 mEq tablet,extended release(part/cryst) 20 meq PO DAILY #1 TAB 11/20/21 [Rx Last Taken Unknown] pregabalin 25 mg capsule 25 mg PO BID #10 caps 11/20/21 [Rx Last Taken Unknown] tamsulosin 0.4 mg capsule 0.8 mg PO DAILY@1730 #0 caps 11/20/21 [Rx Last Taken Unknown] Allergy/AdvReac Type Severity Reaction Status Date / Time meropenem Allergy Unknown Verified 11/17/21 08:48 tramadol Allergy Unknown Verified 11/17/21 08:48 vancomycin Allergy Unknown Verified 11/17/21 08:48 hydrocodone bitartrate AdvReac nightmares Verified 11/17/21 08:48 [From Vicodin] Family History Father Heart disease Brother Heart disease Cancer prostate Surgical History history IVC filter insertion (2016) History of colonoscopy (08/08/16) History of coronary artery stent placement (08/29/10) History of esophagogastroduodenoscopy (EGD) (08/08/16) History of esophagogastroduodenoscopy (EGD) (03/2019) History of incisional hernia repair History of left heart catheterization History of lumbar laminectomy (01/2020) Social History household members: significant other Smoking Status: Former smoker Tobacco: How many years used: 40 how long ago did patient quit smokin + years ago alcohol intake: never substance use type: does not use caffeine: Yes Type: coffee Number of servings: 8 ROS ROS Narrative Pertinent positives and pertinent negatives as noted in HPI. All other systems were reviewed and are negative. Vital Signs Vital Signs Vital Signs: 11/24/21 23:27 11/24/21 23:30 Temperature 98.7 F Temperature Source Axillary Pulse Rate 103 H 104 H Respiratory Rate 26 H 26 H Respiratory Pattern Tachypnea Blood Pressure 113/72 Blood Pressure Mean 85 Pulse Ox 92 93 Oxygen Delivery Method Bi-pap Fraction of Inspired Oxygen (FIO2) 100 100 Weight Weight: 112.9 kg Body Mass Index (BMI) 37.8 Physical Exam Narrative Physical exam: General: In acute distress and on BiPAP. Head: Normocephalic, atraumatic, no tenderness Eyes: Vision is grossly intact. EOMI ENT, no trauma, moist mucous membranes, no rhinorrhea Neck: Nontender, no spinal tenderness. CVS: Tachycardia. S1-S2 present. Respiratory : Tachypnea; Rales. Abdomen: Ecchymosis with pockets of blood. Soft, nontender, nondistended, normal bowel sounds, no masses : Deferred Back: Nontender, no CVA tenderness, Extremities: Bilateral lower extremity edema 4+; edema of bilateral hands 1-2+. Skin: Ulcer of dorsal right foot; and also on left distal leg Neuro: Alert, oriented, cranial nerves II through XII grossly intact. Psychiatry: Anxious. Results Lab / Micro Data Result Diagrams: 11/24/21 23:45 11/24/21 23:45 Labs: Laboratory Results - last 24 hr 11/24/21 23:45: WBC DIRECTOR CLINICAL RESEARCH, Corrected WBC 7.4, RBC 3.54 L, Hgb 9.3 L, Hct 29.6 L, MCV 83.6, MCH 26.3 L, MCHC 31.4 L, RDW Std Deviation 52.5 H, RDW Coeff of Nina 17.5 H, Plt Count 285, MPV 9.0, Neut % (Auto) Not Reportable, Absolute Neuts (auto) 5.5, Absolute Lymphs (auto) 0.54 L, Total Counted 100, Neutrophils % (Manual) 64, Band Neutrophils % 7 H, Lymphocytes % (Manual) 7 L, Monocytes % (Manual) 11 H, Eosinophils % (Manual) 6 H, Metamyelocytes % 1, Myelocytes % 3 H, Promyelocytes % 1 H, Nucleated RBCs/100 WBC 6 H, Diff Path Review May foll, Platelet Estimate ADEQUATE, Ovalocytes RARE, Acanthocytes (Spur) RARE 11/24/21 23:45: PT 15.3 H, INR 1.2, APTT 35.3 11/24/21 23:45: Sodium 137, Potassium 4.5, Chloride 106, Carbon Dioxide 24.0, Anion Gap 7, BUN 31 H, Creatinine 1.82 H, Estim Creat Clear Calc 37.06, Est GFR (MDRD) Af Amer 48 L, Est GFR (MDRD) Non-Af 39 L, BUN/Creatinine Ratio 17.0, Glucose 59 L, Calcium 8.6, Total Bilirubin 0.40, AST 24, ALT 16, Alkaline Phosphatase 55, Troponin I High Sens 9, Total Protein 5.7 L, Albumin 1.8 L, Dannielle bulin 3.9, Albumin/Globulin Ratio 0.5 L 11/24/21 23:45: Lactic Acid 0.9 11/24/21 23:45: B-Natriuretic Peptide 58.1 11/25/21 00:26: Urine Color Yellow, Urine Clarity Clear, Urine pH 5.0, Ur Specific [place] 1.015, Urine Protein 15 H, Urine Glucose (UA) Normal, Urine Ketones Negative, Urine Occult Blood 150 H, Urine Nitrite Negative, Urine Bilirubin Negative, Urine Urobilinogen Normal, Ur Leukocyte Esterase 500 H, Urine RBC 0-5 SEEN, Urine WBC 0-5 SEEN, Ur Squamous Epith Cells 0-5 SEEN, Urine Bacteria 0 SEEN, Urine Mucus 0 SEEN, Urine Yeast 3+ Micro: Microbiology 11/25/21 00:24 Nasal Secretion SARS-CoV-2 Antigen (Rapid) - Final Radiology Impression Chest X-Ray 11/24/21 00:16 IMPRESSION: Worsening atelectasis/consolidation left lung base. Poor visualization of the left lower lobe bronchus. A mass cannot be excluded. Recommend CT with contrast for further evaluation. Electronically Signed: Darell Lyles MD at 0:41 EDT , Assessment & Plan Assessment/Plan (1) Chronic kidney disease, stage 3a: (2) Heart failure: PLAN: Plan Acute on chronic heart failure preserved ejection fraction Place on monitored bed on PCU Weight on admission to the floor; and then daily Strict I&O's Radiologist impression of chest x-ray:Worsening atelectasis/consolidation left lung base.? Poor visualization of the left lower lobe bronchus. CXR was visualized and independent interpreted and I agree with radiologist interpretation above. Per radiology recommendation consider CT scan with contrast when creatinine is stable. Echocardiogram on 06/22/2020 showed ejection fraction of 60% and stage II diastolic dysfunction. BNP 58.1 on presentation Lasix ordered. Transthoracic echocardiogram to evaluate left ventricular wall motion and systolic function. Monitor electrolytes and renal function Néstor wrap to bilateral lower extremities npo with meds as patient is on bipap VIET on CKD stage 3a With admission on 11/17/21 to 11/20/21 received IVF and nephrology saw patient Lasix as above. Trend BMP. Avoid nephrotoxics Hypoglycemia Dextrose infusion ordered Serial accu-checks and hypoglycemic regimen ordered. Hold amaryl Neuropathic ulcer on dorsal right foot and ulcer on distal leg Wound care consult. DVT Prophylaxis: History of IVC filter. Lovenox prophylactic dose ordered Charges/Coding Visit Charges Inpatient E&M: 60149 Init Hosp L3
--- NOTE | 2021-11-25 01:23 | ED.RN ---
1250 BS: [id number] BS: BS [id number] BS: 54
[2021-11-25 01:26] LABS: Bedside Glucose 40 mg/dL (74-106)
[2021-11-25 01:40] LABS: Bedside Glucose 54 mg/dL (74-106)
[2021-11-25 02:16] LABS: Bedside Glucose 99 mg/dL (74-106)
[2021-11-25] MEDS: morphine (oral solution) 10MG/0.5ML Syringe 5 MG SL ×5 (03:46→10:07)
[2021-11-25 03:56] LABS: Bedside Glucose 120 mg/dL (74-106)
[2021-11-25 05:46] LABS: Bedside Glucose 153 mg/dL (74-106)
[2021-11-25] MEDS: LORazepam 2 MG/ML Bottle 1 MG SL ×2 (05:58→10:07)
--- NOTE | 2021-11-25 06:02 | NURSING ---
was told by NEUROSURGICAL NURSE PRACTITIONERPATRIC Thomas that they were not able to obtain IV access and ER MD would not put in central line. Pt and family are agreeable to hospice and are refusing line placement
--- NOTE | 2021-11-25 06:30 | NURSING ---
family refusing BG check and morning labs
--- NOTE | 2021-11-25 08:10 | PCM.PN.HOSP ---
Subjective Subjective Pt sleeping on BiPAP. His was in room and he previously said he was done with medical therapy. Objective Data Objective Data Vital Signs: Vital Signs Temp Pulse Resp BP Pulse Ox O2 Del Method FiO2 37.3 C H 117 H 31 H 83/61 L 97 Bi-pap 55 11/25/21 08:00 11/25/21 08:00 11/25/21 08:00 11/25/21 08:00 11/25/21 08:00 11/25/21 08:00 11/25/21 08:00 Oxygen Delivery Method Bi-pap Weight: 102 kg Body Mass Index (BMI) 34.2 Intake & Output: Intake and Output for Last 24 Hours 11/23/21 11/24/21 11/25/21 23:59 23:59 23:59 Intake Total 35.33 / 35.33 Output Total 200 / 200 Balance -164.67 / -164.67 Lab / Micro Data Result Diagrams: 11/24/21 23:45 11/24/21 23:45 Labs: Laboratory Results - last 24 hr 11/24/21 23:45: WBC LINUX SYSTEM ADMINISTRATOR, Corrected WBC 7.4, RBC 3.54 L, Hgb 9.3 L, Hct 29.6 L, MCV 83.6, MCH 26.3 L, MCHC 31.4 L, RDW Std Deviation 52.5 H, RDW Coeff of Nina 17.5 H, Plt Count 285, MPV 9.0, Neut % (Auto) Not Reportable, Absolute Neuts (auto) 5.5, Absolute Lymphs (auto) 0.54 L, Total Counted 100, Neutrophils % (Manual) 64, Band Neutrophils % 7 H, Lymphocytes % (Manual) 7 L, Monocytes % (Manual) 11 H, Eosinophils % (Manual) 6 H, Metamyelocytes % 1, Myelocytes % 3 H, Promyelocytes % 1 H, Nucleated RBCs/100 WBC 6 H, Diff Path Review May foll, Platelet Estimate ADEQUATE, Ovalocytes RARE, Acanthocytes (Spur) RARE 11/24/21 23:45: PT 15.3 H, INR 1.2, APTT 35.3 11/24/21 23:45: Sodium 137, Potassium 4.5, Chloride 106, Carbon Dioxide 24.0, Anion Gap 7, BUN 31 H, Creatinine 1.82 H, Estim Creat Clear Calc 37.06, Est GFR (MDRD) Af Amer 48 L, Est GFR (MDRD) Non-Af 39 L, BUN/Creatinine Ratio 17.0, Glucose 59 L, Calcium 8.6, Total Bilirubin 0.40, AST 24, ALT 16, Alkaline Phosphatase 55, Troponin I High Sens 9, Total Protein 5.7 L, Albumin 1.8 L, Globulin 3.9, Albumin/Globulin Ratio 0.5 L 11/24/21 23:45: Lactic Acid 0.9 11/24/21 23:45: B-Natriuretic Peptide 58.1 11/25/21 00:26: Urine Color Yellow, Urine Clarity Clear, Urine pH 5.0, Ur Specific [place] 1.015, Urine Protein 15 H, Urine Glucose (UA) Normal, Urine Ketones Negative, Urine Occult Blood 150 H, Urine Nitrite Negative, Urine Bilirubin Negative, Urine Urobilinogen Normal, Ur Leukocyte Esterase 500 H, Urine RBC 0-5 SEEN, Urine WBC 0-5 SEEN, Ur Squamous Epith Cells 0-5 SEEN, Urine Bacteria 0 SEEN, Urine Mucus 0 SEEN, Urine Yeast 3+ 11/25/21 01:00: POC Glucose 40 L* 11/25/21 01:22: POC Glucose 54 L 11/25/21 01:54: POC Glucose 99 11/25/21 03:34: POC Glucose 120 H 11/25/21 05:23: POC Glucose 153 H Micro: Microbiology 11/25/21 00:24 Nasal Secretion SARS-CoV-2 Antigen (Rapid) - Final Radiography Diagnostic Testing: Radiology Impression Chest X-Ray 11/24/21 00:16 IMPRESSION: Worsening atelectasis/consolidation left lung base. Poor visualization of the left lower lobe bronchus. A mass cannot be excluded. Recommend CT with contrast for further evaluation. Electronically Signed: Darell Lyles MD at 0:41 EDT , Physical Exam Const Constitutional Narrative: opens eyes to voice, then dozes off. on BiPAP. Resp Resp Narrative: coarse BS bilaterally. Cardio regular rate and regular rhythm GI normal to inspection, nondistended, normoactive bowel sounds Assessment & Plan Assessment/Plan (1) Acute on chronic respiratory failure with hypoxemia: PLAN: Multifactorial: Due to COPD, NICKOLAS Chest x-ray was not overtly wet and his BNP was only 58. Nonetheless patient was a started on furosemide. Currently on BiPAP and FiO2 is at 55%. No intubation Prognosis guarded Plan is for inpatient hospice unit. De-escalation of therapy. (2) Hypoglycemia: PLAN: Likely 2/2 amaryl in patient with CKD Received D50 and D10 No additional therapy. With patient going hospice would not treat his diabetes. (3) Heart failure: PLAN: Heart failure with preserved ejection fraction EF 60% from 2D echocardiogram from June 22, 2020 (4) Chronic kidney disease, stage 3a: PLAN: Improved from last admission No need for renal replacement therapy at this time. PLAN: Plan Neuropathic ulcer on dorsal right foot and ulcer on distal leg Wound care consult. Disposition to the inpatient hospice unit
--- NOTE | 2021-11-25 10:30 | DCINST_ITS ---
Discharge Instructions Diet Discharge Diet: No restrictions Follow Up Care Test Results: Test results from this visit will be discussed in further detail at your follow- up appointment, if applicable. Discharge Plan Admission Admit Date/Time: 11/25/21 01:11 Primary Reason for Your Visit: respiratory failure Attending Provider: Soy John Primary Care Provider: Andres Petty Consulting Providers: Gilles Walls ; Winifred Geller ; Gregor Patrick ; Alpa Cardona ; Valerie Andrews ; Kinjal Szymanski ROTARY LITHOGRAPHIC PRESS OPERATOR Discharge Orders/Prescriptions Prescriptions: Continued albuterol sulfate 8.5 GM HFA aerosol inhaler 2 puff PO Q4H PRN PRN (Reason: wheezing/sob ) Label Comments: INHALE 2 PUFFS INSTRUCTED EVERY 4 HOURS NEEDED FOR WHEEZING/SHORTNESS OF BREATH. acetaminophen [Tylenol] 325 mg Tablet 650 mg PO Q6H PRN PRN (Reason: Pain Score 1-10/Temp > 100.7 F) Qty: 0 0RF albuterol sulfate 2.5 mg /3 mL (0.083 %) Solution For Nebulization 2.5 mg inhalation Q2H PRN PRN (Reason: Shortness of Breath/Wheezing) Qty: 0 0RF oxycodone 5 mg Tablet 15 mg PO Q6H PRN PRN (Reason: Pain Score 4-5) 5 Days Qty: 25 0RF Discontinued omeprazole 20 MG capsule 20 mg PO BID nitroglycerin 0.4 MG tablet, sublingual 0.4 mg sublingual PRN PRN (Reason: chest pain ) cyanocobalamin (vitamin B-12) 500 MCG tablet 1,000 mcg PO QODAY ergocalciferol (vitamin D2) 1,250 mcg (50,000 unit) capsule 1,250 mcg PO TH atorvastatin 40 mg Tablet 40 mg PO QHS fluticasone furoate-vilanterol 100-25 mcg/dose Blister With Device 1 inh INHALATION DAILY aspirin [Enteric Coated Aspirin] 81 mg tablet,delayed release (DR/EC) 81 mg PO DAILY Qty: 1 0RF furosemide 40 mg tablet 40 mg PO DAILY ipratropium-albuterol 0.5 mg-3 mg(2.5 mg base)/3 mL solution for nebulization 3 ml inhalation Q6H.RT allopurinol 100 mg tablet 100 mg PO BIDCM glimepiride [Amaryl] 1 mg tablet 1 mg PO DAILY tamsulosin 0.4 mg capsule 0.8 mg PO DAILY@1730 nystatin [Nyamyc] 100,000 unit/gram powder 1 applic topical BID Protocol: *Topical Application Instructions APPLICATION INSTRUCTIONS: . potassium chloride 10 mEq tablet,ER particles/crystals 20 meq PO DAILY acidophilus-pectin, citrus 25 million cell -100 mg tablet 1 tab PO TID pregabalin 25 mg capsule 25 mg PO BID menthol-zinc oxide [Calmoseptine] 0.44-20.6 % ointment 1 applic topical BID Protocol: *Topical Application Instructions APPLICATION INSTRUCTIONS: buttock/coccyx Ensure Enlive 0.08 gram-1.5 kcal/mL liquid 120 ml PO TID metoprolol tartrate 25 mg tablet 25 mg PO BID Qty: 180 3RF Referrals / Follow Up: Andres Petty MD [Primary Care Provider] - Disposition Disposition (needs filled in before D/C Order can be placed): Hospice in Medical Facility
--- NOTE | 2021-11-25 10:55 | NURSING ---
Called report to Mary SPIVEY at [facility].
--- NOTE | 2021-11-25 11:09 | DS.PCM_ITS ---
Providers Date of Admission: 11/25/21 Primary Care Physician: Dr. Andres Petty MD Consultations 11/25/21 04:24 Consult: Hospice / Palliative Care Routine Consulting Provider: [facility] Reason for Consult: Goals of care EMERGENT Consult: No MD Notified: Yes Date Notified: 11/25/21 Time Notified: 03:27 Method of Notification: telephone Comments:: Staff called in- to be here 0930 for consultation Consult: Onc/Wound/patient service representative Routine Comment: Reason for Consult:: wound care Reason For Visit: ACUTE ON CHRONIC HEART FAILURE WITH PRESERVED EF Diagnosis Discharge Diagnosis (1) Acute on chronic respiratory failure with hypoxemia: Status: Chronic Code(s): J96.21 - Acute and chronic respiratory failure with hypoxia Plan: Multifactorial: Due to COPD, NICKOLAS Chest x-ray was not overtly wet and his BNP was only 58. Nonetheless patient was a started on furosemide. Currently on BiPAP and FiO2 is at 55%. No intubation Prognosis guarded Plan is for inpatient hospice unit. De-escalation of therapy. (2) Hypoglycemia: Status: Acute Code(s): E16.2 - Hypoglycemia, unspecified Plan: Likely 2/2 amaryl in patient with CKD Received D50 and D10 No additional therapy. With patient going hospice would not treat his diabetes. (3) Heart failure: Status: Acute Code(s): I50.9 - Heart failure, unspecified Plan: Heart failure with preserved ejection fraction EF 60% from 2D echocardiogram from June 22, 2020 (4) Chronic kidney disease, stage 3a: Status: Chronic Code(s): N18.31 - Chronic kidney disease, stage 3a Plan: Improved from last admission No need for renal replacement therapy at this time. 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 Disposition to the inpatient hospice unit Medications at Discharge Home Medications albuterol sulfate 90 mcg/actuation aerosol inhaler 2 puff PO Q4H PRN PRN wheezing/sob 01/29/19 acetaminophen 325 mg tablet (Tylenol) 650 mg PO Q6H PRN PRN Pain Score 1-10/Temp > 100.7 F #0 tabs 11/20/21 albuterol sulfate 2.5 mg/3 mL (0.083 %) solution for nebulization 2.5 mg (3 mL) inhalation Q2H PRN PRN Shortness of Breath/Wheezing #0 mL 11/20/21 oxycodone 5 mg tablet 15 mg PO Q6H PRN PRN Pain Score 4-5 5 days #25 tabs 11/20/21 Hospital Course Operations None Procedures None Summary of Care Provided Minutes Spent on Discharge: 24 Weight / BMI Weight Weight: 102 kg Body Mass Index (BMI) 34.2 ABG / Lab / Microbiology Data Result Diagrams: 11/24/21 23:45 11/24/21 23:45 Laboratory: Laboratory Results - last 24 hr 11/24/21 23:45: WBC MARKET RESEARCH ANALYST, Corrected WBC 7.4, RBC 3.54 L, Hgb 9.3 L, Hct 29.6 L, MCV 83.6, MCH 26.3 L, MCHC 31.4 L, RDW Std Deviation 52.5 H, RDW Coeff of Nina 17.5 H, Plt Count 285, MPV 9.0, Neut % (Auto) Not Reportable, Absolute Neuts (auto) 5.5, Absolute Lymphs (auto) 0.54 L, Total Counted 100, Neutrophils % (Manual) 64, Band Neutrophils % 7 H, Lymphocytes % (Manual) 7 L, Monocytes % (Manual) 11 H, Eosinophils % (Manual) 6 H, Metamyelocytes % 1, Myelocytes % 3 H, Promyelocytes % 1 H, Nucleated RBCs/100 WBC 6 H, Diff Path Review May foll, Platelet Estimate ADEQUATE, Ovalocytes RARE, Acanthocytes (Spur) RARE 11/24/21 23:45: PT 15.3 H, INR 1.2, APTT 35.3 11/24/21 23:45: Sodium 137, Potassium 4.5, Chloride 106, Carbon Dioxide 24.0, Anion Gap 7, BUN 31 H, Creatinine 1.82 H, Estim Creat Clear Calc 37.06, Est GFR (MDRD) Af Amer 48 L, Est GFR (MDRD) Non-Af 39 L, BUN/Creatinine Ratio 17.0, Glucose 59 L, Calcium 8.6, Total Bilirubin 0.40, AST 24, ALT 16, Alkaline Phosphatase 55, Troponin I High Sens 9, Total Protein 5.7 L, Albumin 1.8 L, Globulin 3.9, Albumin/Globulin Ratio 0.5 L 11/24/21 23:45: Lactic Acid 0.9 11/24/21 23:45: B-Natriuretic Peptide 58.1 11/25/21 00:26: Urine Color Yellow, Urine Clarity Clear, Urine pH 5.0, Ur Specific [place] 1.015, Urine Protein 15 H, Urine Glucose (UA) Normal, Urine Ketones Negative, Urine Occult Blood 150 H, Urine Nitrite Negative, Urine Bilirubin Negative, Urine Urobilinogen Normal, Ur Leukocyte Esterase 500 H, Urine RBC 0-5 SEEN, Urine WBC 0-5 SEEN, Ur Squamous Epith Cells 0-5 SEEN, Urine Bacteria 0 SEEN, Urine Mucus 0 SEEN, Urine Yeast 3+ 11/25/21 01:00: POC Glucose 40 L* 11/25/21 01:22: POC Glucose 54 L 11/25/21 01:54: POC Glucose 99 11/25/21 03:34: POC Glucose 120 H 11/25/21 05:23: POC Glucose 153 H Microbiology: Microbiology 11/25/21 00:24 Nasal Secretion SARS-CoV-2 Antigen (Rapid) - Final Radiography Diagnostic Testing: Radiology Impression Chest X-Ray 11/24/21 00:16 IMPRESSION: Worsening atelectasis/consolidation left lung base. Poor visualization of the left lower lobe bronchus. A mass cannot be excluded. Recommend CT with contrast for further evaluation. Electronically Signed: Darell Lyles MD at 0:41 EDT , D/C Instructions Discharge Diet: No restrictions Meaningful Use Info Meaningful Use Diagnoses (Choose all that apply): None applicable Discharge Plan Admission Admit Date/Time: 11/25/21 01:11 Primary Reason for Your Visit: respiratory failure Attending Provider: Soy John Primary Care Provider: Andres Petty Consulting Providers: Gilles Walls ; Winifred Geller ; Gregor Patrick ; Alpa Cardona ; Valerie Andrews ; Kinjal Szymanski MARKET RESEARCH ANALYST Discharge Orders/Prescriptions Prescriptions: Continued albuterol sulfate 8.5 GM HFA aerosol inhaler 2 puff PO Q4H PRN PRN (Reason: wheezing/sob ) Label Comments: INHALE 2 PUFFS INSTRUCTED EVERY 4 HOURS NEEDED FOR WHEEZING/SHORTNESS OF BREATH. acetaminophen [Tylenol] 325 mg Tablet 650 mg PO Q6H PRN PRN (Reason: Pain Score 1-10/Temp > 100.7 F) Qty: 0 0RF albuterol sulfate 2.5 mg /3 mL (0.083 %) Solution For Nebulization 2.5 mg inhalation Q2H PRN PRN (Reason: Shortness of Breath/Wheezing) Qty: 0 0RF oxycodone 5 mg Tablet 15 mg PO Q6H PRN PRN (Reason: Pain Score 4-5) 5 Days Qty: 25 0RF Discontinued omeprazole 20 MG capsule 20 mg PO BID nitroglycerin 0.4 MG tablet, sublingual 0.4 mg sublingual PRN PRN (Reason: chest pain ) cyanocobalamin (vitamin B-12) 500 MCG tablet 1,000 mcg PO QODAY ergocalciferol (vitamin D2) 1,250 mcg (50,000 unit) capsule 1,250 mcg PO TH atorvastatin 40 mg Tablet 40 mg PO QHS fluticasone furoate-vilanterol 100-25 mcg/dose Blister With Device 1 inh INHALATION DAILY aspirin [Enteric Coated Aspirin] 81 mg tablet,delayed release (DR/EC) 81 mg PO DAILY Qty: 1 0RF furosemide 40 mg tablet 40 mg PO DAILY ipratropium-albuterol 0.5 mg-3 mg(2.5 mg base)/3 mL solution for nebulization 3 ml inhalation Q6H.RT allopurinol 100 mg tablet 100 mg PO BIDCM glimepiride [Amaryl] 1 mg tablet 1 mg PO DAILY tamsulosin 0.4 mg capsule 0.8 mg PO DAILY@1730 nystatin [Nyamyc] 100,000 unit/gram powder 1 applic topical BID Protocol: *Topical Application Instructions APPLICATION INSTRUCTIONS: . potassium chloride 10 mEq tablet,ER particles/crystals 20 meq PO DAILY acidophilus-pectin, citrus 25 million cell -100 mg tablet 1 tab PO TID pregabalin 25 mg capsule 25 mg PO BID menthol-zinc oxide [Calmoseptine] 0.44-20.6 % ointment 1 applic topical BID Protocol: *Topical Application Instructions APPLICATION INSTRUCTIONS: buttock/coccyx Ensure Enlive 0.08 gram-1.5 kcal/mL liquid 120 ml PO TID metoprolol tartrate 25 mg tablet 25 mg PO BID Qty: 180 3RF Referrals / Follow Up: Andres Petty MD [Primary Care Provider] - Disposition Disposition (needs filled in before D/C Order can be placed): Hospice in Medical Facility Charges/Coding Visit Charges Inpatient E&M: 38398 Disch Hosp
--- NOTE | 2021-11-25 11:21 | CASEMGMT ---
Addendum entered by Mariela Coronel 11/25/21 16:54: KATHYA sent email to Dianne at [facility] advising her that patient went IPU at [facility]. KATHYA called Dianne and left voice mail that patient went to [facility] at [facility]. Plan: Hospice Mariela DODD Original Note: KATHYA Note KATHYA was advised that patient is from [facility] and may be possible Hospice per RN CM. KATHYA spoke to Terrie, regulatory compliance specialist in PCU. She advised patient is going to [facility]PU at [facility]. No further social work needs at this time. Mariela DODD
[2021-11-27 10:30] LABS: Bedside Glucose 42 mg/dL (74-106)
[2021-11-27 10:30] LABS: Bedside Glucose 52 mg/dL (74-106)
[2021-11-27 10:30] LABS: Bedside Glucose 49 mg/dL (74-106)
[2021-11-27 15:39] LABS: Pathologist Review Reviewed
[2021-12-03 07:19] LABS: Bedside Glucose 69 mg/dL (74-106)
== END 2021-11-25 11:35 | disposition hospice, inpatient (51) | DRG 189 ==
LOC: ED 23:51 → PCU 11-25 02:20
PROVIDERS: Admitting Provider Hospitalist; Emergency Provider Student in an Organized Health Care Education/Training Program; PCP Family Medicine
DX: J96.21 Acute and chronic respiratory failure with hypoxia (principal); I50.33 Acute on chronic diastolic (congestive) heart failure; N17.9 Acute kidney failure, unspecified; I13.0 Hypertensive heart and chronic kidney disease with heart failure and stage 1 through stage 4 chronic kidney disease, or unspecified chronic kidney disease; L97.519 Non-pressure chronic ulcer of other part of right foot with unspecified severity; E11.649 Type 2 diabetes mellitus with hypoglycemia without coma; E11.22 Type 2 diabetes mellitus with diabetic chronic kidney disease; E11.42 Type 2 diabetes mellitus with diabetic polyneuropathy; E11.621 Type 2 diabetes mellitus with foot ulcer; J44.9 Chronic obstructive pulmonary disease, unspecified; N18.31 Chronic kidney disease, stage 3a; E78.49 Other hyperlipidemia; I25.10 Atherosclerotic heart disease of native coronary artery without angina pectoris; G47.33 Obstructive sleep apnea (adult) (pediatric); Z87.891 Personal history of nicotine dependence; Z79.51 Long term (current) use of inhaled steroids; G89.29 Other chronic pain; Z79.82 Long term (current) use of aspirin; Z79.84 Long term (current) use of oral hypoglycemic drugs
CPT/HCPCS: 71045; 80053; 81001; 82962; 83605; 83880; 84484; 85025; 85610; 85730; 87040; 87086; 87088; 87811; 93005; 94002; 94003; 99285; Q9957; A4216; J1610; J1940; J2354